=== PATIENT | male | born 1960 | race Caucasian/White ===

== ENCOUNTER → 2020-02-09 | Outpatient (CLI) | payer OTHER, SELFPAY ==
[2020-02-09 17:56] LABS: International Normalized Ratio 1.9; Prothrombin Time (Protime)PT. 21.2 SECONDS (11.7-14.9)
[2020-02-09 17:57] LABS: ALB/GLOB Ratio 0.6 RATIO (0.9-2.4); AST(SGOT) 35 U/L (15-37); Alanine Aminotransfer ALT/SGPT 45 U/L (16-61); Alkaline Phosphatase 278 U/L (45-117); Anion Gap 6 (5-15); BUN 21 mg/dL (7-18); BUN/Creat Ratio 26.9 RATIO (10-20); Calcium,Total 8.9 mg/dL (8.5-10.1); Chloride 109 mmol/L (98-107); Creatinine, Serum 0.78 mg/dL (0.70-1.30); EST Glomerular Filtration Rate 108 mL/min (>60); Est Glom Filt Rate - Afr Amer 131 mL/min (>60); Globulin 4.9 g/dL (2.2-4.2); Glucose 126 mg/dL (74-106); Partial Thromboplast Time 36.5 Seconds (24.1-36.2); Potassium 4.1 mmol/L (3.5-5.1); Protein, Total 7.9 g/dL (6.4-8.2); Sodium Level 146 mmol/L (136-145)
[2020-02-10 13:45] LABS: GGTP 417 U/L (15-85)
[2020-02-11 16:39] LABS: AFP, Tumor Marker 1.8 ng/mL (0.0-8.3)
[2020-02-12 02:11] LABS: ANTINUCLEAR ANTIBODIES DIRECT Negative (Negative); Anti-Mitochondrial AB <20.0 Units (0.0-20.0)
== END | disposition home or self-care (01) ==
LOC: MTLAB 16:12
PROVIDERS: PCP Nurse Practitioner Family; Referring Provider Internal Medicine Gastroenterology; Visit Provider Internal Medicine Gastroenterology
DX: K76.0 Fatty (change of) liver, not elsewhere classified (principal); K75.9 Inflammatory liver disease, unspecified
CPT/HCPCS: 36415; 80053; 82105; 82977; 83516; 85610; 85730; 86038

== ENCOUNTER 2020-02-24 11:15 | Outpatient (RCR) | payer OTHER, SELFPAY ==
[2020-02-10 10:10] VITALS: BP 164/86; PULSE 129; RESP 18; TEMP 36.6
[2020-02-10 13:00] LABS: Absolute Lymphocyte Count 1.08 X10^3/uL (0.83-4.51); Absolute Neutrophil Count 3.6 X10^3/uL (2.0-7.7); Basophil# 0.03 X10^3/uL; Basophil% 0.6 % (0-1); Eosinophil# 0.18 X10^3/uL; Eosinophils% 3.3 % (0-5); Hematocrit 29.9 % (40-54); Hemoglobin 8.3 g/dL (13.0-16.5); Lymphocyte # 1.08 X10^3/ul (4.0); Mean Corp Hgb Conc 27.8 g/dL (32-36); Mean Corpuscular Hgb 22.4 pg (27.0-32.0); Mean Corpuscular Volume 80.8 fL (80-94); Mean Platelet Vol. 9.4 fl (6.2-12.0); Monocyte# 0.46 X10^3/uL; Monocyte% 8.5 % (0-10); NRBC Flagged by Analyzer 0 % (0-5); Neutrophil # 3.62 X10^3/uL (2.7-7.7); Neutrophil % 67.2 % (47-70); Platelet Count 218 K/mm3 (150-450); RBC Distribution Width CV 16.6 % (11.6-14.6); RBC Distribution Width SD 48.4 fl (35.1-43.9); White Blood Count 5.4 K/mm3 (4.4-11.0)
--- NOTE | 2020-02-10 13:04 | HP.PCM_ITS ---
(1) Ulcer of right lower extremity with fat layer exposed Status: Chronic Current Visit: Yes Code(s): L97.912 - Non-pressure chronic ulcer of unspecified part of right lower leg with fat layer exposed (2) Ulcer of left lower extremity with fat layer exposed Status: Chronic Current Visit: Yes Code(s): L97.922 - Non-pressure chronic ulcer of unspecified part of left lower leg with fat layer exposed (3) Other specified peripheral vascular diseases Status: Suspected Current Visit: Yes Code(s): I73.89 - Other specified peripheral vascular diseases (4) Venous insufficiency (chronic) (peripheral) Status: Suspected Current Visit: Yes Code(s): I87.2 - Venous insufficiency (chronic) (peripheral) (5) Bilateral leg edema Status: Chronic Current Visit: Yes Code(s): R60.0 - Localized edema History of Present Illness Date of Service: 02/10/20 Past Medical History Past Medical History: Chronic Problems Ulcer of right lower extremity with fat layer exposed (Chronic) Ulcer of left lower extremity with fat layer exposed (Chronic) Bilateral leg edema (Chronic) Allergies/Adverse Reactions: Allergies dexamethasone Adverse Reaction (Verified 02/10/20 10:45) PT UNSURE OF REACTION hydrochlorothiazide Adverse Reaction (Verified 02/10/20 10:45) MUSCLE CRAMPS Home Medications: Ambulatory Orders Medication Instructions Recorded Amlodipine [Norvasc] 10 mg PO DAILY 02/10/20 Aspirin [Aspirin EC] 81 mg PO DAILY 02/10/20 Furosemide 40 mg PO DAILY 02/10/20 Lactobacillus Acidophilus 1 ea PO DAILY 02/10/20 [Acidophilus] Lisinopril 40 mg PO DAILY 02/10/20 Metoprolol Tartrate 50 mg PO BID 02/10/20 Potassium Chloride 20 meq PO DAILY 02/10/20 Rivaroxaban [Xarelto] 20 mg PO DAILY 02/10/20 Smoking Status: Never smoker - Physical Exam Vital Signs Temp Pulse Resp BP 98 F 129 H 18 164/86 H 02/10/20 10:10 02/10/20 10:10 02/10/20 10:10 02/10/20 10:10 Wound Measurements and Assessment WC - Nurse 1 - General Ulcer Measurement Start: 02/10/20 10:09 Freq: Status: Active Protocol: Activity Type Activity Date Activity User E-Sign Co-Sign Detail Recorded Client Recorded Date Recorded By Document 02/10/20 10:10 [facility] [id number] 02/10/20 10:39 [facility] 02/10/20 10:10 Wound Center Nurse 1 [Ulcer Assessment] #6- L LAT LE INFERIOR -Combined with other wound No -Current Size (cm) - Length 4.5 -Current Size (cm) - Width 1.7 -Current Size (cm) - Depth 0.2 -Total Square Cm 7.65 -Date of Last Picture (Recall this 02/10/20 field) -Photo Taken Yes -Epithelialization None Present -Tunneling No -Undermining/Tunneling No -Circular Undermining No -Exudate Amt Small -Exudate Type Serous -Wound Margin Distinct, Outline Attached -Granulation Amt Small (1-33%) -Granulation Quality Red -Slough/Fibrin Yes -Necrosis Amt Large (67-100%) -Necrotic Tissue Type Adherent Slough -Texture (Isela-wound Skin Appearance) Assessed, Scarring -Moisture (Isela-wound Skin Appearance Assessed,Dry/ ) Scaly -Color (Isela-wound Skin Appearance) Assessed, Erythema -Temperature (Isela-wound Skin No Abnormality Appearance) (Pt Warm) -Tenderness on Palpation (Isela-wound No Skin Appearance) -Ulcer Cleansing SOAPY WATER -Foul Odor after Cleansing No -Anesthetic Used 4% Lidocaine Solution #5- L LAT LE SUPERIOR -Combined with other wound No -Current Size (cm) - Length 2.6 -Current Size (cm) - Width 1.2 -Current Size (cm) - Depth 0.2 -Total Square Cm 3.12 -Date of Last Picture (Recall this 02/10/20 field) -Photo Taken Yes -Epithelialization None Present -Tunneling No -Undermining/Tunneling No -Circular Undermining No -Exudate Amt Small -Exudate Type Serous -Wound Margin Distinct, Outline Attached -Granulation Amt Small (1-33%) -Granulation Quality Red -Slough/Fibrin Yes -Necrosis Amt Large (67-100%) -Necrotic Tissue Type Adherent Slough -Texture (Isela-wound Skin Appearance) Assessed, Scarring -Moisture (Isela-wound Skin Appearance Assessed,Dry/ ) Scaly -Color (Isela-wound Skin Appearance) Assessed, Erythema -Temperature (Isela-wound Skin No Abnormality Appearance) (Pt Warm) -Tenderness on Palpation (Isela-wound No Skin Appearance) -Ulcer Cleansing SOAPY WATER -Foul Odor after Cleansing No -Anesthetic Used 4% Lidocaine Solution #4 L LAT ANKLE -Combined with other wound No -Current Size (cm) - Length 3 -Current Size (cm) - Width 2 -Current Size (cm) - Depth 0.3 -Total Square Cm 6 -Date of Last Picture (Recall this 02/10/20 field) -Photo Taken Yes -Epithelialization None Present -Tunneling No -Undermining/Tunneling No -Circular Undermining No -Exudate Amt Small -Exudate Type Serous -Wound Margin Thickened -Granulation Amt Small (1-33%) -Granulation Quality Red -Slough/Fibrin Yes -Necrosis Amt Large (67-100%) -Necrotic Tissue Type Adherent Slough -Texture (Isela-wound Skin Appearance) Assessed, Scarring -Moisture (Isela-wound Skin Appearance Assessed,Dry/ ) Scaly -Color (Isela-wound Skin Appearance) Assessed, Erythema -Temperature (Isela-wound Skin No Abnormality Appearance) (Pt Warm) -Tenderness on Palpation (Isela-wound No Skin Appearance) -Ulcer Cleansing SOAPY WATER -Foul Odor after Cleansing No -Anesthetic Used 4% Lidocaine Solution #3 L MED ANKLE CLUSTER -Combined with other wound No -Current Size (cm) - Length 4.6 -Current Size (cm) - Width 3 -Current Size (cm) - Depth 0.3 -Total Square Cm 13.8 -Date of Last Picture (Recall this 02/10/20 field) -Photo Taken Yes -Epithelialization None Present -Tunneling No -Undermining/Tunneling No -Circular Undermining No -Exudate Amt Small -Exudate Type Serous -Wound Margin Thickened -Granulation Amt Small (1-33%) -Granulation Quality Red -Slough/Fibrin Yes -Necrosis Amt Large (67-100%) -Necrotic Tissue Type Adherent Slough -Texture (Isela-wound Skin Appearance) Assessed, Scarring -Moisture (Isela-wound Skin Appearance Assessed,Dry/ ) Scaly -Color (Isela-wound Skin Appearance) Assessed, Erythema -Temperature (Isela-wound Skin No Abnormality Appearance) (Pt Warm) -Tenderness on Palpation (Isela-wound No Skin Appearance) -Ulcer Cleansing SOAPY WATER -Foul Odor after Cleansing No -Anesthetic Used 4% Lidocaine Solution #2- R LAT ANKLE CLUSTER -Combined with other wound No -Current Size (cm) - Length 5.2 -Current Size (cm) - Width 3.4 -Current Size (cm) - Depth 0.2 -Total Square Cm 17.68 -Date of Last Picture (Recall this 02/10/20 field) -Photo Taken Yes -Epithelialization None Present -Tunneling No -Undermining/Tunneling No -Circular Undermining No -Exudate Amt Small -Exudate Type Serous -Wound Margin Thickened -Granulation Amt Small (1-33%) -Granulation Quality Red -Slough/Fibrin Yes -Necrosis Amt Large (67-100%) -Necrotic Tissue Type Adherent Slough -Texture (Isela-wound Skin Appearance) Assessed, Scarring -Moisture (Isela-wound Skin Appearance Assessed,Dry/ ) Scaly -Color (Isela-wound Skin Appearance) Assessed, Erythema -Temperature (Isela-wound Skin No Abnormality Appearance) (Pt Warm) -Tenderness on Palpation (Isela-wound No Skin Appearance) -Ulcer Cleansing SOAPY WATER -Foul Odor after Cleansing No -Anesthetic Used 4% Lidocaine Solution #1- R MED ANKLE CLUSTER -Combined with other wound No -Current Size (cm) - Length 6.1 -Current Size (cm) - Width 3.5 -Current Size (cm) - Depth 0.2 -Total Square Cm 21.35 -Date of Last Picture (Recall this 02/10/20 field) -Photo Taken Yes -Epithelialization None Present -Tunneling No -Undermining/Tunneling No -Circular Undermining No -Exudate Amt Small -Exudate Type Serous -Wound Margin Thickened -Granulation Amt Small (1-33%) -Granulation Quality Red -Slough/Fibrin Yes -Necrosis Amt Large (67-100%) -Necrotic Tissue Type Adherent Slough -Texture (Isela-wound Skin Appearance) Assessed, Scarring -Moisture (Isela-wound Skin Appearance Assessed,Dry/ ) Scaly -Color (Isela-wound Skin Appearance) Assessed, Erythema -Temperature (Isela-wound Skin No Abnormality Appearance) (Pt Warm) -Tenderness on Palpation (Isela-wound No Skin Appearance) -Ulcer Cleansing SOAPY WATER -Foul Odor after Cleansing No -Anesthetic Used 4% Lidocaine Solution [Edema Assessment] -Lower Limb Edema Present Yes -Right Calf (cm) 41.3 -Right Ankle (cm) 24.8 -Left Calf (cm) 42.1 -Left Ankle (cm) 25.5 WC - Nurse 2 - General Ulcer CM Notes Start: 02/10/20 10:09 Freq: Status: Active Protocol: Activity Type Activity Date Activity User E-Sign Co-Sign Detail Recorded Client Recorded Date Recorded By Document 02/10/20 11:06 WILLIE [id number] 02/10/20 11:13 WILLIE 02/10/20 11:06 Wound Center Nurse 2 [Procedure/Treatment] #6- L LAT LE INFERIOR -Time 11:08 -Correct Patient Yes -Correct Side, Site, Position Yes -Correct Procedure Yes -Procedure Performed Yes -Type of Procedure Debridement -Clinical Debridement Subcutaneous -Tissue Removed Subcutaneous -Post Debridement (cm) - Length 4.5 -Post Debridement (cm) - Width 1.8 -Post Debridement (cm) - Depth 0.2 -Total Square (Post) (cm) 8.10 -Area of Debridement (cm) - Length 4.5 -Area of Debridement (cm) - Width 1.8 -Total Square (Area) (cm) 8.10 -Tunneling No -Undermining/Tunneling No -Circular Undermining No -Wound/Ulcer Outcome Not Healed -Ulcer Cleansing Rinsed/ Irrigated with Saline -Foul Odor after Cleansing No -Bioengineered Tissue No -Bleeding Controlled with Pressure -Offloading No -Treatment Response Procedure Tolerated Well -Debridement - Subq, 1st 20sq cm Yes #5- L LAT LE SUPERIOR -Time 11:08 -Correct Patient Yes -Correct Side, Site, Position Yes -Correct Procedure Yes -Procedure Performed Yes -Type of Procedure Debridement -Clinical Debridement Subcutaneous -Tissue Removed Subcutaneous -Post Debridement (cm) - Length 2.6 -Post Debridement (cm) - Width 1.3 -Post Debridement (cm) - Depth 0.3 -Total Square (Post) (cm) 3.38 -Area of Debridement (cm) - Length 2.6 -Area of Debridement (cm) - Width 1.3 -Total Square (Area) (cm) 3.38 -Tunneling No -Undermining/Tunneling No -Circular Undermining No -Wound/Ulcer Outcome Not Healed -Ulcer Cleansing Rinsed/ Irrigated with Saline -Foul Odor after Cleansing No -Bioengineered Tissue No -Bleeding Controlled with Pressure -Offloading No -Treatment Response Procedure Tolerated Well -Debridement - Subq, 1st 20sq cm No #4 L LAT ANKLE -Time 11:09 -Correct Patient Yes -Correct Side, Site, Position Yes -Correct Procedure Yes -Procedure Performed Yes -Type of Procedure Debridement -Clinical Debridement Subcutaneous -Tissue Removed Subcutaneous -Post Debridement (cm) - Length 3.1 -Post Debridement (cm) - Width 2.1 -Post Debridement (cm) - Depth 0.3 -Total Square (Post) (cm) 6.51 -Area of Debridement (cm) - Length 3.1 -Area of Debridement (cm) - Width 2.1 -Total Square (Area) (cm) 6.51 -Tunneling No -Undermining/Tunneling No -Circular Undermining No -Wound/Ulcer Outcome Not Healed -Ulcer Cleansing Rinsed/ Irrigated with Saline -Foul Odor after Cleansing No -Bioengineered Tissue No -Bleeding Controlled with Pressure -Offloading No -Treatment Response Procedure Tolerated Well -Debridement - Subq, 1st 20sq cm No #3 L MED ANKLE CLUSTER -Time 11:10 -Correct Patient Yes -Correct Side, Site, Position Yes -Correct Procedure Yes -Procedure Performed Yes -Type of Procedure Debridement -Clinical Debridement Subcutaneous -Tissue Removed Subcutaneous -Post Debridement (cm) - Length 4.6 -Post Debridement (cm) - Width 3.1 -Post Debridement (cm) - Depth 0.3 -Total Square (Post) (cm) 14.26 -Area of Debridement (cm) - Length 4.6 -Area of Debridement (cm) - Width 3.1 -Total Square (Area) (cm) 14.26 -Tunneling No -Undermining/Tunneling No -Circular Undermining No -Wound/Ulcer Outcome Not Healed -Ulcer Cleansing Rinsed/ Irrigated with Saline -Foul Odor after Cleansing No -Bioengineered Tissue No -Bleeding Controlled with Pressure -Offloading No -Treatment Response Procedure Tolerated Well -Debridement - Subq, 1st 20sq cm Yes #2- R LAT ANKLE CLUSTER -Time 11:11 -Correct Patient Yes -Correct Side, Site, Position Yes -Correct Procedure Yes -Procedure Performed Yes -Type of Procedure Debridement -Clinical Debridement Subcutaneous -Tissue Removed Subcutaneous -Post Debridement (cm) - Length 5.3 -Post Debridement (cm) - Width 3.5 -Post Debridement (cm) - Depth 0.2 -Total Square (Post) (cm) 18.55 -Area of Debridement (cm) - Length 5.3 -Area of Debridement (cm) - Width 3.5 -Total Square (Area) (cm) 18.55 -Tunneling No -Undermining/Tunneling No -Circular Undermining No -Wound/Ulcer Outcome Not Healed -Ulcer Cleansing Rinsed/ Irrigated with Saline -Foul Odor after Cleansing No -Bioengineered Tissue No -Bleeding Controlled with Pressure -Offloading No -Treatment Response Procedure Tolerated Well -Debridement - Subq, 1st 20sq cm No #1- R MED ANKLE CLUSTER -Time 11:12 -Correct Patient Yes -Correct Side, Site, Position Yes -Correct Procedure Yes -Procedure Performed Yes -Type of Procedure Debridement -Clinical Debridement Subcutaneous -Tissue Removed Subcutaneous -Post Debridement (cm) - Length 6.2 -Post Debridement (cm) - Width 3.5 -Post Debridement (cm) - Depth 0.2 -Total Square (Post) (cm) 21.70 -Area of Debridement (cm) - Length 6.2 -Area of Debridement (cm) - Width 3.5 -Total Square (Area) (cm) 21.70 -Tunneling No -Undermining/Tunneling No -Circular Undermining No -Wound/Ulcer Outcome Not Healed -Ulcer Cleansing Rinsed/ Irrigated with Saline -Foul Odor after Cleansing No -Bioengineered Tissue No -Bleeding Controlled with Pressure -Offloading No -Treatment Response Procedure Tolerated Well -Debridement - Subq, 1st 20sq cm No [See Physician Procedure note for Specifics] Pain Scale: 0-10 Numeric [Pain] -Is Patient Pain Free? Yes Debridement Note Post-Debridement Measurements/Treatment WC - Nurse 2 - General Ulcer CM Notes Start: 02/10/20 10:09 Freq: Status: Active Protocol: Activity Type Activity Date Activity User E-Sign Co-Sign Detail Recorded Client Recorded Date Recorded By Document 02/10/20 11:06 WILLIE [id number] 02/10/20 11:13 WILLIE 02/10/20 11:06 Wound Center Nurse 2 #6- L LAT LE INFERIOR -Time 11:08 -Correct Patient Yes -Correct Side, Site, Position Yes -Correct Procedure Yes -Procedure Performed Yes -Type of Procedure Debridement -Clinical Debridement Subcutaneous -Tissue Removed Subcutaneous -Post Debridement (cm) - Length 4.5 -Post Debridement (cm) - Width 1.8 -Post Debridement (cm) - Depth 0.2 -Total Square (Post) (cm) 8.10 -Area of Debridement (cm) - Length 4.5 -Area of Debridement (cm) - Width 1.8 -Total Square (Area) (cm) 8.10 -Tunneling No -Undermining/Tunneling No -Circular Undermining No -Wound/Ulcer Outcome Not Healed -Ulcer Cleansing Rinsed/ Irrigated with Saline -Foul Odor after Cleansing No -Bioengineered Tissue No -Bleeding Controlled with Pressure -Offloading No -Treatment Response Procedure Tolerated Well -Debridement - Subq, 1st 20sq cm Yes #5- L LAT LE SUPERIOR -Time 11:08 -Correct Patient Yes -Correct Side, Site, Position Yes -Correct Procedure Yes -Procedure Performed Yes -Type of Procedure Debridement -Clinical Debridement Subcutaneous -Tissue Removed Subcutaneous -Post Debridement (cm) - Length 2.6 -Post Debridement (cm) - Width 1.3 -Post Debridement (cm) - Depth 0.3 -Total Square (Post) (cm) 3.38 -Area of Debridement (cm) - Length 2.6 -Area of Debridement (cm) - Width 1.3 -Total Square (Area) (cm) 3.38 -Tunneling No -Undermining/Tunneling No -Circular Undermining No -Wound/Ulcer Outcome Not Healed -Ulcer Cleansing Rinsed/ Irrigated with Saline -Foul Odor after Cleansing No -Bioengineered Tissue No -Bleeding Controlled with Pressure -Offloading No -Treatment Response Procedure Tolerated Well -Debridement - Subq, 1st 20sq cm No #4 L LAT ANKLE -Time 11:09 -Correct Patient Yes -Correct Side, Site, Position Yes -Correct Procedure Yes -Procedure Performed Yes -Type of Procedure Debridement -Clinical Debridement Subcutaneous -Tissue Removed Subcutaneous -Post Debridement (cm) - Length 3.1 -Post Debridement (cm) - Width 2.1 -Post Debridement (cm) - Depth 0.3 -Total Square (Post) (cm) 6.51 -Area of Debridement (cm) - Length 3.1 -Area of Debridement (cm) - Width 2.1 -Total Square (Area) (cm) 6.51 -Tunneling No -Undermining/Tunneling No -Circular Undermining No -Wound/Ulcer Outcome Not Healed -Ulcer Cleansing Rinsed/ Irrigated with Saline -Foul Odor after Cleansing No -Bioengineered Tissue No -Bleeding Controlled with Pressure -Offloading No -Treatment Response Procedure Tolerated Well -Debridement - Subq, 1st 20sq cm No #3 L MED ANKLE CLUSTER -Time 11:10 -Correct Patient Yes -Correct Side, Site, Position Yes -Correct Procedure Yes -Procedure Performed Yes -Type of Procedure Debridement -Clinical Debridement Subcutaneous -Tissue Removed Subcutaneous -Post Debridement (cm) - Length 4.6 -Post Debridement (cm) - Width 3.1 -Post Debridement (cm) - Depth 0.3 -Total Square (Post) (cm) 14.26 -Area of Debridement (cm) - Length 4.6 -Area of Debridement (cm) - Width 3.1 -Total Square (Area) (cm) 14.26 -Tunneling No -Undermining/Tunneling No -Circular Undermining No -Wound/Ulcer Outcome Not Healed -Ulcer Cleansing Rinsed/ Irrigated with Saline -Foul Odor after Cleansing No -Bioengineered Tissue No -Bleeding Controlled with Pressure -Offloading No -Treatment Response Procedure Tolerated Well -Debridement - Subq, 1st 20sq cm Yes #2- R LAT ANKLE CLUSTER -Time 11:11 -Correct Patient Yes -Correct Side, Site, Position Yes -Correct Procedure Yes -Procedure Performed Yes -Type of Procedure Debridement -Clinical Debridement Subcutaneous -Tissue Removed Subcutaneous -Post Debridement (cm) - Length 5.3 -Post Debridement (cm) - Width 3.5 -Post Debridement (cm) - Depth 0.2 -Total Square (Post) (cm) 18.55 -Area of Debridement (cm) - Length 5.3 -Area of Debridement (cm) - Width 3.5 -Total Square (Area) (cm) 18.55 -Tunneling No -Undermining/Tunneling No -Circular Undermining No -Wound/Ulcer Outcome Not Healed -Ulcer Cleansing Rinsed/ Irrigated with Saline -Foul Odor after Cleansing No -Bioengineered Tissue No -Bleeding Controlled with Pressure -Offloading No -Treatment Response Procedure Tolerated Well -Debridement - Subq, 1st 20sq cm No #1- R MED ANKLE CLUSTER -Time 11:12 -Correct Patient Yes -Correct Side, Site, Position Yes -Correct Procedure Yes -Procedure Performed Yes -Type of Procedure Debridement -Clinical Debridement Subcutaneous -Tissue Removed Subcutaneous -Post Debridement (cm) - Length 6.2 -Post Debridement (cm) - Width 3.5 -Post Debridement (cm) - Depth 0.2 -Total Square (Post) (cm) 21.70 -Area of Debridement (cm) - Length 6.2 -Area of Debridement (cm) - Width 3.5 -Total Square (Area) (cm) 21.70 -Tunneling No -Undermining/Tunneling No -Circular Undermining No -Wound/Ulcer Outcome Not Healed -Ulcer Cleansing Rinsed/ Irrigated with Saline -Foul Odor after Cleansing No -Bioengineered Tissue No -Bleeding Controlled with Pressure -Offloading No -Treatment Response Procedure Tolerated Well -Debridement - Subq, 1st 20sq cm No Pain Scale: 0-10 Numeric Is Patient Pain Free? Yes Assessment/Plan Active Problems Ulcer of right lower extremity with fat layer exposed (Chronic) Ulcer of left lower extremity with fat layer exposed (Chronic) Bilateral leg edema (Chronic)
--- NOTE | 2020-02-10 13:09 | HP.PCM_ITS ---
(1) Ulcer of right lower extremity with fat layer exposed Status: Chronic Code(s): L97.912 - Non-pressure chronic ulcer of unspecified part of right lower leg with fat layer exposed (2) Ulcer of left lower extremity with fat layer exposed Status: Chronic Code(s): L97.922 - Non-pressure chronic ulcer of unspecified part of left lower leg with fat layer exposed (3) Other specified peripheral vascular diseases Status: Suspected Code(s): I73.89 - Other specified peripheral vascular diseases (4) Venous insufficiency (chronic) (peripheral) Status: Suspected Code(s): I87.2 - Venous insufficiency (chronic) (peripheral) (5) Bilateral leg edema Status: Chronic Code(s): R60.0 - Localized edema History of Present Illness Date of Service: 02/10/20 Chief Complaint: Leg ulcers History of Wound: This 60-year-old male presents to the wound healing clinic today with delayed healing wounds that is been present for over 1 month duration. He denies specific trauma. He has ongoing leg swelling. He denies prior treatments for this. He denies claudication. He has some rest paresthesias. He denies having diabetes but relates he was previously told that he was borderline diabetic. His leg swelling relates is sometimes hard for him to lay flat. He denies current fever, chill, nausea, vomiting. These ulcers are not painful. Past Medical History Past Medical History: Chronic Problems Ulcer of right lower extremity with fat layer exposed (Chronic) Ulcer of left lower extremity with fat layer exposed (Chronic) Bilateral leg edema (Chronic) Past Medical History: hyperlipidemia, hypertension, atrial fibrillation, diabetes Surgical History: - - right middle finger repair, left rot. cuff repair Allergies/Adverse Reactions: Allergies dexamethasone Adverse Reaction (Verified 02/10/20 10:45) PT UNSURE OF REACTION hydrochlorothiazide Adverse Reaction (Verified 02/10/20 10:45) MUSCLE CRAMPS Home Medications: Ambulatory Orders Medication Instructions Recorded Amlodipine [Norvasc] 10 mg PO DAILY 02/10/20 Aspirin [Aspirin EC] 81 mg PO DAILY 02/10/20 Furosemide 40 mg PO DAILY 02/10/20 Lactobacillus Acidophilus 1 ea PO DAILY 02/10/20 [Acidophilus] Lisinopril 40 mg PO DAILY 02/10/20 Metoprolol Tartrate 50 mg PO BID 02/10/20 Potassium Chloride 20 meq PO DAILY 02/10/20 Rivaroxaban [Xarelto] 20 mg PO DAILY 02/10/20 Smoking Status: Never smoker Tobacco Use: Non-smoker Alcohol: None, Rare Drugs: None Review of Systems Constitutional: Denies: Chills, Fever, Malaise HEENT: Denies: Sore Throat Cardiovascular: Denies: Chest Pain, Claudication Respiratory: Denies: Cough Gastrointestinal: Denies: Nausea, Vomiting Musculoskeletal: Denies: Foot Pain, Joint Tenderness, Leg Pain Skin: Reports: Skin Changes, Wounds Neurological: Reports: Incoordination, Numbness Psychiatric: Denies: Anxiety Endocrine: Reports: Change in Body Habitus Hematologic/ Lymphatic: Denies: Easy Bruising - Physical Exam Vital Signs Temp Pulse Resp BP 98 F 129 H 18 164/86 H 02/10/20 10:10 02/10/20 10:10 02/10/20 10:10 02/10/20 10:10 General: Alert, Oriented x3, Cooperative, No apparent distress HEENT: Atraumatic Extremities: No cyanosis, Capillary Refill Less than 3 Seconds, No Calf Tenderness - Negative Hitesh and Sierra signs bilateral compartments are soft to palpate bilateral lower extremities, Diminished Peripheral Pulses, Edema Skin: Ulcer/ Wound - No erythema, streaking, odor, infection. His skin is hypopigmented. Skin discontinuity with granular fibrous base Wound Measurements and Assessment WC - Nurse 1 - General Ulcer Measurement Start: 02/10/20 10:09 Freq: Status: Active Protocol: Activity Type Activity Date Activity User E-Sign Co-Sign Detail Recorded Client Recorded Date Recorded By Document 02/10/20 10:10 [facility] [id number] 02/10/20 10:39 [facility] 02/10/20 10:10 Wound Center Nurse 1 [Ulcer Assessment] #6- L LAT LE INFERIOR -Combined with other wound No -Current Size (cm) - Length 4.5 -Current Size (cm) - Width 1.7 -Current Size (cm) - Depth 0.2 -Total Square Cm 7.65 -Date of Last Picture (Recall this 02/10/20 field) -Photo Taken Yes -Epithelialization None Present -Tunneling No -Undermining/Tunneling No -Circular Undermining No -Exudate Amt Small -Exudate Type Serous -Wound Margin Distinct, Outline Attached -Granulation Amt Small (1-33%) -Granulation Quality Red -Slough/Fibrin Yes -Necrosis Amt Large (67-100%) -Necrotic Tissue Type Adherent Slough -Texture (Isela-wound Skin Appearance) Assessed, Scarring -Moisture (Isela-wound Skin Appearance Assessed,Dry/ ) Scaly -Color (Isela-wound Skin Appearance) Assessed, Erythema -Temperature (Isela-wound Skin No Abnormality Appearance) (Pt Warm) -Tenderness on Palpation (Isela-wound No Skin Appearance) -Ulcer Cleansing SOAPY WATER -Foul Odor after Cleansing No -Anesthetic Used 4% Lidocaine Solution #5- L LAT LE SUPERIOR -Combined with other wound No -Current Size (cm) - Length 2.6 -Current Size (cm) - Width 1.2 -Current Size (cm) - Depth 0.2 -Total Square Cm 3.12 -Date of Last Picture (Recall this 02/10/20 field) -Photo Taken Yes -Epithelialization None Present -Tunneling No -Undermining/Tunneling No -Circular Undermining No -Exudate Amt Small -Exudate Type Serous -Wound Margin Distinct, Outline Attached -Granulation Amt Small (1-33%) -Granulation Quality Red -Slough/Fibrin Yes -Necrosis Amt Large (67-100%) -Necrotic Tissue Type Adherent Slough -Texture (Isela-wound Skin Appearance) Assessed, Scarring -Moisture (Isela-wound Skin Appearance Assessed,Dry/ ) Scaly -Color (Isela-wound Skin Appearance) Assessed, Erythema -Temperature (Isela-wound Skin No Abnormality Appearance) (Pt Warm) -Tenderness on Palpation (Isela-wound No Skin Appearance) -Ulcer Cleansing SOAPY WATER -Foul Odor after Cleansing No -Anesthetic Used 4% Lidocaine Solution #4 L LAT ANKLE -Combined with other wound No -Current Size (cm) - Length 3 -Current Size (cm) - Width 2 -Current Size (cm) - Depth 0.3 -Total Square Cm 6 -Date of Last Picture (Recall this 02/10/20 field) -Photo Taken Yes -Epithelialization None Present -Tunneling No -Undermining/Tunneling No -Circular Undermining No -Exudate Amt Small -Exudate Type Serous -Wound Margin Thickened -Granulation Amt Small (1-33%) -Granulation Quality Red -Slough/Fibrin Yes -Necrosis Amt Large (67-100%) -Necrotic Tissue Type Adherent Slough -Texture (Isela-wound Skin Appearance) Assessed, Scarring -Moisture (Isela-wound Skin Appearance Assessed,Dry/ ) Scaly -Color (Isela-wound Skin Appearance) Assessed, Erythema -Temperature (Isela-wound Skin No Abnormality Appearance) (Pt Warm) -Tenderness on Palpation (Isela-wound No Skin Appearance) -Ulcer Cleansing SOAPY WATER -Foul Odor after Cleansing No -Anesthetic Used 4% Lidocaine Solution #3 L MED ANKLE CLUSTER -Combined with other wound No -Current Size (cm) - Length 4.6 -Current Size (cm) - Width 3 -Current Size (cm) - Depth 0.3 -Total Square Cm 13.8 -Date of Last Picture (Recall this 02/10/20 field) -Photo Taken Yes -Epithelialization None Present -Tunneling No -Undermining/Tunneling No -Circular Undermining No -Exudate Amt Small -Exudate Type Serous -Wound Margin Thickened -Granulation Amt Small (1-33%) -Granulation Quality Red -Slough/Fibrin Yes -Necrosis Amt Large (67-100%) -Necrotic Tissue Type Adherent Slough -Texture (Isela-wound Skin Appearance) Assessed, Scarring -Moisture (Isela-wound Skin Appearance Assessed,Dry/ ) Scaly -Color (Isela-wound Skin Appearance) Assessed, Erythema -Temperature (Isela-wound Skin No Abnormality Appearance) (Pt Warm) -Tenderness on Palpation (Isela-wound No Skin Appearance) -Ulcer Cleansing SOAPY WATER -Foul Odor after Cleansing No -Anesthetic Used 4% Lidocaine Solution #2- R LAT ANKLE CLUSTER -Combined with other wound No -Current Size (cm) - Length 5.2 -Current Size (cm) - Width 3.4 -Current Size (cm) - Depth 0.2 -Total Square Cm 17.68 -Date of Last Picture (Recall this 02/10/20 field) -Photo Taken Yes -Epithelialization None Present -Tunneling No -Undermining/Tunneling No -Circular Undermining No -Exudate Amt Small -Exudate Type Serous -Wound Margin Thickened -Granulation Amt Small (1-33%) -Granulation Quality Red -Slough/Fibrin Yes -Necrosis Amt Large (67-100%) -Necrotic Tissue Type Adherent Slough -Texture (Isela-wound Skin Appearance) Assessed, Scarring -Moisture (Isela-wound Skin Appearance Assessed,Dry/ ) Scaly -Color (Isela-wound Skin Appearance) Assessed, Erythema -Temperature (Isela-wound Skin No Abnormality Appearance) (Pt Warm) -Tenderness on Palpation (Isela-wound No Skin Appearance) -Ulcer Cleansing SOAPY WATER -Foul Odor after Cleansing No -Anesthetic Used 4% Lidocaine Solution #1- R MED ANKLE CLUSTER -Combined with other wound No -Current Size (cm) - Length 6.1 -Current Size (cm) - Width 3.5 -Current Size (cm) - Depth 0.2 -Total Square Cm 21.35 -Date of Last Picture (Recall this 02/10/20 field) -Photo Taken Yes -Epithelialization None Present -Tunneling No -Undermining/Tunneling No -Circular Undermining No -Exudate Amt Small -Exudate Type Serous -Wound Margin Thickened -Granulation Amt Small (1-33%) -Granulation Quality Red -Slough/Fibrin Yes -Necrosis Amt Large (67-100%) -Necrotic Tissue Type Adherent Slough -Texture (Isela-wound Skin Appearance) Assessed, Scarring -Moisture (Isela-wound Skin Appearance Assessed,Dry/ ) Scaly -Color (Isela-wound Skin Appearance) Assessed, Erythema -Temperature (Isela-wound Skin No Abnormality Appearance) (Pt Warm) -Tenderness on Palpation (Isela-wound No Skin Appearance) -Ulcer Cleansing SOAPY WATER -Foul Odor after Cleansing No -Anesthetic Used 4% Lidocaine Solution [Edema Assessment] -Lower Limb Edema Present Yes -Right Calf (cm) 41.3 -Right Ankle (cm) 24.8 -Left Calf (cm) 42.1 -Left Ankle (cm) 25.5 WC - Nurse 2 - General Ulcer CM Notes Start: 02/10/20 10:09 Freq: Status: Active Protocol: Activity Type Activity Date Activity User E-Sign Co-Sign Detail Recorded Client Recorded Date Recorded By Document 02/10/20 11:06 WILLIE [id number] 02/10/20 11:13 WILLIE 02/10/20 11:06 Wound Center Nurse 2 [Procedure/Treatment] #6- L LAT LE INFERIOR -Time 11:08 -Correct Patient Yes -Correct Side, Site, Position Yes -Correct Procedure Yes -Procedure Performed Yes -Type of Procedure Debridement -Clinical Debridement Subcutaneous -Tissue Removed Subcutaneous -Post Debridement (cm) - Length 4.5 -Post Debridement (cm) - Width 1.8 -Post Debridement (cm) - Depth 0.2 -Total Square (Post) (cm) 8.10 -Area of Debridement (cm) - Length 4.5 -Area of Debridement (cm) - Width 1.8 -Total Square (Area) (cm) 8.10 -Tunneling No -Undermining/Tunneling No -Circular Undermining No -Wound/Ulcer Outcome Not Healed -Ulcer Cleansing Rinsed/ Irrigated with Saline -Foul Odor after Cleansing No -Bioengineered Tissue No -Bleeding Controlled with Pressure -Offloading No -Treatment Response Procedure Tolerated Well -Debridement - Subq, 1st 20sq cm Yes #5- L LAT LE SUPERIOR -Time 11:08 -Correct Patient Yes -Correct Side, Site, Position Yes -Correct Procedure Yes -Procedure Performed Yes -Type of Procedure Debridement -Clinical Debridement Subcutaneous -Tissue Removed Subcutaneous -Post Debridement (cm) - Length 2.6 -Post Debridement (cm) - Width 1.3 -Post Debridement (cm) - Depth 0.3 -Total Square (Post) (cm) 3.38 -Area of Debridement (cm) - Length 2.6 -Area of Debridement (cm) - Width 1.3 -Total Square (Area) (cm) 3.38 -Tunneling No -Undermining/Tunneling No -Circular Undermining No -Wound/Ulcer Outcome Not Healed -Ulcer Cleansing Rinsed/ Irrigated with Saline -Foul Odor after Cleansing No -Bioengineered Tissue No -Bleeding Controlled with Pressure -Offloading No -Treatment Response Procedure Tolerated Well -Debridement - Subq, 1st 20sq cm No #4 L LAT ANKLE -Time 11:09 -Correct Patient Yes -Correct Side, Site, Position Yes -Correct Procedure Yes -Procedure Performed Yes -Type of Procedure Debridement -Clinical Debridement Subcutaneous -Tissue Removed Subcutaneous -Post Debridement (cm) - Length 3.1 -Post Debridement (cm) - Width 2.1 -Post Debridement (cm) - Depth 0.3 -Total Square (Post) (cm) 6.51 -Area of Debridement (cm) - Length 3.1 -Area of Debridement (cm) - Width 2.1 -Total Square (Area) (cm) 6.51 -Tunneling No -Undermining/Tunneling No -Circular Undermining No -Wound/Ulcer Outcome Not Healed -Ulcer Cleansing Rinsed/ Irrigated with Saline -Foul Odor after Cleansing No -Bioengineered Tissue No -Bleeding Controlled with Pressure -Offloading No -Treatment Response Procedure Tolerated Well -Debridement - Subq, 1st 20sq cm No #3 L MED ANKLE CLUSTER -Time 11:10 -Correct Patient Yes -Correct Side, Site, Position Yes -Correct Procedure Yes -Procedure Performed Yes -Type of Procedure Debridement -Clinical Debridement Subcutaneous -Tissue Removed Subcutaneous -Post Debridement (cm) - Length 4.6 -Post Debridement (cm) - Width 3.1 -Post Debridement (cm) - Depth 0.3 -Total Square (Post) (cm) 14.26 -Area of Debridement (cm) - Length 4.6 -Area of Debridement (cm) - Width 3.1 -Total Square (Area) (cm) 14.26 -Tunneling No -Undermining/Tunneling No -Circular Undermining No -Wound/Ulcer Outcome Not Healed -Ulcer Cleansing Rinsed/ Irrigated with Saline -Foul Odor after Cleansing No -Bioengineered Tissue No -Bleeding Controlled with Pressure -Offloading No -Treatment Response Procedure Tolerated Well -Debridement - Subq, 1st 20sq cm Yes #2- R LAT ANKLE CLUSTER -Time 11:11 -Correct Patient Yes -Correct Side, Site, Position Yes -Correct Procedure Yes -Procedure Performed Yes -Type of Procedure Debridement -Clinical Debridement Subcutaneous -Tissue Removed Subcutaneous -Post Debridement (cm) - Length 5.3 -Post Debridement (cm) - Width 3.5 -Post Debridement (cm) - Depth 0.2 -Total Square (Post) (cm) 18.55 -Area of Debridement (cm) - Length 5.3 -Area of Debridement (cm) - Width 3.5 -Total Square (Area) (cm) 18.55 -Tunneling No -Undermining/Tunneling No -Circular Undermining No -Wound/Ulcer Outcome Not Healed -Ulcer Cleansing Rinsed/ Irrigated with Saline -Foul Odor after Cleansing No -Bioengineered Tissue No -Bleeding Controlled with Pressure -Offloading No -Treatment Response Procedure Tolerated Well -Debridement - Subq, 1st 20sq cm No #1- R MED ANKLE CLUSTER -Time 11:12 -Correct Patient Yes -Correct Side, Site, Position Yes -Correct Procedure Yes -Procedure Performed Yes -Type of Procedure Debridement -Clinical Debridement Subcutaneous -Tissue Removed Subcutaneous -Post Debridement (cm) - Length 6.2 -Post Debridement (cm) - Width 3.5 -Post Debridement (cm) - Depth 0.2 -Total Square (Post) (cm) 21.70 -Area of Debridement (cm) - Length 6.2 -Area of Debridement (cm) - Width 3.5 -Total Square (Area) (cm) 21.70 -Tunneling No -Undermining/Tunneling No -Circular Undermining No -Wound/Ulcer Outcome Not Healed -Ulcer Cleansing Rinsed/ Irrigated with Saline -Foul Odor after Cleansing No -Bioengineered Tissue No -Bleeding Controlled with Pressure -Offloading No -Treatment Response Procedure Tolerated Well -Debridement - Subq, 1st 20sq cm No [See Physician Procedure note for Specifics] Pain Scale: 0-10 Numeric [Pain] -Is Patient Pain Free? Yes Musculoskeletal: No Tenderness to Palpation of Joints or Extremities, Muscle Wasting Neurological: Sensory exam intact to light touch and pain, - Psych/Mental Status: Normal Affect, Appropriate Debridement Note Post-Debridement Measurements/Treatment WC - Nurse 2 - General Ulcer CM Notes Start: 02/10/20 10:09 Freq: Status: Active Protocol: Activity Type Activity Date Activity User E-Sign Co-Sign Detail Recorded Client Recorded Date Recorded By Document 02/10/20 11:06 WILLIE [id number] 02/10/20 11:13 WILLIE 02/10/20 11:06 Wound Center Nurse 2 #6- L LAT LE INFERIOR -Time 11:08 -Correct Patient Yes -Correct Side, Site, Position Yes -Correct Procedure Yes -Procedure Performed Yes -Type of Procedure Debridement -Clinical Debridement Subcutaneous -Tissue Removed Subcutaneous -Post Debridement (cm) - Length 4.5 -Post Debridement (cm) - Width 1.8 -Post Debridement (cm) - Depth 0.2 -Total Square (Post) (cm) 8.10 -Area of Debridement (cm) - Length 4.5 -Area of Debridement (cm) - Width 1.8 -Total Square (Area) (cm) 8.10 -Tunneling No -Undermining/Tunneling No -Circular Undermining No -Wound/Ulcer Outcome Not Healed -Ulcer Cleansing Rinsed/ Irrigated with Saline -Foul Odor after Cleansing No -Bioengineered Tissue No -Bleeding Controlled with Pressure -Offloading No -Treatment Response Procedure Tolerated Well -Debridement - Subq, 1st 20sq cm Yes #5- L LAT LE SUPERIOR -Time 11:08 -Correct Patient Yes -Correct Side, Site, Position Yes -Correct Procedure Yes -Procedure Performed Yes -Type of Procedure Debridement -Clinical Debridement Subcutaneous -Tissue Removed Subcutaneous -Post Debridement (cm) - Length 2.6 -Post Debridement (cm) - Width 1.3 -Post Debridement (cm) - Depth 0.3 -Total Square (Post) (cm) 3.38 -Area of Debridement (cm) - Length 2.6 -Area of Debridement (cm) - Width 1.3 -Total Square (Area) (cm) 3.38 -Tunneling No -Undermining/Tunneling No -Circular Undermining No -Wound/Ulcer Outcome Not Healed -Ulcer Cleansing Rinsed/ Irrigated with Saline -Foul Odor after Cleansing No -Bioengineered Tissue No -Bleeding Controlled with Pressure -Offloading No -Treatment Response Procedure Tolerated Well -Debridement - Subq, 1st 20sq cm No #4 L LAT ANKLE -Time 11:09 -Correct Patient Yes -Correct Side, Site, Position Yes -Correct Procedure Yes -Procedure Performed Yes -Type of Procedure Debridement -Clinical Debridement Subcutaneous -Tissue Removed Subcutaneous -Post Debridement (cm) - Length 3.1 -Post Debridement (cm) - Width 2.1 -Post Debridement (cm) - Depth 0.3 -Total Square (Post) (cm) 6.51 -Area of Debridement (cm) - Length 3.1 -Area of Debridement (cm) - Width 2.1 -Total Square (Area) (cm) 6.51 -Tunneling No -Undermining/Tunneling No -Circular Undermining No -Wound/Ulcer Outcome Not Healed -Ulcer Cleansing Rinsed/ Irrigated with Saline -Foul Odor after Cleansing No -Bioengineered Tissue No -Bleeding Controlled with Pressure -Offloading No -Treatment Response Procedure Tolerated Well -Debridement - Subq, 1st 20sq cm No #3 L MED ANKLE CLUSTER -Time 11:10 -Correct Patient Yes -Correct Side, Site, Position Yes -Correct Procedure Yes -Procedure Performed Yes -Type of Procedure Debridement -Clinical Debridement Subcutaneous -Tissue Removed Subcutaneous -Post Debridement (cm) - Length 4.6 -Post Debridement (cm) - Width 3.1 -Post Debridement (cm) - Depth 0.3 -Total Square (Post) (cm) 14.26 -Area of Debridement (cm) - Length 4.6 -Area of Debridement (cm) - Width 3.1 -Total Square (Area) (cm) 14.26 -Tunneling No -Undermining/Tunneling No -Circular Undermining No -Wound/Ulcer Outcome Not Healed -Ulcer Cleansing Rinsed/ Irrigated with Saline -Foul Odor after Cleansing No -Bioengineered Tissue No -Bleeding Controlled with Pressure -Offloading No -Treatment Response Procedure Tolerated Well -Debridement - Subq, 1st 20sq cm Yes #2- R LAT ANKLE CLUSTER -Time 11:11 -Correct Patient Yes -Correct Side, Site, Position Yes -Correct Procedure Yes -Procedure Performed Yes -Type of Procedure Debridement -Clinical Debridement Subcutaneous -Tissue Removed Subcutaneous -Post Debridement (cm) - Length 5.3 -Post Debridement (cm) - Width 3.5 -Post Debridement (cm) - Depth 0.2 -Total Square (Post) (cm) 18.55 -Area of Debridement (cm) - Length 5.3 -Area of Debridement (cm) - Width 3.5 -Total Square (Area) (cm) 18.55 -Tunneling No -Undermining/Tunneling No -Circular Undermining No -Wound/Ulcer Outcome Not Healed -Ulcer Cleansing Rinsed/ Irrigated with Saline -Foul Odor after Cleansing No -Bioengineered Tissue No -Bleeding Controlled with Pressure -Offloading No -Treatment Response Procedure Tolerated Well -Debridement - Subq, 20sq cm No #1- R MED ANKLE CLUSTER -Time 11:12 -Correct Patient Yes -Correct Side, Site, Position Yes -Correct Procedure Yes -Procedure Performed Yes -Type of Procedure Debridement -Clinical Debridement Subcutaneous -Tissue Removed Subcutaneous -Post Debridement (cm) - Length 6.2 -Post Debridement (cm) - Width 3.5 -Post Debridement (cm) - Depth 0.2 -Total Square (Post) (cm) 21.70 -Area of Debridement (cm) - Length 6.2 -Area of Debridement (cm) - Width 3.5 -Total Square (Area) (cm) 21.70 -Tunneling No -Undermining/Tunneling No -Circular Undermining No -Wound/Ulcer Outcome Not Healed -Ulcer Cleansing Rinsed/ Irrigated with Saline -Foul Odor after Cleansing No -Bioengineered Tissue No -Bleeding Controlled with Pressure -Offloading No -Treatment Response Procedure Tolerated Well -Debridement - Subq, 1st 20sq cm No Pain Scale: 0-10 Numeric Is Patient Pain Free? Yes Wound debrided: lateral camryn, medial ankle Laterality: Right Type of Debridement: Excisional debridement Anesthesia Used: 5% Lidocaine Gel Depth: in the subcutaneous layer Percentage of wound debrided: 100 Instrument Used: #15 blade Tissue Removed: fibrous, devitalized subcutaneous, biofilm, slough Severity: Fat Layer Exposed Amount of bleeding with debridement: Mild Bleeding Controlled with: Pressure Patient tolerated procedure well - Additional Wound Wound debrided: lateral inferior leg, lateral superior leg, lateral ankle, medial ankle Laterality: Left Type of Debridement: Excisional debridement Anesthesia Used: 5% Lidocaine Gel Depth: in the subcutaneous layer Percentage of wound debrided: 100 Instrument Used: #15 blade Tissue Removed: fibrous, devitalized subcutaneous, biofilm, slough Severity: Fat Layer Exposed Amount of bleeding with debridement: Mild Bleeding Controlled with: Pressure Patient tolerated procedure: Patient tolerated procedure well Assessment/Plan Assessment: Ulcer right leg fat layer exposed, multiple. Ulcer fat layer exposed left, multiple. Lower extremity edema. Venous insufficiency suspected. Peripheral vascular disease suspected. Malnutrition suspected Plan: I reviewed and discussed his case. His etiology, treatment options, and comrehensive plan was discussed in detail. He is afebrile. Labs were orderd and reviwiewed (CBC, CMP, and HgA1C). No leukocytosis is noted. His A1C was 6.7%. He was reassured no local infection is noted and I do not recommend antibiotics. Subcutaneous excisional debridement was performed as noted in clinical panel with 15 blade scalpel. To change dressing daily with aquacell ag. To wash with soap and water. Edema control with tubigrip. Venous doppler with reflux examination was recommended and ordered. Non invasive vascular studies were also ordered. No critical limb ishemia is suspected today. He reports he is borderline diabetic. His A1C suggests he is a diabetic. To follow up with PCP for medical management. To optimize diet to control glucose levels and to ensure adequete nutrition for healing. Nando nutritional supplement was recommended. To follow up at the wound healing center in one week. I answered his questions.
[2020-02-10 13:32] LABS: ALB/GLOB Ratio 0.6 RATIO (0.9-2.4); AST(SGOT) 45 U/L (15-37); Alanine Aminotransfer ALT/SGPT 48 U/L (16-61); Alkaline Phosphatase 280 U/L (45-117); Anion Gap 5 (5-15); BUN 16 mg/dL (7-18); BUN/Creat Ratio 21.6 RATIO (10-20); Chloride 108 mmol/L (98-107); Creatinine, Serum 0.74 mg/dL (0.70-1.30); EST Glomerular Filtration Rate 115 mL/min (>60); Est Glom Filt Rate - Afr Amer 139 mL/min (>60); Globulin 5.2 g/dL (2.2-4.2); Glucose 143 mg/dL (74-106); Potassium 4.4 mmol/L (3.5-5.1); Protein, Total 8.2 g/dL (6.4-8.2); Sodium Level 142 mmol/L (136-145)
[2020-02-10 13:34] LABS: Hemoglobin A1c 6.7 % (3.8-5.6)
[2020-02-17 09:16] VITALS: BP 146/84; PULSE 114; RESP 16; TEMP 36.6
--- NOTE | 2020-02-17 09:57 | PN.PCM_ITS ---
(1) Ulcer of right lower extremity with fat layer exposed Status: Chronic Current Visit: Yes Code(s): L97.912 - Non-pressure chronic ulcer of unspecified part of right lower leg with fat layer exposed (2) Ulcer of left lower extremity with fat layer exposed Status: Chronic Current Visit: Yes Code(s): L97.922 - Non-pressure chronic ulcer of unspecified part of left lower leg with fat layer exposed (3) Other specified peripheral vascular diseases Status: Suspected Current Visit: Yes Code(s): I73.89 - Other specified peripheral vascular diseases (4) Venous insufficiency (chronic) (peripheral) Status: Suspected Current Visit: Yes Code(s): I87.2 - Venous insufficiency (chronic) (peripheral) (5) Bilateral leg edema Status: Chronic Current Visit: Yes Code(s): R60.0 - Localized edema (6) Type 2 diabetes mellitus with diabetic polyneuropathy Status: Suspected Current Visit: Yes Code(s): E11.42 - Type 2 diabetes mellitus with diabetic polyneuropathy Type of Wound Date of Service: 02/17/20 Chief Complaint: Leg ulcers History of Wound: This 60-year-old male presents to the wound healing clinic today with delayed healing wounds of both lower extremities. He denies fever, chill, nausea, vomiting. He has leg swelling. He did not get his arterial venous studies scheduled yet. He had his lab work completed. He is having trouble getting off of work and had to reschedule his vascular study. He relates he is borderline diabetic and does not have any treatment recommendations. He sees John clinical nurse practitioner. Progress of Wound: Stable - Physical Exam Vital Signs Temp Pulse Resp BP 98 F 114 H 16 146/84 H 02/17/20 09:16 02/17/20 09:16 02/17/20 09:16 02/17/20 09:16 General: Alert, Oriented x3, Cooperative, No apparent distress HEENT: Atraumatic Extremities: No cyanosis, Capillary Refill Less than 3 Seconds, No Calf Tenderness, Diminished Peripheral Pulses, Edema - Bilateral lower extremities Skin: Ulcer/ Wound - No purulence, erythema, streaking, odor, infection. Adjacent skin is hairless and atrophic with hyperpigmentation. Granular base ulcers. No deep tissue, necrosis, or maceration Wound Measurements and Assessment WC - Nurse 1 - General Ulcer Measurement Start: 02/10/20 10:09 Freq: Status: Active Protocol: Activity Type Activity Date Activity User E-Sign Co-Sign Detail Recorded Client Recorded Date Recorded By Document 02/17/20 09:16 [id number] 02/17/20 09:32 02/17/20 09:16 Wound Center Nurse 1 [Ulcer Assessment] #6- L LAT LE INFERIOR -Combined with other wound No -Current Size (cm) - Length 4.6 -Current Size (cm) - Width 1.9 -Current Size (cm) - Depth 0.2 -Total Square Cm 8.74 -Photo Taken No -Epithelialization None Present -Tunneling No -Undermining/Tunneling No -Circular Undermining No -Exudate Amt Medium -Exudate Type Serosanguineous -Wound Margin Distinct, Outline Attached -Granulation Amt Medium (34-66%) -Granulation Quality Red -Slough/Fibrin Yes -Necrosis Amt Medium (34-66%) -Necrotic Tissue Type Adherent Slough -Texture (Isela-wound Skin Appearance) Assessed, Scarring -Moisture (Isela-wound Skin Appearance Assessed ) -Color (Isela-wound Skin Appearance) Assessed -Temperature (Isela-wound Skin No Abnormality Appearance) (Pt Warm) -Tenderness on Palpation (Isela-wound Yes Skin Appearance) -Ulcer Cleansing soapy water -Foul Odor after Cleansing No -Anesthetic Used 4% Lidocaine Solution #5- L LAT LE SUPERIOR -Combined with other wound No -Current Size (cm) - Length 2.7 -Current Size (cm) - Width 1.8 -Current Size (cm) - Depth 0.1 -Total Square Cm 4.86 -Photo Taken No -Epithelialization None Present -Tunneling No -Undermining/Tunneling No -Circular Undermining No -Exudate Amt Medium -Exudate Type Serosanguineous -Wound Margin Distinct, Outline Attached -Granulation Amt Medium (34-66%) -Granulation Quality Red -Slough/Fibrin Yes -Necrosis Amt Medium (34-66%) -Necrotic Tissue Type Adherent Slough -Texture (Isela-wound Skin Appearance) Assessed, Scarring -Moisture (Isela-wound Skin Appearance Assessed ) -Color (Isela-wound Skin Appearance) Assessed -Temperature (Isela-wound Skin No Abnormality Appearance) (Pt Warm) -Tenderness on Palpation (Isela-wound Yes Skin Appearance) -Ulcer Cleansing soapy water -Foul Odor after Cleansing No -Anesthetic Used 4% Lidocaine Solution #4 L LAT ANKLE -Combined with other wound No -Current Size (cm) - Length 2.3 -Current Size (cm) - Width 2.6 -Current Size (cm) - Depth 0.1 -Total Square Cm 5.98 -Photo Taken No -Epithelialization None Present -Tunneling No -Undermining/Tunneling No -Circular Undermining No -Exudate Amt Medium -Exudate Type Serosanguineous -Wound Margin Distinct, Outline Attached -Granulation Amt Medium (34-66%) -Granulation Quality Red -Slough/Fibrin Yes -Necrosis Amt Medium (34-66%) -Necrotic Tissue Type Adherent Slough -Texture (Isela-wound Skin Appearance) Assessed, Scarring -Moisture (Isela-wound Skin Appearance Assessed,Dry/ ) Scaly -Color (Isela-wound Skin Appearance) Assessed -Temperature (Isela-wound Skin No Abnormality Appearance) (Pt Warm) -Tenderness on Palpation (Isela-wound Yes Skin Appearance) -Ulcer Cleansing soapy water -Foul Odor after Cleansing No -Anesthetic Used 4% Lidocaine Solution #3 L MED ANKLE CLUSTER -Combined with other wound No -Current Size (cm) - Length 4.5 -Current Size (cm) - Width 2.3 -Current Size (cm) - Depth 0.2 -Total Square Cm 10.35 -Photo Taken No -Epithelialization None Present -Tunneling No -Undermining/Tunneling No -Circular Undermining No -Exudate Amt Medium -Exudate Type Serosanguineous -Wound Margin Distinct, Outline Attached -Granulation Amt Medium (34-66%) -Granulation Quality Red -Slough/Fibrin Yes -Necrosis Amt Medium (34-66%) -Necrotic Tissue Type Adherent Slough -Texture (Isela-wound Skin Appearance) Assessed, Scarring -Moisture (Isela-wound Skin Appearance Assessed,Dry/ ) Scaly -Color (Isela-wound Skin Appearance) Assessed -Temperature (Isela-wound Skin No Abnormality Appearance) (Pt Warm) -Tenderness on Palpation (Isela-wound Yes Skin Appearance) -Ulcer Cleansing soapy wtaer -Foul Odor after Cleansing No -Anesthetic Used 4% Lidocaine Solution #2- R LAT ANKLE CLUSTER -Combined with other wound No -Current Size (cm) - Length 1.1 -Current Size (cm) - Width 2.5 -Current Size (cm) - Depth 0.1 -Total Square Cm 2.75 -Photo Taken No -Epithelialization None Present -Tunneling No -Undermining/Tunneling No -Circular Undermining No -Exudate Amt Medium -Exudate Type Serosanguineous -Wound Margin Distinct, Outline Attached -Granulation Amt Small (1-33%) -Granulation Quality Red -Slough/Fibrin Yes -Necrosis Amt Large (67-100%) -Necrotic Tissue Type Adherent Slough -Texture (Isela-wound Skin Appearance) Assessed, Scarring -Moisture (Isela-wound Skin Appearance Assessed,Dry/ ) Scaly -Color (Isela-wound Skin Appearance) Assessed -Temperature (Isela-wound Skin No Abnormality Appearance) (Pt Warm) -Tenderness on Palpation (Isela-wound Yes Skin Appearance) -Ulcer Cleansing soapy water -Foul Odor after Cleansing No -Anesthetic Used 4% Lidocaine Solution #1- R MED ANKLE CLUSTER -Combined with other wound No -Current Size (cm) - Length 3.1 -Current Size (cm) - Width 3.3 -Current Size (cm) - Depth 0.2 -Total Square Cm 10.23 -Photo Taken No -Epithelialization None Present -Tunneling No -Undermining/Tunneling No -Circular Undermining No -Exudate Amt Medium -Exudate Type Serosanguineous -Wound Margin Distinct, Outline Attached -Granulation Amt Small (1-33%) -Granulation Quality Red -Slough/Fibrin Yes -Necrosis Amt Large (67-100%) -Necrotic Tissue Type Adherent Slough -Texture (Isela-wound Skin Appearance) Assessed, Localized Edema -Moisture (Isela-wound Skin Appearance Assessed,Dry/ ) Scaly -Color (Isela-wound Skin Appearance) Assessed -Temperature (Isela-wound Skin No Abnormality Appearance) (Pt Warm) -Tenderness on Palpation (Isela-wound Yes Skin Appearance) -Ulcer Cleansing soapy water -Foul Odor after Cleansing No -Anesthetic Used 4% Lidocaine Solution [Edema Assessment] -Lower Limb Edema Present Yes -Right Calf (cm) 39.7 -Right Ankle (cm) 24.5 -Left Calf (cm) 40.8 -Left Ankle (cm) 24.6 WC - Nurse 3 - General Ulcer D/C NN Start: 02/10/20 10:09 Freq: Status: Active Protocol: Activity Type Activity Date Activity User E-Sign Co-Sign Detail Recorded Client Recorded Date Recorded By Document 02/17/20 09:53 [id number] 02/17/20 09:55 02/17/20 09:53 Wound Care Nurse 3 [Wound Dressing] #6- L LAT LE INFERIOR -Ulcer Cleansing Not Cleansed -Foul Odor after Cleansing No -Negative Pressure Wound Therapy N/A -Primary Dressing Applied Aquacel AG 4x4 -Primary Dressing Covered/Secured Dry Gauze & with Roll Gauze, Secured with Tape -Aquacel AG 4x4 2 #5- L LAT LE SUPERIOR -Ulcer Cleansing Not Cleansed -Foul Odor after Cleansing No -Negative Pressure Wound Therapy N/A -Primary Dressing Applied Aquacel AG 4x4 -Primary Dressing Covered/Secured Dry Gauze, with Secured with Tape -Aquacel AG 4x4 0 #4 L LAT ANKLE -Ulcer Cleansing Not Cleansed -Foul Odor after Cleansing No -Negative Pressure Wound Therapy N/A -Primary Dressing Applied Aquacel AG 4x4 -Primary Dressing Covered/Secured Dry Gauze, with Secured with Tape -Aquacel AG 4x4 0 #3 L MED ANKLE CLUSTER -Ulcer Cleansing Not Cleansed -Foul Odor after Cleansing No -Negative Pressure Wound Therapy N/A -Primary Dressing Applied Aquacel AG 4x4 -Primary Dressing Covered/Secured Dry Gauze, with Secured with Tape -Aquacel AG 4x4 0 #2- R LAT ANKLE CLUSTER -Ulcer Cleansing Not Cleansed -Foul Odor after Cleansing No -Negative Pressure Wound Therapy N/A -Primary Dressing Applied Aquacel AG 4x4 -Primary Dressing Covered/Secured Dry Gauze, with Secured with Tape -Aquacel AG 4x4 0 #1- R MED ANKLE CLUSTER -Ulcer Cleansing Not Cleansed -Foul Odor after Cleansing No -Negative Pressure Wound Therapy N/A -Primary Dressing Applied Aquacel AG 4x4 -Primary Dressing Covered/Secured Dry Gauze, with Secured with Tape -Aquacel AG 4x4 0 [Compression Applied] Left -Tubular Bandage Single Layer -Size of Tubigrip Used Size E -Size E ($) 1 Right -Tubular Bandage Single Layer -Size of Tubigrip Used Size E -Size E ($) 1 Pain Scale: 0-10 Numeric [Pain] -Is Patient Pain Free? Yes WC - Visit Discharge [Visit Discharge Information] -Discharge Condition Stable -Ambulatory Status Crutches -Transportation Private Auto -Accompanied by self -Medication Reconcilliation completed Yes & provided to patient/care provider -Clinical Summary of Care Provided Yes Musculoskeletal: No Tenderness to Palpation of Joints or Extremities, Muscle Wasting Neurological: Sensory exam intact to light touch and pain Psych/Mental Status: Normal Affect, Appropriate Debridement Note Post-Debridement Measurements/Treatment - Nurse 2 - General Ulcer CM Notes Start: 02/10/20 10:09 Freq: Status: Active Protocol: Activity Type Activity Date Activity User E-Sign Co-Sign Detail Recorded Client Recorded Date Recorded By Document 02/10/20 11:06 WILLIE [id number] 02/10/20 11:13 WILLIE 02/10/20 11:06 Wound Center Nurse 2 #6- L LAT LE INFERIOR -Time 11:08 -Correct Patient Yes -Correct Side, Site, Position Yes -Correct Procedure Yes -Procedure Performed Yes -Type of Procedure Debridement -Clinical Debridement Subcutaneous -Tissue Removed Subcutaneous -Post Debridement (cm) - Length 4.5 -Post Debridement (cm) - Width 1.8 -Post Debridement (cm) - Depth 0.2 -Total Square (Post) (cm) 8.10 -Area of Debridement (cm) - Length 4.5 -Area of Debridement (cm) - Width 1.8 -Total Square (Area) (cm) 8.10 -Tunneling No -Undermining/Tunneling No -Circular Undermining No -Wound/Ulcer Outcome Not Healed -Ulcer Cleansing Rinsed/ Irrigated with Saline -Foul Odor after Cleansing No -Bioengineered Tissue No -Bleeding Controlled with Pressure -Offloading No -Treatment Response Procedure Tolerated Well -Debridement - Subq, 1st 20sq cm Yes -Debridement, SubQ, ea addt'l 20sq cm 3 or part thereof #5- L LAT LE SUPERIOR -Time 11:08 -Correct Patient Yes -Correct Side, Site, Position Yes -Correct Procedure Yes -Procedure Performed Yes -Type of Procedure Debridement -Clinical Debridement Subcutaneous -Tissue Removed Subcutaneous -Post Debridement (cm) - Length 2.6 -Post Debridement (cm) - Width 1.3 -Post Debridement (cm) - Depth 0.3 -Total Square (Post) (cm) 3.38 -Area of Debridement (cm) - Length 2.6 -Area of Debridement (cm) - Width 1.3 -Total Square (Area) (cm) 3.38 -Tunneling No -Undermining/Tunneling No -Circular Undermining No -Wound/Ulcer Outcome Not Healed -Ulcer Cleansing Rinsed/ Irrigated with Saline -Foul Odor after Cleansing No -Bioengineered Tissue No -Bleeding Controlled with Pressure -Offloading No -Treatment Response Procedure Tolerated Well -Debridement - Subq, 1st 20sq cm No #4 L LAT ANKLE -Time 11:09 -Correct Patient Yes -Correct Side, Site, Position Yes -Correct Procedure Yes -Procedure Performed Yes -Type of Procedure Debridement -Clinical Debridement Subcutaneous -Tissue Removed Subcutaneous -Post Debridement (cm) - Length 3.1 -Post Debridement (cm) - Width 2.1 -Post Debridement (cm) - Depth 0.3 -Total Square (Post) (cm) 6.51 -Area of Debridement (cm) - Length 3.1 -Area of Debridement (cm) - Width 2.1 -Total Square (Area) (cm) 6.51 -Tunneling No -Undermining/Tunneling No -Circular Undermining No -Wound/Ulcer Outcome Not Healed -Ulcer Cleansing Rinsed/ Irrigated with Saline -Foul Odor after Cleansing No -Bioengineered Tissue No -Bleeding Controlled with Pressure -Offloading No -Treatment Response Procedure Tolerated Well -Debridement - Subq, 20sq cm No #3 L MED ANKLE CLUSTER -Time 11:10 -Correct Patient Yes -Correct Side, Site, Position Yes -Correct Procedure Yes -Procedure Performed Yes -Type of Procedure Debridement -Clinical Debridement Subcutaneous -Tissue Removed Subcutaneous -Post Debridement (cm) - Length 4.6 -Post Debridement (cm) - Width 3.1 -Post Debridement (cm) - Depth 0.3 -Total Square (Post) (cm) 14.26 -Area of Debridement (cm) - Length 4.6 -Area of Debridement (cm) - Width 3.1 -Total Square (Area) (cm) 14.26 -Tunneling No -Undermining/Tunneling No -Circular Undermining No -Wound/Ulcer Outcome Not Healed -Ulcer Cleansing Rinsed/ Irrigated with Saline -Foul Odor after Cleansing No -Bioengineered Tissue No -Bleeding Controlled with Pressure -Offloading No -Treatment Response Procedure Tolerated Well -Debridement - Subq, 1st 20sq cm No #2- R LAT ANKLE CLUSTER -Time 11:11 -Correct Patient Yes -Correct Side, Site, Position Yes -Correct Procedure Yes -Procedure Performed Yes -Type of Procedure Debridement -Clinical Debridement Subcutaneous -Tissue Removed Subcutaneous -Post Debridement (cm) - Length 5.3 -Post Debridement (cm) - Width 3.5 -Post Debridement (cm) - Depth 0.2 -Total Square (Post) (cm) 18.55 -Area of Debridement (cm) - Length 5.3 -Area of Debridement (cm) - Width 3.5 -Total Square (Area) (cm) 18.55 -Tunneling No -Undermining/Tunneling No -Circular Undermining No -Wound/Ulcer Outcome Not Healed -Ulcer Cleansing Rinsed/ Irrigated with Saline -Foul Odor after Cleansing No -Bioengineered Tissue No -Bleeding Controlled with Pressure -Offloading No -Treatment Response Procedure Tolerated Well -Debridement - Subq, 20sq cm No #1- R MED ANKLE CLUSTER -Time 11:12 -Correct Patient Yes -Correct Side, Site, Position Yes -Correct Procedure Yes -Procedure Performed Yes -Type of Procedure Debridement -Clinical Debridement Subcutaneous -Tissue Removed Subcutaneous -Post Debridement (cm) - Length 6.2 -Post Debridement (cm) - Width 3.5 -Post Debridement (cm) - Depth 0.2 -Total Square (Post) (cm) 21.70 -Area of Debridement (cm) - Length 6.2 -Area of Debridement (cm) - Width 3.5 -Total Square (Area) (cm) 21.70 -Tunneling No -Undermining/Tunneling No -Circular Undermining No -Wound/Ulcer Outcome Not Healed -Ulcer Cleansing Rinsed/ Irrigated with Saline -Foul Odor after Cleansing No -Bioengineered Tissue No -Bleeding Controlled with Pressure -Offloading No -Treatment Response Procedure Tolerated Well -Debridement - Subq, 20sq cm No Pain Scale: 0-10 Numeric Is Patient Pain Free? Yes WC - Nurse 3 - General Ulcer D/C NN Start: 02/10/20 10:09 Freq: Status: Active Protocol: Activity Type Activity Date Activity User E-Sign Co-Sign Detail Recorded Client Recorded Date Recorded By Document 02/10/20 13:46 DL [id number] 02/10/20 13:50 DL Document 02/17/20 09:53 [id number] 02/17/20 09:55 02/10/20 02/17/20 13:46 09:53 Wound Care Nurse 3 #6- L LAT LE INFERIOR -Ulcer Cleansing Wound Cleanser Not Cleansed -Foul Odor after Cleansing No No -Negative Pressure Wound Therapy N/A -Primary Dressing Applied Aquacel AG 4x4 Aquacel AG 4x4 -Primary Dressing Covered/Secured with Dry Gauze & Dry Gauze & Roll Gauze, Roll Gauze, Secured with Secured with Tape Tape -Aquacel AG 4x4 2 2 #5- L LAT LE SUPERIOR -Ulcer Cleansing Wound Cleanser Not Cleansed -Foul Odor after Cleansing No No -Negative Pressure Wound Therapy N/A -Primary Dressing Applied Aquacel AG 4x4 -Other Dressing aquacel ag -Primary Dressing Covered/Secured with Dry Gauze & Dry Gauze, Roll Gauze, Secured with Secured with Tape Tape -Aquacel AG 4x4 0 #4 L LAT ANKLE -Ulcer Cleansing Wound Cleanser Not Cleansed -Foul Odor after Cleansing No No -Negative Pressure Wound Therapy N/A -Primary Dressing Applied Aquacel AG 4x4 -Other Dressing aquacel ag -Primary Dressing Covered/Secured with Dry Gauze & Dry Gauze, Roll Gauze, Secured with Secured with Tape Tape -Aquacel AG 4x4 0 #3 L MED ANKLE CLUSTER -Ulcer Cleansing Wound Cleanser Not Cleansed -Foul Odor after Cleansing No No -Negative Pressure Wound Therapy N/A -Primary Dressing Applied Aquacel AG 4x4 -Other Dressing aquacel ag -Primary Dressing Covered/Secured with Dry Gauze & Dry Gauze, Roll Gauze, Secured with Secured with Tape Tape -Aquacel AG 4x4 0 #2- R LAT ANKLE CLUSTER -Ulcer Cleansing Wound Cleanser Not Cleansed -Foul Odor after Cleansing No No -Negative Pressure Wound Therapy N/A -Primary Dressing Applied Aquacel AG 4x4 -Other Dressing aqaucel ag -Primary Dressing Covered/Secured with Dry Gauze & Dry Gauze, Roll Gauze, Secured with Secured with Tape Tape -Aquacel AG 4x4 0 #1- R MED ANKLE CLUSTER -Ulcer Cleansing Wound Cleanser Not Cleansed -Foul Odor after Cleansing No No -Negative Pressure Wound Therapy N/A -Primary Dressing Applied Aquacel AG 4x4 -Other Dressing aqaucel ag -Primary Dressing Covered/Secured with Dry Gauze & Dry Gauze, Roll Gauze, Secured with Secured with Tape Tape -Aquacel AG 4x4 0 Left -Tubular Bandage Single Layer Single Layer -Size of Tubigrip Used Size E Size E -Size E ($) 1 1 Right -Tubular Bandage Single Layer Single Layer -Size of Tubigrip Used Size E Size E -Size E ($) 1 1 Treatment Response Procedure Tolerated Well Pain Scale: 0-10 Numeric Is Patient Pain Free? Yes Yes WC - Visit Discharge Discharge Condition Stable Stable Ambulatory Status Ambulatory, Crutches Crutches Transportation Private Auto Accompanied by self Medication Reconcilliation completed & Yes provided to patient/care provider Clinical Summary of Care Provided Yes Wound debrided: lateral inferior leg, lateral superior leg, lateral ankle, medial ankle Laterality: Left Wound Grade/Stage: grade 1 Type of Debridement: Excisional debridement Anesthesia Used: 5% Lidocaine Gel Depth: in the subcutaneous layer Percentage of wound debrided: 100 Instrument Used: #15 blade Tissue Removed: fibrous, devitalized subcutaneous, biofilm, slough Severity: Fat Layer Exposed - elects there is the same 100 Amount of bleeding with debridement: Mild Bleeding Controlled with: Pressure Patient tolerated procedure well - Additional Wound Wound debrided: medial and lateral lower extremities near ankle Wound Grade/Stage: grade 1 Type of Debridement: Excisional debridement Anesthesia Used: 5% Lidocaine Gel Depth: in the subcutaneous layer Percentage of wound debrided: 100 Instrument Used: #15 blade Tissue Removed: fibrous, devitalized subcutaneous, biofilm, slough Severity: Fat Layer Exposed Amount of bleeding with debridement: Mild Bleeding Controlled with: Pressure Patient tolerated procedure: Patient tolerated procedure well Assessment/Plan Active Problems Ulcer of right lower extremity with fat layer exposed (Chronic) Ulcer of left lower extremity with fat layer exposed (Chronic) Bilateral leg edema (Chronic) Assessment: Ulcer right leg fat layer exposed, multiple. Ulcer fat layer exposed left, multiple. Lower extremity edema. Venous insufficiency suspected. Peripheral vascular disease suspected. Malnutrition suspected Plan: I reviewed and discussed his case. His etiology, treatment options, and comrehensive plan was discussed in detail. He is afebrile. Labs were orderd and reviwiewed (CBC, CMP, and HgA1C). No leukocytosis is noted. His A1C was 6.7%. He was reassured no local infection is noted and I do not recommend antibiotics. Subcutaneous excisional debridement was performed as noted in clinical panel with 15 blade scalpel. To change dressing daily with [employer] ag. To wash with soap and water. Edema control with tubigrip. Venous doppler with reflux examination was recommended and ordered. Non invasive vascular studies were also ordered. No critical limb ishemia is suspected today. He reports he is borderline diabetic. His A1C suggests he is a diabetic. To follow up with PCP for medical management. There is no will be sent over for communication purposes. To optimize diet to control glucose levels and to ensure adequete nutrition for healing. Nando nutritional supplement was recommended. To follow up at the wound healing center in one to 2 weeks. I answered his questions. He requests his vascular studies are scheduled the same day.
--- NOTE | 2020-02-24 09:00 | ART_ITS ---
Reason For Study: Bilaeral leg ulceration Procedure A bilateral lower extremity continuous wave Doppler with analog waveform analysis,segmental pressures,and ankle brachial indexes without exercise. Left Segmental Pressures Left brachial= 146mmHg. Left posterior tibial artery = 177mmHg. Left dorsalis pedis artery = 185mmHg. Left digit = 130 mmHg. The left dorsalis pedis waveforms are triphasic. The left posterior tibial artery waveforms are triphasic. Right Segmental Pressures Right brachial= 149mmHg. Right posterior tibial artery = 177mmHg. Right dorsalis pedis artery = 172mmHg. Right digit = 125 mmHg. The right dorsalis pedis waveforms are triphasic. The right posterior tibial artery waveforms are triphasic. Indices The right ankle brachial index by the dorsalis pedis is 1.15. The right ankle brachial index by the posterior tibial artery is 1.19. The right digital-brachial index is 0.84. The left ankle brachial index by the dorsalis pedis is 1.24. The left ankle brachial index by the posterior tibial artery is 1.19. The left digital-brachial index is 0.87. Interpretation Summary Triphasic Doppler waveforms are noted at ankle level bilaterally. Pulse-volume recordings appear satisfactory at all levels bilaterally, including low-thigh, calf, ankle, and digital levels. Resting ankle-brachial indices are normal bilaterally. Digital-brachial indices are normal bilaterally. There is no evidence of significant arterial occlusive disease in the lower extremities bilaterally. Ordering Physician: Mayte Thompson Referring Physician: Isela Aguila Performed By: Azul Nicholas RVT and Student
--- NOTE | 2020-02-24 09:00 | VDLE_ITS ---
Reason For Study: Edema RIGHT LEFT CFV is compressible, spontaneous, phasic, CFV is compressible, spontaneous, phasic, competent and demonstrates normal competent, and demonstrates normal augmentation. augmentation. FV is compressible, spontaneous, phasic, FV is compressible, spontaneous, phasic, competent and demonstrates normal competent and demonstrates normal augmentation. augmentation. POP V is compressible, spontaneous, phasic, POP V is compressible, spontaneous, phasic, competent and demonstrates normal competent and demonstrates normal augmentation. augmentation. T/P Trunk is compressible. T/P Trunk is compressible. PTV is compressible. PTV is compressible. RT PerV is compressible. LT PerV is compressible. SFJ is competent and measures 1.28 x 1.10 cm. SFJ is INCOMPETENT and measures 1.24 x 1.03 GSV proximal thigh measures 0.69 x 0.71 cm. cm. GSV at knee measures 0.43 x 0.44 cm. GSV proximal thigh measures 0.76 x 0.80 cm. GSV INCOMPETENT throughout for greater than GSV at knee measures 0.41 x 0.41 cm. 0.5 seconds. GSV is competent throughout. ASV proximal calf is INCOMPETENT for greater ASV proximal thigh is INCOMPETENT for greater than 0.5 seconds and measures 0.38 x 0.38 cm. than 0.5 seconds and measures 0.52 x 0.56 cm. ASV mid calf is INCOMPETENT for greater than INCOMPETENT pattern chain builder noted 15 cm above 0.5 seconds and measures 0.19 x 0.19 cm. medial malleolus. SSV at junction is competent and measures SSV at junction is competent and measures 0.43 x 0.45 cm. 0.55 x 0.57 cm. Procedure Exam performed in department. A preliminary report was called and/or faxed to . Interpretation Summary Deep veins of the lower extremities are bilaterally patent and compressible segmentally. There is no evidence of deep vein thrombosis on either side. Valvular competence appears intact within the proximal deep venous systems bilaterally. The great saphenous veins appear bilaterally patent and compressible segmentally. The right sapheno-femoral junction is competent . The left sapheno-femoral junction is incompetent . The right great saphenous vein appears segmentally incompetent. The left great saphenous vein appears segmentally competent. Small saphenous veins are patent and competent bilaterally. Accessory saphenous veins in the right proximal calf and mid-calf are incompetent. An accessory saphenous vein in the left proximal thigh is incompetent. An incompetent pattern chain builder vein is noted in the left calf, located 15 centimeters proximal to the left medial malleolus. Ordering Physician: Mayte Thompson Referring Physician: Aliyah Aguila Performed By: Azul Nicholas RVT
[2020-02-24 11:53] VITALS: BP 123/65; PULSE 85; RESP 16
[2020-02-24 12:48] VITALS: BP 125/68; PULSE 70; RESP 18
--- NOTE | 2020-02-24 17:49 | PN.PCM_ITS ---
(1) Ulcer of right lower extremity with fat layer exposed Status: Chronic Current Visit: Yes Code(s): L97.912 - Non-pressure chronic ulcer of unspecified part of right lower leg with fat layer exposed (2) Ulcer of left lower extremity with fat layer exposed Status: Chronic Current Visit: Yes Code(s): L97.922 - Non-pressure chronic ulcer of unspecified part of left lower leg with fat layer exposed (3) Other specified peripheral vascular diseases Status: Suspected Current Visit: Yes Code(s): I73.89 - Other specified peripheral vascular diseases (4) Venous insufficiency (chronic) (peripheral) Status: Suspected Current Visit: Yes Code(s): I87.2 - Venous insufficiency (chronic) (peripheral) (5) Bilateral leg edema Status: Chronic Current Visit: Yes Code(s): R60.0 - Localized edema (6) Type 2 diabetes mellitus with diabetic polyneuropathy Status: Suspected Current Visit: Yes Code(s): E11.42 - Type 2 diabetes mellitus with diabetic polyneuropathy Type of Wound Date of Service: 02/24/20 Chief Complaint: Leg ulcers History of Wound: This 60-year-old male presents to the wound healing clinic today with delayed healing wounds of both lower extremities. He denies fever, chill, nausea, vomiting. He has leg swelling. He completed his arterial studies and would like to review the results today. He had his lab work completed. Progress of Wound: Improving - Physical Exam Vital Signs Temp Pulse Resp BP 98 F 70 18 125/68 H 02/17/20 09:16 02/24/20 12:48 02/24/20 12:48 02/24/20 12:48 General: Alert, Oriented x3, Cooperative, No apparent distress HEENT: Atraumatic Extremities: No cyanosis, Capillary Refill Less than 3 Seconds, No Calf Tenderness, Diminished Peripheral Pulses, Edema Skin: Ulcer/ Wound - No purulence, erythema, streaking, odor, infection. Adjacent skin is hairless and atrophic. The ulcer bases are fibrous and granular with biofilm noted. There is no necrosis, maceration or streaking Wound Measurements and Assessment WC - Nurse 1 - General Ulcer Measurement Start: 02/10/20 10:09 Freq: Status: Active Protocol: Activity Type Activity Date Activity User E-Sign Co-Sign Detail Recorded Client Recorded Date Recorded By Document 02/24/20 11:53 CS [id number] 02/24/20 12:05 02/24/20 11:53 Wound Center Nurse 1 [Ulcer Assessment] #6- L LAT LE INFERIOR -Combined with other wound No -Current Size (cm) - Length 4.6 -Current Size (cm) - Width 1.5 -Current Size (cm) - Depth 0.1 -Total Square Cm 6.90 -Photo Taken No -Epithelialization None Present -Tunneling No -Undermining/Tunneling No -Circular Undermining No -Exudate Amt Medium -Exudate Type Serosanguineous -Wound Margin Distinct, Outline Attached -Granulation Amt Large (67-100%) -Granulation Quality Pale,[place] -Slough/Fibrin No -Necrosis Amt None Present (0 %) -Necrotic Tissue Type Adherent Slough -Texture ([place]sel[place]-wound Skin Appearance) Excoriation -Moisture (Isela-wound Skin Appearance Maceration ) -Color (Isela-wound Skin Appearance) Erythema -Temperature ([place]a-wound Skin No Abnormality Appearance) (Pt Warm) -Tenderness on Palpation (Isela-wound No Skin Appearance) -Ulcer Cleansing Wound Cleanser -Foul Odor after Cleansing No -Anesthetic Used 4% Lidocaine Solution #5- L LAT LE SUPERIOR -Current Size (cm) - Length 2.3 -Current Size (cm) - Width 2.5 -Current Size (cm) - Depth 0.1 -Total Square Cm 5.75 -Photo Taken No -Epithelialization None Present -Tunneling No -Undermining/Tunneling No -Circular Undermining No -Texture (Isela-wound Skin Appearance) Assessed, Excoriation -Moisture (Isela-wound Skin Appearance Maceration ) -Color ([place]sela-wound Skin Appearance) Erythema -Temperature ([place]-wound Skin No Abnormality Appearance) (Pt Warm) -Tenderness on Palpation ([place]sela-wound No Skin Appearance) -Ulcer Cleansing Wound Cleanser -Foul Odor after Cleansing No -Anesthetic Used 4% Lidocaine Solution #4 L LAT ANKLE -Combined with other wound No -Current Size (cm) - Length 2 -Current Size (cm) - Width 2.5 -Current Size (cm) - Depth 0.1 -Total Square Cm 5.0 -Photo Taken No -Epithelialization None Present -Tunneling No -Undermining/Tunneling No -Circular Undermining No -Temperature ([place]sela-wound Skin No Abnormality Appearance) (Pt Warm) -Tenderness on Palpation (Isela-wound No Skin Appearance) -Ulcer Cleansing Rinsed/ Irrigated with Saline -Foul Odor after Cleansing No -Anesthetic Used 4% Lidocaine Solution #3 L MED ANKLE CLUSTER -Current Size (cm) - Length 4.6 -Current Size (cm) - Width 2.4 -Current Size (cm) - Depth 0.2 -Total Square Cm 11.04 -Photo Taken No -Epithelialization None Present -Tunneling No -Undermining/Tunneling No -Circular Undermining No -Exudate Type Serosanguineous -Wound Margin Distinct, Outline Attached -Granulation Amt Large (67-100%) -Granulation Quality Pale,[place] -Slough/Fibrin Yes -Necrosis Amt None Present (0 %) -Necrotic Tissue Type Adherent Slough -Texture (Isela-wound Skin Appearance) Excoriation -Moisture (Isela-wound Skin Appearance Maceration ) -Color (Isela-wound Skin Appearance) Erythema -Temperature (Isela-wound Skin No Abnormality Appearance) (Pt Warm) -Tenderness on Palpation (Isela-wound No Skin Appearance) -Ulcer Cleansing Wound Cleanser -Foul Odor after Cleansing No -Anesthetic Used 4% Lidocaine Solution #2- R LAT ANKLE CLUSTER -Combined with other wound No -Current Size (cm) - Length 0.6 -Current Size (cm) - Width 3 -Current Size (cm) - Depth 0.1 -Total Square Cm 1.8 -Photo Taken No -Epithelialization None Present -Tunneling No -Undermining/Tunneling No -Circular Undermining No -Exudate Amt Medium -Exudate Type Serosanguineous -Wound Margin Distinct, Outline Attached -Granulation Amt Large (67-100%) -Granulation Quality Pale,[place] -Slough/Fibrin Yes -Necrosis Amt None Present (0 %) -Necrotic Tissue Type Adherent Slough -Structure Exposed N/A -Texture (Isela-wound Skin Appearance) Excoriation -Moisture (Isela-wound Skin Appearance Maceration ) -Color (Isela-wound Skin Appearance) Erythema -Temperature ([place]sela-wound Skin No Abnormality Appearance) (Pt Warm) -Tenderness on Palpation (Isela-wound No Skin Appearance) -Ulcer Cleansing Wound Cleanser -Anesthetic Used 4% Lidocaine Solution #1- R MED ANKLE CLUSTER -Combined with other wound No -Current Size (cm) - Length 3.1 -Current Size (cm) - Width 3.1 -Current Size (cm) - Depth 0.1 -Total Square Cm 9.61 -Photo Taken No -Epithelialization None Present -Tunneling No -Undermining/Tunneling No -Circular Undermining No -Moisture (Isela-wound Skin Appearance Maceration ) -Color (Isela-wound Skin Appearance) Erythema -Temperature ([place]a-wound Skin No Abnormality Appearance) (Pt Warm) -Tenderness on Palpation (Isela-wound No Skin Appearance) -Ulcer Cleansing Rinsed/ Irrigated with Saline -Foul Odor after Cleansing No -Anesthetic Used 4% Lidocaine Solution [Edema Assessment] -Lower Limb Edema Present NA WC - Nurse 2 - General Ulcer CM Notes Start: 02/10/20 10:09 Freq: Status: Active Protocol: Activity Type Activity Date Activity User E-Sign Co-Sign Detail Recorded Client Recorded Date Recorded By Document 02/24/20 12:24 WILLIE [id number] 02/24/20 12:31 WILLIE 02/24/20 12:24 Wound Center Nurse 2 [Procedure/Treatment] #6- L LAT LE INFERIOR -Time 12:26 -Correct Patient Yes -Correct Side, Site, Position Yes -Correct Procedure Yes -Procedure Performed Yes -Type of Procedure Debridement -Clinical Debridement Subcutaneous -Tissue Removed Subcutaneous -Post Debridement (cm) - Length 4.6 -Post Debridement (cm) - Width 1.6 -Post Debridement (cm) - Depth 0.1 -Total Square (Post) (cm) 7.36 -Area of Debridement (cm) - Length 4.6 -Area of Debridement (cm) - Width 1.6 -Total Square (Area) (cm) 7.36 -Tunneling No -Undermining/Tunneling No -Circular Undermining No -Wound/Ulcer Outcome Not Healed -Ulcer Cleansing Rinsed/ Irrigated with Saline -Foul Odor after Cleansing No -Bioengineered Tissue No -Bleeding Controlled with Pressure -Offloading No -Treatment Response Procedure Tolerated Well -Debridement - Subq, 1st 20sq cm Yes -Debridement, SubQ, ea addt'l 20sq cm 2 or part thereof #5- L LAT LE SUPERIOR -Time 12:27 -Correct Patient Yes -Correct Side, Site, Position Yes -Correct Procedure Yes -Procedure Performed Yes -Type of Procedure Debridement -Clinical Debridement Subcutaneous -Tissue Removed Subcutaneous -Post Debridement (cm) - Length 2.4 -Post Debridement (cm) - Width 2.5 -Post Debridement (cm) - Depth 0.1 -Total Square (Post) (cm) 6.00 -Area of Debridement (cm) - Length 2.4 -Area of Debridement (cm) - Width 2.5 -Total Square (Area) (cm) 6.00 -Tunneling No -Undermining/Tunneling No -Circular Undermining No -Wound/Ulcer Outcome Not Healed -Ulcer Cleansing Rinsed/ Irrigated with Saline -Foul Odor after Cleansing No -Bioengineered Tissue No -Bleeding Controlled with Pressure -Offloading Yes -Type of Offloading Surgical Shoe -Treatment Response Procedure Tolerated Well -Debridement - Subq, 1st 20sq cm No #4 L LAT ANKLE -Time 12:27 -Correct Patient Yes -Correct Side, Site, Position Yes -Correct Procedure Yes -Procedure Performed Yes -Type of Procedure Debridement -Clinical Debridement Subcutaneous -Tissue Removed Subcutaneous -Post Debridement (cm) - Length 2.0 -Post Debridement (cm) - Width 2.6 -Post Debridement (cm) - Depth 0.1 -Total Square (Post) (cm) 5.20 -Area of Debridement (cm) - Length 2.0 -Area of Debridement (cm) - Width 2.6 -Total Square (Area) (cm) 5.20 -Tunneling No -Undermining/Tunneling No -Circular Undermining No -Wound/Ulcer Outcome Not Healed -Ulcer Cleansing Rinsed/ Irrigated with Saline -Foul Odor after Cleansing No -Bioengineered Tissue No -Bleeding Controlled with Pressure -Offloading Yes -Type of Offloading Surgical Shoe -Treatment Response Procedure Tolerated Well -Debridement - Subq, 1st 20sq cm No #3 L MED ANKLE CLUSTER -Time 12:28 -Correct Patient Yes -Correct Side, Site, Position Yes -Correct Procedure Yes -Procedure Performed Yes -Type of Procedure Debridement -Clinical Debridement Subcutaneous -Tissue Removed Subcutaneous -Post Debridement (cm) - Length 4.6 -Post Debridement (cm) - Width 2.5 -Post Debridement (cm) - Depth 0.2 -Total Square (Post) (cm) 11.50 -Area of Debridement (cm) - Length 4.6 -Area of Debridement (cm) - Width 2.5 -Total Square (Area) (cm) 11.50 -Tunneling No -Undermining/Tunneling No -Circular Undermining No -Wound/Ulcer Outcome Not Healed -Ulcer Cleansing Rinsed/ Irrigated with Saline -Foul Odor after Cleansing No -Bioengineered Tissue No -Bleeding Controlled with Pressure -Offloading No -Treatment Response Procedure Tolerated Well -Debridement - Subq, 1st 20sq cm No #2- R LAT ANKLE CLUSTER -Time 12:29 -Correct Patient Yes -Correct Side, Site, Position Yes -Correct Procedure Yes -Procedure Performed Yes -Type of Procedure Debridement -Clinical Debridement Subcutaneous -Tissue Removed Subcutaneous -Post Debridement (cm) - Length 0.6 -Post Debridement (cm) - Width 3.1 -Post Debridement (cm) - Depth 0.1 -Total Square (Post) (cm) 1.86 -Area of Debridement (cm) - Length 0.6 -Area of Debridement (cm) - Width 3.1 -Total Square (Area) (cm) 1.86 -Tunneling No -Undermining/Tunneling No -Circular Undermining No -Wound/Ulcer Outcome Not Healed -Ulcer Cleansing Rinsed/ Irrigated with Saline -Foul Odor after Cleansing No -Bioengineered Tissue No -Bleeding Controlled with Pressure -Offloading No -Treatment Response Procedure Tolerated Well -Debridement - Subq, 1st 20sq cm No #1- R MED ANKLE CLUSTER -Time 12:30 -Correct Patient Yes -Correct Side, Site, Position Yes -Correct Procedure Yes -Procedure Performed Yes -Type of Procedure Debridement -Clinical Debridement Subcutaneous -Tissue Removed Subcutaneous -Post Debridement (cm) - Length 3.2 -Post Debridement (cm) - Width 3.2 -Post Debridement (cm) - Depth 0.1 -Total Square (Post) (cm) 10.24 -Area of Debridement (cm) - Length 3.2 -Area of Debridement (cm) - Width 3.2 -Total Square (Area) (cm) 10.24 -Tunneling No -Undermining/Tunneling No -Circular Undermining No -Wound/Ulcer Outcome Not Healed -Ulcer Cleansing Rinsed/ Irrigated with Saline -Foul Odor after Cleansing No -Bioengineered Tissue No -Bleeding Controlled with Pressure -Offloading No -Treatment Response Procedure Tolerated Well -Debridement - Subq, 1st 20sq cm No [See Physician Procedure note for Specifics] Pain Scale: 0-10 Numeric [Pain] -Is Patient Pain Free? Yes WC - Nurse 3 - General Ulcer D/C NN Start: 02/10/20 10:09 Freq: Status: Active Protocol: Activity Type Activity Date Activity User E-Sign Co-Sign Detail Recorded Client Recorded Date Recorded By Document 02/24/20 12:48 [facility] [id number] 02/24/20 12:50 [facility] 02/24/20 12:48 Wound Care Nurse 3 [Wound Dressing] #6- L LAT LE INFERIOR -Ulcer Cleansing Rinsed/ Irrigated with Saline -Foul Odor after Cleansing No -Primary Dressing Applied Aquacel AG 4x4 -Primary Dressing Covered/Secured Dry Gauze & with Roll Gauze, Secured with Tape -Aquacel AG 4x4 1 #5- L LAT LE SUPERIOR -Ulcer Cleansing Rinsed/ Irrigated with Saline -Foul Odor after Cleansing No -Primary Dressing Applied Aquacel AG 4x4 -Primary Dressing Covered/Secured Dry Gauze & with Roll Gauze, Secured with Tape -Aquacel AG 4x4 0 #4 L LAT ANKLE -Ulcer Cleansing Rinsed/ Irrigated with Saline -Foul Odor after Cleansing No -Primary Dressing Applied Aquacel AG 4x4 -Primary Dressing Covered/Secured Dry Gauze & with Roll Gauze, Secured with Tape -Aquacel AG 4x4 0 #3 L MED ANKLE CLUSTER -Ulcer Cleansing Rinsed/ Irrigated with Saline -Foul Odor after Cleansing No -Primary Dressing Applied Aquacel AG 4x4 -Primary Dressing Covered/Secured Dry Gauze & with Roll Gauze, Secured with Tape -Aquacel AG 4x4 0 #2- R LAT ANKLE CLUSTER -Ulcer Cleansing Rinsed/ Irrigated with Saline -Foul Odor after Cleansing No -Primary Dressing Applied Aquacel AG 4x4 -Primary Dressing Covered/Secured Dry Gauze & with Roll Gauze, Secured with Tape -Aquacel AG 4x4 0 #1- R MED ANKLE CLUSTER -Ulcer Cleansing Rinsed/ Irrigated with Saline -Foul Odor after Cleansing No -Primary Dressing Applied Aquacel AG 4x4 -Primary Dressing Covered/Secured Dry Gauze & with Roll Gauze, Secured with Tape -Aquacel AG 4x4 0 [Compression Applied] Left -Tubular Bandage Double Layer -Size of Tubigrip Used Size E -Size E ($) 1 Right -Tubular Bandage Double Layer -Size of Tubigrip Used Size E -Size E ($) 1 [Post Procedure Tolerated] -Treatment Response Procedure Tolerated Well Vital Signs [Pulse] -Pulse Rate (60-100) 70 -Pulse Location Monitor [Respirations] -Respiratory Rate (12-18) 18 -Respiratory rate source Observation -Oxygen Delivery Method Room Air [Blood Pressure] -Blood Pressure (90/60-120/80) 125/68 H -Blood Pressure Mean (mm Hg) 87 -Source Monitor -Position Sitting -Blood Pressure Location Left Forearm Pain Scale: 0-10 Numeric [Pain] -Is Patient Pain Free? Yes WC - Visit Discharge [Visit Discharge Information] -Discharge Condition Stable -Ambulatory Status Ambulatory, Crutches -Transportation Private Auto Musculoskeletal: No Tenderness to Palpation of Joints or Extremities, Muscle Wasting, - - Shoe gear abuts wounds. Skin has lichenification changes and some induration Neurological: - - Lack of full normal epicritic sensation light touch Psych/Mental Status: Normal Affect, Appropriate Debridement Note Post-Debridement Measurements/Treatment WC - Nurse 2 - General Ulcer CM Notes Start: 02/10/20 10:09 Freq: Status: Active Protocol: Activity Type Activity Date Activity User E-Sign Co-Sign Detail Recorded Client Recorded Date Recorded By Document 02/10/20 11:06 [id number] 02/10/20 11:13 Document 02/17/20 11:29 [id number] 02/17/20 11:39 Document 02/24/20 12:24 [id number] 02/24/20 12:31 02/10/20 02/17/20 02/24/20 11:06 11:29 12:24 Wound Center Nurse 2 #6- L LAT LE INFERIOR -Time 11:08 12:26 -Correct Patient Yes Yes Yes -Correct Side, Site, Position Yes Yes Yes -Correct Procedure Yes Yes Yes -Procedure Performed Yes Yes Yes -Type of Procedure Debridement Debridement Debridement -Clinical Debridement Subcutaneous Subcutaneous Subcutaneous -Tissue Removed Subcutaneous Subcutaneous Subcutaneous -Post Debridement (cm) - Length 4.5 4.6 4.6 -Post Debridement (cm) - Width 1.8 2.0 1.6 -Post Debridement (cm) - Depth 0.2 0.2 0.1 -Total Square (Post) (cm) 8.10 9.20 7.36 -Area of Debridement (cm) - Length 4.5 4.6 4.6 -Area of Debridement (cm) - Width 1.8 2.0 1.6 -Total Square (Area) (cm) 8.10 9.20 7.36 -Tunneling No No No -Undermining/Tunneling No No No -Circular Undermining No No No -Wound/Ulcer Outcome Not Healed Not Healed Not Healed -Ulcer Cleansing Rinsed/ Rinsed/ Rinsed/ Irrigated with Irrigated with Irrigated with Saline Saline Saline -Foul Odor after Cleansing No No No -Bioengineered Tissue No No No -Bleeding Controlled with Pressure Pressure Pressure -Offloading No No No -Treatment Response Procedure Procedure Procedure Tolerated Well Tolerated Well Tolerated Well -Debridement - Subq, 1st 20sq cm Yes Yes Yes -Debridement, SubQ, ea addt'l 20sq cm 3 2 2 or part thereof #5- L LAT LE SUPERIOR -Time 11: 11:32 12:27 -Correct Patient Yes Yes Yes -Correct Side, Site, Position Yes Yes Yes -Correct Procedure Yes Yes Yes -Procedure Performed Yes Yes Yes -Type of Procedure Debridement Debridement Debridement -Clinical Debridement Subcutaneous Subcutaneous Subcutaneous -Tissue Removed Subcutaneous Subcutaneous Subcutaneous -Post Debridement (cm) - Length 2.6 2.8 2.4 -Post Debridement (cm) - Width 1.3 1.8 2.5 -Post Debridement (cm) - Depth 0.3 0.1 0.1 -Total Square (Post) (cm) 3.38 5.04 6.00 -Area of Debridement (cm) - Length 2.6 2.8 2.4 -Area of Debridement (cm) - Width 1.3 1.8 2.5 -Total Square (Area) (cm) 3.38 5.04 6.00 -Tunneling No No No -Undermining/Tunneling No No No -Circular Undermining No No No -Wound/Ulcer Outcome Not Healed Not Healed Not Healed -Ulcer Cleansing Rinsed/ Rinsed/ Rinsed/ Irrigated with Irrigated with Irrigated with Saline Saline Saline -Foul Odor after Cleansing No No No -Bioengineered Tissue No No No -Bleeding Controlled with Pressure Pressure Pressure -Offloading No No Yes -Type of Offloading Surgical Shoe -Treatment Response Procedure Procedure Procedure Tolerated Well Tolerated Well Tolerated Well -Debridement - Subq, 1st 20sq cm No No No #4 L LAT ANKLE -Time 11: 11:32 12:27 -Correct Patient Yes Yes Yes -Correct Side, Site, Position Yes Yes Yes -Correct Procedure Yes Yes Yes -Procedure Performed Yes Yes Yes -Type of Procedure Debridement Debridement Debridement -Clinical Debridement Subcutaneous Subcutaneous Subcutaneous -Tissue Removed Subcutaneous Subcutaneous Subcutaneous -Post Debridement (cm) - Length 3.1 2.4 2.0 -Post Debridement (cm) - Width 2.1 2.6 2.6 -Post Debridement (cm) - Depth 0.3 0.1 0.1 -Total Square (Post) (cm) 6.51 6.24 5.20 -Area of Debridement (cm) - Length 3.1 2.4 2.0 -Area of Debridement (cm) - Width 2.1 2.6 2.6 -Total Square (Area) (cm) 6.51 6.24 5.20 -Tunneling No No No -Undermining/Tunneling No No No -Circular Undermining No No No -Wound/Ulcer Outcome Not Healed Not Healed Not Healed -Ulcer Cleansing Rinsed/ Rinsed/ Rinsed/ Irrigated with Irrigated with Irrigated with Saline Saline Saline -Foul Odor after Cleansing No No No -Bioengineered Tissue No No No -Bleeding Controlled with Pressure Pressure Pressure -Offloading No Yes -Type of Offloading Surgical Shoe -Treatment Response Procedure Procedure Procedure Tolerated Well Tolerated Well Tolerated Well -Debridement - Subq, 1st 20sq cm No No No #3 L MED ANKLE CLUSTER -Time 11:10 11:33 12:28 -Correct Patient Yes Yes Yes -Correct Side, Site, Position Yes Yes Yes -Correct Procedure Yes Yes Yes -Procedure Performed Yes Yes Yes -Type of Procedure Debridement Debridement Debridement -Clinical Debridement Subcutaneous Subcutaneous Subcutaneous -Tissue Removed Subcutaneous Subcutaneous Subcutaneous -Post Debridement (cm) - Length 4.6 4.5 4.6 -Post Debridement (cm) - Width 3.1 2.4 2.5 -Post Debridement (cm) - Depth 0.3 0.2 0.2 -Total Square (Post) (cm) 14.26 10.80 11.50 -Area of Debridement (cm) - Length 4.6 4.5 4.6 -Area of Debridement (cm) - Width 3.1 2.4 2.5 -Total Square (Area) (cm) 14.26 10.80 11.50 -Tunneling No No No -Undermining/Tunneling No No No -Circular Undermining No No No -Wound/Ulcer Outcome Not Healed Not Healed Not Healed -Ulcer Cleansing Rinsed/ Rinsed/ Rinsed/ Irrigated with Irrigated with Irrigated with Saline Saline Saline -Foul Odor after Cleansing No No No -Bioengineered Tissue No No No -Bleeding Controlled with Pressure Pressure Pressure -Offloading No No No -Treatment Response Procedure Procedure Procedure Tolerated Well Tolerated Well Tolerated Well -Debridement - Subq, 1st 20sq cm No No No #2- R LAT ANKLE CLUSTER -Time 11:11 11:33 12:29 -Correct Patient Yes Yes Yes -Correct Side, Site, Position Yes Yes Yes -Correct Procedure Yes Yes Yes -Procedure Performed Yes Yes Yes -Type of Procedure Debridement Debridement Debridement -Clinical Debridement Subcutaneous Subcutaneous Subcutaneous -Tissue Removed Subcutaneous Subcutaneous Subcutaneous -Post Debridement (cm) - Length 5.3 1.2 0.6 -Post Debridement (cm) - Width 3.5 2.5 3.1 -Post Debridement (cm) - Depth 0.2 0.1 0.1 -Total Square (Post) (cm) 18.55 3.00 1.86 -Area of Debridement (cm) - Length 5.3 1.2 0.6 -Area of Debridement (cm) - Width 3.5 2.5 3.1 -Total Square (Area) (cm) 18.55 3.00 1.86 -Tunneling No No No -Undermining/Tunneling No No No -Circular Undermining No No No -Wound/Ulcer Outcome Not Healed Not Healed Not Healed -Ulcer Cleansing Rinsed/ Rinsed/ Rinsed/ Irrigated with Irrigated with Irrigated with Saline Saline Saline -Foul Odor after Cleansing No No No -Bioengineered Tissue No No No -Bleeding Controlled with Pressure Pressure Pressure -Offloading No No No -Treatment Response Procedure Procedure Procedure Tolerated Well Tolerated Well Tolerated Well -Debridement - Subq, 1st 20sq cm No No No #1- R MED ANKLE CLUSTER -Time 11:12 11:35 12:30 -Correct Patient Yes Yes Yes -Correct Side, Site, Position Yes Yes Yes -Correct Procedure Yes Yes Yes -Procedure Performed Yes Yes Yes -Type of Procedure Debridement Debridement Debridement -Clinical Debridement Subcutaneous Subcutaneous Subcutaneous -Tissue Removed Subcutaneous Subcutaneous Subcutaneous -Post Debridement (cm) - Length 6.2 3.2 3.2 -Post Debridement (cm) - Width 3.5 3.3 3.2 -Post Debridement (cm) - Depth 0.2 0.2 0.1 -Total Square (Post) (cm) 21.70 10.56 10.24 -Area of Debridement (cm) - Length 6.2 3.2 3.2 -Area of Debridement (cm) - Width 3.5 3.3 3.2 -Total Square (Area) (cm) 21.70 10.56 10.24 -Tunneling No No No -Undermining/Tunneling No No No -Circular Undermining No No No -Wound/Ulcer Outcome Not Healed Not Healed Not Healed -Ulcer Cleansing Rinsed/ Rinsed/ Rinsed/ Irrigated with Irrigated with Irrigated with Saline Saline Saline -Foul Odor after Cleansing No No No -Bioengineered Tissue No No No -Bleeding Controlled with Pressure Pressure Pressure -Offloading No No No -Treatment Response Procedure Procedure Procedure Tolerated Well Tolerated Well Tolerated Well -Debridement - Subq, 1st 20sq cm No No No Pain Scale: 0-10 Numeric Is Patient Pain Free? Yes Yes Yes WC - Nurse 3 - General Ulcer D/C NN Start: 02/10/20 10:09 Freq: Status: Active Protocol: Activity Type Activity Date Activity User E-Sign Co-Sign Detail Recorded Client Recorded Date Recorded By Document 02/10/20 13:46 DL [id number] 02/10/20 13:50 DL Document 02/17/20 09:53 CS [id number] 02/17/20 09:55 CS Document 02/24/20 12:48 BMF [id number] 02/24/20 12:50 BMF 02/10/20 02/17/20 02/24/20 13:46 09:53 12:48 Wound Care Nurse 3 #6- L LAT LE INFERIOR -Ulcer Cleansing Wound Cleanser Not Cleansed Rinsed/ Irrigated with Saline -Foul Odor after Cleansing No No No -Negative Pressure Wound Therapy N/A -Primary Dressing Applied Aquacel AG 4x4 Aquacel AG 4x4 Aquacel AG 4x4 -Primary Dressing Covered/Secured with Dry Gauze & Dry Gauze & Dry Gauze & Roll Gauze, Roll Gauze, Roll Gauze, Secured with Secured with Secured with Tape Tape Tape -Aquacel AG 4x4 2 2 1 #5- L LAT LE SUPERIOR -Ulcer Cleansing Wound Cleanser Not Cleansed Rinsed/ Irrigated with Saline -Foul Odor after Cleansing No No No -Negative Pressure Wound Therapy N/A -Primary Dressing Applied Aquacel AG 4x4 Aquacel AG 4x4 -Other Dressing aquacel ag -Primary Dressing Covered/Secured with Dry Gauze & Dry Gauze, Dry Gauze & Roll Gauze, Secured with Roll Gauze, Secured with Tape Secured with Tape Tape -Aquacel AG 4x4 0 0 #4 L LAT ANKLE -Ulcer Cleansing Wound Cleanser Not Cleansed Rinsed/ Irrigated with Saline -Foul Odor after Cleansing No No No -Negative Pressure Wound Therapy N/A -Primary Dressing Applied Aquacel AG 4x4 Aquacel AG 4x4 -Other Dressing aquacel ag -Primary Dressing Covered/Secured with Dry Gauze & Dry Gauze, Dry Gauze & Roll Gauze, Secured with Roll Gauze, Secured with Tape Secured with Tape Tape -Aquacel AG 4x4 0 0 #3 L MED ANKLE CLUSTER -Ulcer Cleansing Wound Cleanser Not Cleansed Rinsed/ Irrigated with Saline -Foul Odor after Cleansing No No No -Negative Pressure Wound Therapy N/A -Primary Dressing Applied Aquacel AG 4x4 Aquacel AG 4x4 -Other Dressing aquacel ag -Primary Dressing Covered/Secured with Dry Gauze & Dry Gauze, Dry Gauze & Roll Gauze, Secured with Roll Gauze, Secured with Tape Secured with Tape Tape -Aquacel AG 4x4 0 0 #2- R LAT ANKLE CLUSTER -Ulcer Cleansing Wound Cleanser Not Cleansed Rinsed/ Irrigated with Saline -Foul Odor after Cleansing No No No -Negative Pressure Wound Therapy N/A -Primary Dressing Applied Aquacel AG 4x4 Aquacel AG 4x4 -Other Dressing aqaucel ag -Primary Dressing Covered/Secured with Dry Gauze & Dry Gauze, Dry Gauze & Roll Gauze, Secured with Roll Gauze, Secured with Tape Secured with Tape Tape -Aquacel AG 4x4 0 0 #1- R MED ANKLE CLUSTER -Ulcer Cleansing Wound Cleanser Not Cleansed Rinsed/ Irrigated with Saline -Foul Odor after Cleansing No No No -Negative Pressure Wound Therapy N/A -Primary Dressing Applied Aquacel AG 4x4 Aquacel AG 4x4 -Other Dressing aqaucel ag -Primary Dressing Covered/Secured with Dry Gauze & Dry Gauze, Dry Gauze & Roll Gauze, Secured with Roll Gauze, Secured with Tape Secured with Tape Tape -Aquacel AG 4x4 0 0 Left -Tubular Bandage Single Layer Single Layer Double Layer -Size of Tubigrip Used Size E Size E Size E -Size E ($) 1 1 1 Right -Tubular Bandage Single Layer Single Layer Double Layer -Size of Tubigrip Used Size E Size E Size E -Size E ($) 1 1 1 Treatment Response Procedure Procedure Tolerated Well Tolerated Well Pain Scale: 0-10 Numeric Is Patient Pain Free? Yes Yes Yes Vital Signs Pulse Rate (60-100) 70 Pulse Location Monitor Respiratory Rate (12-18) 18 Respiratory rate source Observation Oxygen Delivery Method Room Air Blood Pressure (90/60-120/80) 125/68 H Blood Pressure Mean (mm Hg) 87 Source Monitor Position Sitting Blood Pressure Location Left Forearm WC - Visit Discharge Discharge Condition Stable Stable Stable Ambulatory Status Ambulatory, Crutches Ambulatory, Crutches Crutches Transportation Private Auto Private Auto Accompanied by self Medication Reconcilliation completed & Yes provided to patient/care provider Clinical Summary of Care Provided Yes Wound debrided: medial ankle, lateral ankle, leg lateral (inferior), leg lateral (superior) Laterality: Left Wound Grade/Stage: grade 1 Type of Debridement: Excisional debridement Anesthesia Used: 5% Lidocaine Gel Depth: in the subcutaneous layer Percentage of wound debrided: 100 Instrument Used: #15 blade Tissue Removed: fibrous, devitalized subcutaneous, biofilm, slough Severity: Fat Layer Exposed Amount of bleeding with debridement: Mild Bleeding Controlled with: Pressure Patient tolerated procedure well - Additional Wound Wound debrided: medial ankle, lateral ankle Laterality: Right Wound Grade/Stage: grade 1 Type of Debridement: Excisional debridement Depth: in the subcutaneous layer Percentage of wound debrided: 100 Instrument Used: #15 blade Tissue Removed: fibrous, devitalized subcutaneous, biofilm, slough Severity: Fat Layer Exposed Amount of bleeding with debridement: Mild Bleeding Controlled with: Pressure Patient tolerated procedure: Patient tolerated procedure well - Right Assessment/Plan Active Problems Ulcer of right lower extremity with fat layer exposed (Chronic) Ulcer of left lower extremity with fat layer exposed (Chronic) Bilateral leg edema (Chronic) Assessment: Ulcer right leg fat layer exposed, multiple. Ulcer fat layer exposed left, multiple. Lower extremity edema. Venous insufficiency suspected. Peripheral vascular disease suspected. Malnutrition suspected Plan: I reviewed and discussed his case. His etiology, treatment options, and comrehensive plan was discussed in detail. His ulcer sites were debrided in a subcutaneous excisional manner as noted in the clinical panel. His wounds are chronic and have been present for over 1 month duration. He has been changing the dressings with Aquacell Ag. I recommend application of advanced wound healing product and prior authorization will be initiated. I would like to first control bioburden with application of antimicrobial collagen product, puraply. Then, I would like to transition him into an advanced wound healing product Apligraf or an amnio product. The indications, benefits, anticipated healing time and management and applications were reviewed. He is amendable to proceed. This is medically necessary for limb salvage. He has comorbidities as noted with his diabetes and delayed healing. He is afebrile. Labs were orderd and reviwiewed (CBC, CMP, and HgA1C). No leukocytosis is noted. His A1C was 6.7%. He was reassured no local infection is noted and I do not recommend antibiotics. Subcutaneous excisional debridement was performed as noted in clinical panel with 15 blade scalpel. To change dressing daily with aquacell ag. To wash with soap and water. Edema control with tubigrip. Venous doppler with reflux examination was recommended and ordered. Non invasive vascular studies were also ordered. No critical limb ishemia is suspected today. He has bilateral triphasic waveforms, right GONZALO of 1.19, left GONZALO 1.24, right toe brachial index of 0.84, and left toe brachial index of 0.87. I recommend compression management with double Tubigrip application, elevation and rest, and routine muscular contraction. I recommended venous Doppler exam with reflux evaluation. I do not see the results in the computer and will continue to follow any results. He reports he is borderline diabetic. His A1C suggests he is a diabetic. To follow up with PCP for medical management. There is no will be sent over for communication purposes. To optimize diet to control glucose levels and to ensure adequete nutrition for healing. Nando nutritional supplement was recommended. To follow up at the wound healing center in one to 2 weeks. I answered his questions.
== END 2020-02-24 23:59 ==
LOC: WC 11:15
PROVIDERS: PCP Nurse Practitioner Family; Referring Provider Podiatrist; Visit Provider Podiatrist
DX: E11.621 Type 2 diabetes mellitus with foot ulcer (principal); L97.912 Non-pressure chronic ulcer of unspecified part of right lower leg with fat layer exposed; L97.922 Non-pressure chronic ulcer of unspecified part of left lower leg with fat layer exposed; I87.2 Venous insufficiency (chronic) (peripheral); R60.0 Localized edema; E78.5 Hyperlipidemia, unspecified; I10 Essential (primary) hypertension; I48.91 Unspecified atrial fibrillation; E11.51 Type 2 diabetes mellitus with diabetic peripheral angiopathy without gangrene; E11.42 Type 2 diabetes mellitus with diabetic polyneuropathy; Z79.82 Long term (current) use of aspirin; Z79.899 Other long term (current) drug therapy
CPT/HCPCS: 11042; 11045; 36415; 80053; 83036; 85025; 93923; 93970; 99213; G0463

== ENCOUNTER 2020-03-23 08:45 | Outpatient (RCR) | payer OTHER, SELFPAY ==
[2020-02-25 00:16] VITALS: BP 125/68; PULSE 70; RESP 18; TEMP 36.6
--- NOTE | 2020-03-08 13:41 | WC ---
Request for PuralyAM and Apligraf submitted to [employer] via fax. On 02/29/2020, benefit outcome summary came back via fax stating that prior auth required for Apligraf [id number] and Puraply AM [id number]. Called [employer], patient's insurance, to obtain prior auth. and per Tonya, NO PRIOR AUTH. NECESSARY. Call reference # [id number].
[2020-03-09 11:30] VITALS: BP 129/84; PULSE 119; RESP 22; TEMP 36.4
--- NOTE | 2020-03-09 14:13 | PN.PCM_ITS ---
(1) Ulcer of right lower extremity with fat layer exposed Status: Chronic Code(s): L97.912 - Non-pressure chronic ulcer of unspecified part of right lower leg with fat layer exposed (2) Ulcer of left lower extremity with fat layer exposed Status: Chronic Code(s): L97.922 - Non-pressure chronic ulcer of unspecified part of left lower leg with fat layer exposed (3) Venous insufficiency (chronic) (peripheral) Status: Chronic Code(s): I87.2 - Venous insufficiency (chronic) (peripheral) (4) Bilateral leg edema Status: Chronic Code(s): R60.0 - Localized edema (5) Type 2 diabetes mellitus with diabetic polyneuropathy Status: Chronic Code(s): E11.42 - Type 2 diabetes mellitus with diabetic polyneuropathy Type of Wound Date of Service: 03/09/20 Chief Complaint: Leg ulcers History of Wound: This 60-year-old male presents to the wound healing clinic today with delayed healing wounds of both lower extremities. He denies fever, chill, nausea, vomiting. He has leg swelling. He has worn Tubigrip compression sleeves. Progress of Wound: Improving - Physical Exam Vital Signs Temp Pulse Resp BP 97.5 F L 119 H 22 H 129/84 H 03/09/20 11:30 03/09/20 11:30 03/09/20 11:30 03/09/20 11:30 General: Alert, Oriented x3, Cooperative, No apparent distress HEENT: Atraumatic Extremities: No cyanosis, Capillary Refill Less than 3 Seconds, No Calf Tenderness, Diminished Peripheral Pulses, Edema Skin: Ulcer/ Wound - No purulence, erythema, streaking, odor, infection. His skin is atrophic and hairless. Wound Measurements and Assessment WC - Nurse 1 - General Ulcer Measurement Start: 03/09/20 11:30 Freq: Status: Active Protocol: Activity Type Activity Date Activity User E-Sign Co-Sign Detail Recorded Client Recorded Date Recorded By Document 03/09/20 11:30 DL [id number] 03/09/20 11:53 DL 03/09/20 11:30 Wound Center Nurse 1 [Ulcer Assessment] #6- L LAT LE INFERIOR -Current Size (cm) - Length 4.5 -Current Size (cm) - Width 1.8 -Current Size (cm) - Depth 0.2 -Total Square Cm 8.10 -Photo Taken No -Exudate Amt Small -Exudate Type Serosanguineous -Wound Margin Distinct, Outline Attached -Granulation Amt Medium (34-66%) -Granulation Quality Red -Necrosis Amt Medium (34-66%) -Necrotic Tissue Type Adherent Slough -Structure Exposed N/A -Texture (Isela-wound Skin Appearance) Scarring -Moisture (Isela-wound Skin Appearance Dry/Scaly ) -Color (Isela-wound Skin Appearance) Hemosiderin Staining -Temperature (Isela-wound Skin No Abnormality Appearance) (Pt Warm) -Tenderness on Palpation (Isela-wound No Skin Appearance) -Ulcer Cleansing Rinsed/ Irrigated with Saline -Foul Odor after Cleansing No -Anesthetic Used 4% Lidocaine Solution #5- L LAT LE SUPERIOR -Current Size (cm) - Length 2 -Current Size (cm) - Width 1.1 -Current Size (cm) - Depth 0.2 -Total Square Cm 2.2 -Photo Taken No -Exudate Amt Small -Exudate Type Serosanguineous -Wound Margin Distinct, Outline Attached -Granulation Amt Medium (34-66%) -Granulation Quality Red -Necrosis Amt Medium (34-66%) -Necrotic Tissue Type Adherent Slough -Structure Exposed N/A -Texture (Isela-wound Skin Appearance) Scarring -Moisture (Isela-wound Skin Appearance No Abnormality ) -Color (Isela-wound Skin Appearance) Hemosiderin Staining -Temperature (Isela-wound Skin No Abnormality Appearance) (Pt Warm) -Tenderness on Palpation (Isela-wound No Skin Appearance) -Ulcer Cleansing Rinsed/ Irrigated with Saline -Foul Odor after Cleansing No -Anesthetic Used 4% Lidocaine Solution #4 L LAT ANKLE -Current Size (cm) - Length 2.8 -Current Size (cm) - Width 1 -Current Size (cm) - Depth 0.2 -Total Square Cm 2.8 -Photo Taken No -Exudate Amt Small -Exudate Type Serosanguineous -Wound Margin Distinct, Outline Attached -Granulation Amt Medium (34-66%) -Granulation Quality Red -Necrosis Amt Medium (34-66%) -Necrotic Tissue Type Adherent Slough -Structure Exposed N/A -Texture (Isela-wound Skin Appearance) Scarring -Moisture (Isela-wound Skin Appearance No Abnormality ) -Color (Isela-wound Skin Appearance) Hemosiderin Staining -Temperature (Isela-wound Skin No Abnormality Appearance) (Pt Warm) -Tenderness on Palpation (Isela-wound No Skin Appearance) -Ulcer Cleansing Rinsed/ Irrigated with Saline -Foul Odor after Cleansing No -Anesthetic Used 4% Lidocaine Solution #3 L MED ANKLE CLUSTER -Current Size (cm) - Length 4.4 -Current Size (cm) - Width 2 -Current Size (cm) - Depth 0.3 -Total Square Cm 8.8 -Photo Taken No -Exudate Amt Small -Exudate Type Serosanguineous -Wound Margin Distinct, Outline Attached -Granulation Amt Medium (34-66%) -Granulation Quality Red -Necrosis Amt Medium (34-66%) -Necrotic Tissue Type Adherent Slough -Structure Exposed N/A -Texture (Isela-wound Skin Appearance) Scarring -Moisture (Isela-wound Skin Appearance No Abnormality ) -Color (Isela-wound Skin Appearance) Hemosiderin Staining -Temperature (Isela-wound Skin No Abnormality Appearance) (Pt Warm) -Tenderness on Palpation (Isela-wound No Skin Appearance) -Ulcer Cleansing Rinsed/ Irrigated with Saline -Foul Odor after Cleansing No -Anesthetic Used 4% Lidocaine Solution #2- R LAT ANKLE CLUSTER -Current Size (cm) - Length 0.6 -Current Size (cm) - Width 2.4 -Current Size (cm) - Depth 0.2 -Total Square Cm 1.44 -Photo Taken No -Exudate Amt Small -Exudate Type Serosanguineous -Wound Margin Distinct, Outline Attached -Granulation Amt Small (1-33%) -Granulation Quality [place] -Necrosis Amt Small (1-33%) -Necrotic Tissue Type Adherent Slough -Structure Exposed N/A -Texture (Isela-wound Skin Appearance) Scarring -Moisture (Isela-wound Skin Appearance Dry/Scaly ) -Color (Isela-wound Skin Appearance) Hemosiderin Staining -Temperature (Isela-wound Skin No Abnormality Appearance) (Pt Warm) -Tenderness on Palpation (Islea-wound No Skin Appearance) -Ulcer Cleansing Rinsed/ Irrigated with Saline -Foul Odor after Cleansing No -Anesthetic Used 4% Lidocaine Solution #1- R MED ANKLE CLUSTER -Current Size (cm) - Length 2.2 -Current Size (cm) - Width 1 -Current Size (cm) - Depth 0.8 -Total Square Cm 2.2 -Photo Taken No -Exudate Amt Small -Exudate Type Serosanguineous -Wound Margin Distinct, Outline Attached -Granulation Amt Medium (34-66%) -Granulation Quality Red -Necrosis Amt Medium (34-66%) -Necrotic Tissue Type Adherent Slough -Structure Exposed N/A -Texture (Isela-wound Skin Appearance) Scarring -Moisture (Isela-wound Skin Appearance No Abnormality ) -Color (Isela-wound Skin Appearance) Hemosiderin Staining -Temperature (Isela-wound Skin No Abnormality Appearance) (Pt Warm) -Tenderness on Palpation (Isela-wound No Skin Appearance) -Ulcer Cleansing Rinsed/ Irrigated with Saline -Foul Odor after Cleansing No -Anesthetic Used 4% Lidocaine Solution [Edema Assessment] -Right Calf (cm) 41.2 -Right Ankle (cm) 24.2 -Left Calf (cm) 42 -Left Ankle (cm) 26 Musculoskeletal: No Tenderness to Palpation of Joints or Extremities, Muscle Wasting Neurological: - - Lack of normal epicritic sensation light touch is consistent with neuropathy status Psych/Mental Status: Normal Affect, Appropriate Debridement Note Wound debrided: medial ankle cluster, lateral ankle cluster Laterality: Right Wound Grade/Stage: grade 1 Type of Debridement: Excisional debridement Anesthesia Used: 5% Lidocaine Gel Depth: in the subcutaneous layer Percentage of wound debrided: 100 Instrument Used: #15 blade Tissue Removed: fibrous, devitalized subcutaneous, biofilm, slough Severity: Fat Layer Exposed Amount of bleeding with debridement: Mild Bleeding Controlled with: Pressure Patient tolerated procedure well - Additional Wound Wound debrided: medial ankle, lateral ankle, lateral (leg superior and inferior) Assessment/Plan Active Problems Ulcer of right lower extremity with fat layer exposed (Chronic) Ulcer of left lower extremity with fat layer exposed (Chronic) Venous insufficiency (chronic) (peripheral) (Chronic) Bilateral leg edema (Chronic) Type 2 diabetes mellitus with diabetic polyneuropathy (Chronic) Assessment: Ulcer right leg fat layer exposed, multiple. Ulcer fat layer exposed left, multiple. Lower extremity edema. Venous insufficiency suspected. Peripheral vascular disease suspected. Malnutrition suspected Plan: I reviewed and discussed his case. His etiology, treatment options, and comrehensive plan was discussed in detail. His ulcer sites were debrided in a subcutaneous excisional manner as noted in the clinical panel. His wounds are chronic and have been present for over 1 month duration. He has been changing the dressings with [employer]. I recommend application of advanced wound healing product and prior authorization will be initiated. I would like to first control bioburden with application of antimicrobial collagen product, puraply. Then, I would like to transition him into an advanced wound healing product Apligraf or an amnio product. The indications, benefits, anticipated healing time and management and applications were reviewed. He is amendable to proceed. This was applied today according to standard protocol after verbal consent was obtained. The pure apply was further secured with a wound veil and Steri-Strips. He tolerated this well. A secondary dressing was applied. He is advised to keep this clean, dry, and intact until follow-up next week. This is medically necessary for limb salvage. He has comorbidities as noted with his diabetes and delayed healing. He is afebrile. Labs were orderd and reviwiewed (CBC, CMP, and HgA1C). No leukocytosis is noted. His A1C was 6.7%. He was reassured no local infection is noted and I do not recommend antibiotics. Follow-up with primary care physician for diabetes management. Edema control with tubigrip. Venous doppler with reflux examination was recommended and ordered. Non invasive vascular studies were also ordered. No critical limb ishemia is suspected today. He has bilateral triphasic waveforms, right GONZALO of 1.19, left GONZALO 1.24, right toe brachial index of 0.84, and left toe brachial index of 0.87. I recommend compression management with double Tubigrip application, elevation and rest, and routine muscular contraction. I recommended venous Doppler exam with reflux evaluation. Venous incompetence is noted to bilateral lower extremities and I recommend a vein specialist referral. A referral was provided to Dr. Serna. To optimize diet to control glucose levels and to ensure adequete nutrition for healing. Nando nutritional supplement was recommended. To follow up at the wound healing center in one to 1 week. I answered his questions.
[2020-03-16 11:05] VITALS: BP 136/87; PULSE 93; RESP 24; TEMP 36.3
--- NOTE | 2020-03-16 12:12 | PCM.WC.PN ---
(1) Ulcer of right lower extremity with fat layer exposed Status: Chronic Code(s): L97.912 - Non-pressure chronic ulcer of unspecified part of right lower leg with fat layer exposed (2) Ulcer of left lower extremity with fat layer exposed Status: Chronic Code(s): L97.922 - Non-pressure chronic ulcer of unspecified part of left lower leg with fat layer exposed (3) Venous insufficiency (chronic) (peripheral) Status: Chronic Code(s): I87.2 - Venous insufficiency (chronic) (peripheral) (4) Bilateral leg edema Status: Chronic Code(s): R60.0 - Localized edema (5) Type 2 diabetes mellitus with diabetic polyneuropathy Status: Chronic Code(s): E11.42 - Type 2 diabetes mellitus with diabetic polyneuropathy Type of Wound Date of Service: 03/16/20 Chief Complaint: Leg ulcers History of Wound: This 60-year-old male presents to the wound healing clinic today with delayed healing wounds of both lower extremities. He denies fever, chill, nausea, vomiting. He has leg swelling. He has worn Tubigrip compression sleeves. He relates that he did not schedule his appointment vascular surgery yet however he did receive an email this morning. He denies odor or redness. Progress of Wound: Improving - Physical Exam Vital Signs Temp Pulse Resp BP 97.4 F L 93 24 H 136/87 H 03/16/20 11:05 03/16/20 11:05 03/16/20 11:05 03/16/20 11:05 General: Alert, Oriented x3, Cooperative, No apparent distress HEENT: Atraumatic Extremities: No cyanosis, Capillary Refill Less than 3 Seconds, No Calf Tenderness, Diminished Peripheral Pulses, Edema Skin: Ulcer/ Wound - No purulence, erythema, string, odor, infection. His skin is hairless and atrophic and hyperpigmented. Most of the ulcer beds are pale granular and healthy with the exception of the distal medial left lower extremity has a fibrous and berry discoloration that is not necrotic or purulent. Wound Measurements and Assessment WC - Nurse 1 - General Ulcer Measurement Start: 03/09/20 11:30 Freq: Status: Active Protocol: Activity Type Activity Date Activity User E-Sign Co-Sign Detail Recorded Client Recorded Date Recorded By Document 03/16/20 11:05 LOREN [id number] 03/16/20 11:29 DL 03/16/20 11:05 Wound Center Nurse 1 [Ulcer Assessment] #6- L LAT LE INFERIOR -Current Size (cm) - Length 5 -Current Size (cm) - Width 1.6 -Current Size (cm) - Depth 0.2 -Total Square Cm 8.0 -Photo Taken No -Exudate Amt Medium -Exudate Type Serosanguineous -Wound Margin Thickened -Granulation Amt Medium (34-66%) -Granulation Quality Red -Necrosis Amt Medium (34-66%) -Necrotic Tissue Type Adherent Slough -Structure Exposed N/A -Texture (Isela-wound Skin Appearance) Scarring -Moisture (Isela-wound Skin Appearance Dry/Scaly ) -Color (Isela-wound Skin Appearance) Hemosiderin Staining -Temperature (Isela-wound Skin No Abnormality Appearance) (Pt Warm) -Tenderness on Palpation (Isela-wound No Skin Appearance) -Ulcer Cleansing Wound Cleanser -Foul Odor after Cleansing No -Anesthetic Used 4% Lidocaine Solution #5- L LAT LE SUPERIOR -Current Size (cm) - Length 2.1 -Current Size (cm) - Width 1.2 -Current Size (cm) - Depth 0.2 -Total Square Cm 2.52 -Photo Taken No -Exudate Amt Small -Exudate Type Serosanguineous -Wound Margin Distinct, Outline Attached -Granulation Amt Medium (34-66%) -Granulation Quality Red -Necrosis Amt Medium (34-66%) -Necrotic Tissue Type Adherent Slough -Structure Exposed N/A -Texture (Isela-wound Skin Appearance) Scarring -Moisture (Isela-wound Skin Appearance Dry/Scaly ) -Color (Isela-wound Skin Appearance) Hemosiderin Staining -Temperature (Isela-wound Skin No Abnormality Appearance) (Pt Warm) -Tenderness on Palpation (Isela-wound No Skin Appearance) -Ulcer Cleansing Wound Cleanser -Foul Odor after Cleansing No -Anesthetic Used 4% Lidocaine Solution #4 L LAT ANKLE -Current Size (cm) - Length 1 -Current Size (cm) - Width 2.6 -Current Size (cm) - Depth 0.2 -Total Square Cm 2.6 -Photo Taken No -Exudate Amt Medium -Exudate Type Serosanguineous -Wound Margin Distinct, Outline Attached -Granulation Amt Medium (34-66%) -Granulation Quality Red -Necrosis Amt Medium (34-66%) -Necrotic Tissue Type Adherent Slough -Structure Exposed N/A -Texture (Isela-wound Skin Appearance) Scarring -Moisture (Isela-wound Skin Appearance Maceration ) -Color (Isela-wound Skin Appearance) Hemosiderin Staining -Temperature (Isela-wound Skin No Abnormality Appearance) (Pt Warm) -Tenderness on Palpation (Isela-wound No Skin Appearance) -Ulcer Cleansing Wound Cleanser -Foul Odor after Cleansing No -Anesthetic Used 4% Lidocaine Solution #3 L MED ANKLE CLUSTER -Current Size (cm) - Length 4.8 -Current Size (cm) - Width 2.2 -Current Size (cm) - Depth 0.3 -Total Square Cm 10.56 -Photo Taken No -Exudate Amt Medium -Exudate Type Serosanguineous -Wound Margin Thickened -Granulation Amt None Present (0 %) -Slough/Fibrin Yes -Necrosis Amt Large (67-100%) -Necrotic Tissue Type Adherent Slough -Structure Exposed N/A -Texture (Isela-wound Skin Appearance) Scarring -Moisture (Isela-wound Skin Appearance Maceration ) -Color (Isela-wound Skin Appearance) Hemosiderin Staining -Temperature (Isela-wound Skin No Abnormality Appearance) (Pt Warm) -Tenderness on Palpation (Isela-wound No Skin Appearance) -Ulcer Cleansing Wound Cleanser -Foul Odor after Cleansing No -Anesthetic Used 4% Lidocaine Solution #2- R LAT ANKLE CLUSTER -Current Size (cm) - Length 0.5 -Current Size (cm) - Width 1 -Current Size (cm) - Depth 0.1 -Total Square Cm 0.5 -Photo Taken No -Exudate Amt Small -Exudate Type Serosanguineous -Wound Margin Distinct, Outline Attached -Granulation Amt Large (67-100%) -Granulation Quality [place],Red -Necrosis Amt Small (1-33%) -Necrotic Tissue Type Adherent Slough -Structure Exposed N/A -Texture (Isela-wound Skin Appearance) Scarring -Moisture (Isela-wound Skin Appearance Dry/Scaly ) -Color (Isela-wound Skin Appearance) Hemosiderin Staining -Temperature (Isela-wound Skin No Abnormality Appearance) (Pt Warm) -Tenderness on Palpation (Isela-wound No Skin Appearance) -Ulcer Cleansing Wound Cleanser #1- R MED ANKLE CLUSTER -Current Size (cm) - Length 2 -Current Size (cm) - Width 2.1 -Current Size (cm) - Depth 0.2 -Total Square Cm 4.2 -Photo Taken No -Exudate Amt Small -Exudate Type Serosanguineous -Wound Margin Distinct, Outline Attached -Granulation Amt Medium (34-66%) -Granulation Quality Red -Necrosis Amt Medium (34-66%) -Necrotic Tissue Type Adherent Slough -Structure Exposed N/A -Moisture (Isela-wound Skin Appearance Dry/Scaly ) -Color (Isela-wound Skin Appearance) Hemosiderin Staining -Temperature (Isela-wound Skin No Abnormality Appearance) (Pt Warm) -Tenderness on Palpation (Isela-wound No Skin Appearance) -Ulcer Cleansing Wound Cleanser -Foul Odor after Cleansing No -Anesthetic Used 4% Lidocaine Solution [Edema Assessment] -Right Calf (cm) 39.5 -Right Ankle (cm) 24 -Left Calf (cm) 40.5 -Left Ankle (cm) 24.6 Musculoskeletal: No Tenderness to Palpation of Joints or Extremities, Muscle Wasting Neurological: Sensory exam intact to light touch and pain Psych/Mental Status: Normal Affect, Appropriate Debridement Note Post-Debridement Measurements/Treatment WC - Nurse 2 - General Ulcer CM Notes Start: 03/09/20 11:30 Freq: Status: Active Protocol: Activity Type Activity Date Activity User E-Sign Co-Sign Detail Recorded Client Recorded Date Recorded By Document 03/09/20 11:30 [id number] 03/11/20 08:45 03/09/20 11:30 Wound Center Nurse 2 #6- L LAT LE INFERIOR -Time 08:36 -Correct Patient Yes -Correct Side, Site, Position Yes -Correct Procedure Yes -Procedure Performed Yes -Type of Procedure Debridement -Clinical Debridement Subcutaneous -Tissue Removed Subcutaneous -Post Debridement (cm) - Length 4.6 -Post Debridement (cm) - Width 1.8 -Post Debridement (cm) - Depth 0.2 -Total Square (Post) (cm) 8.28 -Area of Debridement (cm) - Length 4.6 -Area of Debridement (cm) - Width 1.8 -Total Square (Area) (cm) 8.28 -Tunneling No -Undermining/Tunneling No -Circular Undermining No -Wound/Ulcer Outcome Not Healed -Ulcer Cleansing Rinsed/ Irrigated with Saline -Foul Odor after Cleansing No -Bioengineered Tissue Yes -Type of Bioengineered Tissue PuraPly AM -Expiration Date 08/03/21 -Product Lot Number [id number] -Percent Used 100 -Saline Lot Number [id number] -Bleeding Controlled with Pressure -Offloading No -Treatment Response Procedure Tolerated Well -Debridement - Subq, 1st 20sq cm No -Apply Skin Sub - 1st 25 sq cm - Legs 1 -PuraPly AM (per sq cm) 54 #5- L LAT LE SUPERIOR -Time 08:38 -Correct Patient Yes -Correct Side, Site, Position Yes -Correct Procedure Yes -Procedure Performed Yes -Type of Procedure Debridement -Clinical Debridement Subcutaneous -Tissue Removed Subcutaneous -Post Debridement (cm) - Length 2.1 -Post Debridement (cm) - Width 1.1 -Post Debridement (cm) - Depth 0.2 -Total Square (Post) (cm) 2.31 -Area of Debridement (cm) - Length 2.1 -Area of Debridement (cm) - Width 1.1 -Total Square (Area) (cm) 2.31 -Tunneling No -Undermining/Tunneling No -Circular Undermining No -Wound/Ulcer Outcome Not Healed -Ulcer Cleansing Rinsed/ Irrigated with Saline -Foul Odor after Cleansing No -Bioengineered Tissue No -Bleeding Controlled with Pressure -Offloading No -Treatment Response Procedure Tolerated Well -Debridement - Subq, 1st 20sq cm Yes -Debridement, SubQ, ea addt'l 20sq cm 1 or part thereof #4 L LAT ANKLE -Time 08:39 -Correct Patient Yes -Correct Side, Site, Position Yes -Correct Procedure Yes -Procedure Performed Yes -Type of Procedure Debridement -Clinical Debridement Subcutaneous -Tissue Removed Subcutaneous -Post Debridement (cm) - Length 2.8 -Post Debridement (cm) - Width 1.1 -Post Debridement (cm) - Depth 0.2 -Total Square (Post) (cm) 3.08 -Area of Debridement (cm) - Length 2.8 -Area of Debridement (cm) - Width 1.1 -Total Square (Area) (cm) 3.08 -Tunneling No -Undermining/Tunneling No -Circular Undermining No -Wound/Ulcer Outcome Not Healed -Ulcer Cleansing Rinsed/ Irrigated with Saline -Foul Odor after Cleansing No -Bioengineered Tissue No -Bleeding Controlled with Pressure -Offloading No -Treatment Response Procedure Tolerated Well -Debridement - Subq, 1st 20sq cm No #3 L MED ANKLE CLUSTER -Time 08:40 -Correct Patient Yes -Correct Side, Site, Position Yes -Correct Procedure Yes -Procedure Performed Yes -Type of Procedure Debridement -Clinical Debridement Subcutaneous -Tissue Removed Subcutaneous -Post Debridement (cm) - Length 4.5 -Post Debridement (cm) - Width 2 -Post Debridement (cm) - Depth 0.3 -Total Square (Post) (cm) 9.0 -Area of Debridement (cm) - Length 4.5 -Area of Debridement (cm) - Width 2.0 -Total Square (Area) (cm) 9.00 -Tunneling No -Undermining/Tunneling No -Circular Undermining No -Wound/Ulcer Outcome Not Healed -Ulcer Cleansing Rinsed/ Irrigated with Saline -Foul Odor after Cleansing No -Bioengineered Tissue No -Bleeding Controlled with Pressure -Offloading No -Treatment Response Procedure Tolerated Well -Debridement - Subq, 1st 20sq cm No #2- R LAT ANKLE CLUSTER -Time 08:41 -Correct Patient Yes -Correct Side, Site, Position Yes -Correct Procedure Yes -Procedure Performed Yes -Type of Procedure Debridement -Clinical Debridement Subcutaneous -Tissue Removed Subcutaneous -Post Debridement (cm) - Length 0.6 -Post Debridement (cm) - Width 2.5 -Post Debridement (cm) - Depth 0.2 -Total Square (Post) (cm) 1.50 -Area of Debridement (cm) - Length 0.6 -Area of Debridement (cm) - Width 2.5 -Total Square (Area) (cm) 1.50 -Tunneling No -Undermining/Tunneling No -Circular Undermining No -Wound/Ulcer Outcome Not Healed -Ulcer Cleansing Rinsed/ Irrigated with Saline -Foul Odor after Cleansing No -Bioengineered Tissue No -Bleeding Controlled with Pressure -Offloading No -Treatment Response Procedure Tolerated Well -Debridement - Subq, 1st 20sq cm No #1- R MED ANKLE CLUSTER -Time 08:42 -Correct Patient Yes -Correct Side, Site, Position Yes -Correct Procedure Yes -Procedure Performed Yes -Type of Procedure Debridement -Clinical Debridement Subcutaneous -Tissue Removed Subcutaneous -Post Debridement (cm) - Length 2.3 -Post Debridement (cm) - Width 1.8 -Post Debridement (cm) - Depth 0.2 -Total Square (Post) (cm) 4.14 -Area of Debridement (cm) - Length 2.3 -Area of Debridement (cm) - Width 1.8 -Total Square (Area) (cm) 4.14 -Tunneling No -Undermining/Tunneling No -Circular Undermining No -Wound/Ulcer Outcome Not Healed -Ulcer Cleansing Rinsed/ Irrigated with Saline -Foul Odor after Cleansing No -Bioengineered Tissue No -Bleeding Controlled with Pressure -Offloading No -Treatment Response Procedure Tolerated Well -Debridement - Subq, 1st 20sq cm No Pain Scale: 0-10 Numeric Is Patient Pain Free? Yes Wound debrided: medial and lateral ankle Laterality: Right Wound Grade/Stage: grade 1 Type of Debridement: Excisional debridement Anesthesia Used: 5% Lidocaine Gel Depth: in the subcutaneous layer Percentage of wound debrided: 100 Instrument Used: #15 blade Tissue Removed: fibrous, devitalized subcutaneous, biofilm, slough Severity: Fat Layer Exposed Amount of bleeding with debridement: Mild Bleeding Controlled with: Pressure Patient tolerated procedure well - Additional Wound Wound debrided: medial and lateral ankle, lateral foot Laterality: Left Wound Grade/Stage: grade 1 Type of Debridement: Excisional debridement Anesthesia Used: 5% Lidocaine Gel Depth: in the subcutaneous layer Percentage of wound debrided: 100 Instrument Used: #15 blade Tissue Removed: fibrous, devitalized subcutaneous, biofilm, slough Severity: Fat Layer Exposed Amount of bleeding with debridement: Mild Bleeding Controlled with: Pressure Patient tolerated procedure: Patient tolerated procedure well Assessment/Plan Active Problems Ulcer of right lower extremity with fat layer exposed (Chronic) Ulcer of left lower extremity with fat layer exposed (Chronic) Venous insufficiency (chronic) (peripheral) (Chronic) Bilateral leg edema (Chronic) Type 2 diabetes mellitus with diabetic polyneuropathy (Chronic) Assessment: Ulcer right leg fat layer exposed, multiple. Ulcer fat layer exposed left, multiple. Lower extremity edema. Venous insufficiency suspected. Peripheral vascular disease suspected. Malnutrition suspected Plan: I reviewed and discussed his case. His etiology, treatment options, and comrehensive plan was discussed in detail. His ulcer sites were debrided in a subcutaneous excisional manner as noted in the clinical panel. He has been changing the dressings with [employer]. I recommend application of advanced wound healing product and prior authorization will be initiated. He kept puraply intact for a week. Then, I would like to transition him into an advanced wound healing product Apligraft which was applied today according to standard protocol with the exception of the medial left lower extremity. He will wash the medial left lower extremity ulcer site with soap and water daily and apply silver cell. The indications, benefits, anticipated healing time and management and applications were reviewed. He is amendable to proceed. The advanced wound healing product was applied today according to standard protocol after verbal consent was obtained. The pure apply was further secured with a wound veil and Steri-Strips. He tolerated this well. A secondary dressing was applied. He is advised to keep this clean, dry, and intact until follow-up next week. This is medically necessary for limb salvage. He has comorbidities as noted with his diabetes and delayed healing. He is afebrile. Labs were orderd and reviwiewed (CBC, CMP, and HgA1C). No leukocytosis is noted. His A1C was 6.7%. He was reassured no local infection is noted and I do not recommend antibiotics. Follow-up with primary care physician for diabetes management. Edema control with tubigrip. Venous doppler with reflux examination was recommended and ordered. Non invasive vascular studies were also ordered. No critical limb ishemia is suspected today. He has bilateral triphasic waveforms, right GONZALO of 1.19, left GONZALO 1.24, right toe brachial index of 0.84, and left toe brachial index of 0.87. I recommend compression management with double Tubigrip application, elevation and rest, and routine muscular contraction. I recommended venous Doppler exam with reflux evaluation. Venous incompetence is noted to bilateral lower extremities and I recommend a vein specialist referral. A referral was provided to Dr. Serna. He was advised to complete the scheduling process. To optimize diet to control glucose levels and to ensure adequete nutrition for healing. Nando nutritional supplement was recommended. To follow up at the wound healing center in one to 1 week. I answered his questions.
[2020-03-23 08:46] VITALS: BP 160/87; PULSE 124; RESP 24; TEMP 36.4
--- NOTE | 2020-03-23 09:00 | PN.PCM_ITS ---
(1) Ulcer of right lower extremity with fat layer exposed Status: Chronic Code(s): L97.912 - Non-pressure chronic ulcer of unspecified part of right lower leg with fat layer exposed (2) Ulcer of left lower extremity with fat layer exposed Status: Chronic Code(s): L97.922 - Non-pressure chronic ulcer of unspecified part of left lower leg with fat layer exposed (3) Venous insufficiency (chronic) (peripheral) Status: Chronic Code(s): I87.2 - Venous insufficiency (chronic) (peripheral) (4) Bilateral leg edema Status: Chronic Code(s): R60.0 - Localized edema (5) Type 2 diabetes mellitus with diabetic polyneuropathy Status: Chronic Code(s): E11.42 - Type 2 diabetes mellitus with diabetic polyneuropathy Type of Wound Date of Service: 03/23/20 Chief Complaint: Leg ulcers History of Wound: This 60-year-old male presents to the wound healing clinic today with delayed healing wounds of both lower extremities. He denies fever, chill, nausea, vomiting. He has leg swelling. He has worn Tubigrip compression sleeves. He is scheduled his vascular referral appointment for March 30Saturday. He denies odor or redness. He kept his Apligraf advanced skin substitutes in place and was able to form daily dressing changes to the medial left ankle wound. Progress of Wound: Improving - Physical Exam Vital Signs Temp Pulse Resp BP 97.5 F L 124 H 24 H 160/87 H 03/23/20 08:46 03/23/20 08:46 03/23/20 08:46 03/23/20 08:46 General: Alert, Oriented x3, Cooperative, No apparent distress Extremities: No cyanosis, Capillary Refill Less than 3 Seconds, No Calf Tenderness, Diminished Peripheral Pulses, Edema Skin: Ulcer/ Wound - No purulence, erythema, streaking, odor, infection. His skin is atrophic and hairless. There is no longer any free necrotic tissue to the medial left ankle ulcer site. This is now granular and fibrous. The Apligraf is intact with wound veil and Steri-Strips to the other ulcer sites Wound Measurements and Assessment WC - Nurse 1 - General Ulcer Measurement Start: 03/09/20 11:30 Freq: Status: Active Protocol: Activity Type Activity Date Activity User E-Sign Co-Sign Detail Recorded Client Recorded Date Recorded By Document 10/28/20 08:46 DL [id number] 03/23/20 08:53 DL 03/23/20 08:46 Wound Center Nurse 1 [Ulcer Assessment] #3 L MED ANKLE CLUSTER -Current Size (cm) - Length 4.7 -Current Size (cm) - Width 1.8 -Current Size (cm) - Depth 0.2 -Total Square Cm 8.46 -Photo Taken No -Exudate Amt Small -Exudate Type Serosanguineous -Wound Margin Thickened -Granulation Amt None Present (0 %) -Necrosis Amt Large (67-100%) -Necrotic Tissue Type Adherent Slough -Structure Exposed N/A -Texture (Isela-wound Skin Appearance) Scarring -Moisture (Isela-wound Skin Appearance Dry/Scaly ) -Color (Isela-wound Skin Appearance) Hemosiderin Staining -Temperature (Isela-wound Skin No Abnormality Appearance) (Pt Warm) -Tenderness on Palpation (Isela-wound No Skin Appearance) -Ulcer Cleansing Wound Cleanser -Foul Odor after Cleansing No -Anesthetic Used 4% Lidocaine Solution [Edema Assessment] -Right Calf (cm) 39.4 -Right Ankle (cm) 24 -Left Calf (cm) 40.9 -Left Ankle (cm) 24.8 Musculoskeletal: No Tenderness to Palpation of Joints or Extremities, Muscle Wasting Neurological: - - Lack of normal epicritic sensation Psych/Mental Status: Normal Affect, Appropriate Debridement Note Post-Debridement Measurements/Treatment WC - Nurse 2 - General Ulcer CM Notes Start: 03/09/20 11:30 Freq: Status: Active Protocol: Activity Type Activity Date Activity User E-Sign Co-Sign Detail Recorded Client Recorded Date Recorded By Document 03/09/20 11:30 [id number] 03/11/20 08:45 Document 03/16/20 13:09 WILLIE [id number] 03/16/20 13:14 03/09/20 03/16/20 11:30 13:09 Wound Center Nurse 2 #6- L LAT LE INFERIOR -Time 08:36 13:09 -Correct Patient Yes Yes -Correct Side, Site, Position Yes Yes -Correct Procedure Yes Yes -Procedure Performed Yes Yes -Type of Procedure Debridement Debridement -Clinical Debridement Subcutaneous Subcutaneous -Tissue Removed Subcutaneous Subcutaneous -Post Debridement (cm) - Length 4.6 5.0 -Post Debridement (cm) - Width 1.8 1.6 -Post Debridement (cm) - Depth 0.2 0.2 -Total Square (Post) (cm) 8.28 8.00 -Area of Debridement (cm) - Length 4.6 5.0 -Area of Debridement (cm) - Width 1.8 1.6 -Total Square (Area) (cm) 8.28 8.00 -Tunneling No No -Undermining/Tunneling No No -Circular Undermining No No -Wound/Ulcer Outcome Not Healed Not Healed -Ulcer Cleansing Rinsed/ Rinsed/ Irrigated with Irrigated with Saline Saline -Foul Odor after Cleansing No No -Bioengineered Tissue Yes Yes -Type of Bioengineered Tissue PuraPly AM Apligraf -Expiration Date 08/03/21 03/24/20 -Product Lot Number [id number] -Percent Used 100 100 -Saline Lot Number [id number] -Bleeding Controlled with Pressure Pressure -Offloading No No -Treatment Response Procedure Procedure Tolerated Well Tolerated Well -Debridement - Subq, 1st 20sq cm No No -Apply Skin Sub - 1st 25 sq cm - Legs 1 1 -Apligraf (per sq cm) 44 -PuraPly AM (per sq cm) 54 #5- L LAT LE SUPERIOR -Time 08:38 13:10 -Correct Patient Yes Yes -Correct Side, Site, Position Yes Yes -Correct Procedure Yes Yes -Procedure Performed Yes Yes -Type of Procedure Debridement Debridement -Clinical Debridement Subcutaneous Subcutaneous -Tissue Removed Subcutaneous Subcutaneous -Post Debridement (cm) - Length 2.1 2.2 -Post Debridement (cm) - Width 1.1 1.2 -Post Debridement (cm) - Depth 0.2 0.2 -Total Square (Post) (cm) 2.31 2.64 -Area of Debridement (cm) - Length 2.1 2.2 -Area of Debridement (cm) - Width 1.1 1.2 -Total Square (Area) (cm) 2.31 2.64 -Tunneling No No -Undermining/Tunneling No No -Circular Undermining No No -Wound/Ulcer Outcome Not Healed Not Healed -Ulcer Cleansing Rinsed/ Rinsed/ Irrigated with Irrigated with Saline Saline -Foul Odor after Cleansing No No -Bioengineered Tissue No No -Bleeding Controlled with Pressure Pressure -Offloading No No -Treatment Response Procedure Procedure Tolerated Well Tolerated Well -Debridement - Subq, 1st 20sq cm Yes No -Debridement, SubQ, ea addt'l 20sq cm 1 or part thereof #4 L LAT ANKLE -Time 08:39 13:11 -Correct Patient Yes Yes -Correct Side, Site, Position Yes Yes -Correct Procedure Yes Yes -Procedure Performed Yes Yes -Type of Procedure Debridement Debridement -Clinical Debridement Subcutaneous Subcutaneous -Tissue Removed Subcutaneous Subcutaneous -Post Debridement (cm) - Length 2.8 1.0 -Post Debridement (cm) - Width 1.1 2.6 -Post Debridement (cm) - Depth 0.2 0.2 -Total Square (Post) (cm) 3.08 2.60 -Area of Debridement (cm) - Length 2.8 1.0 -Area of Debridement (cm) - Width 1.1 2.6 -Total Square (Area) (cm) 3.08 2.60 -Tunneling No No -Undermining/Tunneling No No -Circular Undermining No No -Wound/Ulcer Outcome Not Healed Not Healed -Ulcer Cleansing Rinsed/ Rinsed/ Irrigated with Irrigated with Saline Saline -Foul Odor after Cleansing No No -Bioengineered Tissue No No -Bleeding Controlled with Pressure Pressure -Offloading No No -Treatment Response Procedure Procedure Tolerated Well Tolerated Well -Debridement - Subq, 1st 20sq cm No No #3 L MED ANKLE CLUSTER -Time 08:40 13:12 -Correct Patient Yes Yes -Correct Side, Site, Position Yes Yes -Correct Procedure Yes Yes -Procedure Performed Yes Yes -Type of Procedure Debridement Debridement -Clinical Debridement Subcutaneous Subcutaneous -Tissue Removed Subcutaneous Subcutaneous -Post Debridement (cm) - Length 4.5 4.8 -Post Debridement (cm) - Width 2 2.3 -Post Debridement (cm) - Depth 0.3 0.3 -Total Square (Post) (cm) 9.0 11.04 -Area of Debridement (cm) - Length 4.5 4.8 -Area of Debridement (cm) - Width 2.0 2.3 -Total Square (Area) (cm) 9.00 11.04 -Tunneling No No -Undermining/Tunneling No No -Circular Undermining No No -Wound/Ulcer Outcome Not Healed Not Healed -Ulcer Cleansing Rinsed/ Rinsed/ Irrigated with Irrigated with Saline Saline -Foul Odor after Cleansing No No -Bioengineered Tissue No No -Bleeding Controlled with Pressure Pressure -Offloading No No -Treatment Response Procedure Procedure Tolerated Well Tolerated Well -Debridement - Subq, 1st 20sq cm No No #2- R LAT ANKLE CLUSTER -Time 08:41 13:13 -Correct Patient Yes Yes -Correct Side, Site, Position Yes Yes -Correct Procedure Yes Yes -Procedure Performed Yes Yes -Type of Procedure Debridement Debridement -Clinical Debridement Subcutaneous Subcutaneous -Tissue Removed Subcutaneous Subcutaneous -Post Debridement (cm) - Length 0.6 0.6 -Post Debridement (cm) - Width 2.5 1.1 -Post Debridement (cm) - Depth 0.2 0.1 -Total Square (Post) (cm) 1.50 0.66 -Area of Debridement (cm) - Length 0.6 0.6 -Area of Debridement (cm) - Width 2.5 1.1 -Total Square (Area) (cm) 1.50 0.66 -Tunneling No No -Undermining/Tunneling No No -Circular Undermining No No -Wound/Ulcer Outcome Not Healed Not Healed -Ulcer Cleansing Rinsed/ Rinsed/ Irrigated with Irrigated with Saline Saline -Foul Odor after Cleansing No No -Bioengineered Tissue No No -Bleeding Controlled with Pressure Pressure -Offloading No No -Treatment Response Procedure Procedure Tolerated Well Tolerated Well -Debridement - Subq, 1st 20sq cm No No #1- R MED ANKLE CLUSTER -Time 08:42 13:13 -Correct Patient Yes Yes -Correct Side, Site, Position Yes Yes -Correct Procedure Yes Yes -Procedure Performed Yes Yes -Type of Procedure Debridement Debridement -Clinical Debridement Subcutaneous Subcutaneous -Tissue Removed Subcutaneous Subcutaneous -Post Debridement (cm) - Length 2.3 2.1 -Post Debridement (cm) - Width 1.8 2.1 -Post Debridement (cm) - Depth 0.2 0.2 -Total Square (Post) (cm) 4.14 4.41 -Area of Debridement (cm) - Length 2.3 2.1 -Area of Debridement (cm) - Width 1.8 2.1 -Total Square (Area) (cm) 4.14 4.41 -Tunneling No No -Undermining/Tunneling No No -Circular Undermining No No -Wound/Ulcer Outcome Not Healed Not Healed -Ulcer Cleansing Rinsed/ Rinsed/ Irrigated with Irrigated with Saline Saline -Foul Odor after Cleansing No No -Bioengineered Tissue No No -Bleeding Controlled with Pressure Pressure -Offloading No No -Treatment Response Procedure Procedure Tolerated Well Tolerated Well -Debridement - Subq, 1st 20sq cm No No Pain Scale: 0-10 Numeric Is Patient Pain Free? Yes Yes - Nurse 3 - General Ulcer D/C NN Start: 03/09/20 11:30 Freq: Status: Active Protocol: Activity Type Activity Date Activity User E-Sign Co-Sign Detail Recorded Client Recorded Date Recorded By Document 03/16/20 12:12 MS [id number] 03/16/20 12:15 MS 03/16/20 12:12 Wound Care Nurse 3 #6- L LAT LE INFERIOR -Foul Odor after Cleansing No -Other Dressing apligraf -Primary Dressing Covered/Secured with Dry Gauze & Roll Gauze, Secured with Tape #5- L LAT LE SUPERIOR -Foul Odor after Cleansing No -Other Dressing Apligraf -Primary Dressing Covered/Secured with Dry Gauze & Roll Gauze, Secured with Tape #4 L LAT ANKLE -Foul Odor after Cleansing No -Other Dressing apligraf -Primary Dressing Covered/Secured with Dry Gauze & Roll Gauze, Secured with Tape #3 L MED ANKLE CLUSTER -Ulcer Cleansing Wound Cleanser -Foul Odor after Cleansing No -Primary Dressing Applied Aquacel AG 2x2 -Primary Dressing Covered/Secured with Dry Gauze & Roll Gauze, Secured with Tape -Aquacel AG 2x2 1 #2- R LAT ANKLE CLUSTER -Foul Odor after Cleansing No -Other Dressing apligrdaf -Primary Dressing Covered/Secured with Dry Gauze & Roll Gauze, Secured with Tape #1- R MED ANKLE CLUSTER -Foul Odor after Cleansing No -Other Dressing apligraf -Primary Dressing Covered/Secured with Dry Gauze & Roll Gauze, Secured with Tape Right -Other tubigrip Left -Other tubigrip Treatment Response Procedure Tolerated Well Pain Scale: 0-10 Numeric Is Patient Pain Free? Yes - Visit Discharge Discharge Condition Stable Ambulatory Status Ambulatory,Cane Transportation Private Auto Wound debrided: medial lower leg/ankle Laterality: Left Wound Grade/Stage: grade 1 Type of Debridement: Excisional debridement Anesthesia Used: 5% Lidocaine Gel Depth: in the subcutaneous layer Percentage of wound debrided: 100 Instrument Used: #15 blade Tissue Removed: fibrous, devitalized subcutaneous, biofilm, slough Severity: Fat Layer Exposed Amount of bleeding with debridement: Mild Bleeding Controlled with: Pressure Patient tolerated procedure well Assessment/Plan Active Problems Ulcer of right lower extremity with fat layer exposed (Chronic) Ulcer of left lower extremity with fat layer exposed (Chronic) Venous insufficiency (chronic) (peripheral) (Chronic) Bilateral leg edema (Chronic) Type 2 diabetes mellitus with diabetic polyneuropathy (Chronic) Assessment: Ulcer right leg fat layer exposed, multiple. Ulcer fat layer exposed left, multiple. Lower extremity edema. Venous insufficiency suspected. Peripheral vascular disease suspected. Malnutrition suspected Plan: I reviewed and discussed his case. His etiology, treatment options, and comrehensive plan was discussed in detail. His ulcer sites were debrided in a subcutaneous excisional manner as noted in the clinical panel. He has been changing the dressings with dakin to the medial left lower leg. He kept his Apligraf intact to the other ulcer sites as advised. Reapplication will be considered next week. The indications, benefits, anticipated healing time and management and applications were reviewed. He is amendable to proceed. A secondary dressing was applied. He is advised to keep this clean, dry, and intact until follow-up next week except he is advised to continue changing the medial left lower leg site daily as before. This is medically necessary for limb salvage. He has comorbidities as noted with his diabetes and delayed healing. He is afebrile. Labs were orderd and reviwiewed (CBC, CMP, and HgA1C). No leukocytosis is noted. His A1C was 6.7%. He was reassured no local infection is noted and I do not recommend antibiotics. Follow-up with primary care physician for diabetes management. Edema control with tubigrip. Venous doppler with reflux examination was recommended and ordered. Non invasive vascular studies were also ordered. No critical limb ishemia is suspected today. He has bilateral triphasic waveforms, right GONZALO of 1.19, left GONZALO 1.24, right toe brachial index of 0.84, and left toe brachial index of 0.87. I recommend compression management with double Tubigrip application, elevation and rest, and routine muscular contraction. I recommended venous Doppler exam with reflux evaluation. Venous incompetence is noted to bilateral lower extremities and I recommend a vein specialist referral. A referral was provided to Dr. Serna. He is scheduled for March 30Saturday. To optimize diet to control glucose levels and to ensure adequete nutrition for healing. Nando nutritional supp lement was recommended. To follow up at the wound healing center in one to 1 week. I answered his questions.
[2020-03-23 09:09] VITALS: BP 130/72; PULSE 111
== END 2020-03-26 23:59 ==
LOC: WC 08:45
PROVIDERS: PCP Nurse Practitioner Family; Referring Provider Podiatrist; Visit Provider Podiatrist
DX: E11.621 Type 2 diabetes mellitus with foot ulcer (principal); L97.912 Non-pressure chronic ulcer of unspecified part of right lower leg with fat layer exposed; L97.922 Non-pressure chronic ulcer of unspecified part of left lower leg with fat layer exposed; I87.2 Venous insufficiency (chronic) (peripheral); R60.0 Localized edema; E11.42 Type 2 diabetes mellitus with diabetic polyneuropathy
CPT/HCPCS: 11042; 11045; 15271; 15275; Q4101; Q4196

== ENCOUNTER 2020-04-20 09:15 | Outpatient (RCR) | payer OTHER, SELFPAY ==
[2020-03-27 00:10] VITALS: BP 130/72; PULSE 111; RESP 24; TEMP 36.4
[2020-03-30 08:50] VITALS: BP 149/98; PULSE 112; RESP 20; TEMP 36.6
--- NOTE | 2020-03-30 22:27 | PCM.WC.PN ---
(1) Ulcer of right lower extremity with fat layer exposed Status: Chronic Code(s): L97.912 - Non-pressure chronic ulcer of unspecified part of right lower leg with fat layer exposed (2) Ulcer of left lower extremity with fat layer exposed Status: Chronic Code(s): L97.922 - Non-pressure chronic ulcer of unspecified part of left lower leg with fat layer exposed (3) Other specified peripheral vascular diseases Status: Suspected Code(s): I73.89 - Other specified peripheral vascular diseases (4) Bilateral leg edema Status: Chronic Code(s): R60.0 - Localized edema (5) Type 2 diabetes mellitus with diabetic polyneuropathy Status: Chronic Code(s): E11.42 - Type 2 diabetes mellitus with diabetic polyneuropathy (6) Venous insufficiency (chronic) (peripheral) Status: Chronic Code(s): I87.2 - Venous insufficiency (chronic) (peripheral) Type of Wound Date of Service: 03/30/20 Chief Complaint: Leg ulcers History of Wound: This 60-year-old male presents to the wound healing clinic today with delayed healing wounds of both lower extremities. He denies fever, chill, nausea, vomiting. He has leg swelling. He has worn Tubigrip compression sleeves. He is scheduled his vascular referral appointment for March 30Saturday. He denies odor or redness. He kept his Apligraf advanced skin substitutes in place and was able to form daily dressing changes to the medial left ankle wound. Progress of Wound: Improving - Physical Exam Vital Signs Temp Pulse Resp BP 97.9 F 112 H 20 H 149/98 H 03/30/20 08:50 03/30/20 08:50 03/30/20 08:50 03/30/20 08:50 General: Alert, Oriented x3, Cooperative, No apparent distress HEENT: Atraumatic Extremities: No cyanosis, Capillary Refill Less than 3 Seconds, No Calf Tenderness, Diminished Peripheral Pulses, Edema Skin: Ulcer/ Wound - No purulence, erythema, string, odor, infection. Ulcer beds are granular and healthier in appearance. Skin is atrophic and hairless bilateral lower extremities Wound Measurements and Assessment WC - Nurse 1 - General Ulcer Measurement Start: 03/30/20 08:43 Freq: Status: Active Protocol: Activity Type Activity Date Activity User E-Sign Co-Sign Detail Recorded Client Recorded Date Recorded By Document 03/30/20 08:50 DL [id number] 03/30/20 09:04 DL 03/30/20 08:50 Wound Center Nurse 1 [Ulcer Assessment] #6- L LAT LE INFERIOR -Current Size (cm) - Length 4.2 -Current Size (cm) - Width 1.5 -Current Size (cm) - Depth 0.2 -Total Square Cm 6.30 -Photo Taken No -Exudate Amt Medium -Exudate Type Serosanguineous -Wound Margin Distinct, Outline Attached -Granulation Amt Medium (34-66%) -Granulation Quality Red -Necrosis Amt Medium (34-66%) -Necrotic Tissue Type Adherent Slough -Structure Exposed N/A -Texture (Isela-wound Skin Appearance) Scarring -Moisture (Isela-wound Skin Appearance Maceration, ) Weeping -Color (Isela-wound Skin Appearance) Hemosiderin Staining -Temperature (Isela-wound Skin No Abnormality Appearance) (Pt Warm) -Ulcer Cleansing Wound Cleanser -Foul Odor after Cleansing No -Anesthetic Used 4% Lidocaine Solution #5- L LAT LE SUPERIOR -Current Size (cm) - Length 1.5 -Current Size (cm) - Width 0.6 -Current Size (cm) - Depth 0.2 -Total Square Cm 0.90 -Photo Taken No -Epithelialization None Present -Exudate Amt Small -Exudate Type Serosanguineous -Wound Margin Distinct, Outline Attached -Granulation Amt Small (1-33%) -Granulation Quality [place] -Necrosis Amt Small (1-33%) -Necrotic Tissue Type Adherent Slough -Structure Exposed N/A -Texture (Isela-wound Skin Appearance) Scarring -Moisture (Isela-wound Skin Appearance Weeping ) -Color (Isela-wound Skin Appearance) Hemosiderin Staining -Temperature (Isela-wound Skin No Abnormality Appearance) (Pt Warm) -Tenderness on Palpation (Isela-wound No Skin Appearance) -Ulcer Cleansing Wound Cleanser -Anesthetic Used 4% Lidocaine Solution #4 L LAT ANKLE -Current Size (cm) - Length 0.1 -Current Size (cm) - Width 0.1 -Current Size (cm) - Depth 0.1 -Total Square Cm 0.01 -Photo Taken No -Exudate Amt Small -Exudate Type Serosanguineous -Wound Margin Indistinct, Non -Visible -Granulation Amt Small (1-33%) -Granulation Quality [place] -Necrosis Amt Small (1-33%) -Necrotic Tissue Type Adherent Slough -Texture (Isela-wound Skin Appearance) Scarring -Moisture (Isela-wound Skin Appearance Weeping ) -Color (Isela-wound Skin Appearance) Hemosiderin Staining -Temperature (Isela-wound Skin No Abnormality Appearance) (Pt Warm) -Tenderness on Palpation (Isela-wound No Skin Appearance) -Ulcer Cleansing Wound Cleanser -Foul Odor after Cleansing No -Anesthetic Used 4% Lidocaine Solution #3 L MED ANKLE CLUSTER -Current Size (cm) - Length 4.3 -Current Size (cm) - Width 1.7 -Current Size (cm) - Depth 0.2 -Total Square Cm 7.31 -Photo Taken No -Exudate Amt Medium -Exudate Type Serosanguineous -Wound Margin Distinct, Outline Attached -Granulation Amt Small (1-33%) -Granulation Quality Red -Necrosis Amt Large (67-100%) -Necrotic Tissue Type Adherent Slough -Structure Exposed N/A -Texture (Isela-wound Skin Appearance) Scarring -Moisture (Isela-wound Skin Appearance Weeping ) -Color (Isela-wound Skin Appearance) Hemosiderin Staining -Temperature (Isela-wound Skin No Abnormality Appearance) (Pt Warm) -Tenderness on Palpation (Isela-wound No Skin Appearance) -Ulcer Cleansing Wound Cleanser -Foul Odor after Cleansing No -Anesthetic Used 4% Lidocaine Solution #2- R LAT ANKLE CLUSTER -Current Size (cm) - Length 0.1 -Current Size (cm) - Width 0.1 -Current Size (cm) - Depth 0.1 -Total Square Cm 0.01 -Photo Taken No -Exudate Amt Small -Exudate Type Serosanguineous -Wound Margin Indistinct, Non -Visible -Granulation Amt Medium (34-66%) -Granulation Quality Pale,[place] -Necrosis Amt Medium (34-66%) -Necrotic Tissue Type Adherent Slough -Structure Exposed N/A -Texture (Isela-wound Skin Appearance) Scarring -Moisture (Isela-wound Skin Appearance Dry/Scaly ) -Color (Isela-wound Skin Appearance) Hemosiderin Staining -Temperature (Isela-wound Skin No Abnormality Appearance) (Pt Warm) -Tenderness on Palpation (Isela-wound No Skin Appearance) -Ulcer Cleansing Wound Cleanser -Foul Odor after Cleansing No -Anesthetic Used 4% Lidocaine Solution #1- R MED ANKLE CLUSTER -Current Size (cm) - Length 0.8 -Current Size (cm) - Width 1.1 -Current Size (cm) - Depth 0.1 -Total Square Cm 0.88 -Photo Taken No -Exudate Amt Small -Exudate Type Serosanguineous -Wound Margin Distinct, Outline Attached -Granulation Amt None Present (0 %) -Necrosis Amt Large (67-100%) -Necrotic Tissue Type Adherent Slough -Structure Exposed N/A -Texture (Isela-wound Skin Appearance) Scarring -Moisture (Isela-wound Skin Appearance Weeping ) -Color (Isela-wound Skin Appearance) Hemosiderin Staining -Temperature (Isela-wound Skin No Abnormality Appearance) (Pt Warm) -Tenderness on Palpation (Isela-wound No Skin Appearance) -Ulcer Cleansing Wound Cleanser -Foul Odor after Cleansing No -Anesthetic Used 4% Lidocaine Solution [Edema Assessment] -Right Calf (cm) 41 -Right Ankle (cm) 24.6 -Left Calf (cm) 39 -Left Ankle (cm) 23.5 WC - Nurse 2 - General Ulcer CM Notes Start: 03/30/20 08:43 Freq: Status: Active Protocol: Activity Type Activity Date Activity User E-Sign Co-Sign Detail Recorded Client Recorded Date Recorded By Document 03/30/20 09:30 WILLIE [id number] 03/30/20 09:35 WILLIE 03/30/20 09:30 Wound Center Nurse 2 [Procedure/Treatment] #6- L LAT LE INFERIOR -Time 09:31 -Correct Patient Yes -Correct Side, Site, Position Yes -Correct Procedure Yes -Procedure Performed Yes -Type of Procedure Debridement -Clinical Debridement Subcutaneous -Tissue Removed Subcutaneous -Post Debridement (cm) - Length 4.2 -Post Debridement (cm) - Width 1.6 -Post Debridement (cm) - Depth 0.2 -Total Square (Post) (cm) 6.72 -Area of Debridement (cm) - Length 4.2 -Area of Debridement (cm) - Width 1.6 -Total Square (Area) (cm) 6.72 -Tunneling No -Undermining/Tunneling No -Circular Undermining No -Wound/Ulcer Outcome Not Healed -Ulcer Cleansing Rinsed/ Irrigated with Saline -Foul Odor after Cleansing No -Bioengineered Tissue No -Bleeding Controlled with Pressure -Offloading No -Treatment Response Procedure Tolerated Well -Debridement - Subq, 1st 20sq cm No #5- L LAT LE SUPERIOR -Time 09:31 -Correct Patient Yes -Correct Side, Site, Position Yes -Correct Procedure Yes -Procedure Performed Yes -Type of Procedure Debridement -Clinical Debridement Subcutaneous -Tissue Removed Subcutaneous -Post Debridement (cm) - Length 1.5 -Post Debridement (cm) - Width 0.7 -Post Debridement (cm) - Depth 0.2 -Total Square (Post) (cm) 1.05 -Area of Debridement (cm) - Length 1.5 -Area of Debridement (cm) - Width 0.7 -Total Square (Area) (cm) 1.05 -Tunneling No -Undermining/Tunneling No -Circular Undermining No -Wound/Ulcer Outcome Not Healed -Ulcer Cleansing Rinsed/ Irrigated with Saline -Foul Odor after Cleansing No -Bioengineered Tissue No -Bleeding Controlled with Pressure -Offloading No -Treatment Response Procedure Tolerated Well -Debridement - Subq, 1st 20sq cm No #4 L LAT ANKLE -Time 09:32 -Correct Patient Yes -Correct Side, Site, Position Yes -Correct Procedure Yes -Procedure Performed Yes -Type of Procedure Debridement -Clinical Debridement Subcutaneous -Tissue Removed Subcutaneous -Post Debridement (cm) - Length 0.2 -Post Debridement (cm) - Width 0.2 -Post Debridement (cm) - Depth 0.1 -Total Square (Post) (cm) 0.04 -Area of Debridement (cm) - Length 0.2 -Area of Debridement (cm) - Width 0.2 -Total Square (Area) (cm) 0.04 -Tunneling No -Undermining/Tunneling No -Circular Undermining No -Wound/Ulcer Outcome Not Healed -Ulcer Cleansing Rinsed/ Irrigated with Saline -Foul Odor after Cleansing No -Bioengineered Tissue No -Bleeding Controlled with Pressure -Offloading No -Treatment Response Procedure Tolerated Well -Debridement - Subq, 1st 20sq cm No #3 L MED ANKLE CLUSTER -Time 09:32 -Correct Patient Yes -Correct Side, Site, Position Yes -Correct Procedure Yes -Procedure Performed Yes -Type of Procedure Debridement -Clinical Debridement Subcutaneous -Tissue Removed Subcutaneous -Post Debridement (cm) - Length 4.4 -Post Debridement (cm) - Width 1.8 -Post Debridement (cm) - Depth 0.2 -Total Square (Post) (cm) 7.92 -Area of Debridement (cm) - Length 4.4 -Area of Debridement (cm) - Width 1.8 -Total Square (Area) (cm) 7.92 -Tunneling No -Undermining/Tunneling No -Circular Undermining No -Wound/Ulcer Outcome Not Healed -Ulcer Cleansing Rinsed/ Irrigated with Saline -Foul Odor after Cleansing No -Bioengineered Tissue No -Bleeding Controlled with Pressure -Offloading No -Treatment Response Procedure Tolerated Well -Debridement - Subq, 1st 20sq cm No #2- R LAT ANKLE CLUSTER -Time 09:33 -Correct Patient Yes -Correct Side, Site, Position Yes -Correct Procedure Yes -Procedure Performed Yes -Type of Procedure Debridement -Clinical Debridement Subcutaneous -Tissue Removed Subcutaneous -Post Debridement (cm) - Length 0.2 -Post Debridement (cm) - Width 0.2 -Post Debridement (cm) - Depth 0.1 -Total Square (Post) (cm) 0.04 -Area of Debridement (cm) - Length 0.2 -Area of Debridement (cm) - Width 0.1 -Total Square (Area) (cm) 0.02 -Tunneling No -Undermining/Tunneling No -Circular Undermining No -Wound/Ulcer Outcome Not Healed -Ulcer Cleansing Rinsed/ Irrigated with Saline -Foul Odor after Cleansing No -Bioengineered Tissue No -Bleeding Controlled with Pressure -Offloading No -Treatment Response Procedure Tolerated Well -Debridement - Subq, 1st 20sq cm No #1- R MED ANKLE CLUSTER -Time 09:34 -Correct Patient Yes -Correct Side, Site, Position Yes -Correct Procedure Yes -Procedure Performed Yes -Type of Procedure Debridement -Clinical Debridement Subcutaneous -Tissue Removed Subcutaneous -Post Debridement (cm) - Length 0.8 -Post Debridement (cm) - Width 1.2 -Post Debridement (cm) - Depth 0.1 -Total Square (Post) (cm) 0.96 -Area of Debridement (cm) - Length 0.8 -Area of Debridement (cm) - Width 1.2 -Total Square (Area) (cm) 0.96 -Tunneling No -Undermining/Tunneling No -Circular Undermining No -Wound/Ulcer Outcome Not Healed -Ulcer Cleansing Rinsed/ Irrigated with Saline -Foul Odor after Cleansing No -Bioengineered Tissue No -Bleeding Controlled with Pressure -Offloading No -Treatment Response Procedure Tolerated Well -Debridement - Subq, 1st 20sq cm Yes [See Physician Procedure note for Specifics] Pain Scale: 0-10 Numeric [Pain] -Is Patient Pain Free? Yes Musculoskeletal: No Tenderness to Palpation of Joints or Extremities, Muscle Wasting Neurological: - - Lack of normal epicritic sensation Psych/Mental Status: Normal Affect, Appropriate Debridement Note Post-Debridement Measurements/Treatment WC - Nurse 2 - General Ulcer CM Notes Start: 03/30/20 08:43 Freq: Status: Active Protocol: Activity Type Activity Date Activity User E-Sign Co-Sign Detail Recorded Client Recorded Date Recorded By Document 03/30/20 09:30 WILLIE [id number] 03/30/20 09:35 WILLIE 03/30/20 09:30 Wound Center Nurse 2 #6- L LAT LE INFERIOR -Time 09:31 -Correct Patient Yes -Correct Side, Site, Position Yes -Correct Procedure Yes -Procedure Performed Yes -Type of Procedure Debridement -Clinical Debridement Subcutaneous -Tissue Removed Subcutaneous -Post Debridement (cm) - Length 4.2 -Post Debridement (cm) - Width 1.6 -Post Debridement (cm) - Depth 0.2 -Total Square (Post) (cm) 6.72 -Area of Debridement (cm) - Length 4.2 -Area of Debridement (cm) - Width 1.6 -Total Square (Area) (cm) 6.72 -Tunneling No -Undermining/Tunneling No -Circular Undermining No -Wound/Ulcer Outcome Not Healed -Ulcer Cleansing Rinsed/ Irrigated with Saline -Foul Odor after Cleansing No -Bioengineered Tissue No -Bleeding Controlled with Pressure -Offloading No -Treatment Response Procedure Tolerated Well -Debridement - Subq, 1st 20sq cm No #5- L LAT LE SUPERIOR -Time 09:31 -Correct Patient Yes -Correct Side, Site, Position Yes -Correct Procedure Yes -Procedure Performed Yes -Type of Procedure Debridement -Clinical Debridement Subcutaneous -Tissue Removed Subcutaneous -Post Debridement (cm) - Length 1.5 -Post Debridement (cm) - Width 0.7 -Post Debridement (cm) - Depth 0.2 -Total Square (Post) (cm) 1.05 -Area of Debridement (cm) - Length 1.5 -Area of Debridement (cm) - Width 0.7 -Total Square (Area) (cm) 1.05 -Tunneling No -Undermining/Tunneling No -Circular Undermining No -Wound/Ulcer Outcome Not Healed -Ulcer Cleansing Rinsed/ Irrigated with Saline -Foul Odor after Cleansing No -Bioengineered Tissue No -Bleeding Controlled with Pressure -Offloading No -Treatment Response Procedure Tolerated Well -Debridement - Subq, 1st 20sq cm No #4 L LAT ANKLE -Time 09:32 -Correct Patient Yes -Correct Side, Site, Position Yes -Correct Procedure Yes -Procedure Performed Yes -Type of Procedure Debridement -Clinical Debridement Subcutaneous -Tissue Removed Subcutaneous -Post Debridement (cm) - Length 0.2 -Post Debridement (cm) - Width 0.2 -Post Debridement (cm) - Depth 0.1 -Total Square (Post) (cm) 0.04 -Area of Debridement (cm) - Length 0.2 -Area of Debridement (cm) - Width 0.2 -Total Square (Area) (cm) 0.04 -Tunneling No -Undermining/Tunneling No -Circular Undermining No -Wound/Ulcer Outcome Not Healed -Ulcer Cleansing Rinsed/ Irrigated with Saline -Foul Odor after Cleansing No -Bioengineered Tissue No -Bleeding Controlled with Pressure -Offloading No -Treatment Response Procedure Tolerated Well -Debridement - Subq, 1st 20sq cm No #3 L MED ANKLE CLUSTER -Time 09:32 -Correct Patient Yes -Correct Side, Site, Position Yes -Correct Procedure Yes -Procedure Performed Yes -Type of Procedure Debridement -Clinical Debridement Subcutaneous -Tissue Removed Subcutaneous -Post Debridement (cm) - Length 4.4 -Post Debridement (cm) - Width 1.8 -Post Debridement (cm) - Depth 0.2 -Total Square (Post) (cm) 7.92 -Area of Debridement (cm) - Length 4.4 -Area of Debridement (cm) - Width 1.8 -Total Square (Area) (cm) 7.92 -Tunneling No -Undermining/Tunneling No -Circular Undermining No -Wound/Ulcer Outcome Not Healed -Ulcer Cleansing Rinsed/ Irrigated with Saline -Foul Odor after Cleansing No -Bioengineered Tissue No -Bleeding Controlled with Pressure -Offloading No -Treatment Response Procedure Tolerated Well -Debridement - Subq, 1st 20sq cm No #2- R LAT ANKLE CLUSTER -Time 09:33 -Correct Patient Yes -Correct Side, Site, Position Yes -Correct Procedure Yes -Procedure Performed Yes -Type of Procedure Debridement -Clinical Debridement Subcutaneous -Tissue Removed Subcutaneous -Post Debridement (cm) - Length 0.2 -Post Debridement (cm) - Width 0.2 -Post Debridement (cm) - Depth 0.1 -Total Square (Post) (cm) 0.04 -Area of Debridement (cm) - Length 0.2 -Area of Debridement (cm) - Width 0.1 -Total Square (Area) (cm) 0.02 -Tunneling No -Undermining/Tunneling No -Circular Undermining No -Wound/Ulcer Outcome Not Healed -Ulcer Cleansing Rinsed/ Irrigated with Saline -Foul Odor after Cleansing No -Bioengineered Tissue No -Bleeding Controlled with Pressure -Offloading No -Treatment Response Procedure Tolerated Well -Debridement - Subq, 1st 20sq cm No #1- R MED ANKLE CLUSTER -Time 09:34 -Correct Patient Yes -Correct Side, Site, Position Yes -Correct Procedure Yes -Procedure Performed Yes -Type of Procedure Debridement -Clinical Debridement Subcutaneous -Tissue Removed Subcutaneous -Post Debridement (cm) - Length 0.8 -Post Debridement (cm) - Width 1.2 -Post Debridement (cm) - Depth 0.1 -Total Square (Post) (cm) 0.96 -Area of Debridement (cm) - Length 0.8 -Area of Debridement (cm) - Width 1.2 -Total Square (Area) (cm) 0.96 -Tunneling No -Undermining/Tunneling No -Circular Undermining No -Wound/Ulcer Outcome Not Healed -Ulcer Cleansing Rinsed/ Irrigated with Saline -Foul Odor after Cleansing No -Bioengineered Tissue No -Bleeding Controlled with Pressure -Offloading No -Treatment Response Procedure Tolerated Well -Debridement - Subq, 1st 20sq cm Yes Pain Scale: 0-10 Numeric Is Patient Pain Free? Yes Wound debrided: right lower leg (medial and lateral) Laterality: Right Wound Grade/Stage: grade 1 Type of Debridement: Excisional debridement Anesthesia Used: 5% Lidocaine Gel Depth: in the subcutaneous layer Percentage of wound debrided: 100 Instrument Used: #15 blade Tissue Removed: fibrous, devitalized subcutaneous, biofilm, slough Severity: Fat Layer Exposed Amount of bleeding with debridement: Mild Bleeding Controlled with: Pressure Patient tolerated procedure well - Additional Wound Wound debrided: lower leg (medial and lateral) Laterality: Left Wound Grade/Stage: grade 1 Type of Debridement: Excisional debridement Anesthesia Used: 5% Lidocaine Gel Depth: in the subcutaneous layer Percentage of wound debrided: 100 Instrument Used: #15 blade Tissue Removed: fibrous, devitalized subcutaneous, biofilm, slough Severity: Fat Layer Exposed Amount of bleeding with debridement: Mild Bleeding Controlled with: Pressure Patient tolerated procedure: Patient tolerated procedure well Assessment/Plan Active Problems Ulcer of right lower extremity with fat layer exposed (Chronic) Ulcer of left lower extremity with fat layer exposed (Chronic) Venous insufficiency (chronic) (peripheral) (Chronic) Bilateral leg edema (Chronic) Type 2 diabetes mellitus with diabetic polyneuropathy (Chronic) Assessment: Ulcer right leg fat layer exposed, multiple. Ulcer fat layer exposed left, multiple. Lower extremity edema. Venous insufficiency suspected. Peripheral vascular disease suspected. Malnutrition suspected Plan: I reviewed and discussed his case. His etiology, treatment options, and comrehensive plan was discussed in detail. His ulcer sites were debrided in a subcutaneous excisional manner as noted in the clinical panel. To change dressing daily with Aquacel Ag. Additional Apligraf application will be performed once additional insurance approval is confirmed. The indications, benefits, anticipated healing time and management and applications were reviewed. Delete that to change daily and wash with soap and water. He was advised to keep this clean, dry, and intact until follow-up next week except he is advised to continue changing the medial left lower leg site daily as before. This is medically necessary for limb salvage. He has comorbidities as noted with his diabetes and delayed healing. He is afebrile. Labs were orderd and reviwiewed (CBC, CMP, and HgA1C). No leukocytosis is noted. His A1C was 6.7%. He was reassured no local infection is noted and I do not recommend antibiotics. Follow-up with primary care physician for diabetes management. Edema control with tubigrip. Venous doppler with reflux examination was recommended and ordered. Non invasive vascular studies were also ordered. No critical limb ishemia is suspected today. He has bilateral triphasic waveforms, right GONZALO of 1.19, left GONZALO 1.24, right toe brachial index of 0.84, and left toe brachial index of 0.87. I recommend compression management with double Tubigrip application, elevation and rest, and routine muscular contraction. I recommended venous Doppler exam with reflux evaluation. Venous incompetence is noted to bilateral lower extremities and I recommend a vein specialist referral. A referral was provided to Dr. Serna. He is scheduled for March 30Saturday. To optimize diet to control glucose levels and to ensure adequete nutrition for healing. Nando nutritional supplement was recommended. His elevated hemoglobin A1c is noted however it is still under 7%. To follow-up with primary care physician. He is making diet and exercise changes at this time. To follow up at the wound healing center in one to 1 week. I answered his questions.
[2020-04-13 08:09] VITALS: BP 135/69; PULSE 98; RESP 22; TEMP 36.2
--- NOTE | 2020-04-13 12:57 | PN.PCM_ITS ---
(1) Ulcer of right lower extremity with fat layer exposed Status: Chronic Code(s): L97.912 - Non-pressure chronic ulcer of unspecified part of right lower leg with fat layer exposed (2) Ulcer of left lower extremity with fat layer exposed Status: Chronic Code(s): L97.922 - Non-pressure chronic ulcer of unspecified part of left lower leg with fat layer exposed (3) Other specified peripheral vascular diseases Status: Suspected Code(s): I73.89 - Other specified peripheral vascular diseases (4) Bilateral leg edema Status: Chronic Code(s): R60.0 - Localized edema (5) Type 2 diabetes mellitus with diabetic polyneuropathy Status: Chronic Code(s): E11.42 - Type 2 diabetes mellitus with diabetic polyneuropathy (6) Venous insufficiency (chronic) (peripheral) Status: Chronic Code(s): I87.2 - Venous insufficiency (chronic) (peripheral) Type of Wound Date of Service: 04/13/20 Chief Complaint: Leg ulcers History of Wound: This 60-year-old male presents to the wound healing clinic today with delayed healing wounds of both lower extremities. He denies fever, chill, nausea, vomiting. He has leg swelling. He has worn Tubigrip compression sleeves. Vascular referral and will follow up for additional testing. He does not recall all the details of the consultation. He is considering resuming intervention when his insurance deductible restarts in May. He denies odor or redness. He has been changing his dressings daily as advised. He is amendable to proceed forward with Apligraf application today. Progress of Wound: Improving. Healed lateral right foot ulcer - Physical Exam Vital Signs Temp Pulse Resp BP 97.2 F L 98 22 H 135/69 H 04/13/20 08:09 04/13/20 08:09 04/13/20 08:09 04/13/20 08:09 General: Alert, Oriented x3, Cooperative, No apparent distress HEENT: Atraumatic Extremities: No cyanosis, Capillary Refill Less than 3 Seconds, No Calf Tenderness, Diminished Peripheral Pulses, Edema Skin: Ulcer/ Wound - No purulence, erythema, streaking, odor, infection. His skin is atrophic and hairless. Full epithelialization was noted to the lateral right foot ulcer. The other ulcer sites have granular base with minimal fibrous tissue. No deep tissue exposure or necrosis Wound Measurements and Assessment WC - Nurse 1 - General Ulcer Measurement Start: 03/30/20 08:43 Freq: Status: Active Protocol: Activity Type Activity Date Activity User E-Sign Co-Sign Detail Recorded Client Recorded Date Recorded By Document 04/13/20 08:09 LOREN [id number] 04/13/20 08:34 DL 04/13/20 08:09 Wound Center Nurse 1 [Ulcer Assessment] #6- L LAT LE INFERIOR -Current Size (cm) - Length 4.8 -Current Size (cm) - Width 1.4 -Current Size (cm) - Depth 0.3 -Total Square Cm 6.72 -Photo Taken No -Exudate Amt Small -Exudate Type Serosanguineous -Wound Margin Thickened -Granulation Amt Medium (34-66%) -Granulation Quality Pale,[place] -Necrosis Amt Medium (34-66%) -Necrotic Tissue Type Adherent Slough -Structure Exposed N/A -Texture (Isela-wound Skin Appearance) Scarring -Moisture (Isela-wound Skin Appearance Dry/Scaly ) -Color (Isela-wound Skin Appearance) Hemosiderin Staining -Temperature (Isela-wound Skin No Abnormality Appearance) (Pt Warm) -Ulcer Cleansing Wound Cleanser -Foul Odor after Cleansing No -Anesthetic Used 4% Lidocaine Solution #5- L LAT LE SUPERIOR -Current Size (cm) - Length 1 -Current Size (cm) - Width 0.2 -Current Size (cm) - Depth 0.2 -Total Square Cm 0.2 -Photo Taken No -Exudate Amt None Present -Wound Margin Thickened -Granulation Amt Small (1-33%) -Granulation Quality Red -Necrosis Amt Small (1-33%) -Necrotic Tissue Type Adherent Slough -Structure Exposed N/A -Texture (Isela-wound Skin Appearance) Scarring -Moisture (Isela-wound Skin Appearance Dry/Scaly ) -Color (Isela-wound Skin Appearance) Hemosiderin Staining -Temperature (Isela-wound Skin No Abnormality Appearance) (Pt Warm) -Tenderness on Palpation (Isela-wound No Skin Appearance) -Ulcer Cleansing Wound Cleanser -Foul Odor after Cleansing No -Anesthetic Used 4% Lidocaine Solution #4 L LAT ANKLE -Current Size (cm) - Length 0.1 -Current Size (cm) - Width 0.1 -Current Size (cm) - Depth 0.1 -Total Square Cm 0.01 -Photo Taken No -Exudate Amt None Present -Wound Margin Thickened -Granulation Amt None Present (0 %) -Necrosis Amt Large (67-100%) -Necrotic Tissue Type Adherent Slough -Structure Exposed N/A -Texture (Isela-wound Skin Appearance) Scarring -Moisture (Isela-wound Skin Appearance Dry/Scaly ) -Color (Isela-wound Skin Appearance) Hemosiderin Staining -Temperature (Isela-wound Skin No Abnormality Appearance) (Pt Warm) -Tenderness on Palpation (Isela-wound No Skin Appearance) -Ulcer Cleansing Wound Cleanser -Foul Odor after Cleansing No -Anesthetic Used 4% Lidocaine Solution #3 L MED ANKLE CLUSTER -Current Size (cm) - Length 4.3 -Current Size (cm) - Width 1.8 -Current Size (cm) - Depth 0.3 -Total Square Cm 7.74 -Photo Taken No -Exudate Amt Small -Exudate Type Serosanguineous -Wound Margin Thickened -Granulation Amt None Present (0 %) -Necrosis Amt Large (67-100%) -Necrotic Tissue Type Adherent Slough -Structure Exposed N/A -Texture (Isela-wound Skin Appearance) Scarring -Moisture (Isela-wound Skin Appearance Dry/Scaly ) -Color (Isela-wound Skin Appearance) Hemosiderin Staining -Temperature (Isela-wound Skin No Abnormality Appearance) (Pt Warm) -Tenderness on Palpation (Isela-wound No Skin Appearance) -Ulcer Cleansing Wound Cleanser -Foul Odor after Cleansing No -Anesthetic Used 4% Lidocaine Solution #2- R LAT ANKLE CLUSTER -Current Size (cm) - Length 0.1 -Current Size (cm) - Width 0.1 -Current Size (cm) - Depth 0.1 -Total Square Cm 0.01 -Photo Taken No -Exudate Amt None Present -Wound Margin Thickened -Granulation Amt None Present (0 %) -Necrosis Amt Large (67-100%) -Necrotic Tissue Type Adherent Slough -Structure Exposed N/A -Texture (Isela-wound Skin Appearance) Scarring -Moisture (Isela-wound Skin Appearance Dry/Scaly ) -Color (Isela-wound Skin Appearance) Hemosiderin Staining -Temperature (Isela-wound Skin No Abnormality Appearance) (Pt Warm) -Tenderness on Palpation (Isela-wound No Skin Appearance) -Ulcer Cleansing Wound Cleanser -Foul Odor after Cleansing No -Anesthetic Used 4% Lidocaine Solution #1- R MED ANKLE CLUSTER -Current Size (cm) - Length 0.1 -Current Size (cm) - Width 0.1 -Current Size (cm) - Depth 0.1 -Total Square Cm 0.01 -Photo Taken No -Exudate Amt None Present -Wound Margin Thickened -Granulation Amt None Present (0 %) -Necrosis Amt Large (67-100%) -Necrotic Tissue Type Adherent Slough -Structure Exposed N/A -Texture (Isela-wound Skin Appearance) Scarring -Moisture (Isela-wound Skin Appearance Dry/Scaly ) -Color (Isela-wound Skin Appearance) Hemosiderin Staining -Temperature (Isela-wound Skin No Abnormality Appearance) (Pt Warm) -Tenderness on Palpation (Isela-wound No Skin Appearance) -Ulcer Cleansing Wound Cleanser -Foul Odor after Cleansing No -Anesthetic Used 4% Lidocaine Solution [Edema Assessment] -Right Calf (cm) 39 -Right Ankle (cm) 23.4 -Point of Measurement (cm from the 40.5 distal point) -Point of measurement (cm from the 24.3 medial instep) Musculoskeletal: No Tenderness to Palpation of Joints or Extremities, Muscle Wasting Neurological: - - Lack of normal epicritic sensation light touch is consistent with neuropathy status Psych/Mental Status: Normal Affect, Appropriate Debridement Note Post-Debridement Measurements/Treatment WC - Nurse 2 - General Ulcer CM Notes Start: 03/30/20 08:43 Freq: Status: Active Protocol: Activity Type Activity Date Activity User E-Sign Co-Sign Detail Recorded Client Recorded Date Recorded By Document 03/30/20 09:30 WILLIE [id number] 03/30/20 09:35 WILLIE 03/30/20 09:30 Wound Center Nurse 2 #6- L LAT LE INFERIOR -Time 09:31 -Correct Patient Yes -Correct Side, Site, Position Yes -Correct Procedure Yes -Procedure Performed Yes -Type of Procedure Debridement -Clinical Debridement Subcutaneous -Tissue Removed Subcutaneous -Post Debridement (cm) - Length 4.2 -Post Debridement (cm) - Width 1.6 -Post Debridement (cm) - Depth 0.2 -Total Square (Post) (cm) 6.72 -Area of Debridement (cm) - Length 4.2 -Area of Debridement (cm) - Width 1.6 -Total Square (Area) (cm) 6.72 -Tunneling No -Undermining/Tunneling No -Circular Undermining No -Wound/Ulcer Outcome Not Healed -Ulcer Cleansing Rinsed/ Irrigated with Saline -Foul Odor after Cleansing No -Bioengineered Tissue No -Bleeding Controlled with Pressure -Offloading No -Treatment Response Procedure Tolerated Well -Debridement - Subq, 1st 20sq cm No #5- L LAT LE SUPERIOR -Time 09:31 -Correct Patient Yes -Correct Side, Site, Position Yes -Correct Procedure Yes -Procedure Performed Yes -Type of Procedure Debridement -Clinical Debridement Subcutaneous -Tissue Removed Subcutaneous -Post Debridement (cm) - Length 1.5 -Post Debridement (cm) - Width 0.7 -Post Debridement (cm) - Depth 0.2 -Total Square (Post) (cm) 1.05 -Area of Debridement (cm) - Length 1.5 -Area of Debridement (cm) - Width 0.7 -Total Square (Area) (cm) 1.05 -Tunneling No -Undermining/Tunneling No -Circular Undermining No -Wound/Ulcer Outcome Not Healed -Ulcer Cleansing Rinsed/ Irrigated with Saline -Foul Odor after Cleansing No -Bioengineered Tissue No -Bleeding Controlled with Pressure -Offloading No -Treatment Response Procedure Tolerated Well -Debridement - Subq, 1st 20sq cm No #4 L LAT ANKLE -Time 09:32 -Correct Patient Yes -Correct Side, Site, Position Yes -Correct Procedure Yes -Procedure Performed Yes -Type of Procedure Debridement -Clinical Debridement Subcutaneous -Tissue Removed Subcutaneous -Post Debridement (cm) - Length 0.2 -Post Debridement (cm) - Width 0.2 -Post Debridement (cm) - Depth 0.1 -Total Square (Post) (cm) 0.04 -Area of Debridement (cm) - Length 0.2 -Area of Debridement (cm) - Width 0.2 -Total Square (Area) (cm) 0.04 -Tunneling No -Undermining/Tunneling No -Circular Undermining No -Wound/Ulcer Outcome Not Healed -Ulcer Cleansing Rinsed/ Irrigated with Saline -Foul Odor after Cleansing No -Bioengineered Tissue No -Bleeding Controlled with Pressure -Offloading No -Treatment Response Procedure Tolerated Well -Debridement - Subq, 1st 20sq cm No #3 L MED ANKLE CLUSTER -Time 09:32 -Correct Patient Yes -Correct Side, Site, Position Yes -Correct Procedure Yes -Procedure Performed Yes -Type of Procedure Debridement -Clinical Debridement Subcutaneous -Tissue Removed Subcutaneous -Post Debridement (cm) - Length 4.4 -Post Debridement (cm) - Width 1.8 -Post Debridement (cm) - Depth 0.2 -Total Square (Post) (cm) 7.92 -Area of Debridement (cm) - Length 4.4 -Area of Debridement (cm) - Width 1.8 -Total Square (Area) (cm) 7.92 -Tunneling No -Undermining/Tunneling No -Circular Undermining No -Wound/Ulcer Outcome Not Healed -Ulcer Cleansing Rinsed/ Irrigated with Saline -Foul Odor after Cleansing No -Bioengineered Tissue No -Bleeding Controlled with Pressure -Offloading No -Treatment Response Procedure Tolerated Well -Debridement - Subq, 1st 20sq cm No #2- R LAT ANKLE CLUSTER -Time 09:33 -Correct Patient Yes -Correct Side, Site, Position Yes -Correct Procedure Yes -Procedure Performed Yes -Type of Procedure Debridement -Clinical Debridement Subcutaneous -Tissue Removed Subcutaneous -Post Debridement (cm) - Length 0.2 -Post Debridement (cm) - Width 0.2 -Post Debridement (cm) - Depth 0.1 -Total Square (Post) (cm) 0.04 -Area of Debridement (cm) - Length 0.2 -Area of Debridement (cm) - Width 0.1 -Total Square (Area) (cm) 0.02 -Tunneling No -Undermining/Tunneling No -Circular Undermining No -Wound/Ulcer Outcome Not Healed -Ulcer Cleansing Rinsed/ Irrigated with Saline -Foul Odor after Cleansing No -Bioengineered Tissue No -Bleeding Controlled with Pressure -Offloading No -Treatment Response Procedure Tolerated Well -Debridement - Subq, 1st 20sq cm No #1- R MED ANKLE CLUSTER -Time 09:34 -Correct Patient Yes -Correct Side, Site, Position Yes -Correct Procedure Yes -Procedure Performed Yes -Type of Procedure Debridement -Clinical Debridement Subcutaneous -Tissue Removed Subcutaneous -Post Debridement (cm) - Length 0.8 -Post Debridement (cm) - Width 1.2 -Post Debridement (cm) - Depth 0.1 -Total Square (Post) (cm) 0.96 -Area of Debridement (cm) - Length 0.8 -Area of Debridement (cm) - Width 1.2 -Total Square (Area) (cm) 0.96 -Tunneling No -Undermining/Tunneling No -Circular Undermining No -Wound/Ulcer Outcome Not Healed -Ulcer Cleansing Rinsed/ Irrigated with Saline -Foul Odor after Cleansing No -Bioengineered Tissue No -Bleeding Controlled with Pressure -Offloading No -Treatment Response Procedure Tolerated Well -Debridement - Subq, 1st 20sq cm Yes Pain Scale: 0-10 Numeric Is Patient Pain Free? Yes Wound debrided: medial lower leg Laterality: Right Wound Grade/Stage: grade 1 Type of Debridement: Excisional debridement - Post debridement 0.2 x 0.2 x 0.1 cm Anesthesia Used: 5% Lidocaine Gel Depth: in the subcutaneous layer Percentage of wound debrided: 100 Instrument Used: #15 blade Tissue Removed: fibrous, devitalized subcutaneous, biofilm, slough Severity: Fat Layer Exposed Amount of bleeding with debridement: Mild Bleeding Controlled with: Pressure Patient tolerated procedure well - Additional Wound Wound debrided: lateral leg x 2, lateral ankle, medial ankle x 2 Laterality: Left Wound Grade/Stage: grade 1 Type of Debridement: Excisional debridement Anesthesia Used: 5% Lidocaine Gel Depth: in the subcutaneous layer Percentage of wound debrided: 100 Instrument Used: #15 blade Tissue Removed: fibrous, devitalized subcutaneous, biofilm, slough Severity: Fat Layer Exposed Amount of bleeding with debridement: Mild Bleeding Controlled with: Pressure Patient tolerated procedure: Patient tolerated procedure well, - - Post debridement medial ankle 4.4 x 1.8 x 0.3 cm, lateral ankle 0.2 x 0.2 x 0.1 cm, lateral leg superior 1.1 x 0.2 x 0.2 cm left, lateral leg inferior 4.8 x 1.5 x 0.3 cm Assessment/Plan Active Problems Ulcer of right lower extremity with fat layer exposed (Chronic) Ulcer of left lower extremity with fat layer exposed (Chronic) Venous insufficiency (chronic) (peripheral) (Chronic) Bilateral leg edema (Chronic) Type 2 diabetes mellitus with diabetic polyneuropathy (Chronic) Assessment: Ulcer right leg fat layer exposed, multiple. Ulcer fat layer exposed left, multiple. Lower extremity edema. Venous insufficiency suspected. Peripheral vascular disease suspected. Malnutrition suspected Plan: I reviewed and discussed his case. His etiology, treatment options, and comrehensive plan was discussed in detail. His ulcer sites were debrided in a subcutaneous excisional manner as noted in the clinical panel. Verbal consent was obtained for Apligraf application again today. This was applied according to standard protocol and was secured with Steri-Strips and a wound veil. He was advised to keep this clean, dry, and intact until follow-up next week. He tolerated this well. The indications, benefits, anticipated healing time and management and applications were reviewed. Delete that to change daily and wash with soap and water. He was advised to keep this clean, dry, and intact until follow-up next week except he is advised to continue changing the medial left lower leg site daily as before. This is medically necessary for limb salvage. He has comorbidities as noted with his diabetes and delayed healing. He is afebrile. Labs were orderd and reviwiewed (CBC, CMP, and HgA1C). No leukocytosis is noted. His A1C was 6.7%. He was reassured no local infection is noted and I do not recommend antibiotics. Follow-up with primary care physician for diabete s management. Edema control with tubigrip. Venous doppler with reflux examination was recommended and ordered. Non invasive vascular studies were also ordered. No critical limb ishemia is suspected today. He has bilateral triphasic waveforms, right GONZALO of 1.19, left GONZALO 1.24, right toe brachial index of 0.84, and left toe brachial index of 0.87. Vascular referral was completed with Dr. Serna. Additional testing potential intervention is planned. I will request the notes to fully understand the plan. I recommend moving forward in a timely manner if possible for limb salvage. He has significant delays in healing already. I recommend compression management with double Tubigrip application, elevation and rest, and routine muscular contraction. I recommended venous Doppler exam with reflux evaluation. Venous incompetence is noted to bilateral lower extremities and I recommend a vein specialist referral. To optimize diet to control glucose levels and to ensure adequete nutrition for healing. Nando nutritional supplement was recommended. His elevated hemoglobin A1c is noted however it is still under 7%. To follow-up with primary care physician. He is making diet and exercise changes at this time. To follow up at the wound healing center in one to 1 week. I answered his questions.
[2020-04-20 09:26] VITALS: BP 138/55; PULSE 100; RESP 18; TEMP 36
--- NOTE | 2020-04-20 09:37 | WC ---
apligraf in place and wounds not meausured today
[2020-04-20 10:07] VITALS: BP 138/60
--- NOTE | 2020-04-20 10:53 | PN.PCM_ITS ---
(1) Ulcer of right lower extremity with fat layer exposed Status: Chronic Code(s): L97.912 - Non-pressure chronic ulcer of unspecified part of right lower leg with fat layer exposed (2) Ulcer of left lower extremity with fat layer exposed Status: Chronic Code(s): L97.922 - Non-pressure chronic ulcer of unspecified part of left lower leg with fat layer exposed (3) Other specified peripheral vascular diseases Status: Suspected Code(s): I73.89 - Other specified peripheral vascular diseases (4) Bilateral leg edema Status: Chronic Code(s): R60.0 - Localized edema (5) Type 2 diabetes mellitus with diabetic polyneuropathy Status: Chronic Code(s): E11.42 - Type 2 diabetes mellitus with diabetic polyneuropathy (6) Venous insufficiency (chronic) (peripheral) Status: Chronic Code(s): I87.2 - Venous insufficiency (chronic) (peripheral) Type of Wound Date of Service: 04/20/20 Chief Complaint: Leg ulcers History of Wound: This 60-year-old male presents to the wound healing clinic today with delayed healing wounds of both lower extremities. He denies fever, chill, nausea, vomiting. He has leg swelling. He has worn Tubigrip compression sleeves. Vascular referral and will follow up for additional testing. He does not recall all the details of the consultation. He is considering resuming intervention when his insurance deductible restarts in May. He denies odor or redness. He has been changing his dressings daily as advised. He is amendable to proceed forward with Apligraf application today. Progress of Wound: Improving. Healed lateral right foot ulcer - Physical Exam Vital Signs Temp Pulse Resp BP 96.8 F L 100 18 138/60 H 04/20/20 09:26 04/20/20 09:26 04/20/20 09:26 04/20/20 10:07 General: Alert, Oriented x3, Cooperative, No apparent distress HEENT: Atraumatic Extremities: No cyanosis, Capillary Refill Less than 3 Seconds, No Calf Tenderness, Diminished Peripheral Pulses, Edema Skin: Ulcer/ Wound - No purulence erythema odor or infection. Advanced wound healing product Apligraf are intact and incorporating well with Steri-Strips and wound veil remain intact bilateral lower extremities. His adjacent skin is hairless and atrophic Wound Measurements and Assessment WC - Nurse 2 - General Ulcer CM Notes Start: 03/30/20 08:43 Freq: Status: Active Protocol: Activity Type Activity Date Activity User E-Sign Co-Sign Detail Recorded Client Recorded Date Recorded By Document 04/20/20 09:43 [id number] 04/20/20 09:44 04/20/20 09:43 Wound Center Nurse 2 [Procedure/Treatment] #6- L LAT LE INFERIOR -Correct Patient No -Correct Side, Site, Position No -Correct Procedure No -Procedure Performed No -Wound/Ulcer Outcome Not Healed #5- L LAT LE SUPERIOR -Correct Patient No -Correct Side, Site, Position No -Correct Procedure No -Procedure Performed No -Wound/Ulcer Outcome Not Healed #4 L LAT ANKLE -Correct Patient No -Correct Side, Site, Position No -Correct Procedure No -Procedure Performed No -Wound/Ulcer Outcome Not Healed #3 L MED ANKLE CLUSTER -Correct Patient No -Correct Side, Site, Position No -Correct Procedure No -Procedure Performed No -Wound/Ulcer Outcome Not Healed #1- R MED ANKLE CLUSTER -Correct Patient No -Correct Side, Site, Position No -Correct Procedure No -Procedure Performed No -Wound/Ulcer Outcome Not Healed [See Physician Procedure note for Specifics] Pain Scale: 0-10 Numeric [Pain] -Is Patient Pain Free? Yes ANASTACIO - Nurse 3 - General Ulcer D/C NN Start: 03/30/20 08:43 Freq: Status: Active Protocol: Activity Type Activity Date Activity User E-Sign Co-Sign Detail Recorded Client Recorded Date Recorded By Document 04/20/20 10:07 RB [email or web address] 04/20/20 10:09 RB 04/20/20 10:07 Wound Care Nurse 3 [Wound Dressing] #6- L LAT LE INFERIOR -Primary Dressing Covered/Secured Dry Gauze,Dry with Gauze & Roll Gauze,Secured with Tape #5- L LAT LE SUPERIOR -Primary Dressing Covered/Secured Dry Gauze,Dry with Gauze & Roll Gauze,Secured with Tape #4 L LAT ANKLE -Primary Dressing Covered/Secured Dry Gauze,Dry with Gauze & Roll Gauze,Secured with Tape #3 L MED ANKLE CLUSTER -Primary Dressing Covered/Secured Dry Gauze & with Roll Gauze, Secured with Tape #1- R MED ANKLE CLUSTER -Primary Dressing Covered/Secured Dry Gauze & with Roll Gauze, Secured with Tape [Compression Applied] Right -Tubular Bandage Double Layer -Size of Tubigrip Used Size E -Size E ($) 2 Left -Tubular Bandage Double Layer -Size of Tubigrip Used Size E -Size E ($) 2 Vital Signs [Blood Pressure] -Blood Pressure (90/60-120/80) 138/60 H -Blood Pressure Mean (mm Hg) 86 -Source Monitor -Position Semi-Fowlers -Blood Pressure Location Left Arm Pain Scale: 0-10 Numeric [Pain] -Is Patient Pain Free? Yes WC - Visit Discharge [Visit Discharge Information] -Discharge Condition Stable -Ambulatory Status Ambulatory -Transportation Private Auto -Medication Reconcilliation completed No & provided to patient/care provider -Clinical Summary of Care Provided Yes Musculoskeletal: No Tenderness to Palpation of Joints or Extremities, Muscle Wasting Neurological: - - Lack of normal epicritic sensation Psych/Mental Status: Normal Affect, Appropriate Debridement Note Post-Debridement Measurements/Treatment WC - Nurse 2 - General Ulcer CM Notes Start: 03/30/20 08:43 Freq: Status: Active Protocol: Activity Type Activity Date Activity User E-Sign Co-Sign Detail Recorded Client Recorded Date Recorded By Document 03/30/20 09:30 [id number] 03/30/20 09:35 Document 04/13/20 09:00 [id number] 04/13/20 13:49 Document 04/20/20 09:43 [id number] 04/20/20 09:44 03/30/20 04/13/20 04/20/20 09:30 09:00 09:43 Wound Center Nurse 2 #6- L LAT LE INFERIOR -Time 09:31 13:40 -Correct Patient Yes Yes No -Correct Side, Site, Position Yes Yes No -Correct Procedure Yes Yes No -Procedure Performed Yes Yes No -Type of Procedure Debridement Debridement -Clinical Debridement Subcutaneous Subcutaneous -Tissue Removed Subcutaneous Subcutaneous -Post Debridement (cm) - Length 4.2 4.8 -Post Debridement (cm) - Width 1.6 1.5 -Post Debridement (cm) - Depth 0.2 0.3 -Total Square (Post) (cm) 6.72 7.20 -Area of Debridement (cm) - Length 4.2 4.8 -Area of Debridement (cm) - Width 1.6 1.5 -Total Square (Area) (cm) 6.72 7.20 -Tunneling No No -Undermining/Tunneling No No -Circular Undermining No No -Wound/Ulcer Outcome Not Healed Not Healed Not Healed -Ulcer Cleansing Rinsed/ Rinsed/ Irrigated with Irrigated with Saline Saline -Foul Odor after Cleansing No No -Bioengineered Tissue No Yes -Type of Bioengineered Tissue Apligraf -Expiration Date 04/16/20 -Product Lot Number [id number] -Percent Used 100 -Bleeding Controlled with Pressure Pressure -Other saline [id number] -Offloading No No -Treatment Response Procedure Procedure Tolerated Well Tolerated Well -Debridement - Subq, 1st 20sq cm No No -Apligraf (per sq cm) 0 #5- L LAT LE SUPERIOR -Time 09:31 13:41 -Correct Patient Yes Yes No -Correct Side, Site, Position Yes Yes No -Correct Procedure Yes Yes No -Procedure Performed Yes Yes No -Type of Procedure Debridement Debridement -Clinical Debridement Subcutaneous Subcutaneous -Tissue Removed Subcutaneous Subcutaneous -Post Debridement (cm) - Length 1.5 1.1 -Post Debridement (cm) - Width 0.7 0.2 -Post Debridement (cm) - Depth 0.2 0.2 -Total Square (Post) (cm) 1.05 0.22 -Area of Debridement (cm) - Length 1.5 1.1 -Area of Debridement (cm) - Width 0.7 0.2 -Total Square (Area) (cm) 1.05 0.22 -Tunneling No No -Undermining/Tunneling No No -Circular Undermining No No -Wound/Ulcer Outcome Not Healed Not Healed Not Healed -Ulcer Cleansing Rinsed/ Rinsed/ Irrigated with Irrigated with Saline Saline -Foul Odor after Cleansing No No -Bioengineered Tissue No Yes -Type of Bioengineered Tissue Apligraf -Expiration Date 04/16/20 -Product Lot Number [id number] -Percent Used 100 -Bleeding Controlled with Pressure Pressure -Other Saline: [id number] -Offloading No No -Treatment Response Procedure Procedure Tolerated Well Tolerated Well -Debridement - Subq, 1st 20sq cm No No -Apligraf (per sq cm) 0 #4 L LAT ANKLE -Time 09:32 13:43 -Correct Patient Yes Yes No -Correct Side, Site, Position Yes Yes No -Correct Procedure Yes Yes No -Procedure Performed Yes Yes No -Type of Procedure Debridement Debridement -Clinical Debridement Subcutaneous Subcutaneous -Tissue Removed Subcutaneous Subcutaneous -Post Debridement (cm) - Length 0.2 0.2 -Post Debridement (cm) - Width 0.2 0.2 -Post Debridement (cm) - Depth 0.1 0.1 -Total Square (Post) (cm) 0.04 0.04 -Area of Debridement (cm) - Length 0.2 0.2 -Area of Debridement (cm) - Width 0.2 0.2 -Total Square (Area) (cm) 0.04 0.04 -Tunneling No No -Undermining/Tunneling No No -Circular Undermining No No -Wound/Ulcer Outcome Not Healed Not Healed Not Healed -Ulcer Cleansing Rinsed/ Rinsed/ Irrigated with Irrigated with Saline Saline -Foul Odor after Cleansing No No -Bioengineered Tissue No Yes -Type of Bioengineered Tissue Apligraf -Expiration Date 04/16/20 -Product Lot Number [id number] -Percent Used 100 -Bleeding Controlled with Pressure Pressure -Other saline [id number] -Offloading No No -Treatment Response Procedure Procedure Tolerated Well Tolerated Well -Debridement - Subq, 1st 20sq cm No No -Apligraf (per sq cm) 0 #3 L MED ANKLE CLUSTER -Time 09:32 13:44 -Correct Patient Yes Yes No -Correct Side, Site, Position Yes Yes No -Correct Procedure Yes Yes No -Procedure Performed Yes Yes No -Type of Procedure Debridement Debridement -Clinical Debridement Subcutaneous Subcutaneous -Tissue Removed Subcutaneous Subcutaneous -Post Debridement (cm) - Length 4.4 4.4 -Post Debridement (cm) - Width 1.8 1.8 -Post Debridement (cm) - Depth 0.2 0.3 -Total Square (Post) (cm) 7.92 7.92 -Area of Debridement (cm) - Length 4.4 4.4 -Area of Debridement (cm) - Width 1.8 1.8 -Total Square (Area) (cm) 7.92 7.92 -Tunneling No No -Undermining/Tunneling No No -Circular Undermining No No -Wound/Ulcer Outcome Not Healed Not Healed Not Healed -Ulcer Cleansing Rinsed/ Rinsed/ Irrigated with Irrigated with Saline Saline -Foul Odor after Cleansing No No -Bioengineered Tissue No Yes -Type of Bioengineered Tissue Apligraf -Expiration Date 04/16/20 -Product Lot Number [id number] -Percent Used 100 -Bleeding Controlled with Pressure Pressure -Other saline [id number] -Offloading No No -Treatment Response Procedure Procedure Tolerated Well Tolerated Well -Debridement - Subq, 1st 20sq cm No No -Apligraf (per sq cm) 0 #2- R LAT ANKLE CLUSTER -Time 09:33 -Correct Patient Yes No -Correct Side, Site, Position Yes No -Correct Procedure Yes No -Procedure Performed Yes No -Type of Procedure Debridement -Clinical Debridement Subcutaneous -Tissue Removed Subcutaneous -Post Debridement (cm) - Length 0.2 0 -Post Debridement (cm) - Width 0.2 0 -Post Debridement (cm) - Depth 0.1 0 -Total Square (Post) (cm) 0.04 0 -Area of Debridement (cm) - Length 0.2 0 -Area of Debridement (cm) - Width 0.1 0 -Total Square (Area) (cm) 0.02 0 -Tunneling No -Undermining/Tunneling No -Circular Undermining No -Wound/Ulcer Outcome Not Healed Healed- Epithelialized -Ulcer Cleansing Rinsed/ Irrigated with Saline -Foul Odor after Cleansing No -Bioengineered Tissue No -Bleeding Controlled with Pressure -Offloading No -Treatment Response Procedure Tolerated Well -Debridement - Subq, 1st 20sq cm No #1- R MED ANKLE CLUSTER -Time 09:34 13:45 -Correct Patient Yes Yes No -Correct Side, Site, Position Yes Yes No -Correct Procedure Yes Yes No -Procedure Performed Yes Yes No -Type of Procedure Debridement Debridement -Clinical Debridement Subcutaneous Subcutaneous -Tissue Removed Subcutaneous Subcutaneous -Post Debridement (cm) - Length 0.8 0.2 -Post Debridement (cm) - Width 1.2 0.2 -Post Debridement (cm) - Depth 0.1 0.1 -Total Square (Post) (cm) 0.96 0.04 -Area of Debridement (cm) - Length 0.8 0.2 -Area of Debridement (cm) - Width 1.2 0.2 -Total Square (Area) (cm) 0.96 0.04 -Tunneling No No -Undermining/Tunneling No No -Circular Undermining No No -Wound/Ulcer Outcome Not Healed Not Healed Not Healed -Ulcer Cleansing Rinsed/ Rinsed/ Irrigated with Irrigated with Saline Saline -Foul Odor after Cleansing No No -Bioengineered Tissue No Yes -Type of Bioengineered Tissue Apligraf -Expiration Date 04/16/20 -Product Lot Number [id number] -Percent Used 100 -Bleeding Controlled with Pressure Pressure -Other saline [id number] -Offloading No No -Treatment Response Procedure Procedure Tolerated Well Tolerated Well -Debridement - Subq, 1st 20sq cm Yes No -Apply Skin Sub - 1st 25 sq cm - Legs 1 -Apligraf (per sq cm) 44 Pain Scale: 0-10 Numeric Is Patient Pain Free? Yes Yes Yes WC - Nurse 3 - General Ulcer D/C NN Start: 03/30/20 08:43 Freq: Status: Active Protocol: Activity Type Activity Date Activity User E-Sign Co-Sign Detail Recorded Client Recorded Date Recorded By Document 04/13/20 13:49 [id number] 04/13/20 13:50 Document 04/20/20 10:07 RB [id number] 04/20/20 10:09 RB 04/13/20 04/20/20 13:49 10:07 Wound Care Nurse 3 #6- L LAT LE INFERIOR -Ulcer Cleansing Rinsed/ Irrigated with Saline -Foul Odor after Cleansing No -Primary Dressing Covered/Secured with Dry Gauze & Dry Gauze,Dry Roll Gauze, Gauze & Roll Secured with Gauze,Secured Tape with Tape #5- L LAT LE SUPERIOR -Ulcer Cleansing Rinsed/ Irrigated with Saline -Foul Odor after Cleansing No -Primary Dressing Covered/Secured with Dry Gauze & Dry Gauze,Dry Roll Gauze, Gauze & Roll Secured with Gauze,Secured Tape with Tape #4 L LAT ANKLE -Ulcer Cleansing Rinsed/ Irrigated with Saline -Foul Odor after Cleansing No -Primary Dressing Covered/Secured with Dry Gauze & Dry Gauze,Dry Roll Gauze, Gauze & Roll Secured with Gauze,Secured Tape with Tape #3 L MED ANKLE CLUSTER -Ulcer Cleansing Rinsed/ Irrigated with Saline -Foul Odor after Cleansing No -Primary Dressing Covered/Secured with Dry Gauze & Dry Gauze & Roll Gauze, Roll Gauze, Secured with Secured with Tape Tape #1- R MED ANKLE CLUSTER -Ulcer Cleansing Rinsed/ Irrigated with Saline -Foul Odor after Cleansing No -Primary Dressing Covered/Secured with Dry Gauze & Dry Gauze & Roll Gauze, Roll Gauze, Secured with Secured with Tape Tape Right -Tubular Bandage Double Layer -Size of Tubigrip Used Size E Size E -Size E ($) 1 2 Left -Tubular Bandage Double Layer -Size of Tubigrip Used Size E Size E -Size E ($) 1 2 Vital Signs Blood Pressure (90/60-120/80) 138/60 H Blood Pressure Mean (mm Hg) 86 Source Monitor Position Semi-Fowlers Blood Pressure Location Left Arm Pain Scale: 0-10 Numeric Is Patient Pain Free? Yes Yes WC - Visit Discharge Discharge Condition Stable Stable Ambulatory Status Ambulatory, Ambulatory Crutches Transportation Private Auto Private Auto Medication Reconcilliation completed & Yes No provided to patient/care provider Clinical Summary of Care Provided Yes Yes Wound debrided: medial leg Laterality: Right No debridement was completed today - Apligraf incorporating well - Additional Wound Wound debrided: medial leg, lateral leg (inferior and superior) Laterality: Left Patient tolerated procedure: - - No debridement performed his Apligraf is incorporating well Assessment/Plan Active Problems Ulcer of right lower extremity with fat layer exposed (Chronic) Ulcer of left lower extremity with fat layer exposed (Chronic) Venous insufficiency (chronic) (peripheral) (Chronic) Bilateral leg edema (Chronic) Type 2 diabetes mellitus with diabetic polyneuropathy (Chronic) Assessment: Ulcer right leg fat layer exposed, multiple. Ulcer fat layer exposed left, multiple. Lower extremity edema. Venous insufficiency suspected. Peripheral vascular disease suspected. Malnutrition suspected Plan: I reviewed and discussed his case. His etiology, treatment options, and comrehensive plan was discussed in detail. No debridement was performed today. The Apligraf is incorporating well and was left intact. To leave secondary dressing intact until he follows up next week. He tolerated this well. The indications, benefits, anticipated healing time and management and applications were reviewed. This is medically necessary for limb salvage. He has comorbi dities as noted with his diabetes and delayed healing. He is afebrile. Labs were orderd and reviwiewed (CBC, CMP, and HgA1C). No leukocytosis is noted. His A1C was 6.7%. He was reassured no local infection is noted and I do not recommend antibiotics. Follow-up with primary care physician for diabetes management. Edema control with tubigrip. Venous doppler with reflux examination was recommended and ordered. Non invasive vascular studies were also ordered. No critical limb ishemia is suspected today. He has bilateral triphasic waveforms, right GONZALO of 1.19, left GONZALO 1.24, right toe brachial index of 0.84, and left toe brachial index of 0.87. Vascular referral was completed with Dr. Serna. Additional testing potential intervention is planned. Dr. Serna's notes from 04-06-2020 was reviewed. He was advised to continue with wound care and compression. For his right varicose veins there is a plan for right greater saphenous vein procedures and Varithena ablation branches. Dr. Serna plans to recheck an ultrasound in [place]. For the left varicose veins Gavin is also the same. I recommend compression management with double Tubigrip application, elevation and rest, and routine muscular contraction. I recommended venous Doppler exam with reflux evaluation. Venous incompetence is noted to bilateral lower extremities and I recommend a vein specialist referral. To optimize diet to control glucose levels and to ensure adequete nutrition for healing. Nando nutritional supplement was recommended. His elevated hemoglobin A1c is noted however it is still under 7%. To follow-up with primary care physician. He is making diet and exercise changes at this time. To follow up at the wound healing center in one to 1 week. I answered his questions.
== END 2020-04-25 23:59 ==
LOC: WC 09:15
PROVIDERS: PCP Nurse Practitioner Family; Referring Provider Podiatrist; Visit Provider Podiatrist
DX: E11.621 Type 2 diabetes mellitus with foot ulcer (principal); L97.912 Non-pressure chronic ulcer of unspecified part of right lower leg with fat layer exposed; L97.922 Non-pressure chronic ulcer of unspecified part of left lower leg with fat layer exposed; R60.0 Localized edema; E11.42 Type 2 diabetes mellitus with diabetic polyneuropathy; I87.2 Venous insufficiency (chronic) (peripheral)
CPT/HCPCS: 11042; 15271; 99213; Q4101; G0463

== ENCOUNTER 2020-05-25 08:45 | Outpatient (RCR) | payer OTHER, SELFPAY ==
[2020-04-26 00:13] VITALS: BP 138/60; PULSE 100; RESP 18; TEMP 36
[2020-04-27 08:52] VITALS: BP 155/90; PULSE 108; RESP 22; TEMP 36.8
--- NOTE | 2020-04-27 11:26 | PN.PCM_ITS ---
(1) Ulcer of right lower extremity with fat layer exposed Status: Chronic Code(s): L97.912 - Non-pressure chronic ulcer of unspecified part of right lower leg with fat layer exposed (2) Venous insufficiency (chronic) (peripheral) Status: Chronic Code(s): I87.2 - Venous insufficiency (chronic) (peripheral) (3) Type 2 diabetes mellitus with diabetic polyneuropathy Status: Chronic Code(s): E11.42 - Type 2 diabetes mellitus with diabetic polyneuropathy Type of Wound Date of Service: 04/27/20 Chief Complaint: Leg ulcers bilateral History of Wound: This 60-year-old male presents to the wound healing clinic today with delayed healing wounds of both lower extremities. He denies fever, chill, nausea, vomiting. He has leg swelling. He has worn Tubigrip compression sleeves. Vascular referral and will follow up for additional testing. He does not recall all the details of the consultation. He is considering resuming intervention when his insurance deductible restarts in May. He denies odor or redness. He has been changing his dressings daily as advised. He is amendable to proceed forward with Apligraf application today if it arrives. He tolerated the last application very well.. Progress of Wound: Improving. All right lower extremity ulcers remain healed. Healed distal lateral lower leg ulcer, left - Physical Exam Vital Signs Temp Pulse Resp BP 98.2 F 108 H 22 H 155/90 H 04/27/20 08:52 04/27/20 08:52 04/27/20 08:52 04/27/20 08:52 General: Alert, Oriented x3, Cooperative, No apparent distress HEENT: Atraumatic Extremities: No cyanosis, Capillary Refill Less than 3 Seconds, No Calf Tenderness, Diminished Peripheral Pulses, Edema Skin: Ulcer/ Wound - No purulence, erythema, string, odor, infection. Peripheral epithelialization is noted to the medial and lateral superior inferior left leg ulcers. There is full epithelialization and healed status to the lower left lower extremity and also all of the sites on the right lower extremity., - - His skin is hairless and atrophic lateral Wound Measurements and Assessment WC - Nurse 1 - General Ulcer Measurement Start: 04/27/20 08:52 Freq: Status: Active Protocol: Activity Type Activity Date Activity User E-Sign Co-Sign Detail Recorded Client Recorded Date Recorded By Document 04/27/20 08:52 LOREN [id number] 04/27/20 09:07 DL 04/27/20 08:52 Wound Center Nurse 1 [Ulcer Assessment] #6- L LAT LE INFERIOR -Current Size (cm) - Length 4.8 -Current Size (cm) - Width 1.8 -Current Size (cm) - Depth 0.2 -Total Square Cm 8.64 -Photo Taken No -Exudate Amt Small -Exudate Type Serosanguineous -Wound Margin Thickened -Granulation Amt Medium (34-66%) -Granulation Quality Pale,Stirling -Necrosis Amt Medium (34-66%) -Necrotic Tissue Type Adherent Slough -Structure Exposed N/A -Texture (Isela-wound Skin Appearance) Scarring -Moisture (Isela-wound Skin Appearance Dry/Scaly ) -Color (Isela-wound Skin Appearance) Hemosiderin Staining -Temperature (Isela-wound Skin No Abnormality Appearance) (Pt Warm) -Tenderness on Palpation (Isela-wound No Skin Appearance) -Ulcer Cleansing Wound Cleanser -Foul Odor after Cleansing No -Anesthetic Used 4% Lidocaine Solution #5- L LAT LE SUPERIOR -Current Size (cm) - Length 1 -Current Size (cm) - Width 0.4 -Current Size (cm) - Depth 0.1 -Total Square Cm 0.4 -Photo Taken No -Exudate Amt None Present -Wound Margin Distinct, Outline Attached -Granulation Amt Large (67-100%) -Granulation Quality Stirling -Necrosis Amt Small (1-33%) -Necrotic Tissue Type Adherent Slough -Structure Exposed N/A -Texture (Isela-wound Skin Appearance) Scarring -Moisture (Isela-wound Skin Appearance Dry/Scaly ) -Color (Isela-wound Skin Appearance) Hemosiderin Staining -Temperature (Isela-wound Skin No Abnormality Appearance) (Pt Warm) -Tenderness on Palpation (Isela-wound No Skin Appearance) -Ulcer Cleansing Wound Cleanser -Foul Odor after Cleansing No -Anesthetic Used 4% Lidocaine Solution #4 L LAT ANKLE -Current Size (cm) - Length 0.1 -Current Size (cm) - Width 0.1 -Current Size (cm) - Depth 0.1 -Total Square Cm 0.01 -Photo Taken No -Exudate Amt None Present -Wound Margin Indistinct, Non -Visible -Granulation Amt Large (67-100%) -Granulation Quality Stirling -Necrosis Amt Small (1-33%) -Necrotic Tissue Type Eschar -Structure Exposed N/A -Texture (Isela-wound Skin Appearance) Scarring -Moisture (Isela-wound Skin Appearance Dry/Scaly ) -Color (Isela-wound Skin Appearance) Hemosiderin Staining -Temperature (Isela-wound Skin No Abnormality Appearance) (Pt Warm) -Tenderness on Palpation (Isela-wound No Skin Appearance) -Ulcer Cleansing Wound Cleanser -Foul Odor after Cleansing No -Anesthetic Used 4% Lidocaine Solution #3 L MED ANKLE CLUSTER -Current Size (cm) - Length 4.1 -Current Size (cm) - Width 2 -Current Size (cm) - Depth 0.2 -Total Square Cm 8.2 -Photo Taken No -Exudate Amt Small -Exudate Type Serosanguineous -Wound Margin Thickened & Rolled Under -Granulation Amt None Present (0 %) -Necrosis Amt Large (67-100%) -Necrotic Tissue Type Adherent Slough -Structure Exposed N/A -Texture (Isela-wound Skin Appearance) Scarring -Moisture (Isela-wound Skin Appearance Maceration,Dry/ ) Scaly -Color (Isela-wound Skin Appearance) Hemosiderin Staining -Temperature (Isela-wound Skin No Abnormality Appearance) (Pt Warm) -Tenderness on Palpation (Isela-wound No Skin Appearance) -Ulcer Cleansing Wound Cleanser -Foul Odor after Cleansing No -Anesthetic Used 4% Lidocaine Solution #1- R MED ANKLE CLUSTER -Current Size (cm) - Length 0.1 -Current Size (cm) - Width 0.1 -Current Size (cm) - Depth 0.1 -Total Square Cm 0.01 -Photo Taken No -Exudate Amt None Present -Wound Margin Thickened -Granulation Amt Large (67-100%) -Granulation Quality Stirling -Necrosis Amt Small (1-33%) -Necrotic Tissue Type Adherent Slough -Structure Exposed N/A -Texture (Isela-wound Skin Appearance) Scarring -Moisture (Isela-wound Skin Appearance Dry/Scaly ) -Color (Isela-wound Skin Appearance) Hemosiderin Staining -Temperature (Isela-wound Skin No Abnormality Appearance) (Pt Warm) -Tenderness on Palpation (Isela-wound No Skin Appearance) -Ulcer Cleansing Wound Cleanser -Foul Odor after Cleansing No -Anesthetic Used 4% Lidocaine Solution [Edema Assessment] -Right Calf (cm) 40 -Right Ankle (cm) 23 -Left Calf (cm) 41.5 -Left Ankle (cm) 41.5 WC - Nurse 2 - General Ulcer CM Notes Start: 04/27/20 08:52 Freq: Status: Active Protocol: Activity Type Activity Date Activity User E-Sign Co-Sign Detail Recorded Client Recorded Date Recorded By Document 04/27/20 09:13 WILLIE [id number] 04/27/20 09:30 WILLIE 04/27/20 09:13 Wound Center Nurse 2 [Procedure/Treatment] #6- L LAT LE INFERIOR -Time 09:14 -Correct Patient Yes -Correct Side, Site, Position Yes -Correct Procedure Yes -Procedure Performed Yes -Type of Procedure Debridement -Clinical Debridement Subcutaneous -Tissue Removed Subcutaneous -Post Debridement (cm) - Length 4.8 -Post Debridement (cm) - Width 1.8 -Post Debridement (cm) - Depth 0.2 -Total Square (Post) (cm) 8.64 -Area of Debridement (cm) - Length 4.8 -Area of Debridement (cm) - Width 1.8 -Total Square (Area) (cm) 8.64 -Tunneling No -Undermining/Tunneling No -Circular Undermining No -Wound/Ulcer Outcome Not Healed -Ulcer Cleansing Rinsed/ Irrigated with Saline -Foul Odor after Cleansing No -Bioengineered Tissue Yes -Type of Bioengineered Tissue Apligraf -Bleeding Controlled with Pressure -Offloading No -Treatment Response Procedure Tolerated Well -Debridement - Subq, 1st 20sq cm No -Apply Skin Sub - 1st 25 sq cm - Legs 1 -Apligraf (per sq cm) 44 Query Text:1 sheet = 44 sq cm #5- L LAT LE SUPERIOR -Time 09:15 -Correct Patient Yes -Correct Side, Site, Position Yes -Correct Procedure Yes -Procedure Performed Yes -Type of Procedure Debridement -Clinical Debridement Subcutaneous -Tissue Removed Subcutaneous -Post Debridement (cm) - Length 1 -Post Debridement (cm) - Width 0.5 -Post Debridement (cm) - Depth 0.1 -Total Square (Post) (cm) 0.5 -Area of Debridement (cm) - Length 1 -Area of Debridement (cm) - Width 0.5 -Total Square (Area) (cm) 0.5 -Tunneling No -Undermining/Tunneling No -Circular Undermining No -Wound/Ulcer Outcome Not Healed -Ulcer Cleansing Rinsed/ Irrigated with Saline -Bioengineered Tissue Yes -Type of Bioengineered Tissue Apligraf -Bleeding Controlled with Pressure -Offloading No -Treatment Response Procedure Tolerated Well -Debridement - Subq, 1st 20sq cm No -Apligraf (per sq cm) 0 Query Text:1 sheet = 44 sq cm #4 L LAT ANKLE -Correct Patient No -Correct Side, Site, Position No -Correct Procedure No -Procedure Performed No -Post Debridement (cm) - Length 0 -Post Debridement (cm) - Width 0 -Post Debridement (cm) - Depth 0 -Total Square (Post) (cm) 0 -Area of Debridement (cm) - Length 0 -Wound/Ulcer Outcome Healed- Epithelialized #3 L MED ANKLE CLUSTER -Time 09:27 -Correct Patient Yes -Correct Side, Site, Position Yes -Correct Procedure Yes -Procedure Performed Yes -Type of Procedure Debridement -Clinical Debridement Subcutaneous -Tissue Removed Subcutaneous -Post Debridement (cm) - Length 4.2 -Post Debridement (cm) - Width 2 -Post Debridement (cm) - Depth 0.2 -Total Square (Post) (cm) 8.4 -Area of Debridement (cm) - Length 4.2 -Area of Debridement (cm) - Width 2 -Total Square (Area) (cm) 8.4 -Tunneling No -Undermining/Tunneling No -Circular Undermining No -Wound/Ulcer Outcome Not Healed -Ulcer Cleansing Rinsed/ Irrigated with Saline -Foul Odor after Cleansing No -Bioengineered Tissue Yes -Type of Bioengineered Tissue Apligraf -Bleeding Controlled with Pressure -Offloading No -Treatment Response Procedure Tolerated Well -Debridement - Subq, 1st 20sq cm No -Apply Skin Sub - 1st 25 sq cm - Feet 0 -Apligraf (per sq cm) 0 Query Text:1 sheet = 44 sq cm #1- R MED ANKLE CLUSTER -Correct Patient No -Correct Side, Site, Position No -Correct Procedure No -Procedure Performed No -Post Debridement (cm) - Length 0 -Post Debridement (cm) - Width 0 -Post Debridement (cm) - Depth 0 -Total Square (Post) (cm) 0 -Area of Debridement (cm) - Length 0 -Area of Debridement (cm) - Width 0 -Total Square (Area) (cm) 0 -Wound/Ulcer Outcome Healed- Epithelialized [See Physician Procedure note for Specifics] Pain Scale: 0-10 Numeric [Pain] -Is Patient Pain Free? Yes Musculoskeletal: No Tenderness to Palpation of Joints or Extremities, Muscle Wasting Neurological: - - Altered sensation light touch Psych/Mental Status: Normal Affect, Appropriate Debridement Note Post-Debridement Measurements/Treatment WC - Nurse 2 - General Ulcer CM Notes Start: 04/27/20 08:52 Freq: Status: Active Protocol: Activity Type Activity Date Activity User E-Sign Co-Sign Detail Recorded Client Recorded Date Recorded By Document 04/27/20 09:13 WILLIE [id number] 04/27/20 09:30 WILLIE 04/27/20 09:13 Wound Center Nurse 2 #6- L LAT LE INFERIOR -Time 09:14 -Correct Patient Yes -Correct Side, Site, Position Yes -Correct Procedure Yes -Procedure Performed Yes -Type of Procedure Debridement -Clinical Debridement Subcutaneous -Tissue Removed Subcutaneous -Post Debridement (cm) - Length 4.8 -Post Debridement (cm) - Width 1.8 -Post Debridement (cm) - Depth 0.2 -Total Square (Post) (cm) 8.64 -Area of Debridement (cm) - Length 4.8 -Area of Debridement (cm) - Width 1.8 -Total Square (Area) (cm) 8.64 -Tunneling No -Undermining/Tunneling No -Circular Undermining No -Wound/Ulcer Outcome Not Healed -Ulcer Cleansing Rinsed/ Irrigated with Saline -Foul Odor after Cleansing No -Bioengineered Tissue Yes -Type of Bioengineered Tissue Apligraf -Bleeding Controlled with Pressure -Offloading No -Treatment Response Procedure Tolerated Well -Debridement - Subq, 1st 20sq cm No -Apply Skin Sub - 1st 25 sq cm - Legs 1 -Apligraf (per sq cm) 44 Query Text:1 sheet = 44 sq cm #5- L LAT LE SUPERIOR -Time 09:15 -Correct Patient Yes -Correct Side, Site, Position Yes -Correct Procedure Yes -Procedure Performed Yes -Type of Procedure Debridement -Clinical Debridement Subcutaneous -Tissue Removed Subcutaneous -Post Debridement (cm) - Length 1 -Post Debridement (cm) - Width 0.5 -Post Debridement (cm) - Depth 0.1 -Total Square (Post) (cm) 0.5 -Area of Debridement (cm) - Length 1 -Area of Debridement (cm) - Width 0.5 -Total Square (Area) (cm) 0.5 -Tunneling No -Undermining/Tunneling No -Circular Undermining No -Wound/Ulcer Outcome Not Healed -Ulcer Cleansing Rinsed/ Irrigated with Saline -Bioengineered Tissue Yes -Type of Bioengineered Tissue Apligraf -Bleeding Controlled with Pressure -Offloading No -Treatment Response Procedure Tolerated Well -Debridement - Subq, 1st 20sq cm No -Apligraf (per sq cm) 0 Query Text:1 sheet = 44 sq cm #4 L LAT ANKLE -Correct Patient No -Correct Side, Site, Position No -Correct Procedure No -Procedure Performed No -Post Debridement (cm) - Length 0 -Post Debridement (cm) - Width 0 -Post Debridement (cm) - Depth 0 -Total Square (Post) (cm) 0 -Area of Debridement (cm) - Length 0 -Wound/Ulcer Outcome Healed- Epithelialized #3 L MED ANKLE CLUSTER -Time 09:27 -Correct Patient Yes -Correct Side, Site, Position Yes -Correct Procedure Yes -Procedure Performed Yes -Type of Procedure Debridement -Clinical Debridement Subcutaneous -Tissue Removed Subcutaneous -Post Debridement (cm) - Length 4.2 -Post Debridement (cm) - Width 2 -Post Debridement (cm) - Depth 0.2 -Total Square (Post) (cm) 8.4 -Area of Debridement (cm) - Length 4.2 -Area of Debridement (cm) - Width 2 -Total Square (Area) (cm) 8.4 -Tunneling No -Undermining/Tunneling No -Circular Undermining No -Wound/Ulcer Outcome Not Healed -Ulcer Cleansing Rinsed/ Irrigated with Saline -Foul Odor after Cleansing No -Bioengineered Tissue Yes -Type of Bioengineered Tissue Apligraf -Bleeding Controlled with Pressure -Offloading No -Treatment Response Procedure Tolerated Well -Debridement - Subq, 1st 20sq cm No -Apply Skin Sub - 1st 25 sq cm - Feet 0 -Apligraf (per sq cm) 0 Query Text:1 sheet = 44 sq cm #1- R MED ANKLE CLUSTER -Correct Patient No -Correct Side, Site, Position No -Correct Procedure No -Procedure Performed No -Post Debridement (cm) - Length 0 -Post Debridement (cm) - Width 0 -Post Debridement (cm) - Depth 0 -Total Square (Post) (cm) 0 -Area of Debridement (cm) - Length 0 -Area of Debridement (cm) - Width 0 -Total Square (Area) (cm) 0 -Wound/Ulcer Outcome Healed- Epithelialized Pain Scale: 0-10 Numeric Is Patient Pain Free? Yes Wound debrided: medial lower leg, lateral leg (superior and inferior) Laterality: Left - g Wound Grade/Stage: grade 1 Type of Debridement: Excisional debridement Anesthesia Used: 5% Lidocaine Gel Depth: in the subcutaneous layer Percentage of wound debrided: 100 Instrument Used: #15 blade Tissue Removed: fibrous, devitalized subcutaneous, biofilm, slough Severity: Fat Layer Exposed Amount of bleeding with debridement: Mild Bleeding Controlled with: Pressure Patient tolerated procedure well Assessment/Plan Active Problems Ulcer of right lower extremity with fat layer exposed (Chronic) Venous insufficiency (chronic) (peripheral) (Chronic) Type 2 diabetes mellitus with diabetic polyneuropathy (Chronic) Assessment: Ulcer right leg fat layer exposed, multiple--healed. Ulcer fat layer exposed left, multiple. Lower extremity edema. Venous insufficiency suspected. Peripheral vascular disease suspected. Malnutrition suspected Plan: I reviewed and discussed his case. His etiology, treatment options, and comrehensive plan was discussed in detail. Debridement was performed today as noted in the clinical panel. He has several sites that have healed. He did well with initial Apligraf applications and is amendable to proceed today. However, due to weather conditions this advanced product has not arrived to clinic in time and will therefore be ordered for next week. Instead, he was advised to change the dressing daily with [email or web address]. He was advised to wash with antibacterial soap and water daily. He has comorbidities as noted with his diabetes and delayed healing. He is afebrile. Labs were orderd and reviwiewed (CBC, CMP, and HgA1C). No leukocytosis is noted. His A1C was 6.7%. He was reassured no local infection is noted and I do not recommend antibiotics. Follow-up with primary care physician for diabetes management. Edema control with tubigrip. Venous doppler with reflux examination was recommended and ordered. Non invasive vascular studies were also ordered. No critical limb ishemia is suspected today. He has bilateral triphasic waveforms, right GONZALO of 1.19, left GONZALO 1.24, right toe brachial index of 0.84, and left toe brachial index of 0.87. Vascular referral was completed with Dr. Serna. Additional testing potential intervention is planned. Dr. Serna's notes from 04-06-2020 was reviewed. He was advised to continue with wound care and compression. For his right varicose veins there is a plan for right greater saphenous vein procedures and Varithena ablation branches. Dr. Serna plans to recheck an ultrasound in [place]. For the left varicose veins Gavin is also the same. I recommend compression management with double Tubigrip application, elevation and rest, and routine muscular contraction. I recommended venous Doppler exam with reflux evaluation. Venous incompetence is noted to bilateral lower extremities and I recommend a vein specialist referral. To optimize diet to control glucose levels and to ensure adequete nutrition for healing. Nanod nutritional supplement was recommended. His elevated hemoglobin A1c is noted however it is still under 7%. To follow-up with primary care physician. He is making diet and exercise changes at this time. To follow up at the wound healing center in one to 1 week. I answered his questions.
[2020-05-04 09:59] VITALS: BP 136/69; PULSE 105; RESP 22; TEMP 36.4
--- NOTE | 2020-05-04 12:30 | PCM.WC.PN ---
(1) Ulcer of left lower extremity with fat layer exposed Status: Chronic Code(s): L97.922 - Non-pressure chronic ulcer of unspecified part of left lower leg with fat layer exposed (2) Venous insufficiency (chronic) (peripheral) Status: Chronic Code(s): I87.2 - Venous insufficiency (chronic) (peripheral) (3) Type 2 diabetes mellitus with diabetic polyneuropathy Status: Chronic Code(s): E11.42 - Type 2 diabetes mellitus with diabetic polyneuropathy Type of Wound Date of Service: 05/04/20 Chief Complaint: Left leg ulcers History of Wound: This 60-year-old male presents to the wound healing clinic today with delayed healing wounds of both lower extremities. He denies fever, chill, nausea, vomiting. He has leg swelling. He has worn Tubigrip compression sleeves. Vascular referral and will follow up for additional testing. He will proceed with intervention in May and was advised to call back in May to schedule this. He is ready for additional Apligraf application today. Progress of Wound: Improving - Physical Exam Vital Signs Temp Pulse Resp BP 97.6 F L 105 H 22 H 136/69 H 05/04/20 09:59 05/04/20 09:59 05/04/20 09:59 05/04/20 09:59 General: Alert, Oriented x3, Cooperative, No apparent distress HEENT: Atraumatic Extremities: No cyanosis, Capillary Refill Less than 3 Seconds, No Calf Tenderness, Diminished Peripheral Pulses, Edema Skin: Ulcer/ Wound - No purulence, erythema, streaking, odor, infection, - - Adjacent skin is hairless and atrophic Wound Measurements and Assessment WC - Nurse 1 - General Ulcer Measurement Start: 04/27/20 08:52 Freq: Status: Active Protocol: Activity Type Activity Date Activity User E-Sign Co-Sign Detail Recorded Client Recorded Date Recorded By Document 05/04/20 09:59 DL [id number] 05/04/20 10:09 DL 05/04/20 09:59 Wound Center Nurse 1 [Ulcer Assessment] #6- L LAT LE INFERIOR -Current Size (cm) - Length 1.5 -Current Size (cm) - Width 4.9 -Current Size (cm) - Depth 0.2 -Total Square Cm 7.35 -Photo Taken No -Exudate Amt Small -Exudate Type Serosanguineous -Wound Margin Thickened -Granulation Amt Medium (34-66%) -Granulation Quality Red -Necrosis Amt Medium (34-66%) -Necrotic Tissue Type Adherent Slough -Structure Exposed N/A -Texture (Isela-wound Skin Appearance) Scarring -Moisture (Isela-wound Skin Appearance Dry/Scaly ) -Color (Isela-wound Skin Appearance) Hemosiderin Staining -Temperature (Isela-wound Skin No Abnormality Appearance) (Pt Warm) -Tenderness on Palpation (Isela-wound No Skin Appearance) -Ulcer Cleansing Wound Cleanser -Foul Odor after Cleansing No -Anesthetic Used 4% Lidocaine Solution #5- L LAT LE SUPERIOR -Current Size (cm) - Length 0.8 -Current Size (cm) - Width 0.2 -Current Size (cm) - Depth 0.1 -Total Square Cm 0.16 -Photo Taken No -Exudate Amt Small -Exudate Type Serosanguineous -Wound Margin Distinct, Outline Attached -Granulation Amt Small (1-33%) -Granulation Quality [place] -Necrosis Amt Small (1-33%) -Necrotic Tissue Type Adherent Slough -Structure Exposed N/A -Texture (Isela-wound Skin Appearance) Scarring -Moisture (Isela-wound Skin Appearance Dry/Scaly ) -Color (Isela-wound Skin Appearance) Hemosiderin Staining -Temperature (Isela-wound Skin No Abnormality Appearance) (Pt Warm) -Tenderness on Palpation (Isela-wound No Skin Appearance) -Ulcer Cleansing Wound Cleanser -Foul Odor after Cleansing No -Anesthetic Used 4% Lidocaine Solution #3 L MED ANKLE CLUSTER -Current Size (cm) - Length 2 -Current Size (cm) - Width 4.5 -Current Size (cm) - Depth 0.2 -Total Square Cm 9.0 -Photo Taken No -Exudate Amt Medium -Exudate Type Serosanguineous -Wound Margin Thickened -Granulation Amt Large (67-100%) -Granulation Quality Red -Necrosis Amt Small (1-33%) -Necrotic Tissue Type Adherent Slough -Structure Exposed N/A -Texture (Isela-wound Skin Appearance) Scarring -Moisture (Isela-wound Skin Appearance Dry/Scaly ) -Color (Isela-wound Skin Appearance) Hemosiderin Staining -Temperature (Isela-wound Skin No Abnormality Appearance) (Pt Warm) -Tenderness on Palpation (Isela-wound No Skin Appearance) -Ulcer Cleansing Wound Cleanser -Foul Odor after Cleansing No -Anesthetic Used 4% Lidocaine Solution [Edema Assessment] -Left Calf (cm) 41 -Left Ankle (cm) 25 WC - Nurse 2 - General Ulcer CM Notes Start: 04/27/20 08:52 Freq: Status: Active Protocol: Activity Type Activity Date Activity User E-Sign Co-Sign Detail Recorded Client Recorded Date Recorded By Document 05/04/20 11:54 WILLIE [id number] 05/04/20 12:03 WILLIE 05/04/20 11:54 Wound Center Nurse 2 [Procedure/Treatment] #6- L LAT LE INFERIOR -Time 11:56 -Correct Patient Yes -Correct Side, Site, Position Yes -Correct Procedure Yes -Procedure Performed Yes -Type of Procedure Debridement -Clinical Debridement Subcutaneous -Tissue Removed Subcutaneous -Post Debridement (cm) - Length 1.5 -Post Debridement (cm) - Width 5 -Post Debridement (cm) - Depth 0.2 -Total Square (Post) (cm) 7.5 -Area of Debridement (cm) - Length 1.5 -Area of Debridement (cm) - Width 5 -Total Square (Area) (cm) 7.5 -Tunneling No -Undermining/Tunneling No -Circular Undermining No -Wound/Ulcer Outcome Not Healed -Ulcer Cleansing Rinsed/ Irrigated with Saline -Foul Odor after Cleansing No -Bioengineered Tissue Yes -Type of Bioengineered Tissue Apligraf -Expiration Date 05/05/20 -Product Lot Number [id number] -Percent Used 100 -Bleeding Controlled with Pressure -Other [id number] -Offloading No -Treatment Response Procedure Tolerated Well -Debridement - Subq, 1st 20sq cm No -Apply Skin Sub - 1st 25 sq cm - Legs 1 -Apligraf (per sq cm) 44 Query Text:1 sheet = 44 sq cm #5- L LAT LE SUPERIOR -Time 11:57 -Correct Patient Yes -Correct Side, Site, Position Yes -Correct Procedure Yes -Procedure Performed Yes -Type of Procedure Debridement -Clinical Debridement Subcutaneous -Tissue Removed Subcutaneous -Post Debridement (cm) - Length 0.8 -Post Debridement (cm) - Width 0.3 -Post Debridement (cm) - Depth 0.1 -Total Square (Post) (cm) 0.24 -Area of Debridement (cm) - Length 0.8 -Area of Debridement (cm) - Width 0.3 -Total Square (Area) (cm) 0.24 -Tunneling No -Undermining/Tunneling No -Circular Undermining No -Wound/Ulcer Outcome Not Healed -Ulcer Cleansing Rinsed/ Irrigated with Saline -Foul Odor after Cleansing No -Bioengineered Tissue Yes -Type of Bioengineered Tissue Apligraf -Expiration Date 03/07/20 -Product Lot Number [id number] -Percent Used 100 -Bleeding Controlled with Pressure -Other saline [id number] -Offloading No -Treatment Response Procedure Tolerated Well -Debridement - Subq, 1st 20sq cm No -Apply Skin Sub - 1st 25 sq cm - Legs 0 -Apligraf (per sq cm) 0 Query Text:1 sheet = 44 sq cm #3 L MED ANKLE CLUSTER -Time 11:59 -Correct Patient Yes -Correct Side, Site, Position Yes -Correct Procedure Yes -Procedure Performed Yes -Type of Procedure Debridement -Clinical Debridement Subcutaneous -Tissue Removed Subcutaneous -Post Debridement (cm) - Length 2.1 -Post Debridement (cm) - Width 4.6 -Post Debridement (cm) - Depth 0.2 -Total Square (Post) (cm) 9.66 -Area of Debridement (cm) - Length 2.1 -Area of Debridement (cm) - Width 4.6 -Total Square (Area) (cm) 9.66 -Tunneling No -Undermining/Tunneling No -Circular Undermining No -Wound/Ulcer Outcome Not Healed -Ulcer Cleansing Rinsed/ Irrigated with Saline -Foul Odor after Cleansing No -Bioengineered Tissue Yes -Type of Bioengineered Tissue Apligraf -Expiration Date 03/07/20 -Product Lot Number [id number] -Percent Used 100 -Other saline [id number] -Offloading No -Treatment Response Procedure Tolerated Well -Debridement - Subq, 1st 20sq cm No -Apply Skin Sub - 1st 25 sq cm - Legs 0 -Apligraf (per sq cm) 0 Query Text:1 sheet = 44 sq cm [See Physician Procedure note for Specifics] Pain Scale: 0-10 Numeric [Pain] -Is Patient Pain Free? Yes WC - Nurse 3 - General Ulcer D/C NN Start: 04/27/20 08:52 Freq: Status: Active Protocol: Activity Type Activity Date Activity User E-Sign Co-Sign Detail Recorded Client Recorded Date Recorded By Document 05/04/20 10:50 NH [id number] 05/04/20 10:53 NH 05/04/20 10:50 Wound Care Nurse 3 [Wound Dressing] #6- L LAT LE INFERIOR -Primary Dressing Covered/Secured Dry Gauze, with Secured with Tape WC - Visit Discharge [Visit Discharge Information] -Discharge Condition Stable -Ambulatory Status Ambulatory -Transportation Private Auto -Medication Reconcilliation completed No & provided to patient/care provider -Clinical Summary of Care Provided Yes -Notes: stay dry Musculoskeletal: No Tenderness to Palpation of Joints or Extremities, Muscle Wasting Neurological: - - Lack of full normal epicritic sensation light touch Psych/Mental Status: Normal Affect, Appropriate Debridement Note Post-Debridement Measurements/Treatment - Nurse 2 - General Ulcer CM Notes Start: 04/27/20 08:52 Freq: Status: Active Protocol: Activity Type Activity Date Activity User E-Sign Co-Sign Detail Recorded Client Recorded Date Recorded By Document 04/27/20 09:13 [id number] 04/27/20 09:30 Document 05/04/20 11:54 [id number] 05/04/20 12:03 04/27/20 05/04/20 09:13 11:54 Wound Center Nurse 2 #6- L LAT LE INFERIOR -Time 09:14 11:56 -Correct Patient Yes Yes -Correct Side, Site, Position Yes Yes -Correct Procedure Yes Yes -Procedure Performed Yes Yes -Type of Procedure Debridement Debridement -Clinical Debridement Subcutaneous Subcutaneous -Tissue Removed Subcutaneous Subcutaneous -Post Debridement (cm) - Length 4.8 1.5 -Post Debridement (cm) - Width 1.8 5 -Post Debridement (cm) - Depth 0.2 0.2 -Total Square (Post) (cm) 8.64 7.5 -Area of Debridement (cm) - Length 4.8 1.5 -Area of Debridement (cm) - Width 1.8 5 -Total Square (Area) (cm) 8.64 7.5 -Tunneling No No -Undermining/Tunneling No No -Circular Undermining No No -Wound/Ulcer Outcome Not Healed Not Healed -Ulcer Cleansing Rinsed/ Rinsed/ Irrigated with Irrigated with Saline Saline -Foul Odor after Cleansing No No -Bioengineered Tissue Yes Yes -Type of Bioengineered Tissue Apligraf Apligraf -Expiration Date 05/05/20 -Product Lot Number [id number] -Percent Used 100 -Bleeding Controlled with Pressure Pressure -Other [id number] -Offloading No No -Treatment Response Procedure Procedure Tolerated Well Tolerated Well -Debridement - Subq, 1st 20sq cm No No -Apply Skin Sub - 1st 25 sq cm - Legs 1 1 -Apligraf (per sq cm) 44 44 Query Text:1 sheet = 44 sq cm #5- L LAT LE SUPERIOR -Time 09:15 11:57 -Correct Patient Yes Yes -Correct Side, Site, Position Yes Yes -Correct Procedure Yes Yes -Procedure Performed Yes Yes -Type of Procedure Debridement Debridement -Clinical Debridement Subcutaneous Subcutaneous -Tissue Removed Subcutaneous Subcutaneous -Post Debridement (cm) - Length 1 0.8 -Post Debridement (cm) - Width 0.5 0.3 -Post Debridement (cm) - Depth 0.1 0.1 -Total Square (Post) (cm) 0.5 0.24 -Area of Debridement (cm) - Length 1 0.8 -Area of Debridement (cm) - Width 0.5 0.3 -Total Square (Area) (cm) 0.5 0.24 -Tunneling No No -Undermining/Tunneling No No -Circular Undermining No No -Wound/Ulcer Outcome Not Healed Not Healed -Ulcer Cleansing Rinsed/ Rinsed/ Irrigated with Irrigated with Saline Saline -Foul Odor after Cleansing No -Bioengineered Tissue Yes Yes -Type of Bioengineered Tissue Apligraf Apligraf -Expiration Date 03/07/20 -Product Lot Number [id number] -Percent Used 100 -Bleeding Controlled with Pressure Pressure -Other saline [id number] -Offloading No No -Treatment Response Procedure Procedure Tolerated Well Tolerated Well -Debridement - Subq, 1st 20sq cm No No -Apply Skin Sub - 1st 25 sq cm - Legs 0 -Apligraf (per sq cm) 0 0 Query Text:1 sheet = 44 sq cm #4 L LAT ANKLE -Correct Patient No -Correct Side, Site, Position No -Correct Procedure No -Procedure Performed No -Post Debridement (cm) - Length 0 -Post Debridement (cm) - Width 0 -Post Debridement (cm) - Depth 0 -Total Square (Post) (cm) 0 -Area of Debridement (cm) - Length 0 -Wound/Ulcer Outcome Healed- Epithelialized #3 L MED ANKLE CLUSTER -Time 09:27 11:59 -Correct Patient Yes Yes -Correct Side, Site, Position Yes Yes -Correct Procedure Yes Yes -Procedure Performed Yes Yes -Type of Procedure Debridement Debridement -Clinical Debridement Subcutaneous Subcutaneous -Tissue Removed Subcutaneous Subcutaneous -Post Debridement (cm) - Length 4.2 2.1 -Post Debridement (cm) - Width 2 4.6 -Post Debridement (cm) - Depth 0.2 0.2 -Total Square (Post) (cm) 8.4 9.66 -Area of Debridement (cm) - Length 4.2 2.1 -Area of Debridement (cm) - Width 2 4.6 -Total Square (Area) (cm) 8.4 9.66 -Tunneling No No -Undermining/Tunneling No No -Circular Undermining No No -Wound/Ulcer Outcome Not Healed Not Healed -Ulcer Cleansing Rinsed/ Rinsed/ Irrigated with Irrigated with Saline Saline -Foul Odor after Cleansing No No -Bioengineered Tissue Yes Yes -Type of Bioengineered Tissue Apligraf Apligraf -Expiration Date 03/07/20 -Product Lot Number [id number] -Percent Used 100 -Bleeding Controlled with Pressure -Other saline [id number] -Offloading No No -Treatment Response Procedure Procedure Tolerated Well Tolerated Well -Debridement - Subq, 1st 20sq cm No No -Apply Skin Sub - 1st 25 sq cm - Legs 0 -Apply Skin Sub - 1st 25 sq cm - Feet 0 -Apligraf (per sq cm) 0 0 Query Text:1 sheet = 44 sq cm #1- R MED ANKLE CLUSTER -Correct Patient No -Correct Side, Site, Position No -Correct Procedure No -Procedure Performed No -Post Debridement (cm) - Length 0 -Post Debridement (cm) - Width 0 -Post Debridement (cm) - Depth 0 -Total Square (Post) (cm) 0 -Area of Debridement (cm) - Length 0 -Area of Debridement (cm) - Width 0 -Total Square (Area) (cm) 0 -Wound/Ulcer Outcome Healed- Epithelialized Pain Scale: 0-10 Numeric Is Patient Pain Free? Yes Yes WC - Nurse 3 - General Ulcer D/C NN Start: 04/27/20 08:52 Freq: Status: Active Protocol: Activity Type Activity Date Activity User E-Sign Co-Sign Detail Recorded Client Recorded Date Recorded By Document 04/27/20 11:44 DL [id number] 04/27/20 11:46 DL Document 05/04/20 10:50 NH [id number] 05/04/20 10:53 NH 04/27/20 05/04/20 11:44 10:50 Wound Care Nurse 3 #6- L LAT LE INFERIOR -Ulcer Cleansing Wound Cleanser -Foul Odor after Cleansing No -Primary Dressing Applied Aquacel AG 4x4 -Primary Dressing Covered/Secured with Dry Gauze & Dry Gauze, Roll Gauze, Secured with Secured with Tape Tape -Aquacel AG 4x4 1 #5- L LAT LE SUPERIOR -Ulcer Cleansing Wound Cleanser -Foul Odor after Cleansing No -Other Dressing aquacel ag -Primary Dressing Covered/Secured with Dry Gauze & Roll Gauze, Secured with Tape #3 L MED ANKLE CLUSTER -Ulcer Cleansing Wound Cleanser -Foul Odor after Cleansing No -Other Dressing aquacel ag -Primary Dressing Covered/Secured with Dry Gauze & Roll Gauze, Secured with Tape Left -Size of Tubigrip Used Size F -Size F ($) 1 Right -Size of Tubigrip Used Size F -Size D ($) 1 Treatment Response Procedure Tolerated Well Pain Scale: 0-10 Numeric Is Patient Pain Free? Yes WC - Visit Discharge Discharge Condition Stable Stable Ambulatory Status Ambulatory, Ambulatory Crutches Transportation Private Auto Private Auto Medication Reconcilliation completed & No provided to patient/care provider Clinical Summary of Care Provided Yes Notes: stay dry Wound debrided: medial lower leg, lateral leg (inferior and superior) Laterality: Left Wound Grade/Stage: grade 1 Type of Debridement: Excisional debridement Anesthesia Used: 5% Lidocaine Gel Depth: in the subcutaneous layer Percentage of wound debrided: 100 Instrument Used: #15 blade Tissue Removed: fibrous, devitalized subcutaneous, biofilm, slough Severity: Fat Layer Exposed Amount of bleeding with debridement: Mild Bleeding Controlled with: Pressure Patient tolerated procedure well Assessment/Plan Active Problems Ulcer of right lower extremity with fat layer exposed (Chronic) Ulcer of left lower extremity with fat layer exposed (Chronic) Venous insufficiency (chronic) (peripheral) (Chronic) Type 2 diabetes mellitus with diabetic polyneuropathy (Chronic) Assessment: Ulcer right leg fat layer exposed, multiple--healed. Ulcer fat layer exposed left, multiple. Lower extremity edema. Venous insufficiency suspected. Peripheral vascular disease suspected. Malnutrition suspected Plan: I reviewed and discussed his case. His etiology, treatment options, and comrehensive plan was discussed in detail. Debridement was performed today as noted in the clinical panel. He did well with initial Apligraf applications and is amendable to proceed today. Apligraf, advancement product was applied according standard protocol today after verbal consent was obtained. This was secured with Steri-Strips and a wound veil. He was advised to keep this clean, dry, and intact until follow-up next week. He tolerated this well. He has comorbidities as noted with his diabetes and delayed healing. He is afebrile. Labs were orderd and reviwiewed (CBC, CMP, and HgA1C). No leukocytosis is noted. His A1C was 6.7%. He was reassured no local infection is noted and I do not recommend antibiotics. Follow-up with primary care physician for diabetes management. Edema control with tubigrip. Venous doppler with reflux examination was recommended and ordered. Non invasive vascular studies were also ordered. No critical limb ishemia is suspected today. He has bilateral triphasic waveforms, right GONZALO of 1.19, left GONZALO 1.24, right toe brachial index of 0.84, and left toe brachial index of 0.87. Vascular referral was completed with Dr. Serna. Additional testing potential intervention is planned. Dr. Serna's notes from 04-06-2020 was reviewed. He was advised to continue with wound care and compression. For his right varicose veins there is a plan for right greater saphenous vein procedures and Varithena ablation branches. Dr. Serna plans to recheck an ultrasound in [place]. For the left varicose veins Gavin is also the same. I recommend compression management with double Tubigrip application, elevation and rest, and routine muscular contraction. I recommended venous Doppler exam with reflux evaluation. Venous incompetence is noted to bilateral lower extremities and I recommend a vein specialist referral. To optimize diet to control glucose levels and to ensure adequete nutrition for healing. Nando nutritional supplement was recommended. His elevated hemoglobin A1c is noted however it is still under 7%. To follow-up with primary care physician. He is making diet and exercise changes at this time. To follow up at the wound healing center in one to 1 week. I answered his questions.
[2020-05-11 09:10] VITALS: BP 148/84; PULSE 74; RESP 18; TEMP 36.7
--- NOTE | 2020-05-11 11:26 | PCM.WC.PN ---
(1) Ulcer of left lower extremity with fat layer exposed Status: Chronic Code(s): L97.922 - Non-pressure chronic ulcer of unspecified part of left lower leg with fat layer exposed (2) Venous insufficiency (chronic) (peripheral) Status: Chronic Code(s): I87.2 - Venous insufficiency (chronic) (peripheral) (3) Type 2 diabetes mellitus with diabetic polyneuropathy Status: Chronic Code(s): E11.42 - Type 2 diabetes mellitus with diabetic polyneuropathy Type of Wound Date of Service: 05/11/20 Chief Complaint: Left leg ulcers History of Wound: This 60-year-old male presents to the wound healing clinic today with delayed healing wounds of both lower extremities. He denies fever, chill, nausea, vomiting. He has leg swelling. He has worn Tubigrip compression sleeves. Vascular referral and will follow up for additional testing. He will proceed with intervention in May and was advised to call back in May to schedule this. He had apligraft applied last week. He continues to wear work boots which rub on the medial lower leg ulcer site. Progress of Wound: stable - Physical Exam Vital Signs Temp Pulse Resp BP 98.1 F 74 18 148/84 H 05/11/20 09:10 05/11/20 09:10 05/11/20 09:10 05/11/20 09:10 General: Alert, Oriented x3, Cooperative, No apparent distress HEENT: Atraumatic Extremities: No cyanosis, Capillary Refill Less than 3 Seconds, No Calf Tenderness, Diminished Peripheral Pulses, Edema Skin: Ulcer/ Wound - No purulence, erythema, streaking, odor, infection. Apligraf remains intact with wound veil Steri-Stripped. There are some devitalized discoloration also to the medial lower leg ulcer site and this was debrided. Adjacent skin is hairless and atrophic Wound Measurements and Assessment WC - Nurse 1 - General Ulcer Measurement Start: 04/27/20 08:52 Freq: Status: Active Protocol: Activity Type Activity Date Activity User E-Sign Co-Sign Detail Recorded Client Recorded Date Recorded By Document 05/11/20 09:10 [facility] [id number] 05/11/20 09:20 BM 05/11/20 09:10 Wound Center Nurse 1 [Ulcer Assessment] #6- L LAT LE INFERIOR -Combined with other wound No -Current Size (cm) - Length 3.8 -Current Size (cm) - Width 1.3 -Current Size (cm) - Depth 0.2 -Total Square Cm 4.94 -Photo Taken No -Epithelialization None Present -Tunneling No -Undermining/Tunneling No -Circular Undermining No -Exudate Amt Small -Exudate Type Serosanguineous -Granulation Amt Medium (34-66%) -Granulation Quality Red -Slough/Fibrin Yes -Necrosis Amt Medium (34-66%) -Necrotic Tissue Type Adherent Slough -Texture (Isela-wound Skin Appearance) Assessed, Scarring -Moisture (Isela-wound Skin Appearance Assessed,Dry/ ) Scaly -Color (Isela-wound Skin Appearance) Assessed -Temperature (Isela-wound Skin No Abnormality Appearance) (Pt Warm) -Tenderness on Palpation (Isela-wound No Skin Appearance) #5- L LAT LE SUPERIOR -Combined with other wound No -Current Size (cm) - Length 0.1 -Current Size (cm) - Width 0.1 -Current Size (cm) - Depth 0.1 -Total Square Cm 0.01 #3 L MED ANKLE CLUSTER -Combined with other wound No -Current Size (cm) - Length 0.1 -Current Size (cm) - Width 0.1 -Current Size (cm) - Depth 0.1 -Total Square Cm 0.01 [Edema Assessment] -Lower Limb Edema Present Yes -Left Calf (cm) 42 -Left Ankle (cm) 25.2 WC - Nurse 2 - General Ulcer CM Notes Start: 04/27/20 08:52 Freq: Status: Active Protocol: Activity Type Activity Date Activity User E-Sign Co-Sign Detail Recorded Client Recorded Date Recorded By Document 05/11/20 09:42 WILLIE [id number] 05/11/20 09:50 WILLIE 05/11/20 09:42 Wound Center Nurse 2 [Procedure/Treatment] #6- L LAT LE INFERIOR -Correct Patient No -Correct Side, Site, Position No -Correct Procedure No -Procedure Performed No -Wound/Ulcer Outcome Not Healed #5- L LAT LE SUPERIOR -Correct Patient No -Correct Side, Site, Position No -Correct Procedure No -Procedure Performed No -Wound/Ulcer Outcome Not Healed #3 L MED ANKLE CLUSTER -Time 09:42 -Correct Patient Yes -Correct Side, Site, Position Yes -Correct Procedure Yes -Procedure Performed Yes -Type of Procedure Debridement -Clinical Debridement Subcutaneous -Tissue Removed Subcutaneous -Post Debridement (cm) - Length 4.4 -Post Debridement (cm) - Width 2.5 -Post Debridement (cm) - Depth 0.1 -Total Square (Post) (cm) 11.00 -Area of Debridement (cm) - Length 4.4 -Area of Debridement (cm) - Width 2.5 -Total Square (Area) (cm) 11.00 -Tunneling No -Undermining/Tunneling No -Circular Undermining No -Wound/Ulcer Outcome Not Healed -Ulcer Cleansing Rinsed/ Irrigated with Saline -Foul Odor after Cleansing No -Bioengineered Tissue No -Bleeding Controlled with Pressure -Offloading No -Treatment Response Procedure Tolerated Well -Debridement - Subq, 1st 20sq cm Yes [See Physician Procedure note for Specifics] Pain Scale: 0-10 Numeric [Pain] -Is Patient Pain Free? Yes - Nurse 3 - General Ulcer D/C NN Start: 04/27/20 08:52 Freq: Status: Active Protocol: Activity Type Activity Date Activity User E-Sign Co-Sign Detail Recorded Client Recorded Date Recorded By Document 05/11/20 09:58 [facility] [id number] 05/11/20 09:59 [facility] 05/11/20 09:58 Wound Care Nurse 3 [Wound Dressing] #6- L LAT LE INFERIOR -Primary Dressing Applied Other -Other Dressing apligraph -Primary Dressing Covered/Secured Dry Gauze & with Roll Gauze, Secured with Tape -Other Covering drsg per santos barlow rn #5- L LAT LE SUPERIOR -Primary Dressing Applied Other -Other Dressing apligraph -Primary Dressing Covered/Secured Dry Gauze & with Roll Gauze, Secured with Tape -Other Covering drsg per santos barlow rn #3 L MED ANKLE CLUSTER -Primary Dressing Applied Other -Other Dressing apligraph -Primary Dressing Covered/Secured Dry Gauze & with Roll Gauze, Secured with Tape -Other Covering drsg per santos barlow [Compression Applied] Left -Tubular Bandage Double Layer -Size of Tubigrip Used Size E -Size E ($) 1 [Post Procedure Tolerated] -Treatment Response Procedure Tolerated Well Pain Scale: 0-10 Numeric [Pain] -Is Patient Pain Free? Yes - Visit Discharge [Visit Discharge Information] -Discharge Condition Stable -Ambulatory Status Ambulatory, Crutches Musculoskeletal: No Tenderness to Palpation of Joints or Extremities, Muscle Wasting Neurological: - - Lack of normal epicritic sensation light touch is consistent with neuropathy status Psych/Mental Status: Normal Affect, Appropriate Debridement Note Post-Debridement Measurements/Treatment WC - Nurse 2 - General Ulcer CM Notes Start: 04/27/20 08:52 Freq: Status: Active Protocol: Activity Type Activity Date Activity User E-Sign Co-Sign Detail Recorded Client Recorded Date Recorded By Document 04/27/20 09:13 [id number] 04/27/20 09:30 Document 05/04/20 11:54 [id number] 05/04/20 12:03 Document 05/11/20 09:42 [id number] 05/11/20 09:50 04/27/20 05/04/20 05/11/20 09:13 11:54 09:42 Wound Center Nurse 2 #6- L LAT LE INFERIOR -Time 09:14 11:56 -Correct Patient Yes Yes No -Correct Side, Site, Position Yes Yes No -Correct Procedure Yes Yes No -Procedure Performed Yes Yes No -Type of Procedure Debridement Debridement -Clinical Debridement Subcutaneous Subcutaneous -Tissue Removed Subcutaneous Subcutaneous -Post Debridement (cm) - Length 4.8 1.5 -Post Debridement (cm) - Width 1.8 5 -Post Debridement (cm) - Depth 0.2 0.2 -Total Square (Post) (cm) 8.64 7.5 -Area of Debridement (cm) - Length 4.8 1.5 -Area of Debridement (cm) - Width 1.8 5 -Total Square (Area) (cm) 8.64 7.5 -Tunneling No No -Undermining/Tunneling No No -Circular Undermining No No -Wound/Ulcer Outcome Not Healed Not Healed Not Healed -Ulcer Cleansing Rinsed/ Rinsed/ Irrigated with Irrigated with Saline Saline -Foul Odor after Cleansing No No -Bioengineered Tissue Yes Yes -Type of Bioengineered Tissue Apligraf Apligraf -Expiration Date 05/05/20 -Product Lot Number [id number] -Percent Used 100 -Bleeding Controlled with Pressure Pressure -Other [id number] -Offloading No No -Treatment Response Procedure Procedure Tolerated Well Tolerated Well -Debridement - Subq, 1st 20sq cm No No -Apply Skin Sub - 1st 25 sq cm - Legs 1 1 -Apligraf (per sq cm) 44 44 #5- L LAT LE SUPERIOR -Time 09:15 11:57 -Correct Patient Yes Yes No -Correct Side, Site, Position Yes Yes No -Correct Procedure Yes Yes No -Procedure Performed Yes Yes No -Type of Procedure Debridement Debridement -Clinical Debridement Subcutaneous Subcutaneous -Tissue Removed Subcutaneous Subcutaneous -Post Debridement (cm) - Length 1 0.8 -Post Debridement (cm) - Width 0.5 0.3 -Post Debridement (cm) - Depth 0.1 0.1 -Total Square (Post) (cm) 0.5 0.24 -Area of Debridement (cm) - Length 1 0.8 -Area of Debridement (cm) - Width 0.5 0.3 -Total Square (Area) (cm) 0.5 0.24 -Tunneling No No -Undermining/Tunneling No No -Circular Undermining No No -Wound/Ulcer Outcome Not Healed Not Healed Not Healed -Ulcer Cleansing Rinsed/ Rinsed/ Irrigated with Irrigated with Saline Saline -Foul Odor after Cleansing No -Bioengineered Tissue Yes Yes -Type of Bioengineered Tissue Apligraf Apligraf -Expiration Date 03/07/20 -Product Lot Number [id number] -Percent Used 100 -Bleeding Controlled with Pressure Pressure -Other saline [id number] -Offloading No No -Treatment Response Procedure Procedure Tolerated Well Tolerated Well -Debridement - Subq, 1st 20sq cm No No -Apply Skin Sub - 1st 25 sq cm - Legs 0 -Apligraf (per sq cm) 0 0 #4 L LAT ANKLE -Correct Patient No -Correct Side, Site, Position No -Correct Procedure No -Procedure Performed No -Post Debridement (cm) - Length 0 -Post Debridement (cm) - Width 0 -Post Debridement (cm) - Depth 0 -Total Square (Post) (cm) 0 -Area of Debridement (cm) - Length 0 -Wound/Ulcer Outcome Healed- Epithelialized #3 L MED ANKLE CLUSTER -Time 09:27 11:59 09:42 -Correct Patient Yes Yes Yes -Correct Side, Site, Position Yes Yes Yes -Correct Procedure Yes Yes Yes -Procedure Performed Yes Yes Yes -Type of Procedure Debridement Debridement Debridement -Clinical Debridement Subcutaneous Subcutaneous Subcutaneous -Tissue Removed Subcutaneous Subcutaneous Subcutaneous -Post Debridement (cm) - Length 4.2 2.1 4.4 -Post Debridement (cm) - Width 2 4.6 2.5 -Post Debridement (cm) - Depth 0.2 0.2 0.1 -Total Square (Post) (cm) 8.4 9.66 11.00 -Area of Debridement (cm) - Length 4.2 2.1 4.4 -Area of Debridement (cm) - Width 2 4.6 2.5 -Total Square (Area) (cm) 8.4 9.66 11.00 -Tunneling No No No -Undermining/Tunneling No No No -Circular Undermining No No No -Wound/Ulcer Outcome Not Healed Not Healed Not Healed -Ulcer Cleansing Rinsed/ Rinsed/ Rinsed/ Irrigated with Irrigated with Irrigated with Saline Saline Saline -Foul Odor after Cleansing No No No -Bioengineered Tissue Yes Yes No -Type of Bioengineered Tissue Apligraf Apligraf -Expiration Date 03/07/20 -Product Lot Number [id number] -Percent Used 100 -Bleeding Controlled with Pressure Pressure -Other saline [id number] -Offloading No No No -Treatment Response Procedure Procedure Procedure Tolerated Well Tolerated Well Tolerated Well -Debridement - Subq, 1st 20sq cm No No Yes -Apply Skin Sub - 1st 25 sq cm - Legs 0 -Apply Skin Sub - 1st 25 sq cm - Feet 0 -Apligraf (per sq cm) 0 0 #1- R MED ANKLE CLUSTER -Correct Patient No -Correct Side, Site, Position No -Correct Procedure No -Procedure Performed No -Post Debridement (cm) - Length 0 -Post Debridement (cm) - Width 0 -Post Debridement (cm) - Depth 0 -Total Square (Post) (cm) 0 -Area of Debridement (cm) - Length 0 -Area of Debridement (cm) - Width 0 -Total Square (Area) (cm) 0 -Wound/Ulcer Outcome Healed- Epithelialized Pain Scale: 0-10 Numeric Is Patient Pain Free? Yes Yes Yes WC - Nurse 3 - General Ulcer D/C NN Start: 04/27/20 08:52 Freq: Status: Active Protocol: Activity Type Activity Date Activity User E-Sign Co-Sign Detail Recorded Client Recorded Date Recorded By Document 04/27/20 11:44 DL [id number] 04/27/20 11:46 DL Document 05/04/20 10:50 MT [id number] 05/04/20 10:53 MT Document 05/11/20 09:58 [facility] [id number] 05/11/20 09:59 [facility] 04/27/20 05/04/20 05/11/20 11:44 10:50 09:58 Wound Care Nurse 3 #6- L LAT LE INFERIOR -Ulcer Cleansing Wound Cleanser -Foul Odor after Cleansing No -Primary Dressing Applied Aquacel AG 4x4 Other -Other Dressing apligraph -Primary Dressing Covered/Secured with Dry Gauze & Dry Gauze, Dry Gauze & Roll Gauze, Secured with Roll Gauze, Secured with Tape Secured with Tape Tape -Other Covering drsg per cain rn -Aquacel AG 4x4 1 #5- L LAT LE SUPERIOR -Ulcer Cleansing Wound Cleanser -Foul Odor after Cleansing No -Primary Dressing Applied Other -Other Dressing aquacel ag apligraph -Primary Dressing Covered/Secured with Dry Gauze & Dry Gauze & Roll Gauze, Roll Gauze, Secured with Secured with Tape Tape -Other Covering drsg per santos barlow rn #3 L MED ANKLE CLUSTER -Ulcer Cleansing Wound Cleanser -Foul Odor after Cleansing No -Primary Dressing Applied Other -Other Dressing aquacel ag apligraph -Primary Dressing Covered/Secured with Dry Gauze & Dry Gauze & Roll Gauze, Roll Gauze, Secured with Secured with Tape Tape -Other Covering drsg per santos barlow Left -Tubular Bandage Double Layer -Size of Tubigrip Used Size F Size E -Size E ($) 1 -Size F ($) 1 Right -Size of Tubigrip Used Size F -Size D ($) 1 Treatment Response Procedure Procedure Tolerated Well Tolerated Well Pain Scale: 0-10 Numeric Is Patient Pain Free? Yes Yes WC - Visit Discharge Discharge Condition Stable Stable Stable Ambulatory Status Ambulatory, Ambulatory Ambulatory, Crutches Crutches Transportation Private Auto Private Auto Medication Reconcilliation completed & No provided to patient/care provider Clinical Summary of Care Provided Yes Notes: stay dry Wound debrided: medial lower leg (inferior portion) Laterality: Right Wound Grade/Stage: grade 1 Type of Debridement: Excisional debridement Anesthesia Used: 5% Lidocaine Gel Depth: in the subcutaneous layer Percentage of wound debrided: 100 Instrument Used: #15 blade Tissue Removed: fibrous, devitalized subcutaneous, biofilm, slough Severity: Fat Layer Exposed Amount of bleeding with debridement: Mild Bleeding Controlled with: Pressure Patient tolerated procedure well Assessment/Plan Active Problems Ulcer of right lower extremity with fat layer exposed (Chronic) Ulcer of left lower extremity with fat layer exposed (Chronic) Venous insufficiency (chronic) (peripheral) (Chronic) Type 2 diabetes mellitus with diabetic polyneuropathy (Chronic) Assessment: Ulcer right leg fat layer exposed, multiple--healed. Ulcer fat layer exposed left, multiple. Lower extremity edema. Venous insufficiency suspected. Peripheral vascular disease suspected. Malnutrition suspected Plan: I reviewed and discussed his case. His etiology, treatment options, and comrehensive plan was discussed in detail. Debridement was performed today as noted in the clinical panel to the medial inferior lower leg ulcer site only due to the devitalized tissue. The other sites remain intact with Apligraf. He was advised to keep this clean, dry, and intact until follow-up next week. He tolerated this well. He has comorbidities as noted with his diabetes and delayed healing. He is afebrile. Labs were orderd and reviwiewed (CBC, CMP, and HgA1C). No leukocytosis is noted. His A1C was 6.7%. He was reassured no local infection is noted and I do not recommend antibiotics. Follow-up with primary care physician for diabetes management. Edema control with tubigrip. Venous doppler with reflux examination was recommended and ordered. Non invasive vascular studies were also ordered. No critical limb ishemia is suspected today. He has bilateral triphasic waveforms, right GONZALO of 1.19, left GONZALO 1.24, right toe brachial index of 0.84, and left toe brachial index of 0.87. Vascular referral was completed with Dr. Serna. Additional testing potential intervention is planned. Dr. Serna's notes from 04-06-2020 was reviewed. He was advised to continue with wound care and compression. For his right varicose veins there is a plan for right greater saphenous vein procedures and Varithena ablation branches. Dr. Serna plans to recheck an ultrasound in [place]. For the left varicose veins Gavin is also the same. I recommend compression management with double Tubigrip application, elevation and rest, and routine muscular contraction. I recommended venous Doppler exam with reflux evaluation. Venous incompetence is noted to bilateral lower extremities and I recommend a vein specialist referral. To optimize diet to control glucose levels and to ensure adequete nutrition for healing. Nando nutritional supplement was recommended. His elevated hemoglobin A1c is noted however it is still under 7%. To follow-up with primary care physician. He is making diet and exercise changes at this time. To follow up at the wound healing center in one to 1 week. I answered his questions.
[2020-05-18 08:45] VITALS: BP 141/73; PULSE 131; RESP 22; TEMP 36.5
--- NOTE | 2020-05-18 22:37 | PCM.WC.PN ---
(1) Ulcer of left lower extremity with fat layer exposed Status: Chronic Code(s): L97.922 - Non-pressure chronic ulcer of unspecified part of left lower leg with fat layer exposed (2) Venous insufficiency (chronic) (peripheral) Status: Chronic Code(s): I87.2 - Venous insufficiency (chronic) (peripheral) (3) Type 2 diabetes mellitus with diabetic polyneuropathy Status: Chronic Code(s): E11.42 - Type 2 diabetes mellitus with diabetic polyneuropathy Type of Wound Date of Service: 05/18/20 Chief Complaint: Left leg ulcers History of Wound: This 60-year-old male presents to the wound healing clinic today with delayed healing wounds of both lower extremities. He denies fever, chill, nausea, vomiting. He has leg swelling. He has worn Tubigrip compression sleeves. Vascular referral and will follow up for additional testing. He will proceed with intervention in May and was advised to call back in May to schedule this. He had apligraft applied two weeks ago and is ready for reapplication today. He continues to wear work boots which rub on the medial lower leg ulcer site. Progress of Wound: Improving lateral and deteriorating medial - Physical Exam Vital Signs Temp Pulse Resp BP 97.7 F L 131 H 22 H 141/73 H 05/18/20 08:45 05/18/20 08:45 05/18/20 08:45 05/18/20 08:45 General: Alert, Oriented x3, Cooperative, No apparent distress HEENT: Atraumatic Extremities: No cyanosis, Capillary Refill Less than 3 Seconds, No Calf Tenderness, Diminished Peripheral Pulses, Edema Skin: Ulcer/ Wound - No purulence, odor, erythema, streaking or infection lateral. Peripheral epithelialization noted to left lower extremity ulcers. The medial leg ulcer has discoloration anteriorization with healthy bleeding noted after debridement. His adjacent skin is hairless and atrophic. Wound Measurements and Assessment WC - Nurse 1 - General Ulcer Measurement Start: 04/27/20 08:52 Freq: Status: Active Protocol: Activity Type Activity Date Activity User E-Sign Co-Sign Detail Recorded Client Recorded Date Recorded By Document 05/18/20 08:45 DL [id number] 05/18/20 08:59 DL 05/18/20 08:45 Wound Center Nurse 1 [Ulcer Assessment] #6- L LAT LE INFERIOR -Current Size (cm) - Length 4.5 -Current Size (cm) - Width 1.5 -Current Size (cm) - Depth 0.2 -Total Square Cm 6.75 -Photo Taken No -Exudate Amt Small -Exudate Type Serosanguineous -Wound Margin Distinct, Outline Attached -Granulation Amt Medium (34-66%) -Granulation Quality Red -Necrosis Amt Medium (34-66%) -Necrotic Tissue Type Adherent Slough -Texture (Isela-wound Skin Appearance) Scarring,Rash -Moisture (Isela-wound Skin Appearance Dry/Scaly ) -Color (Isela-wound Skin Appearance) Hemosiderin Staining -Temperature (Isela-wound Skin No Abnormality Appearance) (Pt Warm) -Tenderness on Palpation (Isela-wound No Skin Appearance) -Ulcer Cleansing Wound Cleanser -Foul Odor after Cleansing Yes, Due to Product Use -Anesthetic Used 4% Lidocaine Solution #5- L LAT LE SUPERIOR -Current Size (cm) - Length 0.3 -Current Size (cm) - Width 0.3 -Current Size (cm) - Depth 0.2 -Total Square Cm 0.09 -Photo Taken No -Exudate Amt None Present -Wound Margin Distinct, Outline Attached -Granulation Amt Small (1-33%) -Granulation Quality [place] -Necrosis Amt Small (1-33%) -Necrotic Tissue Type Adherent Slough -Structure Exposed N/A -Texture (Isela-wound Skin Appearance) Scarring,Rash -Moisture (Isela-wound Skin Appearance Dry/Scaly ) -Color (Isela-wound Skin Appearance) Hemosiderin Staining -Temperature (Isela-wound Skin No Abnormality Appearance) (Pt Warm) -Tenderness on Palpation (Isela-wound No Skin Appearance) -Ulcer Cleansing Wound Cleanser -Foul Odor after Cleansing No -Anesthetic Used 4% Lidocaine Solution #3 L MED ANKLE CLUSTER -Current Size (cm) - Length 4.3 -Current Size (cm) - Width 2.2 -Current Size (cm) - Depth 0.4 -Total Square Cm 9.46 -Photo Taken No -Exudate Amt Small -Exudate Type Serosanguineous -Wound Margin Distinct, Outline Attached -Granulation Amt None Present (0 %) -Necrosis Amt Large (67-100%) -Necrotic Tissue Type Adherent Slough -Structure Exposed N/A -Texture (Isela-wound Skin Appearance) Scarring,Rash -Moisture (Isela-wound Skin Appearance Dry/Scaly ) -Color (Isela-wound Skin Appearance) Hemosiderin Staining -Temperature (Isela-wound Skin No Abnormality Appearance) (Pt Warm) -Tenderness on Palpation (Isela-wound No Skin Appearance) -Ulcer Cleansing Wound Cleanser -Foul Odor after Cleansing No -Anesthetic Used 4% Lidocaine Solution [Edema Assessment] -Left Calf (cm) 41.4 -Left Ankle (cm) 25.6 WC - Nurse 2 - General Ulcer CM Notes Start: 04/27/20 08:52 Freq: Status: Active Protocol: Activity Type Activity Date Activity User E-Sign Co-Sign Detail Recorded Client Recorded Date Recorded By Document 05/18/20 09:42 WILLIE [id number] 05/18/20 09:46 WILLIE 05/18/20 09:42 Wound Center Nurse 2 [Procedure/Treatment] #6- L LAT LE INFERIOR -Time 09:42 -Correct Patient Yes -Correct Side, Site, Position Yes -Correct Procedure Yes -Procedure Performed Yes -Type of Procedure Debridement -Clinical Debridement Subcutaneous -Tissue Removed Subcutaneous -Post Debridement (cm) - Length 4.5 -Post Debridement (cm) - Width 1.6 -Post Debridement (cm) - Depth 0.2 -Total Square (Post) (cm) 7.20 -Area of Debridement (cm) - Length 4.5 -Area of Debridement (cm) - Width 1.6 -Total Square (Area) (cm) 7.20 -Tunneling No -Undermining/Tunneling No -Circular Undermining No -Wound/Ulcer Outcome Not Healed -Ulcer Cleansing Rinsed/ Irrigated with Saline -Foul Odor after Cleansing No -Bioengineered Tissue Yes -Type of Bioengineered Tissue Apligraf -Expiration Date 05/24/20 -Product Lot Number [id number] -Percent Used 100 -Lot number of Saline Used [id number] -Bleeding Controlled with Pressure -Offloading No -Treatment Response Procedure Tolerated Well -Debridement - Subq, 1st 20sq cm No -Apply Skin Sub - 1st 25 sq cm - Legs 1 -Apligraf (per sq cm) 44 Query Text:1 sheet = 44 sq cm #5- L LAT LE SUPERIOR -Time 09:43 -Correct Patient Yes -Correct Side, Site, Position Yes -Correct Procedure Yes -Procedure Performed Yes -Type of Procedure Debridement -Clinical Debridement Subcutaneous -Tissue Removed Subcutaneous -Post Debridement (cm) - Length 0.4 -Post Debridement (cm) - Width 0.4 -Post Debridement (cm) - Depth 0.2 -Total Square (Post) (cm) 0.16 -Area of Debridement (cm) - Length 0.4 -Area of Debridement (cm) - Width 0.4 -Total Square (Area) (cm) 0.16 -Tunneling No -Undermining/Tunneling No -Circular Undermining No -Wound/Ulcer Outcome Not Healed -Ulcer Cleansing Rinsed/ Irrigated with Saline -Foul Odor after Cleansing No -Bioengineered Tissue Yes -Type of Bioengineered Tissue Apligraf -Expiration Date 05/24/20 -Product Lot Number [id number] -Percent Used 100 -Lot number of Saline Used [id number] -Bleeding Controlled with Pressure -Offloading No -Debridement - Subq, 1st 20sq cm No -Apply Skin Sub - 1st 25 sq cm - Legs 0 -Apligraf (per sq cm) 0 Query Text:1 sheet = 44 sq cm #3 L MED ANKLE CLUSTER -Time 09:44 -Correct Patient Yes -Correct Side, Site, Position Yes -Correct Procedure Yes -Procedure Performed Yes -Type of Procedure Debridement -Clinical Debridement Subcutaneous -Tissue Removed Subcutaneous -Post Debridement (cm) - Length 4.4 -Post Debridement (cm) - Width 2.3 -Post Debridement (cm) - Depth 0.1 -Total Square (Post) (cm) 10.12 -Area of Debridement (cm) - Length 4.4 -Area of Debridement (cm) - Width 2.3 -Total Square (Area) (cm) 10.12 -Tunneling No -Undermining/Tunneling No -Circular Undermining No -Wound/Ulcer Outcome Not Healed -Ulcer Cleansing Rinsed/ Irrigated with Saline -Foul Odor after Cleansing No -Bioengineered Tissue No -Bleeding Controlled with Pressure -Offloading Yes -Type of Offloading Surgical Shoe -Treatment Response Procedure Tolerated Well -Debridement - Subq, 1st 20sq cm Yes [See Physician Procedure note for Specifics] Pain Scale: 0-10 Numeric [Pain] -Is Patient Pain Free? Yes WC - Nurse 3 - General Ulcer D/C NN Start: 04/27/20 08:52 Freq: Status: Active Protocol: Activity Type Activity Date Activity User E-Sign Co-Sign Detail Recorded Client Recorded Date Recorded By Document 05/18/20 09:24 CHINA [id number] 05/18/20 09:26 KR 05/18/20 09:24 Wound Care Nurse 3 [Wound Dressing] #6- L LAT LE INFERIOR -Ulcer Cleansing Rinsed/ Irrigated with Saline -Other Dressing Moist saline -Primary Dressing Covered/Secured Dry Gauze, with Secured with Tape #5- L LAT LE SUPERIOR -Ulcer Cleansing Rinsed/ Irrigated with Saline -Foul Odor after Cleansing No -Primary Dressing Covered/Secured Dry Gauze, with Secured with Tape #3 L MED ANKLE CLUSTER -Ulcer Cleansing Rinsed/ Irrigated with Saline -Foul Odor after Cleansing No -Other Dressing Moist gauze -Primary Dressing Covered/Secured Dry Gauze, with Secured with Tape Pain Scale: 0-10 Numeric [Pain] -Is Patient Pain Free? Yes - Visit Discharge [Visit Discharge Information] -Discharge Condition Stable -Ambulatory Status Ambulatory -Transportation Private Auto Musculoskeletal: Muscle Wasting Neurological: - - Altered sensation Psych/Mental Status: Normal Affect, Appropriate Debridement Note Post-Debridement Measurements/Treatment - Nurse 2 - General Ulcer CM Notes Start: 04/27/20 08:52 Freq: Status: Active Protocol: Activity Type Activity Date Activity User E-Sign Co-Sign Detail Recorded Client Recorded Date Recorded By Document 04/27/20 09:13 [id number] 04/27/20 09:30 Document 05/04/20 11:54 [id number] 05/04/20 12:03 Document 05/11/20 09:42 [id number] 05/11/20 09:50 Document 05/18/20 09:42 [id number] 05/18/20 09:46 04/27/20 05/04/20 05/11/20 09:13 11:54 09:42 Wound Center Nurse 2 #6- L LAT LE INFERIOR -Time 09:14 11:56 -Correct Patient Yes Yes No -Correct Side, Site, Position Yes Yes No -Correct Procedure Yes Yes No -Procedure Performed Yes Yes No -Type of Procedure Debridement Debridement -Clinical Debridement Subcutaneous Subcutaneous -Tissue Removed Subcutaneous Subcutaneous -Post Debridement (cm) - Length 4.8 1.5 -Post Debridement (cm) - Width 1.8 5 -Post Debridement (cm) - Depth 0.2 0.2 -Total Square (Post) (cm) 8.64 7.5 -Area of Debridement (cm) - Length 4.8 1.5 -Area of Debridement (cm) - Width 1.8 5 -Total Square (Area) (cm) 8.64 7.5 -Tunneling No No -Undermining/Tunneling No No -Circular Undermining No No -Wound/Ulcer Outcome Not Healed Not Healed Not Healed -Ulcer Cleansing Rinsed/ Rinsed/ Irrigated with Irrigated with Saline Saline -Foul Odor after Cleansing No No -Bioengineered Tissue Yes Yes -Type of Bioengineered Tissue Apligraf Apligraf -Expiration Date 05/05/20 -Product Lot Number [id number] -Percent Used 100 -Lot number of Saline Used -Bleeding Controlled with Pressure Pressure -Other [id number] -Offloading No No -Treatment Response Procedure Procedure Tolerated Well Tolerated Well -Debridement - Subq, 1st 20sq cm No No -Apply Skin Sub - 1st 25 sq cm - Legs 1 1 -Apligraf (per sq cm) 44 44 Query Text:1 sheet = 44 sq cm #5- L LAT LE SUPERIOR -Time 09:15 11:57 -Correct Patient Yes Yes No -Correct Side, Site, Position Yes Yes No -Correct Procedure Yes Yes No -Procedure Performed Yes Yes No -Type of Procedure Debridement Debridement -Clinical Debridement Subcutaneous Subcutaneous -Tissue Removed Subcutaneous Subcutaneous -Post Debridement (cm) - Length 1 0.8 -Post Debridement (cm) - Width 0.5 0.3 -Post Debridement (cm) - Depth 0.1 0.1 -Total Square (Post) (cm) 0.5 0.24 -Area of Debridement (cm) - Length 1 0.8 -Area of Debridement (cm) - Width 0.5 0.3 -Total Square (Area) (cm) 0.5 0.24 -Tunneling No No -Undermining/Tunneling No No -Circular Undermining No No -Wound/Ulcer Outcome Not Healed Not Healed Not Healed -Ulcer Cleansing Rinsed/ Rinsed/ Irrigated with Irrigated with Saline Saline -Foul Odor after Cleansing No -Bioengineered Tissue Yes Yes -Type of Bioengineered Tissue Apligraf Apligraf -Expiration Date 03/07/20 -Product Lot Number [id number] -Percent Used 100 -Lot number of Saline Used -Bleeding Controlled with Pressure Pressure -Other saline [id number] -Offloading No No -Treatment Response Procedure Procedure Tolerated Well Tolerated Well -Debridement - Subq, 1st 20sq cm No No -Apply Skin Sub - 1st 25 sq cm - Legs 0 -Apligraf (per sq cm) 0 0 Query Text:1 sheet = 44 sq cm #4 L LAT ANKLE -Correct Patient No -Correct Side, Site, Position No -Correct Procedure No -Procedure Performed No -Post Debridement (cm) - Length 0 -Post Debridement (cm) - Width 0 -Post Debridement (cm) - Depth 0 -Total Square (Post) (cm) 0 -Area of Debridement (cm) - Length 0 -Wound/Ulcer Outcome Healed- Epithelialized #3 L MED ANKLE CLUSTER -Time 09:27 11:59 09:42 -Correct Patient Yes Yes Yes -Correct Side, Site, Position Yes Yes Yes -Correct Procedure Yes Yes Yes -Procedure Performed Yes Yes Yes -Type of Procedure Debridement Debridement Debridement -Clinical Debridement Subcutaneous Subcutaneous Subcutaneous -Tissue Removed Subcutaneous Subcutaneous Subcutaneous -Post Debridement (cm) - Length 4.2 2.1 4.4 -Post Debridement (cm) - Width 2 4.6 2.5 -Post Debridement (cm) - Depth 0.2 0.2 0.1 -Total Square (Post) (cm) 8.4 9.66 11.00 -Area of Debridement (cm) - Length 4.2 2.1 4.4 -Area of Debridement (cm) - Width 2 4.6 2.5 -Total Square (Area) (cm) 8.4 9.66 11.00 -Tunneling No No No -Undermining/Tunneling No No No -Circular Undermining No No No -Wound/Ulcer Outcome Not Healed Not Healed Not Healed -Ulcer Cleansing Rinsed/ Rinsed/ Rinsed/ Irrigated with Irrigated with Irrigated with Saline Saline Saline -Foul Odor after Cleansing No No No -Bioengineered Tissue Yes Yes No -Type of Bioengineered Tissue Apligraf Apligraf -Expiration Date 03/07/20 -Product Lot Number [id number] -Percent Used 100 -Bleeding Controlled with Pressure Pressure -Other saline [id number] -Offloading No No No -Type of Offloading -Treatment Response Procedure Procedure Procedure Tolerated Well Tolerated Well Tolerated Well -Debridement - Subq, 1st 20sq cm No No Yes -Apply Skin Sub - 1st 25 sq cm - Legs 0 -Apply Skin Sub - 1st 25 sq cm - Feet 0 -Apligraf (per sq cm) 0 0 Query Text:1 sheet = 44 sq cm #1- R MED ANKLE CLUSTER -Correct Patient No -Correct Side, Site, Position No -Correct Procedure No -Procedure Performed No -Post Debridement (cm) - Length 0 -Post Debridement (cm) - Width 0 -Post Debridement (cm) - Depth 0 -Total Square (Post) (cm) 0 -Area of Debridement (cm) - Length 0 -Area of Debridement (cm) - Width 0 -Total Square (Area) (cm) 0 -Wound/Ulcer Outcome Healed- Epithelialized Pain Scale: 0-10 Numeric Is Patient Pain Free? Yes Yes Yes 05/18/20 09:42 Wound Center Nurse 2 #6- L LAT LE INFERIOR -Time 09:42 -Correct Patient Yes -Correct Side, Site, Position Yes -Correct Procedure Yes -Procedure Performed Yes -Type of Procedure Debridement -Clinical Debridement Subcutaneous -Tissue Removed Subcutaneous -Post Debridement (cm) - Length 4.5 -Post Debridement (cm) - Width 1.6 -Post Debridement (cm) - Depth 0.2 -Total Square (Post) (cm) 7.20 -Area of Debridement (cm) - Length 4.5 -Area of Debridement (cm) - Width 1.6 -Total Square (Area) (cm) 7.20 -Tunneling No -Undermining/Tunneling No -Circular Undermining No -Wound/Ulcer Outcome Not Healed -Ulcer Cleansing Rinsed/ Irrigated with Saline -Foul Odor after Cleansing No -Bioengineered Tissue Yes -Type of Bioengineered Tissue Apligraf -Expiration Date 05/24/20 -Product Lot Number [id number] -Percent Used 100 -Lot number of Saline Used [id number] -Bleeding Controlled with Pressure -Other -Offloading No -Treatment Response Procedure Tolerated Well -Debridement - Subq, 1st 20sq cm No -Apply Skin Sub - 1st 25 sq cm - Legs 1 -Apligraf (per sq cm) 44 Query Text:1 sheet = 44 sq cm #5- L LAT LE SUPERIOR -Time 09:43 -Correct Patient Yes -Correct Side, Site, Position Yes -Correct Procedure Yes -Procedure Performed Yes -Type of Procedure Debridement -Clinical Debridement Subcutaneous -Tissue Removed Subcutaneous -Post Debridement (cm) - Length 0.4 -Post Debridement (cm) - Width 0.4 -Post Debridement (cm) - Depth 0.2 -Total Square (Post) (cm) 0.16 -Area of Debridement (cm) - Length 0.4 -Area of Debridement (cm) - Width 0.4 -Total Square (Area) (cm) 0.16 -Tunneling No -Undermining/Tunneling No -Circular Undermining No -Wound/Ulcer Outcome Not Healed -Ulcer Cleansing Rinsed/ Irrigated with Saline -Foul Odor after Cleansing No -Bioengineered Tissue Yes -Type of Bioengineered Tissue Apligraf -Expiration Date 05/24/20 -Product Lot Number [id number] -Percent Used 100 -Lot number of Saline Used [id number] -Bleeding Controlled with Pressure -Other -Offloading No -Treatment Response -Debridement - Subq, 1st 20sq cm No -Apply Skin Sub - 1st 25 sq cm - Legs 0 -Apligraf (per sq cm) 0 Query Text:1 sheet = 44 sq cm #4 L LAT ANKLE -Correct Patient -Correct Side, Site, Position -Correct Procedure -Procedure Performed -Post Debridement (cm) - Length -Post Debridement (cm) - Width -Post Debridement (cm) - Depth -Total Square (Post) (cm) -Area of Debridement (cm) - Length -Wound/Ulcer Outcome #3 L MED ANKLE CLUSTER -Time 09:44 -Correct Patient Yes -Correct Side, Site, Position Yes -Correct Procedure Yes -Procedure Performed Yes -Type of Procedure Debridement -Clinical Debridement Subcutaneous -Tissue Removed Subcutaneous -Post Debridement (cm) - Length 4.4 -Post Debridement (cm) - Width 2.3 -Post Debridement (cm) - Depth 0.1 -Total Square (Post) (cm) 10.12 -Area of Debridement (cm) - Length 4.4 -Area of Debridement (cm) - Width 2.3 -Total Square (Area) (cm) 10.12 -Tunneling No -Undermining/Tunneling No -Circular Undermining No -Wound/Ulcer Outcome Not Healed -Ulcer Cleansing Rinsed/ Irrigated with Saline -Foul Odor after Cleansing No -Bioengineered Tissue No -Type of Bioengineered Tissue -Expiration Date -Product Lot Number -Percent Used -Bleeding Controlled with Pressure -Other -Offloading Yes -Type of Offloading Surgical Shoe -Treatment Response Procedure Tolerated Well -Debridement - Subq, 1st 20sq cm Yes -Apply Skin Sub - 1st 25 sq cm - Legs -Apply Skin Sub - 1st 25 sq cm - Feet -Apligraf (per sq cm) Query Text:1 sheet = 44 sq cm #1- R MED ANKLE CLUSTER -Correct Patient -Correct Side, Site, Position -Correct Procedure -Procedure Performed -Post Debridement (cm) - Length -Post Debridement (cm) - Width -Post Debridement (cm) - Depth -Total Square (Post) (cm) -Area of Debridement (cm) - Length -Area of Debridement (cm) - Width -Total Square (Area) (cm) -Wound/Ulcer Outcome Pain Scale: 0-10 Numeric Is Patient Pain Free? Yes WC - Nurse 3 - General Ulcer D/C NN Start: 04/27/20 08:52 Freq: Status: Active Protocol: Activity Type Activity Date Activity User E-Sign Co-Sign Detail Recorded Client Recorded Date Recorded By Document 04/27/20 11:44 DL [id number] 04/27/20 11:46 DL Document 05/04/20 10:50 MT [id number] 05/04/20 10:53 MT Document 05/11/20 09:58 [facility] [id number] 05/11/20 09:59 BMF Document 05/18/20 09:24 KR [id number] 05/18/20 09:26 KR 04/27/20 05/04/20 05/11/20 11:44 10:50 09:58 Wound Care Nurse 3 #6- L LAT LE INFERIOR -Ulcer Cleansing Wound Cleanser -Foul Odor after Cleansing No -Primary Dressing Applied Aquacel AG 4x4 Other -Other Dressing apligraph -Primary Dressing Covered/Secured with Dry Gauze & Dry Gauze, Dry Gauze & Roll Gauze, Secured with Roll Gauze, Secured with Tape Secured with Tape Tape -Other Covering drsg jah barlow rn -Aquacel AG 4x4 1 #5- L LAT LE SUPERIOR -Ulcer Cleansing Wound Cleanser -Foul Odor after Cleansing No -Primary Dressing Applied Other -Other Dressing aquacel ag apligraph -Primary Dressing Covered/Secured with Dry Gauze & Dry Gauze & Roll Gauze, Roll Gauze, Secured with Secured with Tape Tape -Other Covering drsg per santos barlow rn #3 L MED ANKLE CLUSTER -Ulcer Cleansing Wound Cleanser -Foul Odor after Cleansing No -Primary Dressing Applied Other -Other Dressing aquacel ag apligraph -Primary Dressing Covered/Secured with Dry Gauze & Dry Gauze & Roll Gauze, Roll Gauze, Secured with Secured with Tape Tape -Other Covering marv barlow Left -Tubular Bandage Double Layer -Size of Tubigrip Used Size F Size E -Size E ($) 1 -Size F ($) 1 Right -Size of Tubigrip Used Size F -Size D ($) 1 Treatment Response Procedure Procedure Tolerated Well Tolerated Well Pain Scale: 0-10 Numeric Is Patient Pain Free? Yes Yes WC - Visit Discharge Discharge Condition Stable Stable Stable Ambulatory Status Ambulatory, Ambulatory Ambulatory, Crutches Crutches Transportation Private Auto Private Auto Medication Reconcilliation completed & No provided to patient/care provider Clinical Summary of Care Provided Yes Notes: stay dry 05/18/20 09:24 Wound Care Nurse 3 #6- L LAT LE INFERIOR -Ulcer Cleansing Rinsed/ Irrigated with Saline -Foul Odor after Cleansing -Primary Dressing Applied -Other Dressing Moist saline -Primary Dressing Covered/Secured with Dry Gauze, Secured with Tape -Other Covering -Aquacel AG 4x4 #5- L LAT LE SUPERIOR -Ulcer Cleansing Rinsed/ Irrigated with Saline -Foul Odor after Cleansing No -Primary Dressing Applied -Other Dressing -Primary Dressing Covered/Secured with Dry Gauze, Secured with Tape -Other Covering #3 L MED ANKLE CLUSTER -Ulcer Cleansing Rinsed/ Irrigated with Saline -Foul Odor after Cleansing No -Primary Dressing Applied -Other Dressing Moist gauze -Primary Dressing Covered/Secured with Dry Gauze, Secured with Tape -Other Covering Left -Tubular Bandage -Size of Tubigrip Used -Size E ($) -Size F ($) Right -Size of Tubigrip Used -Size D ($) Treatment Response Pain Scale: 0-10 Numeric Is Patient Pain Free? Yes WC - Visit Discharge Discharge Condition Stable Ambulatory Status Ambulatory Transportation Private Auto Medication Reconcilliation completed & provided to patient/care provider Clinical Summary of Care Provided Notes: Wound debrided: medial lower leg, lateral lower leg (inferior and superior) Laterality: Left Wound Grade/Stage: grade 1 Type of Debridement: Excisional debridement Anesthesia Used: 4% Lidocaine Solution Depth: in the subcutaneous layer Percentage of wound debrided: 100 Instrument Used: #15 blade Tissue Removed: fibrous, devitalized subcutaneous, biofilm, slough Severity: Fat Layer Exposed Amount of bleeding with debridement: Mild Bleeding Controlled with: Pressure Patient tolerated procedure well Assessment/Plan Active Problems Ulcer of right lower extremity with fat layer exposed (Chronic) Ulcer of left lower extremity with fat layer exposed (Chronic) Venous insufficiency (chronic) (peripheral) (Chronic) Type 2 diabetes mellitus with diabetic polyneuropathy (Chronic) Assessment: Ulcer right leg fat layer exposed, multiple--healed. Ulcer fat layer exposed left, multiple. Lower extremity edema. Venous insufficiency suspected. Peripheral vascular disease suspected. Malnutrition suspected Plan: I reviewed and discussed his case. His etiology, treatment options, and comrehensive plan was discussed in detail. Debridement was performed today as noted in the clinical panel to the medial inferior lower leg ulcer site only due to the devitalized tissue. Verbal consent was obtained for Apligraf application to the lateral leg. This was applied according standard protocol secured with a wound veil and Steri-Strips. Keep clean, dry, and intact. Due to the generalized medial side he was advised to change the medial aspect with Dakin wet-to-dry. To avoid shoes that rub on the site. He was advised to keep this clean, dry, and intact until follow-up next week. He tolerated this well. He has comorbidities as noted with his diabetes and delayed healing. He is afebrile. Labs were orderd and reviwiewed (CBC, CMP, and HgA1C). No leukocytosis is noted. His A1C was 6.7%. He was reassured no local infection is noted and I do not recommend antibiotics. Follow-up with primary care physician for diabetes management. Edema control with tubigrip. Venous doppler with reflux examination was recommended and ordered. Non invasive vascular studies were also ordered. No critical limb ishemia is suspected today. He has bilateral triphasic waveforms, right GONZALO of 1.19, left GONZALO 1.24, right toe brachial index of 0.84, and left toe brachial index of 0.87. Vascular referral was completed with Dr. Serna. Additional testing potential intervention is planned. Dr. Serna's notes from 04-06-2020 was reviewed. He was advised to continue with wound care and compression. For his right varicose veins there is a plan for right greater saphenous vein procedures and Varithena ablation branches. Dr. Serna plans to recheck an ultrasound in [place]. For the left varicose veins Gavin is also the same. I recommend compression management with double Tubigrip application, elevation and rest, and routine muscular contraction. I recommended venous Doppler exam with reflux evaluation. Venous incompetence is noted to bilateral lower extremities and I recommend a vein specialist referral. To optimize diet to control glucose levels and to ensure adequete nutrition for healing. Nando nutritional supplement was recommended. His elevated hemoglobin A1c is noted however it is still under 7%. To follow-up with primary care physician. He is making diet and exercise changes at this time. To follow up at the wound healing center in one to 1 week. I answered his questions.
[2020-05-25 08:58] VITALS: BP 140/83; PULSE 117; TEMP 36.4
--- NOTE | 2020-05-25 12:31 | PN.PCM_ITS ---
(1) Ulcer of left lower extremity with fat layer exposed Status: Chronic Code(s): L97.922 - Non-pressure chronic ulcer of unspecified part of left lower leg with fat layer exposed (2) Venous insufficiency (chronic) (peripheral) Status: Chronic Code(s): I87.2 - Venous insufficiency (chronic) (peripheral) (3) Type 2 diabetes mellitus with diabetic polyneuropathy Status: Chronic Code(s): E11.42 - Type 2 diabetes mellitus with diabetic polyneuropathy Type of Wound Date of Service: 05/25/20 Chief Complaint: Left leg ulcers History of Wound: This 60-year-old male presents to the wound healing clinic today with delayed healing wounds of both lower extremities. He denies fever, chill, nausea, vomiting. He has leg swelling. He has worn Tubigrip compression sleeves. Vascular referral and will follow up for additional testing. He will proceed with intervention in May and was advised to call back in May to schedule this. He had apligraft applied last week to the lateral aspect. He changed the medial ulcer site with Dakin's. He admits his shoe is rubbing on his medial ulcer site he brought these in for modification today. He continues to wear work boots which rub on the medial lower leg ulcer site. Progress of Wound: Improving improved - Physical Exam Vital Signs Temp Pulse Resp BP 97.6 F L 117 H 22 H 140/83 H 05/25/20 08:58 05/25/20 08:58 05/18/20 08:45 05/25/20 08:58 General: Alert, Oriented x3, Cooperative, No apparent distress HEENT: Atraumatic Extremities: No cyanosis, Capillary Refill Less than 3 Seconds, No Calf Tenderness, Diminished Peripheral Pulses, Edema Skin: Ulcer/ Wound - No purulence, erythema, string, odor, infection. Resolved devitalized tissue to medial ulcer that is granular and fibrous. The lateral ulcer site has Apligraf intact without adjacent signs of infection. His skin is hairless and atrophic Wound Measurements and Assessment WC - Nurse 1 - General Ulcer Measurement Start: 04/27/20 08:52 Freq: Status: Active Protocol: Activity Type Activity Date Activity User E-Sign Co-Sign Detail Recorded Client Recorded Date Recorded By Document 05/25/20 08:58 CHINA [id number] 05/25/20 09:05 KR 05/25/20 08:58 Wound Center Nurse 1 [Ulcer Assessment] #6- L LAT LE INFERIOR -Current Size (cm) - Length 0.1 -Current Size (cm) - Width 0.1 -Current Size (cm) - Depth 0.1 -Total Square Cm 0.01 #5- L LAT LE SUPERIOR -Current Size (cm) - Length 0.1 -Current Size (cm) - Width 0.1 -Current Size (cm) - Depth 0.1 -Total Square Cm 0.01 #3 L MED ANKLE CLUSTER -Current Size (cm) - Length 4.4 -Current Size (cm) - Width 2.8 -Current Size (cm) - Depth 0.4 -Total Square Cm 12.32 -Exudate Amt Medium -Exudate Type Serosanguineous -Wound Margin Thickened & Rolled Under -Granulation Amt Medium (34-66%) -Granulation Quality Red -Necrosis Amt Medium (34-66%) -Necrotic Tissue Type Adherent Slough -Texture (Isela-wound Skin Appearance) Assessed, Scarring -Moisture (Isela-wound Skin Appearance No Abnormality, ) Assessed -Color (Isela-wound Skin Appearance) No Abnormality, Assessed -Temperature (Isela-wound Skin No Abnormality Appearance) (Pt Warm) -Tenderness on Palpation (Isela-wound No Skin Appearance) -Ulcer Cleansing soap and water -Foul Odor after Cleansing No -Anesthetic Used 4% Lidocaine Solution WC - Nurse 2 - General Ulcer CM Notes Start: 04/27/20 08:52 Freq: Status: Active Protocol: Activity Type Activity Date Activity User E-Sign Co-Sign Detail Recorded Client Recorded Date Recorded By Document 05/25/20 09:11 WILLIE [id number] 05/25/20 09:19 WILLIE 05/25/20 09:11 Wound Center Nurse 2 [Procedure/Treatment] #6- L LAT LE INFERIOR -Correct Patient No -Correct Side, Site, Position No -Correct Procedure No -Procedure Performed No -Wound/Ulcer Outcome Not Healed #5- L LAT LE SUPERIOR -Correct Patient No -Correct Side, Site, Position No -Correct Procedure No -Procedure Performed No -Wound/Ulcer Outcome Not Healed #3 L MED ANKLE CLUSTER -Time 09:12 -Correct Patient Yes -Correct Side, Site, Position Yes -Correct Procedure Yes -Procedure Performed Yes -Type of Procedure Debridement -Clinical Debridement Subcutaneous -Tissue Removed Subcutaneous -Post Debridement (cm) - Length 4.1 -Post Debridement (cm) - Width 2.9 -Post Debridement (cm) - Depth 0.3 -Total Square (Post) (cm) 11.89 -Area of Debridement (cm) - Length 4.1 -Area of Debridement (cm) - Width 2.9 -Total Square (Area) (cm) 11.89 -Tunneling No -Undermining/Tunneling No -Circular Undermining No -Wound/Ulcer Outcome Not Healed -Ulcer Cleansing Rinsed/ Irrigated with Saline -Foul Odor after Cleansing No -Bioengineered Tissue No -Bleeding Controlled with Pressure -Offloading No -Treatment Response Procedure Tolerated Well -Debridement - Subq, 1st 20sq cm Yes [See Physician Procedure note for Specifics] Pain Scale: 0-10 Numeric [Pain] -Is Patient Pain Free? Yes - Nurse 3 - General Ulcer D/C NN Start: 04/27/20 08:52 Freq: Status: Active Protocol: Activity Type Activity Date Activity User E-Sign Co-Sign Detail Recorded Client Recorded Date Recorded By Document 05/25/20 09:27 WILLIE [id number] 05/25/20 09:28 WILLIE 05/25/20 09:27 Wound Care Nurse 3 [Wound Dressing] #6- L LAT LE INFERIOR -Ulcer Cleansing Rinsed/ Irrigated with Saline -Foul Odor after Cleansing No -Primary Dressing Covered/Secured Dry Gauze & with Roll Gauze #5- L LAT LE SUPERIOR -Ulcer Cleansing Rinsed/ Irrigated with Saline -Foul Odor after Cleansing No -Primary Dressing Covered/Secured Dry Gauze & with Roll Gauze, Secured with Tape #3 L MED ANKLE CLUSTER -Ulcer Cleansing Rinsed/ Irrigated with Saline -Foul Odor after Cleansing No -Primary Dressing Covered/Secured Dry Gauze & with Roll Gauze, Secured with Tape [Compression Applied] Left -Tubular Bandage Double Layer -Size of Tubigrip Used Size D -Size D ($) 0 Pain Scale: 0-10 Numeric [Pain] -Is Patient Pain Free? Yes - Visit Discharge [Visit Discharge Information] -Discharge Condition Stable -Ambulatory Status Ambulatory, Crutches -Transportation Private Auto -Medication Reconcilliation completed Yes & provided to patient/care provider -Clinical Summary of Care Provided Yes Musculoskeletal: No Tenderness to Palpation of Joints or Extremities, Muscle Wasting Neurological: - - Lack of total normal epicritic sensation light touch Debridement Note Post-Debridement Measurements/Treatment WC - Nurse 2 - General Ulcer CM Notes Start: 04/27/20 08:52 Freq: Status: Active Protocol: Activity Type Activity Date Activity User E-Sign Co-Sign Detail Recorded Client Recorded Date Recorded By Document 04/27/20 09:13 [id number] 04/27/20 09:30 Document 05/04/20 11:54 [id number] 05/04/20 12:03 Document 05/11/20 09:42 [id number] 05/11/20 09:50 Document 05/18/20 09:42 [id number] 05/18/20 09:46 Document 05/25/20 09:11 [id number] 05/25/20 09:19 JF 04/27/20 05/04/20 05/11/20 09:13 11:54 09:42 Wound Center Nurse 2 #6- L LAT LE INFERIOR -Time 09:14 11:56 -Correct Patient Yes Yes No -Correct Side, Site, Position Yes Yes No -Correct Procedure Yes Yes No -Procedure Performed Yes Yes No -Type of Procedure Debridement Debridement -Clinical Debridement Subcutaneous Subcutaneous -Tissue Removed Subcutaneous Subcutaneous -Post Debridement (cm) - Length 4.8 1.5 -Post Debridement (cm) - Width 1.8 5 -Post Debridement (cm) - Depth 0.2 0.2 -Total Square (Post) (cm) 8.64 7.5 -Area of Debridement (cm) - Length 4.8 1.5 -Area of Debridement (cm) - Width 1.8 5 -Total Square (Area) (cm) 8.64 7.5 -Tunneling No No -Undermining/Tunneling No No -Circular Undermining No No -Wound/Ulcer Outcome Not Healed Not Healed Not Healed -Ulcer Cleansing Rinsed/ Rinsed/ Irrigated with Irrigated with Saline Saline -Foul Odor after Cleansing No No -Bioengineered Tissue Yes Yes -Type of Bioengineered Tissue Apligraf Apligraf -Expiration Date 05/05/20 -Product Lot Number [id number] -Percent Used 100 -Lot number of Saline Used -Bleeding Controlled with Pressure Pressure -Other [id number] -Offloading No No -Treatment Response Procedure Procedure Tolerated Well Tolerated Well -Debridement - Subq, 1st 20sq cm No No -Apply Skin Sub - 1st 25 sq cm - Legs 1 1 -Apligraf (per sq cm) 44 44 #5- L LAT LE SUPERIOR -Time 09:15 11:57 -Correct Patient Yes Yes No -Correct Side, Site, Position Yes Yes No -Correct Procedure Yes Yes No -Procedure Performed Yes Yes No -Type of Procedure Debridement Debridement -Clinical Debridement Subcutaneous Subcutaneous -Tissue Removed Subcutaneous Subcutaneous -Post Debridement (cm) - Length 1 0.8 -Post Debridement (cm) - Width 0.5 0.3 -Post Debridement (cm) - Depth 0.1 0.1 -Total Square (Post) (cm) 0.5 0.24 -Area of Debridement (cm) - Length 1 0.8 -Area of Debridement (cm) - Width 0.5 0.3 -Total Square (Area) (cm) 0.5 0.24 -Tunneling No No -Undermining/Tunneling No No -Circular Undermining No No -Wound/Ulcer Outcome Not Healed Not Healed Not Healed -Ulcer Cleansing Rinsed/ Rinsed/ Irrigated with Irrigated with Saline Saline -Foul Odor after Cleansing No -Bioengineered Tissue Yes Yes -Type of Bioengineered Tissue Apligraf Apligraf -Expiration Date 03/07/20 -Product Lot Number [id number] -Percent Used 100 -Lot number of Saline Used -Bleeding Controlled with Pressure Pressure -Other saline [id number] -Offloading No No -Treatment Response Procedure Procedure Tolerated Well Tolerated Well -Debridement - Subq, 1st 20sq cm No No -Apply Skin Sub - 1st 25 sq cm - Legs 0 -Apligraf (per sq cm) 0 0 #4 L LAT ANKLE -Correct Patient No -Correct Side, Site, Position No -Correct Procedure No -Procedure Performed No -Post Debridement (cm) - Length 0 -Post Debridement (cm) - Width 0 -Post Debridement (cm) - Depth 0 -Total Square (Post) (cm) 0 -Area of Debridement (cm) - Length 0 -Wound/Ulcer Outcome Healed- Epithelialized #3 L MED ANKLE CLUSTER -Time 09:27 11:59 09:42 -Correct Patient Yes Yes Yes -Correct Side, Site, Position Yes Yes Yes -Correct Procedure Yes Yes Yes -Procedure Performed Yes Yes Yes -Type of Procedure Debridement Debridement Debridement -Clinical Debridement Subcutaneous Subcutaneous Subcutaneous -Tissue Removed Subcutaneous Subcutaneous Subcutaneous -Post Debridement (cm) - Length 4.2 2.1 4.4 -Post Debridement (cm) - Width 2 4.6 2.5 -Post Debridement (cm) - Depth 0.2 0.2 0.1 -Total Square (Post) (cm) 8.4 9.66 11.00 -Area of Debridement (cm) - Length 4.2 2.1 4.4 -Area of Debridement (cm) - Width 2 4.6 2.5 -Total Square (Area) (cm) 8.4 9.66 11.00 -Tunneling No No No -Undermining/Tunneling No No No -Circular Undermining No No No -Wound/Ulcer Outcome Not Healed Not Healed Not Healed -Ulcer Cleansing Rinsed/ Rinsed/ Rinsed/ Irrigated with Irrigated with Irrigated with Saline Saline Saline -Foul Odor after Cleansing No No No -Bioengineered Tissue Yes Yes No -Type of Bioengineered Tissue Apligraf Apligraf -Expiration Date 03/07/20 -Product Lot Number [id number] -Percent Used 100 -Bleeding Controlled with Pressure Pressure -Other saline [id number] -Offloading No No No -Type of Offloading -Treatment Response Procedure Procedure Procedure Tolerated Well Tolerated Well Tolerated Well -Debridement - Subq, 1st 20sq cm No No Yes -Apply Skin Sub - 1st 25 sq cm - Legs 0 -Apply Skin Sub - 1st 25 sq cm - Feet 0 -Apligraf (per sq cm) 0 0 #1- R MED ANKLE CLUSTER -Correct Patient No -Correct Side, Site, Position No -Correct Procedure No -Procedure Performed No -Post Debridement (cm) - Length 0 -Post Debridement (cm) - Width 0 -Post Debridement (cm) - Depth 0 -Total Square (Post) (cm) 0 -Area of Debridement (cm) - Length 0 -Area of Debridement (cm) - Width 0 -Total Square (Area) (cm) 0 -Wound/Ulcer Outcome Healed- Epithelialized Pain Scale: 0-10 Numeric Is Patient Pain Free? Yes Yes Yes 05/18/20 05/25/20 09:42 09:11 Wound Center Nurse 2 #6- L LAT LE INFERIOR -Time 09:42 -Correct Patient Yes No -Correct Side, Site, Position Yes No -Correct Procedure Yes No -Procedure Performed Yes No -Type of Procedure Debridement -Clinical Debridement Subcutaneous -Tissue Removed Subcutaneous -Post Debridement (cm) - Length 4.5 -Post Debridement (cm) - Width 1.6 -Post Debridement (cm) - Depth 0.2 -Total Square (Post) (cm) 7.20 -Area of Debridement (cm) - Length 4.5 -Area of Debridement (cm) - Width 1.6 -Total Square (Area) (cm) 7.20 -Tunneling No -Undermining/Tunneling No -Circular Undermining No -Wound/Ulcer Outcome Not Healed Not Healed -Ulcer Cleansing Rinsed/ Irrigated with Saline -Foul Odor after Cleansing No -Bioengineered Tissue Yes -Type of Bioengineered Tissue Apligraf -Expiration Date 05/24/20 -Product Lot Number [id number] -Percent Used 100 -Lot number of Saline Used [id number] -Bleeding Controlled with Pressure -Other -Offloading No -Treatment Response Procedure Tolerated Well -Debridement - Subq, 1st 20sq cm No -Apply Skin Sub - 1st 25 sq cm - Legs 1 -Apligraf (per sq cm) 44 #5- L LAT LE SUPERIOR -Time 09:43 -Correct Patient Yes No -Correct Side, Site, Position Yes No -Correct Procedure Yes No -Procedure Performed Yes No -Type of Procedure Debridement -Clinical Debridement Subcutaneous -Tissue Removed Subcutaneous -Post Debridement (cm) - Length 0.4 -Post Debridement (cm) - Width 0.4 -Post Debridement (cm) - Depth 0.2 -Total Square (Post) (cm) 0.16 -Area of Debridement (cm) - Length 0.4 -Area of Debridement (cm) - Width 0.4 -Total Square (Area) (cm) 0.16 -Tunneling No -Undermining/Tunneling No -Circular Undermining No -Wound/Ulcer Outcome Not Healed Not Healed -Ulcer Cleansing Rinsed/ Irrigated with Saline -Foul Odor after Cleansing No -Bioengineered Tissue Yes -Type of Bioengineered Tissue Apligraf -Expiration Date 05/24/20 -Product Lot Number [id number] -Percent Used 100 -Lot number of Saline Used [id number] -Bleeding Controlled with Pressure -Other -Offloading No -Treatment Response -Debridement - Subq, 1st 20sq cm No -Apply Skin Sub - 1st 25 sq cm - Legs 0 -Apligraf (per sq cm) 0 #4 L LAT ANKLE -Correct Patient -Correct Side, Site, Position -Correct Procedure -Procedure Performed -Post Debridement (cm) - Length -Post Debridement (cm) - Width -Post Debridement (cm) - Depth -Total Square (Post) (cm) -Area of Debridement (cm) - Length -Wound/Ulcer Outcome #3 L MED ANKLE CLUSTER -Time 09:44 09:12 -Correct Patient Yes Yes -Correct Side, Site, Position Yes Yes -Correct Procedure Yes Yes -Procedure Performed Yes Yes -Type of Procedure Debridement Debridement -Clinical Debridement Subcutaneous Subcutaneous -Tissue Removed Subcutaneous Subcutaneous -Post Debridement (cm) - Length 4.4 4.1 -Post Debridement (cm) - Width 2.3 2.9 -Post Debridement (cm) - Depth 0.1 0.3 -Total Square (Post) (cm) 10.12 11.89 -Area of Debridement (cm) - Length 4.4 4.1 -Area of Debridement (cm) - Width 2.3 2.9 -Total Square (Area) (cm) 10.12 11.89 -Tunneling No No -Undermining/Tunneling No No -Circular Undermining No No -Wound/Ulcer Outcome Not Healed Not Healed -Ulcer Cleansing Rinsed/ Rinsed/ Irrigated with Irrigated with Saline Saline -Foul Odor after Cleansing No No -Bioengineered Tissue No No -Type of Bioengineered Tissue -Expiration Date -Product Lot Number -Percent Used -Bleeding Controlled with Pressure Pressure -Other -Offloading Yes No -Type of Offloading Surgical Shoe -Treatment Response Procedure Procedure Tolerated Well Tolerated Well -Debridement - Subq, 1st 20sq cm Yes Yes -Apply Skin Sub - 1st 25 sq cm - Legs -Apply Skin Sub - 1st 25 sq cm - Feet -Apligraf (per sq cm) #1- R MED ANKLE CLUSTER -Correct Patient -Correct Side, Site, Position -Correct Procedure -Procedure Performed -Post Debridement (cm) - Length -Post Debridement (cm) - Width -Post Debridement (cm) - Depth -Total Square (Post) (cm) -Area of Debridement (cm) - Length -Area of Debridement (cm) - Width -Total Square (Area) (cm) -Wound/Ulcer Outcome Pain Scale: 0-10 Numeric Is Patient Pain Free? Yes Yes WC - Nurse 3 - General Ulcer D/C NN Start: 04/27/20 08:52 Freq: Status: Active Protocol: Activity Type Activity Date Activity User E-Sign Co-Sign Detail Recorded Client Recorded Date Recorded By Document 04/27/20 11:44 DL [id number] 04/27/20 11:46 DL Document 05/04/20 10:50 MT [id number] 05/04/20 10:53 MT Document 05/11/20 09:58 BMF [id number] 05/11/20 09:59 BMF Document 05/18/20 09:24 KR [id number] 05/18/20 09:26 KR Document 05/25/20 09:27 JF [id number] 05/25/20 09:28 JF 04/27/20 05/04/20 05/11/20 11:44 10:50 09:58 Wound Care Nurse 3 #6- L LAT LE INFERIOR -Ulcer Cleansing Wound Cleanser -Foul Odor after Cleansing No -Primary Dressing Applied Aquacel AG 4x4 Other -Other Dressing apligraph -Primary Dressing Covered/Secured with Dry Gauze & Dry Gauze, Dry Gauze & Roll Gauze, Secured with Roll Gauze, Secured with Tape Secured with Tape Tape -Other Covering drsg per santos barlow rn -Aquacel AG 4x4 1 #5- L LAT LE SUPERIOR -Ulcer Cleansing Wound Cleanser -Foul Odor after Cleansing No -Primary Dressing Applied Other -Other Dressing aquacel ag apligraph -Primary Dressing Covered/Secured with Dry Gauze & Dry Gauze & Roll Gauze, Roll Gauze, Secured with Secured with Tape Tape -Other Covering drsg per santos barlow rn #3 L MED ANKLE CLUSTER -Ulcer Cleansing Wound Cleanser -Foul Odor after Cleansing No -Primary Dressing Applied Other -Other Dressing aquacel ag apligraph -Primary Dressing Covered/Secured with Dry Gauze & Dry Gauze & Roll Gauze, Roll Gauze, Secured with Secured with Tape Tape -Other Covering drsg per m cain Left -Tubular Bandage Double Layer -Size of Tubigrip Used Size F Size E -Size D ($) -Size E ($) 1 -Size F ($) 1 Right -Size of Tubigrip Used Size F -Size D ($) 1 Treatment Response Procedure Procedure Tolerated Well Tolerated Well Pain Scale: 0-10 Numeric Is Patient Pain Free? Yes Yes WC - Visit Discharge Discharge Condition Stable Stable Stable Ambulatory Status Ambulatory, Ambulatory Ambulatory, Crutches Crutches Transportation Private Auto Private Auto Medication Reconcilliation completed & No provided to patient/care provider Clinical Summary of Care Provided Yes Notes: stay dry 05/18/20 05/25/20 09:24 09:27 Wound Care Nurse 3 #6- L LAT LE INFERIOR -Ulcer Cleansing Rinsed/ Rinsed/ Irrigated with Irrigated with Saline Saline -Foul Odor after Cleansing No -Primary Dressing Applied -Other Dressing Moist saline -Primary Dressing Covered/Secured with Dry Gauze, Dry Gauze & Secured with Roll Gauze Tape -Other Covering -Aquacel AG 4x4 #5- L LAT LE SUPERIOR -Ulcer Cleansing Rinsed/ Rinsed/ Irrigated with Irrigated with Saline Saline -Foul Odor after Cleansing No No -Primary Dressing Applied -Other Dressing -Primary Dressing Covered/Secured with Dry Gauze, Dry Gauze & Secured with Roll Gauze, Tape Secured with Tape -Other Covering #3 L MED ANKLE CLUSTER -Ulcer Cleansing Rinsed/ Rinsed/ Irrigated with Irrigated with Saline Saline -Foul Odor after Cleansing No No -Primary Dressing Applied -Other Dressing Moist gauze -Primary Dressing Covered/Secured with Dry Gauze, Dry Gauze & Secured with Roll Gauze, Tape Secured with Tape -Other Covering Left -Tubular Bandage Double Layer -Size of Tubigrip Used Size D -Size D ($) 0 -Size E ($) -Size F ($) Right -Size of Tubigrip Used -Size D ($) Treatment Response Pain Scale: 0-10 Numeric Is Patient Pain Free? Yes Yes WC - Visit Discharge Discharge Condition Stable Stable Ambulatory Status Ambulatory Ambulatory, Crutches Transportation Private Auto Private Auto Medication Reconcilliation completed & Yes provided to patient/care provider Clinical Summary of Care Provided Yes Notes: Wound debrided: medial lower leg Laterality: Left Wound Grade/Stage: grade 1 Type of Debridement: Excisional debridement Anesthesia Used: 5% Lidocaine Gel Depth: in the subcutaneous layer Percentage of wound debrided: 100 Instrument Used: #15 blade Tissue Removed: fibrous, devitalized subcutaneous, biofilm, slough Severity: Fat Layer Exposed Amount of bleeding with debridement: Mild Bleeding Controlled with: Pressure Patient tolerated procedure well Assessment/Plan Active Problems Ulcer of right lower extremity with fat layer exposed (Chronic) Ulcer of left lower extremity with fat layer exposed (Chronic) Venous insufficiency (chronic) (peripheral) (Chronic) Type 2 diabetes mellitus with diabetic polyneuropathy (Chronic) Assessment: Ulcer right leg fat layer exposed, multiple--healed. Ulcer fat la steven exposed left, multiple. Lower extremity edema. Venous insufficiency suspected. Peripheral vascular disease suspected. Malnutrition suspected Plan: I reviewed and discussed his case. His etiology, treatment options, and comrehensive plan was discussed in detail. Debridement was performed today as noted in the clinical panel to the medial inferior lower leg ulcer site. To change daily with Dakin. The lateral aspect Apligraf is intact and reapplication will be considered next week with pure applied. Is noted he completed his 5 applications of Apligraf already. Keep clean, dry, and intact. Due to the generalized medial side he was advised to change the medial aspect with Dakin wet-to-dry. To avoid shoes that rub on the site. An offloading hole was cut in the medial aspect of his hightop boot to avoid direct pressure over his lower leg ulcer site. He was advised to keep this clean, dry, and intact until follow-up next week. He tolerated this well. He has comorbidities as noted with his diabetes and delayed healing. He is afebrile. Labs were orderd and reviwiewed (CBC, CMP, and HgA1C). No leukocytosis is noted. His A1C was 6.7%. He was reassured no local infection is noted and I do not recommend antibiotics. Follow-up with primary care physician for diabetes management. Edema control with tubigrip. Venous doppler with reflux examination was recommended and ordered. Non invasive vascular studies were also ordered. No critical limb ishemia is suspected today. He has bilateral triphasic waveforms, right GONZALO of 1.19, left GONZALO 1.24, right toe brachial index of 0.84, and left toe brachial index of 0.87. Vascular referral was completed with Dr. Serna. Additional testing potential intervention is planned. Dr. Serna's notes from 04-06-2020 was reviewed. He was advised to continue with wound care and compression. For his right varicose veins there is a plan for right greater saphenous vein procedures and Varithena ablation branches. Dr. Serna plans to recheck an ultrasound in [place]. For the left varicose veins Gavin is also the same. I recommend compression management with double Tubigrip application, elevation and rest, and routine muscular contraction. I recommended venous Doppler exam with reflux evaluation. Venous incompetence is noted to bilateral lower extremities and I recommend a vein specialist referral. To optimize diet to control glucose levels and to ensure adequete nutrition for healing. Nando nutritional supplement was recommended. His elevated hemoglobin A1c is noted however it is still under 7%. To follow-up with primary care physician. He is making diet and exercise changes at this time. To follow up at the wound healing center in one to 1 week. I answered his questions.
== END 2020-05-26 23:59 ==
LOC: WC 08:45
PROVIDERS: PCP Nurse Practitioner Family; Referring Provider Podiatrist; Visit Provider Podiatrist
DX: E11.621 Type 2 diabetes mellitus with foot ulcer (principal); L97.912 Non-pressure chronic ulcer of unspecified part of right lower leg with fat layer exposed; I87.2 Venous insufficiency (chronic) (peripheral); E11.42 Type 2 diabetes mellitus with diabetic polyneuropathy; R60.0 Localized edema
CPT/HCPCS: 11042; 15271; Q4101

== ENCOUNTER 2020-06-22 09:45 | Outpatient (RCR) | payer OTHER, SELFPAY ==
[2020-05-27 00:13] VITALS: BP 140/83; PULSE 117; RESP 22; TEMP 36.4
[2020-06-01 08:27] VITALS: BP 147/90; PULSE 119; RESP 18; TEMP 36.1
[2020-06-01 08:53] VITALS: BP 145/74
--- NOTE | 2020-06-01 10:18 | PCM.WC.PN ---
(1) Ulcer of left lower extremity with fat layer exposed Status: Chronic Code(s): L97.922 - Non-pressure chronic ulcer of unspecified part of left lower leg with fat layer exposed (2) Other specified peripheral vascular diseases Status: Suspected Code(s): I73.89 - Other specified peripheral vascular diseases (3) Venous insufficiency (chronic) (peripheral) Status: Chronic Code(s): I87.2 - Venous insufficiency (chronic) (peripheral) (4) Bilateral leg edema Status: Chronic Code(s): R60.0 - Localized edema (5) Type 2 diabetes mellitus with diabetic polyneuropathy Status: Chronic Code(s): E11.42 - Type 2 diabetes mellitus with diabetic polyneuropathy Type of Wound Date of Service: 06/01/20 Chief Complaint: Left leg ulcers History of Wound: This 60-year-old male presents to the wound healing clinic today with delayed healing wounds of both lower extremities. He denies fever, chill, nausea, vomiting. He has leg swelling. He has worn Tubigrip compression sleeves. Vascular referral and will follow up for additional testing. He will proceed with intervention in May and did not do this yet. He relates to shoe modification is going well. He has completed a full course of Apligraf application and is amendable to proceed forward with pure applied today. Progress of Wound: Improving - Physical Exam Vital Signs Temp Pulse Resp BP 97 F L 119 H 18 145/74 H 06/01/20 08:27 06/01/20 08:27 06/01/20 08:27 06/01/20 08:53 General: Alert, Oriented x3, Cooperative, No apparent distress Extremities: No cyanosis, Capillary Refill Less than 3 Seconds, No Calf Tenderness, Diminished Peripheral Pulses, Edema Skin: Ulcer/ Wound - No purulence, erythema, streaking, odor, infection. Granular and fibrous base noted. Adjacent skin is hairless and atrophic. Wound Measurements and Assessment WC - Nurse 1 - General Ulcer Measurement Start: 06/01/20 08:27 Freq: Status: Active Protocol: Activity Type Activity Date Activity User E-Sign Co-Sign Detail Recorded Client Recorded Date Recorded By Document 06/01/20 08:27 [facility] [id number] 06/01/20 08:32 [facility] 06/01/20 08:27 Wound Center Nurse 1 [Ulcer Assessment] #6- L LAT LE INFERIOR -Combined with other wound No -Current Size (cm) - Length 0.1 -Current Size (cm) - Width 0.1 -Current Size (cm) - Depth 0.1 -Total Square Cm 0.01 #5- L LAT LE SUPERIOR -Combined with other wound No -Current Size (cm) - Length 0.1 -Current Size (cm) - Width 0.1 -Current Size (cm) - Depth 0.1 -Total Square Cm 0.01 #3 L MED ANKLE CLUSTER -Combined with other wound No -Current Size (cm) - Length 4.2 -Current Size (cm) - Width 2.7 -Current Size (cm) - Depth 0.4 -Total Square Cm 11.34 -Photo Taken No -Epithelialization None Present -Tunneling No -Undermining/Tunneling No -Circular Undermining No -Exudate Amt Medium -Exudate Type Serosanguineous -Wound Margin Thickened -Granulation Amt Medium (34-66%) -Granulation Quality [place] -Slough/Fibrin Yes -Necrosis Amt Medium (34-66%) -Necrotic Tissue Type Adherent Slough -Texture (Isela-wound Skin Appearance) Assessed, Scarring -Moisture (Isela-wound Skin Appearance Assessed,Dry/ ) Scaly -Color (Isela-wound Skin Appearance) Assessed -Temperature (Isela-wound Skin No Abnormality Appearance) (Pt Warm) -Tenderness on Palpation (Isela-wound No Skin Appearance) -Ulcer Cleansing soapy water -Foul Odor after Cleansing No -Anesthetic Used 5% Lidocaine Gel [Edema Assessment] -Lower Limb Edema Present Yes -Left Calf (cm) 45 -Left Ankle (cm) 26.2 WC - Nurse 3 - General Ulcer D/C NN Start: 06/01/20 08:27 Freq: Status: Active Protocol: Activity Type Activity Date Activity User E-Sign Co-Sign Detail Recorded Client Recorded Date Recorded By Document 06/01/20 08:53 RB [id number] 06/01/20 08:56 RB 06/01/20 08:53 Wound Care Nurse 3 [Wound Dressing] #6- L LAT LE INFERIOR -Primary Dressing Covered/Secured Dry Gauze,Dry with Gauze & Roll Gauze,Secured with Tape #5- L LAT LE SUPERIOR -Primary Dressing Covered/Secured Dry Gauze,Dry with Gauze & Roll Gauze,Secured with Tape #3 L MED ANKLE CLUSTER -Primary Dressing Covered/Secured Dry Gauze,Dry with Gauze & Roll Gauze,Secured with Tape [Compression Applied] Left -Tubular Bandage Double Layer -Size of Tubigrip Used Size F -Size F ($) 1 [Post Procedure Tolerated] -Treatment Response Procedure Tolerated Well Vital Signs [Blood Pressure] -Blood Pressure (90/60-120/80) 145/74 H -Blood Pressure Mean (mm Hg) 97 -Source Monitor -Position Semi-Fowlers -Blood Pressure Location Left Arm Pain Scale: 0-10 Numeric [Pain] -Is Patient Pain Free? Yes WC - Visit Discharge [Visit Discharge Information] -Discharge Condition Stable -Ambulatory Status Ambulatory, Crutches -Transportation Private Auto -Medication Reconcilliation completed No & provided to patient/care provider -Clinical Summary of Care Provided Yes Musculoskeletal: No Tenderness to Palpation of Joints or Extremities, Muscle Wasting Neurological: - - Lack of normal epicritic sensation light touch is consistent with neuropathy status Psych/Mental Status: Normal Affect, Appropriate Debridement Note Post-Debridement Measurements/Treatment WC - Nurse 3 - General Ulcer D/C NN Start: 06/01/20 08:27 Freq: Status: Active Protocol: Activity Type Activity Date Activity User E-Sign Co-Sign Detail Recorded Client Recorded Date Recorded By Document 06/01/20 08:53 RB [id number] 06/01/20 08:56 RB 06/01/20 08:53 Wound Care Nurse 3 #6- L LAT LE INFERIOR -Primary Dressing Covered/Secured with Dry Gauze,Dry Gauze & Roll Gauze,Secured with Tape #5- L LAT LE SUPERIOR -Primary Dressing Covered/Secured with Dry Gauze,Dry Gauze & Roll Gauze,Secured with Tape #3 L MED ANKLE CLUSTER -Primary Dressing Covered/Secured with Dry Gauze,Dry Gauze & Roll Gauze,Secured with Tape Left -Tubular Bandage Double Layer -Size of Tubigrip Used Size F -Size F ($) 1 Treatment Response Procedure Tolerated Well Vital Signs Blood Pressure (90/60-120/80) 145/74 H Blood Pressure Mean (mm Hg) 97 Source Monitor Position Semi-Fowlers Blood Pressure Location Left Arm Pain Scale: 0-10 Numeric Is Patient Pain Free? Yes WC - Visit Discharge Discharge Condition Stable Ambulatory Status Ambulatory, Crutches Transportation Private Auto Medication Reconcilliation completed & No provided to patient/care provider Clinical Summary of Care Provided Yes Wound debrided: medial and lateral lower leg Laterality: Left Wound Grade/Stage: grade 1 Type of Debridement: Excisional debridement Anesthesia Used: 5% Lidocaine Gel Depth: in the subcutaneous layer Percentage of wound debrided: 100 Instrument Used: #15 blade Tissue Removed: fibrous, devitalized subcutaneous, biofilm, slough Severity: Fat Layer Exposed Amount of bleeding with debridement: Mild Bleeding Controlled with: Pressure Patient tolerated procedure well Assessment/Plan Active Problems Ulcer of left lower extremity with fat layer exposed (Chronic) Venous insufficiency (chronic) (peripheral) (Chronic) Bilateral leg edema (Chronic) Type 2 diabetes mellitus with diabetic polyneuropathy (Chronic) Assessment: Ulcer fat layer exposed left, multiple. Lower extremity edema. Venous insufficiency suspected. Peripheral vascular disease suspected. Malnutrition suspected Plan: I reviewed and discussed his case. His etiology, treatment options, and comrehensive plan was discussed in detail. Debridement was performed today as noted in the clinical panel to the medial and lateral inferior lower leg ulcer sites. Is noted he completed his 5 applications of Apligraf already. Verbal consent was obtained for application of advanced wound healing product, puraply which is collagen and antimicrobial based. He was advised to keep clean, dry, and intact. He tolerated this well. At previous visit, an offloading hole was cut in the medial aspect of his hightop boot to avoid direct pressure over his lower leg ulcer site. He was advised to keep this clean, dry, and intact until follow-up next week. He tolerated this well. He has comorbidities as noted with his diabetes and delayed healing. He is afebrile. Labs were orderd and reviwiewed (CBC, CMP, and HgA1C). No leukocytosis is noted. His A1C was 6.7%. He was reassured no local infection is noted and I do not recommend antibiotics. Follow-up with primary care physician for diabetes management. Edema control with tubigrip. Venous doppler with reflux examination was recommended and ordered. Non invasive vascular studies were also ordered. No critical limb ishemia is suspected today. He has bilateral triphasic waveforms, right GONZALO of 1.19, left GONZALO 1.24, right toe brachial index of 0.84, and left toe brachial index of 0.87. Vascular referral was completed with Dr. Serna. Additional testing potential intervention is planned. Dr. Serna's notes from 04-06-2020 was reviewed. He was advised to continue with wound care and compression. For his right varicose veins there is a plan for right greater saphenous vein procedures and Varithena ablation branches. Dr. Serna plans to recheck an ultrasound in [place]. For the left varicose veins Gavin is also the same. He has been delaying scheduling this and he was advised to proceed forward so his treatment and healing plan is not compromised. I recommend compression management with double Tubigrip application, elevation and rest, and routine muscular contraction. I recommended venous Doppler exam with reflux evaluation. Venous incompetence is noted to bilateral lower extremities and I recommend a vein specialist referral. To optimize diet to control glucose levels and to ensure adequete nutrition for healing. Nando nutritional supplement was recommended. His elevated hemoglobin A1c is noted however it is still under 7%. To follow-up with primary care physician. He is making diet and exercise changes at this time. To follow up at the wound healing center in one to 1 week. I answered his questions.
[2020-06-08 09:22] VITALS: BP 136/72; PULSE 107; RESP 18; TEMP 36.6
--- NOTE | 2020-06-08 12:24 | PN.PCM_ITS ---
(1) Ulcer of left lower extremity with fat layer exposed Status: Chronic Code(s): L97.922 - Non-pressure chronic ulcer of unspecified part of left lower leg with fat layer exposed (2) Other specified peripheral vascular diseases Status: Suspected Code(s): I73.89 - Other specified peripheral vascular diseases (3) Venous insufficiency (chronic) (peripheral) Status: Chronic Code(s): I87.2 - Venous insufficiency (chronic) (peripheral) (4) Bilateral leg edema Status: Chronic Code(s): R60.0 - Localized edema (5) Type 2 diabetes mellitus with diabetic polyneuropathy Status: Chronic Code(s): E11.42 - Type 2 diabetes mellitus with diabetic polyneuropathy Type of Wound Date of Service: 06/08/20 Chief Complaint: Left leg ulcers History of Wound: This 60-year-old male presents to the wound healing clinic today with delayed healing wounds of both lower extremities. He denies fever, chill, nausea, vomiting. He has leg swelling. He has worn Tubigrip compression sleeves. He was previously provided with a vascular referral and will follow up for additional testing. He had puraply applied last week and kept this intact. His wounds are discolored today and he denies injuries or additional activity. Progress of Wound: worse status - Physical Exam Vital Signs Temp Pulse Resp BP 98 F 107 H 18 136/72 H 06/08/20 09:22 06/08/20 09:22 06/08/20 09:22 06/08/20 09:22 General: Alert, Oriented x3, Cooperative, No apparent distress HEENT: Atraumatic Extremities: No cyanosis, Capillary Refill Less than 3 Seconds, No Calf Tenderness - Compartments are soft to palpate, Diminished Peripheral Pulses, Edema Skin: Ulcer/ Wound - There is no purulence erythema or odor. His skin is atrophic. The ulcer beds have deteriorated with berry discoloration and this is concerning further increase pressure for bacterial contamination Wound Measurements and Assessment WC - Nurse 1 - General Ulcer Measurement Start: 06/01/20 08:27 Freq: Status: Active Protocol: Activity Type Activity Date Activity User E-Sign Co-Sign Detail Recorded Client Recorded Date Recorded By Document 06/08/20 09:22 RB [id number] 06/08/20 09:26 RB 06/08/20 09:22 Wound Center Nurse 1 [Ulcer Assessment] #6- L LAT LE INFERIOR -Combined with other wound No -Current Size (cm) - Length 0.1 -Current Size (cm) - Width 0.1 -Current Size (cm) - Depth 0.1 -Total Square Cm 0.01 -Tunneling No -Undermining/Tunneling No -Circular Undermining No -Exudate Amt None Present -Granulation Amt Large (67-100%) -Granulation Quality [place] -Slough/Fibrin No -Necrosis Amt None Present (0 %) -Structure Exposed N/A -Texture (Isela-wound Skin Appearance) Assessed -Moisture (Isela-wound Skin Appearance Assessed,Dry/ ) Scaly -Color (Isela-wound Skin Appearance) Assessed -Temperature (Isela-wound Skin No Abnormality Appearance) (Pt Warm) -Tenderness on Palpation (Isela-wound No Skin Appearance) -Ulcer Cleansing Wound Cleanser -Foul Odor after Cleansing No -Anesthetic Used 4% Lidocaine Solution #5- L LAT LE SUPERIOR -Combined with other wound No -Current Size (cm) - Length 4.5 -Current Size (cm) - Width 1.5 -Current Size (cm) - Depth 0.3 -Total Square Cm 6.75 -Tunneling No -Undermining/Tunneling No -Circular Undermining No -Exudate Amt Small -Exudate Type Serosanguineous -Wound Margin Thickened & Rolled Under -Granulation Amt Small (1-33%) -Granulation Quality [place] -Slough/Fibrin Yes -Necrosis Amt Large (67-100%) -Necrotic Tissue Type Adherent Slough -Structure Exposed N/A -Texture (Isela-wound Skin Appearance) Assessed, Scarring -Moisture (Isela-wound Skin Appearance Assessed ) -Color (Isela-wound Skin Appearance) Assessed -Temperature (Isela-wound Skin No Abnormality Appearance) (Pt Warm) -Tenderness on Palpation (Isela-wound No Skin Appearance) -Ulcer Cleansing Wound Cleanser -Foul Odor after Cleansing Yes -Anesthetic Used 4% Lidocaine Solution #3 L MED ANKLE CLUSTER -Combined with other wound No -Current Size (cm) - Length 4.5 -Current Size (cm) - Width 3.7 -Current Size (cm) - Depth 0.3 -Total Square Cm 16.65 -Tunneling No -Undermining/Tunneling No -Circular Undermining No -Exudate Amt Medium -Exudate Type Serosanguineous -Wound Margin Thickened & Rolled Under -Granulation Amt None Present (0 %) -Slough/Fibrin Yes -Necrosis Amt Large (67-100%) -Necrotic Tissue Type Eschar -Structure Exposed N/A -Texture (Isela-wound Skin Appearance) Assessed -Moisture (Isela-wound Skin Appearance Dry/Scaly ) -Color (Isela-wound Skin Appearance) Assessed -Temperature (Isela-wound Skin No Abnormality Appearance) (Pt Warm) -Tenderness on Palpation (Isela-wound No Skin Appearance) -Ulcer Cleansing Wound Cleanser -Foul Odor after Cleansing Yes -Anesthetic Used 4% Lidocaine Solution WC - Nurse 2 - General Ulcer CM Notes Start: 06/01/20 08:27 Freq: Status: Active Protocol: Activity Type Activity Date Activity User E-Sign Co-Sign Detail Recorded Client Recorded Date Recorded By Document 06/08/20 09:59 [id number] 06/08/20 10:01 06/08/20 09:59 Wound Center Nurse 2 [Procedure/Treatment] #6- L LAT LE INFERIOR -Time 09:59 -Correct Patient Yes -Correct Side, Site, Position Yes -Correct Procedure Yes -Procedure Performed Yes -Type of Procedure Debridement -Clinical Debridement Subcutaneous -Tissue Removed Subcutaneous -Post Debridement (cm) - Length 0.1 -Post Debridement (cm) - Width 0.1 -Post Debridement (cm) - Depth 0.1 -Total Square (Post) (cm) 0.01 -Area of Debridement (cm) - Length 0.1 -Area of Debridement (cm) - Width 0.1 -Total Square (Area) (cm) 0.01 -Tunneling No -Undermining/Tunneling No -Circular Undermining No -Wound/Ulcer Outcome Not Healed -Ulcer Cleansing Rinsed/ Irrigated with Saline -Foul Odor after Cleansing No -Bioengineered Tissue No -Bleeding Controlled with Pressure -Offloading No -Treatment Response Procedure Tolerated Well -Debridement - Subq, 1st 20sq cm No #5- L LAT LE SUPERIOR -Time 10:00 -Correct Patient Yes -Correct Side, Site, Position Yes -Correct Procedure Yes -Procedure Performed Yes -Type of Procedure Debridement -Clinical Debridement Subcutaneous -Tissue Removed Subcutaneous -Post Debridement (cm) - Length 4.5 -Post Debridement (cm) - Width 1.6 -Post Debridement (cm) - Depth 0.3 -Total Square (Post) (cm) 7.20 -Area of Debridement (cm) - Length 4.5 -Area of Debridement (cm) - Width 1.6 -Total Square (Area) (cm) 7.20 -Tunneling No -Undermining/Tunneling No -Circular Undermining No -Wound/Ulcer Outcome Not Healed -Ulcer Cleansing Rinsed/ Irrigated with Saline -Foul Odor after Cleansing No -Bioengineered Tissue No -Bleeding Controlled with Pressure -Offloading No -Treatment Response Procedure Tolerated Well -Debridement - Subq, 1st 20sq cm Yes -Debridement, SubQ, ea addt'l 20sq cm 1 or part thereof #3 L MED ANKLE CLUSTER -Time 10:00 -Correct Patient Yes -Correct Side, Site, Position Yes -Correct Procedure Yes -Procedure Performed Yes -Type of Procedure Debridement -Clinical Debridement Subcutaneous -Tissue Removed Subcutaneous -Post Debridement (cm) - Length 4.5 -Post Debridement (cm) - Width 3.8 -Post Debridement (cm) - Depth 0.3 -Total Square (Post) (cm) 17.10 -Area of Debridement (cm) - Length 4.5 -Area of Debridement (cm) - Width 3.8 -Total Square (Area) (cm) 17.10 -Tunneling No -Undermining/Tunneling No -Circular Undermining No -Wound/Ulcer Outcome Not Healed -Ulcer Cleansing Rinsed/ Irrigated with Saline -Foul Odor after Cleansing No -Bioengineered Tissue No -Bleeding Controlled with Pressure -Offloading No -Treatment Response Procedure Tolerated Well -Debridement - Subq, 1st 20sq cm No [See Physician Procedure note for Specifics] Pain Scale: 0-10 Numeric [Pain] -Is Patient Pain Free? Yes - Nurse 3 - General Ulcer D/C NN Start: 06/01/20 08:27 Freq: Status: Active Protocol: Activity Type Activity Date Activity User E-Sign Co-Sign Detail Recorded Client Recorded Date Recorded By Document 06/08/20 10:20 LA [id number] 06/08/20 10:21 LA 06/08/20 10:20 Wound Care Nurse 3 [Wound Dressing] #6- L LAT LE INFERIOR -Ulcer Cleansing Rinsed/ Irrigated with Saline -Other Dressing WET TO DRY -Primary Dressing Covered/Secured Dry Gauze, with Secured with Tape #5- L LAT LE SUPERIOR -Ulcer Cleansing Rinsed/ Irrigated with Saline -Other Dressing WET TO DRY -Primary Dressing Covered/Secured Dry Gauze, with Secured with Tape [Compression Applied] Left -Tubular Bandage Double Layer -Size of Tubigrip Used Size D -Size D ($) 2 - Visit Discharge [Visit Discharge Information] -Ambulatory Status Ambulatory, Crutches -Transportation Ambulance -Medication Reconcilliation completed No & provided to patient/care provider -Clinical Summary of Care Provided Yes Musculoskeletal: No Tenderness to Palpation of Joints or Extremities, Muscle Wasting Neurological: - - Lack of normal epicritic sensation light touch Psych/Mental Status: Normal Affect, Appropriate Debridement Note Post-Debridement Measurements/Treatment WC - Nurse 2 - General Ulcer CM Notes Start: 06/01/20 08:27 Freq: Status: Active Protocol: Activity Type Activity Date Activity User E-Sign Co-Sign Detail Recorded Client Recorded Date Recorded By Document 06/01/20 11:37 PL [id number] 06/01/20 11:43 PL Document 06/08/20 09:59 [id number] 06/08/20 10:01 06/01/20 06/08/20 11:37 09:59 Wound Center Nurse 2 #6- L LAT LE INFERIOR -Time 09:59 -Correct Patient Yes -Correct Side, Site, Position Yes -Correct Procedure Yes -Procedure Performed No Yes -Type of Procedure Debridement -Clinical Debridement Subcutaneous -Tissue Removed Subcutaneous -Post Debridement (cm) - Length 0.1 -Post Debridement (cm) - Width 0.1 -Post Debridement (cm) - Depth 0.1 -Total Square (Post) (cm) 0.01 -Area of Debridement (cm) - Length 0.1 -Area of Debridement (cm) - Width 0.1 -Total Square (Area) (cm) 0.01 -Tunneling No -Undermining/Tunneling No -Circular Undermining No -Wound/Ulcer Outcome Healed- Not Healed Epithelialized -Ulcer Cleansing Rinsed/ Irrigated with Saline -Foul Odor after Cleansing No -Bioengineered Tissue No -Bleeding Controlled with Pressure -Offloading No -Treatment Response Procedure Tolerated Well -Debridement - Subq, 1st 20sq cm No #5- L LAT LE SUPERIOR -Time 10:00 -Correct Patient Yes -Correct Side, Site, Position Yes -Correct Procedure Yes -Procedure Performed No Yes -Type of Procedure Debridement -Clinical Debridement Subcutaneous -Tissue Removed Subcutaneous -Post Debridement (cm) - Length 4.5 -Post Debridement (cm) - Width 1.6 -Post Debridement (cm) - Depth 0.3 -Total Square (Post) (cm) 7.20 -Area of Debridement (cm) - Length 4.5 -Area of Debridement (cm) - Width 1.6 -Total Square (Area) (cm) 7.20 -Tunneling No -Undermining/Tunneling No -Circular Undermining No -Wound/Ulcer Outcome Healed- Not Healed Epithelialized -Ulcer Cleansing Rinsed/ Irrigated with Saline -Foul Odor after Cleansing No -Bioengineered Tissue No -Bleeding Controlled with Pressure -Offloading No -Treatment Response Procedure Tolerated Well -Debridement - Subq, 1st 20sq cm Yes -Debridement, SubQ, ea addt'l 20sq cm 1 or part thereof #3 L MED ANKLE CLUSTER -Time 08:35 10:00 -Correct Patient Yes Yes -Correct Side, Site, Position Yes Yes -Correct Procedure Yes Yes -Procedure Performed Yes Yes -Type of Procedure Debridement Debridement -Clinical Debridement Subcutaneous Subcutaneous -Tissue Removed Subcutaneous Subcutaneous -Post Debridement (cm) - Length 4.2 4.5 -Post Debridement (cm) - Width 2.7 3.8 -Post Debridement (cm) - Depth 0.4 0.3 -Total Square (Post) (cm) 11.34 17.10 -Area of Debridement (cm) - Length 4.2 4.5 -Area of Debridement (cm) - Width 2.7 3.8 -Total Square (Area) (cm) 11.34 17.10 -Tunneling No No -Undermining/Tunneling No No -Circular Undermining No No -Wound/Ulcer Outcome Not Healed Not Healed -Ulcer Cleansing Rinsed/ Rinsed/ Irrigated with Irrigated with Saline Saline -Foul Odor after Cleansing No No -Bioengineered Tissue Yes No -Type of Bioengineered Tissue PuraPly AM -Expiration Date 07/27/22 -Product Lot Number [id number] -Percent Used 100 -Lot number of Saline Used [id number] -Bleeding Controlled with Pressure Pressure -Offloading No -Treatment Response Procedure Procedure Tolerated Well Tolerated Well -Debridement - Subq, 1st 20sq cm No No -Apply Skin Sub - 1st 25 sq cm - Legs 1 -PuraPly AM (per sq cm) 54 Pain Scale: 0-10 Numeric Is Patient Pain Free? Yes Yes WC - Nurse 3 - General Ulcer D/C NN Start: 06/01/20 08:27 Freq: Status: Active Protocol: Activity Type Activity Date Activity User E-Sign Co-Sign Detail Recorded Client Recorded Date Recorded By Document 06/01/20 08:53 RB [id number] 06/01/20 08:56 RB Document 06/08/20 10:20 LA [id number] 06/08/20 10:21 LA 06/01/20 06/08/20 08:53 10:20 Wound Care Nurse 3 #6- L LAT LE INFERIOR -Ulcer Cleansing Rinsed/ Irrigated with Saline -Other Dressing WET TO DRY -Primary Dressing Covered/Secured with Dry Gauze,Dry Dry Gauze, Gauze & Roll Secured with Gauze,Secured Tape with Tape #5- L LAT LE SUPERIOR -Ulcer Cleansing Rinsed/ Irrigated with Saline -Other Dressing WET TO DRY -Primary Dressing Covered/Secured with Dry Gauze,Dry Dry Gauze, Gauze & Roll Secured with Gauze,Secured Tape with Tape #3 L MED ANKLE CLUSTER -Primary Dressing Covered/Secured with Dry Gauze,Dry Gauze & Roll Gauze,Secured with Tape Left -Tubular Bandage Double Layer Double Layer -Size of Tubigrip Used Size F Size D -Size D ($) 2 -Size F ($) 1 Treatment Response Procedure Tolerated Well Vital Signs Blood Pressure (90/60-120/80) 145/74 H Blood Pressure Mean (mm Hg) 97 Source Monitor Position Semi-Fowlers Blood Pressure Location Left Arm Pain Scale: 0-10 Numeric Is Patient Pain Free? Yes WC - Visit Discharge Discharge Condition Stable Ambulatory Status Ambulatory, Ambulatory, Crutches Crutches Transportation Private Auto Ambulance Medication Reconcilliation completed & No No provided to patient/care provider Clinical Summary of Care Provided Yes Yes Wound debrided: medial and lateral lower leg Laterality: Left Wound Grade/Stage: grade 1 Type of Debridement: Excisional debridement Anesthesia Used: 5% Lidocaine Gel Depth: in the subcutaneous layer Percentage of wound debrided: 100 Instrument Used: #15 blade Tissue Removed: fibrous, devitalized subcutaneous, biofilm, slough Severity: Fat Layer Exposed Amount of bleeding with debridement: Mild Bleeding Controlled with: Pressure Patient tolerated procedure well Assessment/Plan Active Problems Ulcer of left lower extremity with fat layer exposed (Chronic) Venous insufficiency (chronic) (peripheral) (Chronic) Bilateral leg edema (Chronic) Type 2 diabetes mellitus with diabetic polyneuropathy (Chronic) Assessment: Ulcer fat layer exposed left, multiple. Lower extremity edema. Venous insufficiency suspected. Peripheral vascular disease suspected. Malnutrition suspected Plan: I reviewed and discussed his case. His etiology, treatment options, and comrehensive plan was discussed in detail. Debridement was performed today as noted in the clinical panel to the medial and lateral lower leg ulcer sites. Is noted he completed his 5 applications of Apligraf and one puraply already. He has a status changes with devitalized ulcer beds that are green discoloration and there is concern for early bacterial contamination or increased pressure to the sites. The debridement was performed and I recommend changing this dressing daily with Dakin's wet-to-dry. I do not recommend application of advanced wound healing product today and this will be considered once stabilized. After debridement and saline irrigation, a culture was also obtained for aerobic, anaerobic, and MRSA PCR and the results are pending. He tolerated this well. He has comorbidities as noted with his diabetes and delayed healing. He is afebrile. Labs were orderd and reviwiewed (CBC, CMP, and HgA1C). No leukocytosis is noted. His A1C was 6.7%. He was reassured no local infection is noted and I do not recommend antibiotics. Follow-up with primary care physician for diabete s management. Edema control with tubigrip. Venous doppler with reflux examination was recommended and ordered. Non invasive vascular studies were also ordered. No critical limb ishemia is suspected today. He has bilateral triphasic waveforms, right GNOZALO of 1.19, left GONZALO 1.24, right toe brachial index of 0.84, and left toe brachial index of 0.87. Vascular referral was completed with Dr. Serna. Additional testing potential intervention is planned. Dr. Serna's notes from 04-06-2020 was reviewed. He was advised to continue with wound care and compression. For his right varicose veins there is a plan for right greater saphenous vein procedures and Varithena ablation branches. Dr. Serna plans to recheck an ultrasound in [place]. For the left varicose veins also the same. He has been delaying scheduling this and he was advised to proceed forward so his treatment and healing plan is not compromised. He has been very noncompliant in regards to this and this was reviewed today as this will limit his ability to heal. I recommend compression management with double Tubigrip application, elevation and rest, and routine muscular contraction. I recommended venous Doppler exam with reflux evaluation. Venous incompetence is noted to bilateral lower extremities and I recommend a vein specialist referral. To optimize diet to control glucose levels and to ensure adequete nutrition for healing. Nando nutritional supplement was recommended. His elevated hemoglobin A1c is noted however it is still under 7%. To follow-up with primary care physician. He is making diet and exercise changes at this time. To follow up at the wound healing center in one to 1 week. I answered his questions.
[2020-06-08 16:46] LABS: M R Staph aureus DNA By PCR Negative (Negative); Probe Check PASS; Staph aureus DNA By PCR POSITIVE (Negative)
[2020-06-15 08:54] VITALS: BP 148/89; PULSE 144; RESP 18; TEMP 36.6
--- NOTE | 2020-06-15 09:28 | PN.PCM_ITS ---
(1) Ulcer of left lower extremity with fat layer exposed Status: Chronic Code(s): L97.922 - Non-pressure chronic ulcer of unspecified part of left lower leg with fat layer exposed (2) Other specified peripheral vascular diseases Status: Suspected Code(s): I73.89 - Other specified peripheral vascular diseases (3) Venous insufficiency (chronic) (peripheral) Status: Chronic Code(s): I87.2 - Venous insufficiency (chronic) (peripheral) (4) Bilateral leg edema Status: Chronic Code(s): R60.0 - Localized edema (5) Type 2 diabetes mellitus with diabetic polyneuropathy Status: Chronic Code(s): E11.42 - Type 2 diabetes mellitus with diabetic polyneuropathy (6) Cellulitis of left leg Status: Acute Code(s): L03.116 - Cellulitis of left lower limb (7) Colonization status Status: Acute Code(s): Z22.9 - Carrier of infectious disease, unspecified Type of Wound Date of Service: 06/15/20 Chief Complaint: Left leg ulcers History of Wound: This 60-year-old male presents to the wound healing clinic today with delayed healing wounds of both lower extremities. He denies fever, chill, nausea, vomiting. He has leg swelling. He has worn Tubigrip compression sleeves. He relates he does not salt his food but is relatively unaware of the salt content in the processed foods he is eating. He was previously provided with a vascular referral and will follow up for additional testing. He did call and get this scheduled for July 06 for a follow-up clinical visit and procedure. He is change his dressing daily with Dakin's as advised. He did not start his levofloxacin antibiotic as advised. Progress of Wound: Stabilizing - Physical Exam Vital Signs Temp Pulse Resp BP 98 F 144 H 18 148/89 H 06/15/20 08:54 06/15/20 08:54 06/15/20 08:54 06/15/20 08:54 General: Alert, Oriented x3, Cooperative, No apparent distress HEENT: Atraumatic Extremities: No cyanosis, Capillary Refill Less than 3 Seconds, No Calf Tenderness - Negative Hitesh and Sierra sign left, Diminished Peripheral Pulses, Edema - Increased compared to last week to lateral aspect with new skin tension to the lateral hindfoot without a distinct skin discontinuity Skin: Ulcer/ Wound - No purulence, streaking, erythema, odor. There is significant reduction in devitalized berry ulcer bed with decreased periulcer inflammation. The adjacent skin is hairless and atrophic. There are no deep structures exposed or necrosis Wound Measurements and Assessment WC - Nurse 1 - General Ulcer Measurement Start: 06/01/20 08:27 Freq: Status: Active Protocol: Activity Type Activity Date Activity User E-Sign Co-Sign Detail Recorded Client Recorded Date Recorded By Document 06/15/20 08:54 RB [id number] 06/15/20 09:03 RB 06/15/20 08:54 Wound Center Nurse 1 [Ulcer Assessment] #6- L LAT LE INFERIOR -Combined with other wound No -Current Size (cm) - Length 5 -Current Size (cm) - Width 2 -Current Size (cm) - Depth 0.3 -Total Square Cm 10 -Epithelialization Medium 34-66% -Tunneling No -Undermining/Tunneling No -Circular Undermining No -Exudate Amt Medium -Exudate Type Serosanguineous -Wound Margin Thickened & Rolled Under -Granulation Amt Large (67-100%) -Granulation Quality [place] -Slough/Fibrin Yes -Necrosis Amt Small (1-33%) -Necrotic Tissue Type Adherent Slough -Structure Exposed N/A -Texture (Isela-wound Skin Appearance) Assessed -Moisture (Isela-wound Skin Appearance Dry/Scaly ) -Color (Isela-wound Skin Appearance) Assessed -Temperature (Isela-wound Skin No Abnormality Appearance) (Pt Warm) -Tenderness on Palpation (Isela-wound No Skin Appearance) -Ulcer Cleansing Wound Cleanser -Foul Odor after Cleansing No -Anesthetic Used 4% Lidocaine Solution #5- L LAT LE SUPERIOR -Combined with other wound No -Current Size (cm) - Length 0 -Current Size (cm) - Width 0 -Current Size (cm) - Depth 0 -Total Square Cm 0 -Epithelialization Large 67-100% #3 L MED ANKLE CLUSTER -Combined with other wound No -Current Size (cm) - Length 4.5 -Current Size (cm) - Width 3.2 -Current Size (cm) - Depth 0.3 -Total Square Cm 14.40 -Tunneling No -Undermining/Tunneling No -Circular Undermining No -Exudate Amt Medium -Exudate Type Serosanguineous -Wound Margin Thickened & Rolled Under -Granulation Amt Large (67-100%) -Granulation Quality [place] -Slough/Fibrin Yes -Necrosis Amt Small (1-33%) -Necrotic Tissue Type Adherent Slough -Structure Exposed N/A -Texture (Isela-wound Skin Appearance) Assessed -Moisture (Isela-wound Skin Appearance Dry/Scaly ) -Color ([place]lea-wound Skin Appearance) Assessed -Temperature (Isela-wound Skin No Abnormality Appearance) (Pt Warm) -Tenderness on Palpation (Isela-wound No Skin Appearance) -Ulcer Cleansing Wound Cleanser -Foul Odor after Cleansing No -Anesthetic Used 4% Lidocaine Solution [Edema Assessment] -Lower Limb Edema Present Yes -Left Calf (cm) 43.5 -Left Ankle (cm) 25.8 WC - Nurse 2 - General Ulcer CM Notes Start: 06/01/20 08:27 Freq: Status: Active Protocol: Activity Type Activity Date Activity User E-Sign Co-Sign Detail Recorded Client Recorded Date Recorded By Document 06/15/20 09:13 [id number] 06/15/20 09:21 06/15/20 09:13 Wound Center Nurse 2 [Procedure/Treatment] #6- L LAT LE INFERIOR -Time 09:17 -Correct Patient Yes -Correct Side, Site, Position Yes -Correct Procedure Yes -Procedure Performed Yes -Type of Procedure Debridement -Clinical Debridement Subcutaneous -Tissue Removed Subcutaneous -Post Debridement (cm) - Length 5 -Post Debridement (cm) - Width 2.1 -Post Debridement (cm) - Depth 0.3 -Total Square (Post) (cm) 10.5 -Area of Debridement (cm) - Length 5 -Area of Debridement (cm) - Width 2.1 -Total Square (Area) (cm) 10.5 -Tunneling No -Undermining/Tunneling No -Circular Undermining No -Wound/Ulcer Outcome Not Healed -Ulcer Cleansing Rinsed/ Irrigated with Saline -Foul Odor after Cleansing No -Bioengineered Tissue No -Bleeding Controlled with Pressure -Offloading No -Treatment Response Procedure Tolerated Well -Debridement - Subq, 1st 20sq cm Yes -Debridement, SubQ, ea addt'l 20sq cm 1 or part thereof #5- L LAT LE SUPERIOR -Time 09:17 -Correct Patient No -Correct Side, Site, Position No -Correct Procedure No -Procedure Performed No -Post Debridement (cm) - Length 0 -Post Debridement (cm) - Width 0 -Post Debridement (cm) - Depth 0 -Total Square (Post) (cm) 0 -Area of Debridement (cm) - Length 0 -Area of Debridement (cm) - Width 0 -Total Square (Area) (cm) 0 -Tunneling No -Undermining/Tunneling No -Circular Undermining No -Wound/Ulcer Outcome Healed- Epithelialized -Ulcer Cleansing Rinsed/ Irrigated with Saline -Foul Odor after Cleansing No -Bioengineered Tissue No -Bleeding Controlled with Pressure -Offloading No -Treatment Response Procedure Tolerated Well -Debridement - Subq, 1st 20sq cm No #3 L MED ANKLE CLUSTER -Time 09:20 -Correct Patient Yes -Correct Side, Site, Position Yes -Correct Procedure Yes -Procedure Performed Yes -Type of Procedure Debridement -Clinical Debridement Subcutaneous -Tissue Removed Subcutaneous -Post Debridement (cm) - Length 4.5 -Post Debridement (cm) - Width 3.3 -Post Debridement (cm) - Depth 0.3 -Total Square (Post) (cm) 14.85 -Area of Debridement (cm) - Length 4.5 -Area of Debridement (cm) - Width 3.3 -Total Square (Area) (cm) 14.85 -Tunneling No -Undermining/Tunneling No -Circular Undermining No -Wound/Ulcer Outcome Not Healed -Ulcer Cleansing Rinsed/ Irrigated with Saline -Foul Odor after Cleansing No -Bioengineered Tissue No -Bleeding Controlled with Pressure -Offloading No -Treatment Response Procedure Tolerated Well -Debridement - Subq, 1st 20sq cm No [See Physician Procedure note for Specifics] Pain Scale: 0-10 Numeric [Pain] -Is Patient Pain Free? Yes Musculoskeletal: No Tenderness to Palpation of Joints or Extremities, Muscle Wasting, - - Compartment soft to palpate without bogginess or fluctuance Neurological: - - Lack of full epicritic sensation Psych/Mental Status: Normal Affect, Appropriate Debridement Note Post-Debridement Measurements/Treatment WC - Nurse 2 - General Ulcer CM Notes Start: 06/01/20 08:27 Freq: Status: Active Protocol: Activity Type Activity Date Activity User E-Sign Co-Sign Detail Recorded Client Recorded Date Recorded By Document 06/01/20 11:37 PL [id number] 06/01/20 11:43 PL Document 06/08/20 09:59 JF [id number] 06/08/20 10:01 JF Document 06/15/20 09:13 JF [id number] 06/15/20 09:21 JF 06/01/20 06/08/20 06/15/20 11:37 09:59 09:13 Wound Center Nurse 2 #6- L LAT LE INFERIOR -Time 09:59 09:17 -Correct Patient Yes Yes -Correct Side, Site, Position Yes Yes -Correct Procedure Yes Yes -Procedure Performed No Yes Yes -Type of Procedure Debridement Debridement -Clinical Debridement Subcutaneous Subcutaneous -Tissue Removed Subcutaneous Subcutaneous -Post Debridement (cm) - Length 0.1 5 -Post Debridement (cm) - Width 0.1 2.1 -Post Debridement (cm) - Depth 0.1 0.3 -Total Square (Post) (cm) 0.01 10.5 -Area of Debridement (cm) - Length 0.1 5 -Area of Debridement (cm) - Width 0.1 2.1 -Total Square (Area) (cm) 0.01 10.5 -Tunneling No No -Undermining/Tunneling No No -Circular Undermining No No -Wound/Ulcer Outcome Healed- Not Healed Not Healed Epithelialized -Ulcer Cleansing Rinsed/ Rinsed/ Irrigated with Irrigated with Saline Saline -Foul Odor after Cleansing No No -Bioengineered Tissue No No -Bleeding Controlled with Pressure Pressure -Offloading No No -Treatment Response Procedure Procedure Tolerated Well Tolerated Well -Debridement - Subq, 1st 20sq cm No Yes -Debridement, SubQ, ea addt'l 20sq cm 1 or part thereof #5- L LAT LE SUPERIOR -Time 10:00 09:17 -Correct Patient Yes No -Correct Side, Site, Position Yes No -Correct Procedure Yes No -Procedure Performed No Yes No -Type of Procedure Debridement -Clinical Debridement Subcutaneous -Tissue Removed Subcutaneous -Post Debridement (cm) - Length 4.5 0 -Post Debridement (cm) - Width 1.6 0 -Post Debridement (cm) - Depth 0.3 0 -Total Square (Post) (cm) 7.20 0 -Area of Debridement (cm) - Length 4.5 0 -Area of Debridement (cm) - Width 1.6 0 -Total Square (Area) (cm) 7.20 0 -Tunneling No No -Undermining/Tunneling No No -Circular Undermining No No -Wound/Ulcer Outcome Healed- Not Healed Healed- Epithelialized Epithelialized -Ulcer Cleansing Rinsed/ Rinsed/ Irrigated with Irrigated with Saline Saline -Foul Odor after Cleansing No No -Bioengineered Tissue No No -Bleeding Controlled with Pressure Pressure -Offloading No No -Treatment Response Procedure Procedure Tolerated Well Tolerated Well -Debridement - Subq, 1st 20sq cm Yes No -Debridement, SubQ, ea addt'l 20sq cm 1 or part thereof #3 L MED ANKLE CLUSTER -Time 08:35 10:00 09:20 -Correct Patient Yes Yes Yes -Correct Side, Site, Position Yes Yes Yes -Correct Procedure Yes Yes Yes -Procedure Performed Yes Yes Yes -Type of Procedure Debridement Debridement Debridement -Clinical Debridement Subcutaneous Subcutaneous Subcutaneous -Tissue Removed Subcutaneous Subcutaneous Subcutaneous -Post Debridement (cm) - Length 4.2 4.5 4.5 -Post Debridement (cm) - Width 2.7 3.8 3.3 -Post Debridement (cm) - Depth 0.4 0.3 0.3 -Total Square (Post) (cm) 11.34 17.10 14.85 -Area of Debridement (cm) - Length 4.2 4.5 4.5 -Area of Debridement (cm) - Width 2.7 3.8 3.3 -Total Square (Area) (cm) 11.34 17.10 14.85 -Tunneling No No No -Undermining/Tunneling No No No -Circular Undermining No No No -Wound/Ulcer Outcome Not Healed Not Healed Not Healed -Ulcer Cleansing Rinsed/ Rinsed/ Rinsed/ Irrigated with Irrigated with Irrigated with Saline Saline Saline -Foul Odor after Cleansing No No No -Bioengineered Tissue Yes No No -Type of Bioengineered Tissue PuraPly AM -Expiration Date 07/27/22 -Product Lot Number [id number] -Percent Used 100 -Lot number of Saline Used [id number] -Bleeding Controlled with Pressure Pressure Pressure -Offloading No No -Treatment Response Procedure Procedure Procedure Tolerated Well Tolerated Well Tolerated Well -Debridement - Subq, 1st 20sq cm No No No -Apply Skin Sub - 1st 25 sq cm - Legs 1 -PuraPly AM (per sq cm) 54 Pain Scale: 0-10 Numeric Is Patient Pain Free? Yes Yes Yes WC - Nurse 3 - General Ulcer D/C NN Start: 06/01/20 08:27 Freq: Status: Active Protocol: Activity Type Activity Date Activity User E-Sign Co-Sign Detail Recorded Client Recorded Date Recorded By Document 06/01/20 08:53 [id number] 06/01/20 08:56 Document 06/08/20 10:20 OK [id number] 06/08/20 10:21 OK 06/01/20 06/08/20 08:53 10:20 Wound Care Nurse 3 #6- L LAT LE INFERIOR -Ulcer Cleansing Rinsed/ Irrigated with Saline -Other Dressing WET TO DRY -Primary Dressing Covered/Secured with Dry Gauze,Dry Dry Gauze, Gauze & Roll Secured with Gauze,Secured Tape with Tape #5- L LAT LE SUPERIOR -Ulcer Cleansing Rinsed/ Irrigated with Saline -Other Dressing WET TO DRY -Primary Dressing Covered/Secured with Dry Gauze,Dry Dry Gauze, Gauze & Roll Secured with Gauze,Secured Tape with Tape #3 L MED ANKLE CLUSTER -Primary Dressing Covered/Secured with Dry Gauze,Dry Gauze & Roll Gauze,Secured with Tape Left -Tubular Bandage Double Layer Double Layer -Size of Tubigrip Used Size F Size D -Size D ($) 2 -Size F ($) 1 Treatment Response Procedure Tolerated Well Vital Signs Blood Pressure (90/60-120/80) 145/74 H Blood Pressure Mean (mm Hg) 97 Source Monitor Position Semi-Fowlers Blood Pressure Location Left Arm Pain Scale: 0-10 Numeric Is Patient Pain Free? Yes WC - Visit Discharge Discharge Condition Stable Ambulatory Status Ambulatory, Ambulatory, Crutches Crutches Transportation Private Auto Ambulance Medication Reconcilliation completed & No No provided to patient/care provider Clinical Summary of Care Provided Yes Yes Wound debrided: medial and lateral lower extremity Laterality: Left Wound Grade/Stage: grade 1 Type of Debridement: Excisional debridement Anesthesia Used: 5% Lidocaine Gel Depth: in the subcutaneous layer Percentage of wound debrided: 100 Instrument Used: 5mm curette Tissue Removed: fibrous, devitalized subcutaneous, biofilm, slough Severity: Fat Layer Exposed Amount of bleeding with debridement: Mild Bleeding Controlled with: Pressure Patient tolerated procedure well Assessment/Plan Active Problems Cellulitis of left leg (Acute) Colonization status (Acute) Ulcer of left lower extremity with fat layer exposed (Chronic) Venous insufficiency (chronic) (peripheral) (Chronic) Bilateral leg edema (Chronic) Type 2 diabetes mellitus with diabetic polyneuropathy (Chronic) Assessment: Ulcer fat layer exposed left, medial and lateral. Cellulitis and bacterial colonization is improving but still continued, left. Lower extremity edema. Venous insufficiency. Peripheral vascular disease. Malnutrition suspected. Delayed compliance. Diabetes with neuropathy Plan: I reviewed and discussed his case. His etiology, treatment options, and comrehensive plan was discussed in detail. Debridement was performed today as noted in the clinical panel to the medial and lateral lower leg ulcer sites. To change daily with [employer]. Wash with soap and water with each dressing change. Is noted he completed his 5 applications of Apligraf and one puraply already. He has a status changes with devitalized ulcer beds that are green discoloration and there is concern for early bacterial contamination or increased pressure to the sites. This is improved this past week with Dakin's solution so recommend completing a course of levofloxacin according to culture and sensitivity results from his culture obtained last week. He picked up the antibiotic however did not take it. He was advised to get started. He is afebrile. Labs were orderd and reviwiewed (CBC, CMP, and HgA1C). No leukocytosis is noted. His A1C was 6.7%. Follow-up with primary care physician for diabetes management. Edema control with tubigrip. Venous doppler with reflux examination was recommended and ordered. Non invasive vascular studies were also ordered. No critical limb ishemia is suspected today. He has bilateral triphasic waveforms, right GONZALO of 1.19, left GONZALO 1.24, right toe brachial index of 0.84, and left toe brachial index of 0.87. Vascular referral was completed with Dr. Serna. Additional testing potential intervention is planned. Dr. Serna's notes from 04-06-2020 was reviewed. He was advised to continue with wound care and compression. For his right varicose veins there is a plan for right greater saphenous vein procedures and Varithena ablation branches. Dr. Serna plans to recheck an ultrasound in [place]. For the left varicose veins also the same. He has been delaying scheduling this and he was advised to proceed forward so his treatment and healing plan is not compromised. He did get this scheduled for July 06. I recommend compression management with double Tubigrip application, elevation and rest, and routine muscular contraction. I recommended venous Doppler exam with reflux evaluation. Venous incompetence is noted to bilateral lower extremities and I recommend a vein specialist referral. I recommend hourly elevation and lower extremity muscle contraction to reduce lower extremity edema. To reduce salt intake and to read labels to monitor current salt intake. To optimize diet to control glucose levels and to ensure adequete nutrition for healing. Nando nutritional supplement was recommended. His elevated hemoglobin A1c is noted however it is still under 7%. To follow-up with primary care physician. He is making diet and exercise changes at this time. To follow up at the wound healing center in one to 1 week. I answered his questions.
[2020-06-15 09:34] VITALS: BP 148/88
[2020-06-22 10:07] VITALS: BP 142/74; PULSE 96; RESP 18; TEMP 36.1
--- NOTE | 2020-06-22 23:02 | PN.PCM_ITS ---
(1) Ulcer of left lower extremity with fat layer exposed Status: Chronic Code(s): L97.922 - Non-pressure chronic ulcer of unspecified part of left lower leg with fat layer exposed (2) Other specified peripheral vascular diseases Status: Suspected Code(s): I73.89 - Other specified peripheral vascular diseases (3) Venous insufficiency (chronic) (peripheral) Status: Chronic Code(s): I87.2 - Venous insufficiency (chronic) (peripheral) (4) Bilateral leg edema Status: Chronic Code(s): R60.0 - Localized edema (5) Type 2 diabetes mellitus with diabetic polyneuropathy Status: Chronic Code(s): E11.42 - Type 2 diabetes mellitus with diabetic polyneuropathy (6) Cellulitis of left leg Status: Resolved Code(s): L03.116 - Cellulitis of left lower limb (7) Colonization status Status: Resolved Code(s): Z22.9 - Carrier of infectious disease, unspecified Type of Wound Date of Service: 06/22/20 Chief Complaint: Left leg ulcers History of Wound: This 60-year-old male presents to the wound healing clinic today with delayed healing wounds of both lower extremities. He denies fever, chill, nausea, vomiting. He has leg swelling. He has worn Tubigrip compression sleeves. He relates he does not salt his food but is relatively unaware of the salt content in the processed foods he is eating. He was previously provided with a vascular referral and will follow up for additional testing. He did call and get this scheduled for July 06 and two additional sessions for a follow- up clinical visit and planned vascular procedures. He changed his dressing daily with Dakin's as advised. He is taking levofloxacin without diarrhea or other known side effects. He denies odor or discoloration of the ulcers this past week. Progress of Wound: Stabilizing - Physical Exam Vital Signs Temp Pulse Resp BP 97 F L 96 18 142/74 H 06/22/20 10:07 06/22/20 10:07 06/22/20 10:06/22/20 10:07 General: Alert, Oriented x3, Cooperative, No apparent distress Extremities: No cyanosis, Capillary Refill Less than 3 Seconds, No Calf Tenderness, Diminished Peripheral Pulses, Edema Skin: Ulcer/ Wound - No purulence, erythema, streaking, odor, infection. No necrosis or devitalized ulcer bed noted. The ulcer bed is granular. The adjacent skin is hairless and atrophic Wound Measurements and Assessment WC - Nurse 1 - General Ulcer Measurement Start: 06/01/20 08:27 Freq: Status: Active Protocol: Activity Type Activity Date Activity User E-Sign Co-Sign Detail Recorded Client Recorded Date Recorded By Document 06/22/20 10:07 RB [id number] 06/22/20 10:10 RB 06/22/20 10:07 Wound Center Nurse 1 [Ulcer Assessment] #6- L LAT LE INFERIOR -Combined with other wound No -Current Size (cm) - Length 5.4 -Current Size (cm) - Width 1.6 -Current Size (cm) - Depth 0.3 -Total Square Cm 8.64 -Tunneling No -Undermining/Tunneling No -Circular Undermining No -Exudate Amt Medium -Exudate Type Serosanguineous -Wound Margin Flat & Intact -Granulation Amt Medium (34-66%) -Granulation Quality [place] -Slough/Fibrin Yes -Necrosis Amt Small (1-33%) -Necrotic Tissue Type Adherent Slough -Structure Exposed N/A -Texture (Isela-wound Skin Appearance) Assessed, Scarring -Moisture (Isela-wound Skin Appearance Assessed ) -Color (Isela-wound Skin Appearance) Assessed -Temperature (Isela-wound Skin No Abnormality Appearance) (Pt Warm) -Tenderness on Palpation (Isela-wound No Skin Appearance) -Ulcer Cleansing Wound Cleanser -Foul Odor after Cleansing No -Anesthetic Used 4% Lidocaine Solution #3 L MED ANKLE CLUSTER -Combined with other wound No -Current Size (cm) - Length 4.6 -Current Size (cm) - Width 3.4 -Current Size (cm) - Depth 0.4 -Total Square Cm 15.64 -Tunneling No -Undermining/Tunneling No -Circular Undermining No -Exudate Amt Medium -Exudate Type Serosanguineous -Wound Margin Flat & Intact -Granulation Amt Medium (34-66%) -Granulation Quality [place] -Slough/Fibrin Yes -Necrosis Amt Small (1-33%) -Necrotic Tissue Type Adherent Slough -Structure Exposed N/A -Texture (Isela-wound Skin Appearance) Assessed, Scarring -Moisture (Isela-wound Skin Appearance Assessed ) -Color (Isela-wound Skin Appearance) Assessed -Temperature (Isela-wound Skin No Abnormality Appearance) (Pt Warm) -Tenderness on Palpation (Isela-wound No Skin Appearance) -Ulcer Cleansing Wound Cleanser -Foul Odor after Cleansing No -Anesthetic Used 4% Lidocaine Solution [Edema Assessment] -Lower Limb Edema Present Yes -Left Calf (cm) 43.5 -Left Ankle (cm) 26 WC - Nurse 2 - General Ulcer CM Notes Start: 06/01/20 08:27 Freq: Status: Active Protocol: Activity Type Activity Date Activity User E-Sign Co-Sign Detail Recorded Client Recorded Date Recorded By Document 06/22/20 10:26 WILLIE [id number] 06/22/20 10:31 WILLIE 06/22/20 10:26 Wound Center Nurse 2 [Procedure/Treatment] #6- L LAT LE INFERIOR -Time 10:26 -Correct Patient Yes -Correct Side, Site, Position Yes -Correct Procedure Yes -Procedure Performed Yes -Type of Procedure Debridement -Clinical Debridement Subcutaneous -Tissue Removed Subcutaneous -Post Debridement (cm) - Length 5.5 -Post Debridement (cm) - Width 1.6 -Post Debridement (cm) - Depth 0.3 -Total Square (Post) (cm) 8.80 -Area of Debridement (cm) - Length 5.5 -Area of Debridement (cm) - Width 1.6 -Total Square (Area) (cm) 8.80 -Tunneling No -Undermining/Tunneling No -Circular Undermining No -Wound/Ulcer Outcome Not Healed -Ulcer Cleansing Rinsed/ Irrigated with Saline -Foul Odor after Cleansing No -Bioengineered Tissue No -Bleeding Controlled with Pressure -Offloading No -Treatment Response Procedure Tolerated Well -Debridement - Subq, 1st 20sq cm Yes -Debridement, SubQ, ea addt'l 20sq cm 1 or part thereof #3 L MED ANKLE CLUSTER -Time 10:30 -Correct Patient Yes -Correct Side, Site, Position Yes -Correct Procedure Yes -Procedure Performed Yes -Type of Procedure Debridement -Clinical Debridement Subcutaneous -Tissue Removed Subcutaneous -Post Debridement (cm) - Length 4.6 -Post Debridement (cm) - Width 3.5 -Post Debridement (cm) - Depth 0.4 -Total Square (Post) (cm) 16.10 -Area of Debridement (cm) - Length 4.6 -Area of Debridement (cm) - Width 3.5 -Total Square (Area) (cm) 16.10 -Tunneling No -Undermining/Tunneling No -Circular Undermining No -Wound/Ulcer Outcome Not Healed -Ulcer Cleansing Rinsed/ Irrigated with Saline -Foul Odor after Cleansing No -Bioengineered Tissue No -Bleeding Controlled with Pressure -Offloading No -Treatment Response Procedure Tolerated Well -Debridement - Subq, 1st 20sq cm No [See Physician Procedure note for Specifics] Pain Scale: 0-10 Numeric [Pain] -Is Patient Pain Free? Yes - Nurse 3 - General Ulcer D/C NN Start: 06/01/20 08:27 Freq: Status: Active Protocol: Activity Type Activity Date Activity User E-Sign Co-Sign Detail Recorded Client Recorded Date Recorded By Document 06/22/20 10:47 DL [id number] 06/22/20 10:50 DL 06/22/20 10:47 Wound Care Nurse 3 [Wound Dressing] #6- L LAT LE INFERIOR -Ulcer Cleansing Rinsed/ Irrigated with Saline -Foul Odor after Cleansing No -Primary Dressing Applied Silvercel -Primary Dressing Covered/Secured Secured with with Tape -Silvercel 1 #3 L MED ANKLE CLUSTER -Ulcer Cleansing Rinsed/ Irrigated with Saline -Foul Odor after Cleansing No -Other Dressing silvercell -Primary Dressing Covered/Secured Dry Gauze & with Roll Gauze, Secured with Tape [Compression Applied] Left -Tubular Bandage Double Layer -Size of Tubigrip Used Size E -Size E ($) 2 Pain Scale: 0-10 Numeric [Pain] -Is Patient Pain Free? Yes - Visit Discharge [Visit Discharge Information] -Discharge Condition Stable -Ambulatory Status Ambulatory, Crutches -Transportation Private Auto Musculoskeletal: Muscle Wasting, - - No bogginess or fluctuance. Compartments are soft Neurological: - - Lack of normal epicritic sensation light touch is consistent with his neuropathy status Psych/Mental Status: Normal Affect, Appropriate Debridement Note Post-Debridement Measurements/Treatment WC - Nurse 2 - General Ulcer CM Notes Start: 06/01/20 08:27 Freq: Status: Active Protocol: Activity Type Activity Date Activity User E-Sign Co-Sign Detail Recorded Client Recorded Date Recorded By Document 06/01/20 11:37 PL [id number] 06/01/20 11:43 PL Document 06/08/20 09:59 JF [id number] 06/08/20 10:01 JF Document 06/15/20 09:13 JF [id number] 06/15/20 09:21 JF Document 06/22/20 10:26 [id number] 06/22/20 10:31 JF 06/01/20 06/08/20 06/15/20 11:37 09:59 09:13 Wound Center Nurse 2 #6- L LAT LE INFERIOR -Time 09:59 09:17 -Correct Patient Yes Yes -Correct Side, Site, Position Yes Yes -Correct Procedure Yes Yes -Procedure Performed No Yes Yes -Type of Procedure Debridement Debridement -Clinical Debridement Subcutaneous Subcutaneous -Tissue Removed Subcutaneous Subcutaneous -Post Debridement (cm) - Length 0.1 5 -Post Debridement (cm) - Width 0.1 2.1 -Post Debridement (cm) - Depth 0.1 0.3 -Total Square (Post) (cm) 0.01 10.5 -Area of Debridement (cm) - Length 0.1 5 -Area of Debridement (cm) - Width 0.1 2.1 -Total Square (Area) (cm) 0.01 10.5 -Tunneling No No -Undermining/Tunneling No No -Circular Undermining No No -Wound/Ulcer Outcome Healed- Not Healed Not Healed Epithelialized -Ulcer Cleansing Rinsed/ Rinsed/ Irrigated with Irrigated with Saline Saline -Foul Odor after Cleansing No No -Bioengineered Tissue No No -Bleeding Controlled with Pressure Pressure -Offloading No No -Treatment Response Procedure Procedure Tolerated Well Tolerated Well -Debridement - Subq, 1st 20sq cm No Yes -Debridement, SubQ, ea addt'l 20sq cm 1 or part thereof #5- L LAT LE SUPERIOR -Time 10:00 09:17 -Correct Patient Yes No -Correct Side, Site, Position Yes No -Correct Procedure Yes No -Procedure Performed No Yes No -Type of Procedure Debridement -Clinical Debridement Subcutaneous -Tissue Removed Subcutaneous -Post Debridement (cm) - Length 4.5 0 -Post Debridement (cm) - Width 1.6 0 -Post Debridement (cm) - Depth 0.3 0 -Total Square (Post) (cm) 7.20 0 -Area of Debridement (cm) - Length 4.5 0 -Area of Debridement (cm) - Width 1.6 0 -Total Square (Area) (cm) 7.20 0 -Tunneling No No -Undermining/Tunneling No No -Circular Undermining No No -Wound/Ulcer Outcome Healed- Not Healed Healed- Epithelialized Epithelialized -Ulcer Cleansing Rinsed/ Rinsed/ Irrigated with Irrigated with Saline Saline -Foul Odor after Cleansing No No -Bioengineered Tissue No No -Bleeding Controlled with Pressure Pressure -Offloading No No -Treatment Response Procedure Procedure Tolerated Well Tolerated Well -Debridement - Subq, 1st 20sq cm Yes No -Debridement, SubQ, ea addt'l 20sq cm 1 or part thereof #3 L MED ANKLE CLUSTER -Time 08:35 10:00 09:20 -Correct Patient Yes Yes Yes -Correct Side, Site, Position Yes Yes Yes -Correct Procedure Yes Yes Yes -Procedure Performed Yes Yes Yes -Type of Procedure Debridement Debridement Debridement -Clinical Debridement Subcutaneous Subcutaneous Subcutaneous -Tissue Removed Subcutaneous Subcutaneous Subcutaneous -Post Debridement (cm) - Length 4.2 4.5 4.5 -Post Debridement (cm) - Width 2.7 3.8 3.3 -Post Debridement (cm) - Depth 0.4 0.3 0.3 -Total Square (Post) (cm) 11.34 17.10 14.85 -Area of Debridement (cm) - Length 4.2 4.5 4.5 -Area of Debridement (cm) - Width 2.7 3.8 3.3 -Total Square (Area) (cm) 11.34 17.10 14.85 -Tunneling No No No -Undermining/Tunneling No No No -Circular Undermining No No No -Wound/Ulcer Outcome Not Healed Not Healed Not Healed -Ulcer Cleansing Rinsed/ Rinsed/ Rinsed/ Irrigated with Irrigated with Irrigated with Saline Saline Saline -Foul Odor after Cleansing No No No -Bioengineered Tissue Yes No No -Type of Bioengineered Tissue PuraPly AM -Expiration Date 07/27/22 -Product Lot Number [id number] -Percent Used 100 -Lot number of Saline Used [id number] -Bleeding Controlled with Pressure Pressure Pressure -Offloading No No -Treatment Response Procedure Procedure Procedure Tolerated Well Tolerated Well Tolerated Well -Debridement - Subq, 1st 20sq cm No No No -Apply Skin Sub - 1st 25 sq cm - Legs 1 -PuraPly AM (per sq cm) 54 Pain Scale: 0-10 Numeric Is Patient Pain Free? Yes Yes Yes 06/22/20 10:26 Wound Center Nurse 2 #6- L LAT LE INFERIOR -Time 10:26 -Correct Patient Yes -Correct Side, Site, Position Yes -Correct Procedure Yes -Procedure Performed Yes -Type of Procedure Debridement -Clinical Debridement Subcutaneous -Tissue Removed Subcutaneous -Post Debridement (cm) - Length 5.5 -Post Debridement (cm) - Width 1.6 -Post Debridement (cm) - Depth 0.3 -Total Square (Post) (cm) 8.80 -Area of Debridement (cm) - Length 5.5 -Area of Debridement (cm) - Width 1.6 -Total Square (Area) (cm) 8.80 -Tunneling No -Undermining/Tunneling No -Circular Undermining No -Wound/Ulcer Outcome Not Healed -Ulcer Cleansing Rinsed/ Irrigated with Saline -Foul Odor after Cleansing No -Bioengineered Tissue No -Bleeding Controlled with Pressure -Offloading No -Treatment Response Procedure Tolerated Well -Debridement - Subq, 1st 20sq cm Yes -Debridement, SubQ, ea addt'l 20sq cm 1 or part thereof #5- L LAT LE SUPERIOR -Time -Correct Patient -Correct Side, Site, Position -Correct Procedure -Procedure Performed -Type of Procedure -Clinical Debridement -Tissue Removed -Post Debridement (cm) - Length -Post Debridement (cm) - Width -Post Debridement (cm) - Depth -Total Square (Post) (cm) -Area of Debridement (cm) - Length -Area of Debridement (cm) - Width -Total Square (Area) (cm) -Tunneling -Undermining/Tunneling -Circular Undermining -Wound/Ulcer Outcome -Ulcer Cleansing -Foul Odor after Cleansing -Bioengineered Tissue -Bleeding Controlled with -Offloading -Treatment Response -Debridement - Subq, 1st 20sq cm -Debridement, SubQ, ea addt'l 20sq cm or part thereof #3 L MED ANKLE CLUSTER -Time 10:30 -Correct Patient Yes -Correct Side, Site, Position Yes -Correct Procedure Yes -Procedure Performed Yes -Type of Procedure Debridement -Clinical Debridement Subcutaneous -Tissue Removed Subcutaneous -Post Debridement (cm) - Length 4.6 -Post Debridement (cm) - Width 3.5 -Post Debridement (cm) - Depth 0.4 -Total Square (Post) (cm) 16.10 -Area of Debridement (cm) - Length 4.6 -Area of Debridement (cm) - Width 3.5 -Total Square (Area) (cm) 16.10 -Tunneling No -Undermining/Tunneling No -Circular Undermining No -Wound/Ulcer Outcome Not Healed -Ulcer Cleansing Rinsed/ Irrigated with Saline -Foul Odor after Cleansing No -Bioengineered Tissue No -Type of Bioengineered Tissue -Expiration Date -Product Lot Number -Percent Used -Lot number of Saline Used -Bleeding Controlled with Pressure -Offloading No -Treatment Response Procedure Tolerated Well -Debridement - Subq, 1st 20sq cm No -Apply Skin Sub - 1st 25 sq cm - Legs -PuraPly AM (per sq cm) Pain Scale: 0-10 Numeric Is Patient Pain Free? Yes WC - Nurse 3 - General Ulcer D/C NN Start: 06/01/20 08:27 Freq: Status: Active Protocol: Activity Type Activity Date Activity User E-Sign Co-Sign Detail Recorded Client Recorded Date Recorded By Document 06/01/20 08:53 RB [id number] 06/01/20 08:56 RB Document 06/08/20 10:20 MT [id number] 06/08/20 10:21 MT Document 06/15/20 09:34 RB [id number] 06/15/20 09:36 RB Document 06/22/20 10:47 DL [id number] 06/22/20 10:50 DL 06/01/20 06/08/20 06/15/20 08:53 10:20 09:34 Wound Care Nurse 3 #6- L LAT LE INFERIOR -Ulcer Cleansing Rinsed/ Rinsed/ Irrigated with Irrigated with Saline Saline -Foul Odor after Cleansing -Primary Dressing Applied Silvercel -Other Dressing WET TO DRY -Primary Dressing Covered/Secured with Dry Gauze,Dry Dry Gauze, Dry Gauze,Dry Gauze & Roll Secured with Gauze & Roll Gauze,Secured Tape Gauze,Secured with Tape with Tape -Silvercel 1 #5- L LAT LE SUPERIOR -Ulcer Cleansing Rinsed/ Irrigated with Saline -Other Dressing WET TO DRY -Primary Dressing Covered/Secured with Dry Gauze,Dry Dry Gauze, Gauze & Roll Secured with Gauze,Secured Tape with Tape #3 L MED ANKLE CLUSTER -Ulcer Cleansing Rinsed/ Irrigated with Saline -Foul Odor after Cleansing -Other Dressing SILVERCEL -Primary Dressing Covered/Secured with Dry Gauze,Dry Dry Gauze,Dry Gauze & Roll Gauze & Roll Gauze,Secured Gauze,Secured with Tape with Tape Left -Tubular Bandage Double Layer Double Layer Double Layer -Size of Tubigrip Used Size F Size D Size E -Size D ($) 2 -Size E ($) 1 -Size F ($) 1 Treatment Response Procedure Tolerated Well Vital Signs Blood Pressure (90/60-120/80) 145/74 H 148/88 H Blood Pressure Mean (mm Hg) 97 108 Source Monitor Monitor Position Semi-Fowlers Semi-Fowlers Blood Pressure Location Left Arm Left Arm Pain Scale: 0-10 Numeric Is Patient Pain Free? Yes Yes WC - Visit Discharge Discharge Condition Stable Stable Ambulatory Status Ambulatory, Ambulatory, Ambulatory, Crutches Crutches Crutches Transportation Private Auto Ambulance Private Auto Medication Reconcilliation completed & No No No provided to patient/care provider Clinical Summary of Care Provided Yes Yes Yes 06/22/20 10:47 Wound Care Nurse 3 #6- L LAT LE INFERIOR -Ulcer Cleansing Rinsed/ Irrigated with Saline -Foul Odor after Cleansing No -Primary Dressing Applied Silvercel -Other Dressing -Primary Dressing Covered/Secured with Secured with Tape -Silvercel 1 #5- L LAT LE SUPERIOR -Ulcer Cleansing -Other Dressing -Primary Dressing Covered/Secured with #3 L MED ANKLE CLUSTER -Ulcer Cleansing Rinsed/ Irrigated with Saline -Foul Odor after Cleansing No -Other Dressing silvercell -Primary Dressing Covered/Secured with Dry Gauze & Roll Gauze, Secured with Tape Left -Tubular Bandage Double Layer -Size of Tubigrip Used Size E -Size D ($) -Size E ($) 2 -Size F ($) Treatment Response Vital Signs Blood Pressure (90/60-120/80) Blood Pressure Mean (mm Hg) Source Position Blood Pressure Location Pain Scale: 0-10 Numeric Is Patient Pain Free? Yes WC - Visit Discharge Discharge Condition Stable Ambulatory Status Ambulatory, Crutches Transportation Private Auto Medication Reconcilliation completed & provided to patient/care provider Clinical Summary of Care Provided Wound debrided: medial and lateral leg Laterality: Left Wound Grade/Stage: grade 1 Type of Debridement: Excisional debridement Anesthesia Used: 5% Lidocaine Gel Depth: in the subcutaneous layer Percentage of wound debrided: 100 Instrument Used: #15 blade Tissue Removed: fibrous, devitalized subcutaneous, biofilm, slough Severity: Fat Layer Exposed Amount of bleeding with debridement: Mild Bleeding Controlled with: Pressure Patient tolerated procedure well Assessment/Plan Active Problems Ulcer of left lower extremity with fat layer exposed (Chronic) Venous insufficiency (chronic) (peripheral) (Chronic) Bilateral leg edema (Chronic) Type 2 diabetes mellitus with diabetic polyneuropathy (Chronic) Assessment: Ulcer fat layer exposed left, medial and lateral. Cellulitis and bacterial colonization is improving, left. Lower extremity edema. Venous insufficiency. Peripheral vascular disease. Malnutrition suspected. Delayed compliance. Diabetes with neuropathy Plan: I reviewed and discussed his case. His etiology, treatment options, and comrehensive plan was discussed in detail. Debridement was performed today as noted in the clinical panel to the medial and lateral lower leg ulcer sites. To change daily with Capricor Ag. He was advised to continue to wash with soap and water with each dressing change. Is noted he completed his 5 applications of Apligraf and one puraply already. Labs were orderd and reviwiewed (CBC, CMP, and HgA1C). No leukocytosis is noted. His A1C was 6.7%. Follow-up with primary care physician for diabetes management. Edema control with tubigrip. Venous doppler with reflux examination was recommended and ordered. Non invasive vascular studies were also ordered. No critical limb ishemia is suspected today. He has bilateral triphasic waveforms, right GONZALO of 1.19, left GONZALO 1.24, right toe brachial index of 0.84, and left toe brachial index of 0.87. Vascular referral was completed with Dr. Serna. Additional testing potential intervention is planned. Dr. Serna's notes from 04-06-2020 was reviewed. He was advised to continue with wound care and compression. For his right varicose veins there is a plan for right greater saphenous vein procedures and Varithena ablation branches. Dr. Serna plans to recheck an ultrasound in [place]. For the left varicose veins also the same. He did get this scheduled for July 06 and two other sessions as well. I recommend compression management with double Tubigrip application, elevation and rest, and routine muscular contraction. To reduce salt intake and to read labels to monitor current salt intake. To optimize diet to control glucose levels and to ensure adequete nutrition for healing. Nando nutritional supplement was recommended. His elevated hemoglobin A1c is noted however it is still under 7%. To follow-up with primary care physician. He is making diet and exercise changes at this time. To follow up at the wound healing center in one to 1 week. I answered his questions.
== END 2020-06-26 23:59 ==
LOC: WC 09:45
PROVIDERS: PCP Nurse Practitioner Family; Referring Provider Podiatrist; Visit Provider Podiatrist
DX: E11.621 Type 2 diabetes mellitus with foot ulcer (principal); L97.922 Non-pressure chronic ulcer of unspecified part of left lower leg with fat layer exposed; E11.51 Type 2 diabetes mellitus with diabetic peripheral angiopathy without gangrene; E11.42 Type 2 diabetes mellitus with diabetic polyneuropathy; I87.2 Venous insufficiency (chronic) (peripheral); L03.116 Cellulitis of left lower limb; Z22.9 Carrier of infectious disease, unspecified; R60.0 Localized edema
CPT/HCPCS: 11042; 11045; 15271; 15275; 87070; 87075; 87077; 87186; 87205; 87640; Q4196

== ENCOUNTER 2020-07-06 08:30 | Outpatient (RCR) | payer OTHER, SELFPAY ==
[2020-06-27 00:15] VITALS: BP 142/74; PULSE 96; RESP 18; TEMP 36.1
[2020-06-29 08:40] VITALS: BP 127/58; PULSE 113; RESP 16; TEMP 36.2
--- NOTE | 2020-06-29 09:19 | PN.PCM_ITS ---
(1) Ulcer of left lower extremity with fat layer exposed Status: Chronic Code(s): L97.922 - Non-pressure chronic ulcer of unspecified part of left lower leg with fat layer exposed (2) Other specified peripheral vascular diseases Status: Suspected Code(s): I73.89 - Other specified peripheral vascular diseases (3) Venous insufficiency (chronic) (peripheral) Status: Chronic Code(s): I87.2 - Venous insufficiency (chronic) (peripheral) (4) Bilateral leg edema Status: Chronic Code(s): R60.0 - Localized edema (5) Type 2 diabetes mellitus with diabetic polyneuropathy Status: Chronic Code(s): E11.42 - Type 2 diabetes mellitus with diabetic polyneuropathy (6) Malnutrition Status: Chronic Code(s): E46 - Unspecified protein-calorie malnutrition Type of Wound Date of Service: 06/29/20 Chief Complaint: Left leg ulcers History of Wound: This 60-year-old male presents to the wound healing clinic today with delayed healing wounds of both lower extremities. He denies fever, chill, nausea, vomiting. He has leg swelling. He has worn Tubigrip compression sleeves. He was previously provided with a vascular referral and will follow up for additional testing. He did call and get this scheduled for July 06 and two additional sessions for a follow-up clinical visit and planned vascular procedures. He changed his dressing daily with Dakin's as advised. He denies odor or discoloration of the ulcers this past week. When offered a nutrition referral he relates he has already received some education material on this through his primary care provider. He would like to proceed forward through that program and defers a referral today. He does not routinely check his glucose levels nor is he able to describe what he does to monitor his diet. Progress of Wound: Stable - Physical Exam Vital Signs Temp Pulse Resp BP 97.2 F L 113 H 16 127/58 H 06/29/20 08:40 06/29/20 08:40 06/29/20 08:40 06/29/20 08:40 General: Alert, Oriented x3, Cooperative, No apparent distress Extremities: No cyanosis, Capillary Refill Less than 3 Seconds, No Calf Tenderness, Diminished Peripheral Pulses, Edema Skin: Ulcer/ Wound - No purulence, erythema, streaking, odor, infection. The ulcer is granular and fibrous. He does not have any eschar necrosis or periulcer inflammation. The adjacent skin is hairless and atrophic Wound Measurements and Assessment WC - Nurse 1 - General Ulcer Measurement Start: 06/29/20 08:39 Freq: Status: Active Protocol: Activity Type Activity Date Activity User E-Sign Co-Sign Detail Recorded Client Recorded Date Recorded By Document 06/29/20 08:40 WILLIE [id number] 06/29/20 08:48 WILLIE 06/29/20 08:40 Wound Center Nurse 1 [Ulcer Assessment] #6- L LAT LE INFERIOR -Combined with other wound No -Current Size (cm) - Length 4.6 -Current Size (cm) - Width 1.7 -Current Size (cm) - Depth 0.2 -Total Square Cm 7.82 -Photo Taken No -Epithelialization Small 1-33% -Tunneling No -Undermining/Tunneling No -Circular Undermining No -Exudate Amt Large -Exudate Type Sanguineous -Wound Margin Flat & Intact -Granulation Amt Large (67-100%) -Granulation Quality Pillow -Slough/Fibrin Yes -Necrosis Amt Large (67-100%) -Necrotic Tissue Type Adherent Slough -Structure Exposed N/A -Texture (Isela-wound Skin Appearance) Assessed, Localized Edema -Moisture (Isela-wound Skin Appearance Assessed,Dry/ ) Scaly -Color (Isela-wound Skin Appearance) Assessed -Temperature (Isela-wound Skin No Abnormality Appearance) (Pt Warm) -Tenderness on Palpation (Isela-wound No Skin Appearance) -Ulcer Cleansing Wound Cleanser -Foul Odor after Cleansing No -Anesthetic Used 4% Lidocaine Solution #3 L MED ANKLE CLUSTER -Combined with other wound No -Current Size (cm) - Length 5 -Current Size (cm) - Width 3.4 -Current Size (cm) - Depth 0.3 -Total Square Cm 17.0 -Photo Taken No -Epithelialization Small 1-33% -Tunneling No -Undermining/Tunneling No -Circular Undermining No -Exudate Amt Medium -Exudate Type Serosanguineous -Wound Margin Flat & Intact -Granulation Amt Medium (34-66%) -Granulation Quality Pillow -Slough/Fibrin Yes -Necrosis Amt Large (67-100%) -Necrotic Tissue Type Adherent Slough -Structure Exposed N/A -Texture (Isela-wound Skin Appearance) Assessed, Localized Edema -Moisture (Isela-wound Skin Appearance Assessed ) -Color (Isela-wound Skin Appearance) Assessed, Hemosiderin Staining -Temperature (Isela-wound Skin No Abnormality Appearance) (Pt Warm) -Tenderness on Palpation (Isela-wound No Skin Appearance) -Ulcer Cleansing Wound Cleanser -Foul Odor after Cleansing No -Anesthetic Used 4% Lidocaine Solution [Edema Assessment] -Lower Limb Edema Present Yes -Left Calf (cm) 41.3 -Left Ankle (cm) 25.5 WC - Nurse 2 - General Ulcer CM Notes Start: 06/29/20 08:39 Freq: Status: Active Protocol: Activity Type Activity Date Activity User E-Sign Co-Sign Detail Recorded Client Recorded Date Recorded By Document 06/29/20 08:54 WILLIE [id number] 06/29/20 08:58 WILLIE 06/29/20 08:54 Wound Center Nurse 2 [Procedure/Treatment] #6- L LAT LE INFERIOR -Time 08:56 -Correct Patient Yes -Correct Side, Site, Position Yes -Correct Procedure Yes -Procedure Performed Yes -Type of Procedure Debridement -Clinical Debridement Subcutaneous -Tissue Removed Subcutaneous -Post Debridement (cm) - Length 4.6 -Post Debridement (cm) - Width 1.8 -Post Debridement (cm) - Depth 0.2 -Total Square (Post) (cm) 8.28 -Area of Debridement (cm) - Length 4.6 -Area of Debridement (cm) - Width 1.8 -Total Square (Area) (cm) 8.28 -Tunneling No -Undermining/Tunneling No -Circular Undermining No -Wound/Ulcer Outcome Not Healed -Ulcer Cleansing Rinsed/ Irrigated with Saline -Foul Odor after Cleansing No -Bioengineered Tissue No -Bleeding Controlled with Pressure -Offloading No -Treatment Response Procedure Tolerated Well -Debridement - Subq, 1st 20sq cm Yes -Debridement, SubQ, ea addt'l 20sq cm 1 or part thereof #3 L MED ANKLE CLUSTER -Time 08:57 -Correct Patient Yes -Correct Side, Site, Position Yes -Correct Procedure Yes -Procedure Performed Yes -Type of Procedure Debridement -Clinical Debridement Subcutaneous -Tissue Removed Subcutaneous -Post Debridement (cm) - Length 5 -Post Debridement (cm) - Width 3.5 -Post Debridement (cm) - Depth 0.3 -Total Square (Post) (cm) 17.5 -Area of Debridement (cm) - Length 5 -Area of Debridement (cm) - Width 3.5 -Total Square (Area) (cm) 17.5 -Tunneling No -Undermining/Tunneling No -Circular Undermining No -Wound/Ulcer Outcome Not Healed -Ulcer Cleansing Rinsed/ Irrigated with Saline -Foul Odor after Cleansing No -Bioengineered Tissue No -Bleeding Controlled with Pressure -Offloading No -Treatment Response Procedure Tolerated Well -Debridement - Subq, 1st 20sq cm No [See Physician Procedure note for Specifics] Pain Scale: 0-10 Numeric [Pain] -Is Patient Pain Free? Yes Musculoskeletal: No Tenderness to Palpation of Joints or Extremities, Muscle Wasting Neurological: - - Lack of normal epicritic sensation Psych/Mental Status: Normal Affect, Appropriate Debridement Note Post-Debridement Measurements/Treatment WC - Nurse 2 - General Ulcer CM Notes Start: 06/29/20 08:39 Freq: Status: Active Protocol: Activity Type Activity Date Activity User E-Sign Co-Sign Detail Recorded Client Recorded Date Recorded By Document 06/29/20 08:54 WILLIE [id number] 06/29/20 08:58 WILLIE 06/29/20 08:54 Wound Center Nurse 2 #6- L LAT LE INFERIOR -Time 08:56 -Correct Patient Yes -Correct Side, Site, Position Yes -Correct Procedure Yes -Procedure Performed Yes -Type of Procedure Debridement -Clinical Debridement Subcutaneous -Tissue Removed Subcutaneous -Post Debridement (cm) - Length 4.6 -Post Debridement (cm) - Width 1.8 -Post Debridement (cm) - Depth 0.2 -Total Square (Post) (cm) 8.28 -Area of Debridement (cm) - Length 4.6 -Area of Debridement (cm) - Width 1.8 -Total Square (Area) (cm) 8.28 -Tunneling No -Undermining/Tunneling No -Circular Undermining No -Wound/Ulcer Outcome Not Healed -Ulcer Cleansing Rinsed/ Irrigated with Saline -Foul Odor after Cleansing No -Bioengineered Tissue No -Bleeding Controlled with Pressure -Offloading No -Treatment Response Procedure Tolerated Well -Debridement - Subq, 1st 20sq cm Yes -Debridement, SubQ, ea addt'l 20sq cm 1 or part thereof #3 L MED ANKLE CLUSTER -Time 08:57 -Correct Patient Yes -Correct Side, Site, Position Yes -Correct Procedure Yes -Procedure Performed Yes -Type of Procedure Debridement -Clinical Debridement Subcutaneous -Tissue Removed Subcutaneous -Post Debridement (cm) - Length 5 -Post Debridement (cm) - Width 3.5 -Post Debridement (cm) - Depth 0.3 -Total Square (Post) (cm) 17.5 -Area of Debridement (cm) - Length 5 -Area of Debridement (cm) - Width 3.5 -Total Square (Area) (cm) 17.5 -Tunneling No -Undermining/Tunneling No -Circular Undermining No -Wound/Ulcer Outcome Not Healed -Ulcer Cleansing Rinsed/ Irrigated with Saline -Foul Odor after Cleansing No -Bioengineered Tissue No -Bleeding Controlled with Pressure -Offloading No -Treatment Response Procedure Tolerated Well -Debridement - Subq, 1st 20sq cm No Pain Scale: 0-10 Numeric Is Patient Pain Free? Yes Wound debrided: medial and lateral lower leg Laterality: Left Wound Grade/Stage: grade 1 Type of Debridement: Excisional debridement Anesthesia Used: 5% Lidocaine Gel Depth: in the subcutaneous layer Percentage of wound debrided: 100 Instrument Used: #15 blade Tissue Removed: fibrous, devitalized subcutaneous, biofilm, slough Severity: Fat Layer Exposed Amount of bleeding with debridement: Mild Bleeding Controlled with: Pressure Patient tolerated procedure well Assessment/Plan Active Problems Malnutrition (Chronic) Ulcer of left lower extremity with fat layer exposed (Chronic) Venous insufficiency (chronic) (peripheral) (Chronic) Bilateral leg edema (Chronic) Type 2 diabetes mellitus with diabetic polyneuropathy (Chronic) Assessment: Ulcer fat layer exposed left, medial and lateral. Cellulitis and bacterial colonization has resolved, left. Lower extremity edema. Venous in sufficiency. Peripheral vascular disease. Malnutrition suspected. Delayed compliance. Diabetes with neuropathy Plan: I reviewed and discussed his case. His etiology, treatment options, and comprehensive plan was discussed in detail. Debridement was performed today as noted in the clinical panel to the medial and lateral lower leg ulcer sites. To change daily with [employer]. He was advised to continue to wash with soap and water with each dressing change. It is noted he completed his 5 applications of Apligraf and one puraply already. Labs were orderd and reviwiewed (CBC, CMP, and HgA1C). No leukocytosis is noted. His A1C was 6.7%. Follow-up with primary care physician for diabetes management. Edema control with tubigrip. Venous doppler with reflux examination was recommended and ordered. Non invasive vascular studies were also ordered. No critical limb ishemia is suspected today. He has bilateral triphasic waveforms, right GONZALO of 1.19, left GONZALO 1.24, right toe brachial index of 0.84, and left toe brachial index of 0.87. Vascular referral was completed with Dr. Serna. Additional testing potential intervention is planned. Dr. Serna's notes from 04-06-2020 was reviewed. He was advised to continue with wound care and compression. For his right varicose veins there is a plan for right greater saphenous vein procedures and Varithena ablation branches. Dr. Serna plans to recheck an ultrasound in [place]. For the left varicose veins also the same. He did get this scheduled for July 06 and two other sessions as well. I recommend compression management with double Tubigrip application, elevation and rest, and routine muscular contraction. To reduce salt intake and to read labels to monitor current salt intake. To optimize diet to control glucose levels and to ensure adequete nutrition for healing. Nando nutritional supplement was recommended. His elevated hemoglobin A1c is noted however it is still under 7%. I recommended a nutrition referral with additional coaching to help him make better food choices to optimize his left some of his other comorbidities. He defers at this time and would like to follow-up with his primary care provider in which she will follow-up within the next 2 weeks. To follow up at the wound healing center in one to 1 week. I answered his questions.
[2020-07-06 08:48] VITALS: BP 128/69; PULSE 135; RESP 22; TEMP 36.1
[2020-07-06 09:02] VITALS: BP 130/72
--- NOTE | 2020-07-06 10:52 | PCM.WC.PN ---
(1) Ulcer of left lower extremity with fat layer exposed Status: Chronic Code(s): L97.922 - Non-pressure chronic ulcer of unspecified part of left lower leg with fat layer exposed (2) Other specified peripheral vascular diseases Status: Suspected Code(s): I73.89 - Other specified peripheral vascular diseases (3) Venous insufficiency (chronic) (peripheral) Status: Chronic Code(s): I87.2 - Venous insufficiency (chronic) (peripheral) (4) Bilateral leg edema Status: Chronic Code(s): R60.0 - Localized edema (5) Type 2 diabetes mellitus with diabetic polyneuropathy Status: Chronic Code(s): E11.42 - Type 2 diabetes mellitus with diabetic polyneuropathy (6) Malnutrition Status: Chronic Code(s): E46 - Unspecified protein-calorie malnutrition Type of Wound Date of Service: 07/06/20 Chief Complaint: Left leg ulcers History of Wound: This 60-year-old male presents to the wound healing clinic today with delayed healing wounds of both lower extremities. He denies fever, chill, nausea, vomiting. He has leg swelling. He has worn Tubigrip compression sleeves. He was previously provided with a vascular referral and will follow up for additional testing and procedures today. He did call and get this scheduled for July 06 and two additional sessions for a follow-up clinical visit and planned vascular procedures. He changed his dressing daily with Aquacel Ag as advised. He denies odor or discoloration of the ulcers this past week. When offered a nutrition referral he relates he has already received some education material on this through his primary care provider. He would like to proceed forward through that program and defers a referral today. He does not routinely check his glucose levels nor is he able to describe what he does to monitor his diet. It is noted he has a follow-up with his primary care provider and also cardiology this afternoon prior to his vascular intervention. Progress of Wound: Stable - Physical Exam Vital Signs Temp Pulse Resp BP 97 F L 135 H 22 H 130/72 H 07/06/20 08:48 07/06/20 08:48 07/06/20 08:48 07/06/20 09:02 General: Alert, Oriented x3, Cooperative, No apparent distress Extremities: No cyanosis, Capillary Refill Less than 3 Seconds, No Calf Tenderness, Diminished Peripheral Pulses, Edema Skin: Ulcer/ Wound - No purulence, erythema, streak, odor, infection. The ulcer beds are granular and fibrous. Adjacent skin is hairless and atrophic Wound Measurements and Assessment WC - Nurse 1 - General Ulcer Measurement Start: 06/29/20 08:39 Freq: Status: Active Protocol: Activity Type Activity Date Activity User E-Sign Co-Sign Detail Recorded Client Recorded Date Recorded By Document 07/06/20 08:48 DL [id number] 07/06/20 08:53 DL 07/06/20 08:48 Wound Center Nurse 1 [Ulcer Assessment] #6- L LAT LE INFERIOR -Current Size (cm) - Length 5.3 -Current Size (cm) - Width 1.6 -Current Size (cm) - Depth 0.2 -Total Square Cm 8.48 -Photo Taken No -Exudate Amt Medium -Exudate Type Serosanguineous -Wound Margin Distinct, Outline Attached -Granulation Amt Small (1-33%) -Granulation Quality [place] -Necrosis Amt Large (67-100%) -Necrotic Tissue Type Adherent Slough -Structure Exposed N/A -Texture (Isela-wound Skin Appearance) Scarring -Moisture (Isela-wound Skin Appearance Dry/Scaly ) -Color (Isela-wound Skin Appearance) Hemosiderin Staining -Temperature (Isela-wound Skin No Abnormality Appearance) (Pt Warm) -Tenderness on Palpation (Isela-wound No Skin Appearance) -Ulcer Cleansing Wound Cleanser -Foul Odor after Cleansing No -Anesthetic Used 4% Lidocaine Solution #3 L MED ANKLE CLUSTER -Current Size (cm) - Length 4.7 -Current Size (cm) - Width 3.3 -Current Size (cm) - Depth 0.3 -Total Square Cm 15.51 -Photo Taken No -Exudate Amt Medium -Exudate Type Serosanguineous -Wound Margin Distinct, Outline Attached -Granulation Amt Small (1-33%) -Granulation Quality [place] -Necrosis Amt Large (67-100%) -Necrotic Tissue Type Adherent Slough -Structure Exposed N/A -Texture (Isela-wound Skin Appearance) Scarring -Moisture (Isela-wound Skin Appearance Dry/Scaly ) -Color (Isela-wound Skin Appearance) Hemosiderin Staining -Temperature (Isela-wound Skin No Abnormality Appearance) (Pt Warm) -Tenderness on Palpation (Isela-wound No Skin Appearance) -Ulcer Cleansing Wound Cleanser -Foul Odor after Cleansing No -Anesthetic Used 4% Lidocaine Solution [Edema Assessment] -Left Calf (cm) 42 -Left Ankle (cm) 26 WC - Nurse 2 - General Ulcer CM Notes Start: 06/29/20 08:39 Freq: Status: Active Protocol: Activity Type Activity Date Activity User E-Sign Co-Sign Detail Recorded Client Recorded Date Recorded By Document 07/06/20 08:55 WILLIE [id number] 07/06/20 08:59 WILLIE 07/06/20 08:55 Wound Center Nurse 2 [Procedure/Treatment] #6- L LAT LE INFERIOR -Time 08:58 -Correct Patient Yes -Correct Side, Site, Position Yes -Correct Procedure Yes -Procedure Performed Yes -Type of Procedure Debridement -Clinical Debridement Subcutaneous -Tissue Removed Subcutaneous -Post Debridement (cm) - Length 5.3 -Post Debridement (cm) - Width 1.7 -Post Debridement (cm) - Depth 0.2 -Total Square (Post) (cm) 9.01 -Area of Debridement (cm) - Length 5.3 -Area of Debridement (cm) - Width 1.7 -Total Square (Area) (cm) 9.01 -Tunneling No -Undermining/Tunneling No -Circular Undermining No -Wound/Ulcer Outcome Not Healed -Ulcer Cleansing Rinsed/ Irrigated with Saline -Foul Odor after Cleansing No -Bioengineered Tissue No -Bleeding Controlled with Pressure -Offloading No -Treatment Response Procedure Tolerated Well -Debridement - Subq, 1st 20sq cm No #3 L MED ANKLE CLUSTER -Time 08:57 -Correct Patient Yes -Correct Side, Site, Position Yes -Correct Procedure Yes -Procedure Performed Yes -Type of Procedure Debridement -Clinical Debridement Subcutaneous -Tissue Removed Subcutaneous -Post Debridement (cm) - Length 4.8 -Post Debridement (cm) - Width 3.3 -Post Debridement (cm) - Depth 0.3 -Total Square (Post) (cm) 15.84 -Area of Debridement (cm) - Length 4.8 -Area of Debridement (cm) - Width 3.3 -Total Square (Area) (cm) 15.84 -Tunneling No -Undermining/Tunneling No -Circular Undermining No -Wound/Ulcer Outcome Not Healed -Ulcer Cleansing Rinsed/ Irrigated with Saline -Foul Odor after Cleansing No -Bioengineered Tissue No -Bleeding Controlled with Pressure -Offloading No -Treatment Response Procedure Tolerated Well -Debridement - Subq, 1st 20sq cm Yes -Debridement, SubQ, ea addt'l 20sq cm 1 or part thereof [See Physician Procedure note for Specifics] Pain Scale: 0-10 Numeric [Pain] -Is Patient Pain Free? Yes - Nurse 3 - General Ulcer D/C NN Start: 06/29/20 08:39 Freq: Status: Active Protocol: Activity Type Activity Date Activity User E-Sign Co-Sign Detail Recorded Client Recorded Date Recorded By Document 07/06/20 09:02 RB [id number] 07/06/20 09:03 RB 07/06/20 09:02 Wound Care Nurse 3 [Wound Dressing] #6- L LAT LE INFERIOR -Ulcer Cleansing Rinsed/ Irrigated with Saline -Primary Dressing Applied Aquacel AG 4x4 -Primary Dressing Covered/Secured Dry Gauze, with Secured with Tape -Aquacel AG 4x4 1 #3 L MED ANKLE CLUSTER -Ulcer Cleansing Wound Cleanser -Other Dressing aquacel ag -Primary Dressing Covered/Secured Dry Gauze, with Secured with Tape [Compression Applied] Left -Other double layer tubigrip Vital Signs [Blood Pressure] -Blood Pressure (90/60-120/80) 130/72 H -Blood Pressure Mean (mm Hg) 91 -Source Monitor -Position Sitting -Blood Pressure Location Right Arm Pain Scale: 0-10 Numeric [Pain] -Is Patient Pain Free? Yes Teaching: Wound Center [Wound Center Education] (Items with an * have Printed Materials Available- Please identify what is given to patient under the Teaching materials given to patient and caregiver Section. Dressing Your Wound -Person Taught Patient -Teaching Method Discussion, Demonstration -Response to teaching Verbalize understanding - Visit Discharge [Visit Discharge Information] -Discharge Condition Stable -Ambulatory Status Ambulatory, Crutches -Transportation Private Auto -Medication Reconcilliation completed No & provided to patient/care provider -Clinical Summary of Care Provided Yes Musculoskeletal: No Tenderness to Palpation of Joints or Extremities, Muscle Wasting Neurological: - - Lack of normal epicritic sensation light touch is consistent with neuropathy status Psych/Mental Status: Normal Affect, Appropriate Debridement Note Post-Debridement Measurements/Treatment - Nurse 2 - General Ulcer CM Notes Start: 06/29/20 08:39 Freq: Status: Active Protocol: Activity Type Activity Date Activity User E-Sign Co-Sign Detail Recorded Client Recorded Date Recorded By Document 06/29/20 08:54 WILLIE [id number] 06/29/20 08:58 JF Document 07/06/20 08:55 JF [id number] 07/06/20 08:59 JF 06/29/20 07/06/20 08:54 08:55 Wound Center Nurse 2 #6- L LAT LE INFERIOR -Time 08:56 08:58 -Correct Patient Yes Yes -Correct Side, Site, Position Yes Yes -Correct Procedure Yes Yes -Procedure Performed Yes Yes -Type of Procedure Debridement Debridement -Clinical Debridement Subcutaneous Subcutaneous -Tissue Removed Subcutaneous Subcutaneous -Post Debridement (cm) - Length 4.6 5.3 -Post Debridement (cm) - Width 1.8 1.7 -Post Debridement (cm) - Depth 0.2 0.2 -Total Square (Post) (cm) 8.28 9.01 -Area of Debridement (cm) - Length 4.6 5.3 -Area of Debridement (cm) - Width 1.8 1.7 -Total Square (Area) (cm) 8.28 9.01 -Tunneling No No -Undermining/Tunneling No No -Circular Undermining No No -Wound/Ulcer Outcome Not Healed Not Healed -Ulcer Cleansing Rinsed/ Rinsed/ Irrigated with Irrigated with Saline Saline -Foul Odor after Cleansing No No -Bioengineered Tissue No No -Bleeding Controlled with Pressure Pressure -Offloading No No -Treatment Response Procedure Procedure Tolerated Well Tolerated Well -Debridement - Subq, 1st 20sq cm Yes No -Debridement, SubQ, ea addt'l 20sq cm 1 or part thereof #3 L MED ANKLE CLUSTER -Time 08:57 08:57 -Correct Patient Yes Yes -Correct Side, Site, Position Yes Yes -Correct Procedure Yes Yes -Procedure Performed Yes Yes -Type of Procedure Debridement Debridement -Clinical Debridement Subcutaneous Subcutaneous -Tissue Removed Subcutaneous Subcutaneous -Post Debridement (cm) - Length 5 4.8 -Post Debridement (cm) - Width 3.5 3.3 -Post Debridement (cm) - Depth 0.3 0.3 -Total Square (Post) (cm) 17.5 15.84 -Area of Debridement (cm) - Length 5 4.8 -Area of Debridement (cm) - Width 3.5 3.3 -Total Square (Area) (cm) 17.5 15.84 -Tunneling No No -Undermining/Tunneling No No -Circular Undermining No No -Wound/Ulcer Outcome Not Healed Not Healed -Ulcer Cleansing Rinsed/ Rinsed/ Irrigated with Irrigated with Saline Saline -Foul Odor after Cleansing No No -Bioengineered Tissue No No -Bleeding Controlled with Pressure Pressure -Offloading No No -Treatment Response Procedure Procedure Tolerated Well Tolerated Well -Debridement - Subq, 1st 20sq cm No Yes -Debridement, SubQ, ea addt'l 20sq cm 1 or part thereof Pain Scale: 0-10 Numeric Is Patient Pain Free? Yes Yes WC - Nurse 3 - General Ulcer D/C NN Start: 06/29/20 08:39 Freq: Status: Active Protocol: Activity Type Activity Date Activity User E-Sign Co-Sign Detail Recorded Client Recorded Date Recorded By Document 06/29/20 09:18 DL [id number] 06/29/20 09:23 DL Document 07/06/20 09:02 RB [id number] 07/06/20 09:03 RB 06/29/20 07/06/20 09:18 09:02 Wound Care Nurse 3 #6- L LAT LE INFERIOR -Ulcer Cleansing Wound Cleanser Rinsed/ Irrigated with Saline -Foul Odor after Cleansing No -Primary Dressing Applied Aquacel AG 4x4 Aquacel AG 4x4 -Primary Dressing Covered/Secured with Dry Gauze, Dry Gauze, Secured with Secured with Tape Tape -Aquacel AG 4x4 1 1 #3 L MED ANKLE CLUSTER -Ulcer Cleansing Wound Cleanser Wound Cleanser -Foul Odor after Cleansing No -Other Dressing aqaucel ag aquacel ag -Primary Dressing Covered/Secured with Dry Gauze, Dry Gauze, Secured with Secured with Tape Tape Left -Tubular Bandage Double Layer -Size of Tubigrip Used Size E -Size E ($) 2 -Other double layer tubigrip Treatment Response Procedure Tolerated Well Vital Signs Blood Pressure (90/60-120/80) 130/72 H Blood Pressure Mean (mm Hg) 91 Source Monitor Position Sitting Blood Pressure Location Right Arm Pain Scale: 0-10 Numeric Is Patient Pain Free? Yes Yes Teaching: Wound Center Dressing Your Wound -Person Taught Patient -Teaching Method Discussion, Demonstration -Response to teaching Verbalize understanding WC - Visit Discharge Discharge Condition Stable Stable Ambulatory Status Ambulatory Ambulatory, Crutches Transportation Private Auto Private Auto Medication Reconcilliation completed & No provided to patient/care provider Clinical Summary of Care Provided Yes Wound debrided: medial and lateral lower leg Laterality: Left Wound Grade/Stage: grade 1 Type of Debridement: Excisional debridement Anesthesia Used: 5% Lidocaine Gel Depth: in the subcutaneous layer Percentage of wound debrided: 100 Instrument Used: #15 blade Tissue Removed: fibrous, devitalized subcutaneous, biofilm, slough Severity: Fat Layer Exposed Amount of bleeding with debridement: Mild Bleeding Controlled with: Pressure Patient tolerated procedure well Assessment/Plan Active Problems Malnutrition (Chronic) Ulcer of left lower extremity with fat layer exposed (Chronic) Venous insufficiency (chronic) (peripheral) (Chronic) Bilateral leg edema (Chronic) Type 2 diabetes mellitus with diabetic polyneuropathy (Chronic) Assessment: Ulcer fat layer exposed left, medial and lateral. Cellulitis and bacterial colonization has resolved, left. Lower extremity edema. Venous insufficiency. Peripheral vascular disease. Malnutrition suspected. Delayed compliance. Diabetes with neuropathy Plan: I reviewed and discussed his case. His etiology, treatment options, and comprehensive plan was discussed in detail. Debridement was performed today as noted in the clinical panel to the medial and lateral lower leg ulcer sites. To change daily with Pharmly Ag. He was advised to continue to wash with soap and water with each dressing change. It is noted he completed his 5 applications of Apligraf and one puraply already. Labs were orderd and reviwiewed (CBC, CMP, and HgA1C). No leukocytosis is noted. His A1C was 6.7%. Follow-up with primary care physician for diabetes management this afternoon and cardiology as well. Edema control with tubigrip. Venous doppler with reflux examination was recommended and ordered. He is scheduled for intervention this afternoon as well. Non invasive vascular studies were also ordered. No critical limb ishemia is suspected today. He has bilateral triphasic waveforms, right GONZALO of 1.19, left GONZALO 1.24, right toe brachial index of 0.84, and left toe brachial index of 0.87. Vascular referral was completed with Dr. Serna. Additional testing potential intervention is planned. Dr. Serna's notes from 04-06-2020 was reviewed. He was advised to continue with wound care and compression. For his right varicose veins there is a plan for right greater saphenous vein procedures and Varithena ablation branches. Dr. Serna plans to recheck an ultrasound in [place]. For the left varicose veins also the same. He did get this scheduled for July 06 and two other sessions as well. I recommend compression management with double Tubigrip application, elevation and rest, and routine muscular contraction. To reduce salt intake and to read labels to monitor current salt intake. To optimize diet to control glucose levels and to ensure adequete nutrition for healing. Nando nutritional supplement was recommended. His elevated hemoglobin A1c is noted however it is still under 7%. I recommended a nutrition referral with additional coaching to help him make better food choices to optimize his left some of his other comorbidities. To follow up at the wound healing center in one to 1 week. I answered his questions.
== END 2020-07-24 23:59 ==
LOC: WC 08:30
PROVIDERS: PCP Nurse Practitioner Family; Referring Provider Podiatrist; Visit Provider Podiatrist
DX: E11.622 Type 2 diabetes mellitus with other skin ulcer (principal); L97.822 Non-pressure chronic ulcer of other part of left lower leg with fat layer exposed; R60.0 Localized edema; I87.2 Venous insufficiency (chronic) (peripheral); E11.51 Type 2 diabetes mellitus with diabetic peripheral angiopathy without gangrene; E11.40 Type 2 diabetes mellitus with diabetic neuropathy, unspecified
CPT/HCPCS: 11042; 11045